=== PATIENT | female | born 1980 | race Caucasian/White ===

== ENCOUNTER 2020-05-14 16:23 | Emergency (ER) | payer OTHER, SELFPAY ==
--- NOTE | ~2020-05-14 | CT_ITS ---
EXAMINATION: CT HEAD WITHOUT CONTRAST CLINICAL INFORMATION: New onset of seizure COMPARISON: MRI brain 05/02/2009. CT head 10/02/2006 TECHNIQUE: Contiguous axial imaging was performed from the skull base to vertex without intravenous administration of contrast. Coronal and sagittal reformatted images are performed at the CT scanner. [This CT examination was performed using dose optimization techniques as appropriate, variously including the following: *Automated exposure control *Adjustment of mA and/or kV according to patient size (this includes techniques or standardized protocols for targeted exams where dose is matched to indication/reason for exam; i.e. extremities or head) *Use of iterative reconstruction technique] DLP: 768 mGy-cm. FINDINGS: There is no evidence of acute intracranial hemorrhage or territorial infarction. No abnormal mass-effect or midline shift is seen. Noel to white matter differentiation is well preserved. No extra-axial fluid collections are identified. The ventricles are normal in size. There is no abnormal attenuation within the brain parenchyma. There is no osseous abnormality. Large retention cyst in the right maxillary sinus. The mastoid air cells and the middle ear cavities are normally aerated. CT/CT head/brain wo con IMPRESSION: No acute intracranial pathology.
--- NOTE | 2020-05-14 15:53 | ECG_ITS ---
Test Reason : SIZURE Blood Pressure : / mmHG Vent. Rate : 140 BPM Atrial Rate : 140 BPM P-R Int : 118 ms QRS Dur : 070 ms QT Int : 300 ms P-R-T Axes : 052 055 033 degrees QTc Int : 458 ms Sinus tachycardia Nonspecific ST abnormality Abnormal ECG When compared with ECG of 01-NOV-2018 10:41, Vent. rate has increased BY [address] and T wave abnormality now present Referred By: Hesham Goyal Electronically Signed By:SONAM MASON
--- NOTE | 2020-05-14 16:29 | ED.GENADULT ---
HPI - General Adult General Chief complaint: Seizure <Kaykay Kay NP - Last Filed: 05/14/20 16:41> Stated complaint: DYSTONIC REACTION <Kaykay Kay NP - Last Filed: 05/14/20 16:41> Time Seen by Provider: 05/14/20 16:29 <Kaykay Kay NP - Last Filed: 05/14/20 16:41> Source: family <Hesham Goyal MD - Last Filed: 05/14/20 17:19> Mode of arrival: wheelchair <Hesham Goyal MD - Last Filed: 05/14/20 17:19> Limitations: altered mental status <Hesham Goyal MD - Last Filed: 05/14/20 17:19> Related Data Allergies/adverse reactions: Allergies Allergy/AdvReac Type Severity Reaction Status Date / Time acetaminophen [From PERCOCET] Allergy Mild NAUSEA & Unverified 12/26/19 15:03 VOMITING oxycodone [From PERCOCET] Allergy Mild NAUSEA & Unverified 12/26/19 15:03 VOMITING <Kaykay Kay NP - Last Filed: 05/14/20 16:41> [facility] Past Medical History Medical History: Medical History (Updated 05/14/20 @ 16:56 by Meryl Solo) Back pain <Kaykay Kay NP - Last Filed: 05/14/20 16:41> Social History Social History: Social History Advance Directives: No Advance Directives Information Provided: No <Kaykay Kay NP - Last Filed: 05/14/20 16:41> Physical Exam Vital Signs: Vital Signs: Last Vital Signs Pulse 140 H 05/14/20 16:51 Resp 18 05/14/20 16:51 BP 183/65 H 05/14/20 16:51 Pulse Ox 96 05/14/20 16:51 Body Mass Index 37.5 <Kaykay Kay NP - Last Filed: 05/14/20 16:41> Vital Signs: Last Vital Signs Pulse 140 H 05/14/20 16:51 Resp 18 05/14/20 16:51 BP 183/65 H 05/14/20 16:51 Pulse Ox 96 05/14/20 16:51 Body Mass Index 37.5 <Hesham Goyal MD - Last Filed: 05/14/20 17:19> Course Course Course Narrative: 1630-This is a rapid medical exam. 40 yo female here with multiple complaints. ~1 hrs MANAGER OUTREACH started having right arm, right leg shaking, right sided abdominal spasming which is involuntary lasts 10 minutes then self-resolves. Noted to have generalized tonic clonic activity in triage. Brought back to room immediately. <Kaykay Kay NP - Last Filed: 05/14/20 16:41> Medical Decision Making Lab Data Result diagrams: : 05/14/20 17:13 05/14/20 17:13 <Kaykay Kay NP - Last Filed: 05/14/20 16:41> Labs: Lab Results 05/14/20 Range/Units 16:43 POC Glucose 138 H (60-115) mg/dL <Kaykay Kay NP - Last Filed: 05/14/20 16:41> Lab Results 05/14/20 Range/Units 16:43 POC Glucose 138 H (60-115) mg/dL <Hesham Goyal MD - Last Filed: 05/14/20 17:19>
[2020-05-14] MEDS: LORazepam 2 MG/ML VIAL IVPUSH (16:47)
[2020-05-14 16:50] LABS: Glucose, Whole Blood 138 mg/dL (60-115)
--- NOTE | 2020-05-14 16:50 | ED_ITS ---
HPI - Seizure General Chief Complaint: Seizure Stated Complaint: DYSTONIC REACTION Time Seen by Provider: 05/14/20 16:29 Source: RN notes reviewed Mode of arrival: ambulatory Limitations: altered mental status History of Present Illness HPI Narrative: Patient with history of fibromyalgia came here for jerking movem ent of right and for last 1 hour and while coming to the ER she had small tonic- clonic seizure in the car, while waiting in the triage she said she was not feeling good and then she had another 30 seconds tonic-clonic seizure. When she arrived in the ER she was involuntary moving her right hand opening her eyes able to drink water received 2 mg of Ativan and sleeping now Related Data Previous Rx's Medication Instructions Recorded lorazepam [Ativan] 0.5 mg PO BEDTIME PRN #10 tab 05/14/20 Allergies Allergy/AdvReac Type Severity Reaction Status Date / Time acetaminophen [From PERCOCET] Allergy Mild NAUSEA & Unverified 12/26/19 15:03 VOMITING oxycodone [From PERCOCET] Allergy Mild NAUSEA & Unverified 12/26/19 15:03 VOMITING PMFSH Past Medical History Medical History (Updated 05/14/20 @ 18:58 by Hesham Goyal MD) Back pain Social History Social History Smoking Status: Never smoker Use of substances other than those prescribed or required for medical reasons: No Advance Directives: No Advance Directives Information Provided: No Physical Exam Vital Signs: Vital Signs: Last Vital Signs Temp 99.6 F 05/14/20 19:29 Pulse 77 05/14/20 19:29 Resp 18 05/14/20 19:29 BP 137/70 05/14/20 19:29 Pulse Ox 95 05/14/20 19:29 Body Mass Index 37.5 Course Course Course Narrative: Patient feeling much better now awake complaining of headache no seizures at this time. Patient remembering having seizure not fully but partially likely patient has partial complex seizure no diagnosis in the past will discharge her home on Ativan advised to follow with neurologist. Patient CT scan of head is negative. No family history of seizures no anxiety no incontinence patient's leukocytosis and metabolic acidosis is from the seizures patient denied any fever or any source of infection at this time patient back to normal ambulated in the ER MDM - Seizure Lab Data Result diagrams: 05/14/20 17:13 05/14/20 17:13 Labs: Lab Results 05/14/20 05/14/20 05/14/20 Range/Units 16:43 17:13 17:13 WBC 17.8 H (4.8-10.8) X10*3/uL RBC 4.62 (4.20-5.50) X10*6/uL Hgb 11.7 L (12.0-16.0) g/dl Hct 38.8 (37-47) % MCV 84.0 (80-98) fL MCH 25.3 L (27.0-33.0) pg MCHC 30.2 L (31.0-35.0) g/dl RDW 16.8 H (11.0-16.0) % Plt Count 432 H (160-400) X10*3/uL MPV 10.4 (9.4-12.3) fL Immature Gran % (Auto) 0.6 H (0.0-0.4) % Neut % (Auto) 35.2 L (45-73) % Lymph % (Auto) 55.0 H (20-40) % Calloway % (Auto) 7.7 (2-11) % Eos % (Auto) 1.2 (0-4) % Baso % (Auto) 0.3 (0-2) % Lymph # (Auto) 9.8 H (1.2-4.9) X10*3/uL Calloway # (Auto) 1.4 H (0.1-1.2) X10*3/uL Eos # (Auto) 0.2 (0.0-0.4) X10*3/uL Baso # (Auto) 0.1 (0.0-0.2) X10*3/uL Abs Immat Gran (auto) 0.10 H (0.00-0.03) X10*3/uL Absolute Neuts (auto) 6.3 (2.0-8.3) X10*3/uL Absolute Nucleated RBC 0.000 (0.0-0.012) X10*3/uL Nucleated RBC % (auto) 0.0 (0.0-0.2) /100WBC Smear Tech's Comments VERIFIED Hold Blue Top SEE NOTE Sodium (135-145) mmol/L Potassium (3.3-5.1) mmol/L Chloride (96-108) mmol/L Carbon Dioxide (22-29) mmol/L Anion Gap (12-20) BUN (9-16) mg/dL Creatinine (0.5-1.4) mg/dL Estim Creat Clear Calc Estimated GFR POC Glucose 138 H (60-115) mg/dL Random Glucose (60-115) mg/dL Calcium (8.4-10.2) mg/dL Total Bilirubin (0.0-1.0) mg/dL Direct Bilirubin (0.0-0.5) mg/dL AST (5-31) U/L ALT (0-31) U/L Alkaline Phosphatase (39-117) U/L Total Protein (6.5-8.0) g/dL Albumin (3.5-5.0) g/dL Procalcitonin ng/mL 05/14/20 05/14/20 Range/Units 17:13 17:13 WBC (4.8-10.8) X10*3/uL RBC (4.20-5.50) X10*6/uL Hgb (12.0-16.0) g/dl Hct (37-47) % MCV (80-98) fL MCH (27.0-33.0) pg MCHC (31.0-35.0) g/dl RDW (11.0-16.0) % Plt Count (160-400) X10*3/uL MPV (9.4-12.3) fL Immature Gran % (Auto) (0.0-0.4) % Neut % (Auto) (45-73) % Lymph % (Auto) (20-40) % Calloway % (Auto) (2-11) % Eos % (Auto) (0-4) % Baso % (Auto) (0-2) % Lymph # (Auto) (1.2-4.9) X10*3/uL Calloway # (Auto) (0.1-1.2) X10*3/uL Eos # (Auto) (0.0-0.4) X10*3/uL Baso # (Auto) (0.0-0.2) X10*3/uL Abs Immat Gran (auto) (0.00-0.03) X10*3/uL Absolute Neuts (auto) (2.0-8.3) X10*3/uL Absolute Nucleated RBC (0.0-0.012) X10*3/uL Nucleated RBC % (auto) (0.0-0.2) /100WBC Smear Tech's Comments Hold Blue Top Sodium 138 (135-145) mmol/L Potassium 4.0 (3.3-5.1) mmol/L Chloride 100 (96-108) mmol/L Carbon Dioxide 9 L* (22-29) mmol/L Anion Gap 33 H (12-20) BUN 11 (9-16) mg/dL Creatinine 1.14 (0.5-1.4) mg/dL Estim Creat Clear Calc 69.6 Estimated GFR 53 POC Glucose (60-115) mg/dL Random Glucose 185 H (60-115) mg/dL Calcium 8.8 (8.4-10.2) mg/dL Total Bilirubin < 0.2 (0.0-1.0) mg/dL Direct Bilirubin < 0.2 (0.0-0.5) mg/dL AST 32 H (5-31) U/L ALT 37 H (0-31) U/L Alkaline Phosphatase 82 (39-117) U/L Total Protein 7.8 (6.5-8.0) g/dL Albumin 4.6 (3.5-5.0) g/dL Procalcitonin < 0.02 ng/mL Discharge Plan Discharge Clinical Impression: New onset seizure Patient Disposition: Home, Self-Care Instructions: Epilepsy (ED) Additional Instructions: You likely have partial complex seizure. Do not drive cautions as advised and follow up with your primary care doctor/neurologist for EEG and further workup. Take Ativan 1 mg as needed for sleep/for mild seizure Report to the ER if recurrence of major seizures Prescriptions: New lorazepam [Ativan] 0.5 mg tablet 0.5 mg PO BEDTIME PRN (Reason: sleep/seizure) Qty: 10 RF: 0 Referrals: Janina Greenberg MD [Physician] - 3 days Interventions: ED Discharge Assessment Last Done: 05/14/20 19:31 Discharge Date/Time: 05/14/20 19:32
[2020-05-14 16:51] VITALS: BP 183/65; PULSE 140; RESP 18; O2SAT 96; BMI 37.5
[2020-05-14 17:20] LABS: Basophils Absolute Auto 0.1 X10*3/uL (0.0-0.2); Basophils Percent Auto 0.3 % (0-2); Eosinophils Absolute Auto 0.2 X10*3/uL (0.0-0.4); Eosinophils Percent Auto 1.2 % (0-4); Hematocrit 38.8 % (37-47); Hemoglobin 11.7 g/dl (12.0-16.0); Imm Gran Pct Auto 0.6 % (0.0-0.4); MANUAL DIFF FLAG SCAN; Mean Corpuscular HGB Conc 30.2 g/dl (31.0-35.0); Mean Corpuscular Hemoglobin 25.3 pg (27.0-33.0); Mean Platelet Volume 10.4 fL (9.4-12.3); Monocytes Absolute Auto 1.4 X10*3/uL (0.1-1.2); Monocytes Percent Auto 7.7 % (2-11); Neutrophils Absolute Auto 6.3 X10*3/uL (2.0-8.3); Neutrophils Percent Auto 35.2 % (45-73); Platelet Count 432 X10*3/uL (160-400); Red Blood Count 4.62 X10*6/uL (4.20-5.50); Red Cell Distribution Width 16.8 % (11.0-16.0); SCAN SMEAR FLAG 1; White Blood Count 17.8 X10*3/uL (4.8-10.8)
[2020-05-14 17:23] LABS: Lymphocytes Absolute Auto 9.8 X10*3/uL (1.2-4.9)
[2020-05-14 17:41] VITALS: BP 121/69; PULSE 110; RESP 18; O2SAT 99
[2020-05-14 17:41] LABS: SLIDE REVIEW VERIFIED
--- NOTE | 2020-05-14 17:45 | PC.NURSE ---
Addendum entered by Meryl Solo 05/14/20 17:46: seizure pads in place Original Note: pt appears to be more awake, pt answers questions appropriately, pt know where she is/time/date. no incontinent of urine, pt keeps asking for her , sinus tach on the monitor 115-110
[2020-05-14 18:00] LABS: Alanine Aminotransferase 37 U/L (0-31); Albumin Level 4.6 g/dL (3.5-5.0); Alkaline Phosphatase 82 U/L (39-117); Aspartate Amino Transferase 32 U/L (5-31); Bilirubin Direct < 0.2 mg/dL (0.0-0.5); Bilirubin Total < 0.2 mg/dL (0.0-1.0); Blood Urea Nitrogen 11 mg/dL (9-16); Calcium 8.8 mg/dL (8.4-10.2); Creatinine Clr Calc Pharmacy 69.6; Estimated Glomerular Filt Rate 53; Glucose Random 185 mg/dL (60-115); Total Protein 7.8 g/dL (6.5-8.0)
[2020-05-14 18:20] LABS: Anion Gap 33 (12-20); Carbon Dioxide 9 mmol/L (22-29); Chloride 100 mmol/L (96-108); Sodium 138 mmol/L (135-145)
[2020-05-14] MEDS: Butalb/Acetamin/Caff 50/325/40 TABLET 1 TAB PO (18:43)
[2020-05-14 18:45] VITALS: BP 113/58; PULSE 108; RESP 18
[2020-05-14 19:16] LABS: Procalcitonin < 0.02 ng/mL
[2020-05-14 19:29] VITALS: BP 137/70; PULSE 77; RESP 18; TEMP 37.6; O2SAT 95
== END 2020-05-14 19:32 | disposition home or self-care (01) ==
PROVIDERS: Nurse Practitioner Family; Emergency Provider Internal Medicine; PCP Internal Medicine
DX: R56.9 Unspecified convulsions (principal); Z79.899 Other long term (current) drug therapy
CPT/HCPCS: 36415; 70450; 80048; 80076; 82947; 84145; 85025; 93005; 96374; 99284; J2060

== ENCOUNTER 2020-05-29 15:43 | Emergency (ER) | payer OTHER, SELFPAY ==
[2020-05-29 15:57] VITALS: BP 152/80; PULSE 91; RESP 18; TEMP 37; O2SAT 99; BMI 36.7
--- NOTE | 2020-05-29 17:17 | ED_ITS ---
HPI - Chest Pain General Chief Complaint: Chest Pain Stated Complaint: Seizure Symptoms Time Seen by Provider: 05/29/20 17:12 Source: patient Mode of arrival: ambulatory Limitations: no limitations History of Present Illness HPI narrative: 40-year-old female with past medical history of seizure presents with headache, right arm weakness, photophobia, occipital headache, and dizziness. The symptoms are seen consistent with her prior seizure experience on May 14, she was worked up by , had an MRI and an EEG last week and is waiting for the results. She does not complain of loss of balance, chest pain or pressure, palpitations, abdominal pain, abdominal distention, dysuria, hematuria, fevers or chills. Timing of current episode: episodic Prior episodes: Yes Pain radiation: none Severity: moderate Risk Factors Coronary artery disease risk factors: none Thoracic aortic dissection risk factors: none Related Data On Oral Contraceptives: No Previous Rx's Medication Instructions Recorded lorazepam [Ativan] 0.5 mg PO BEDTIME PRN #10 tab 05/14/20 Allergies Allergy/AdvReac Type Severity Reaction Status Date / Time acetaminophen [From PERCOCET] Allergy Mild NAUSEA & Unverified 12/26/19 15:03 VOMITING oxycodone [From PERCOCET] Allergy Mild NAUSEA & Unverified 12/26/19 15:03 VOMITING Review of Systems Review of Systems: Constitutional: Positive occipital headache, No Fever, No Chills ENT/Mouth: No Ear Pain, No Hoarseness, No sore throat Eyes: Positive photophobia, No Eye Pain, No Swelling, No Redness, No Foreign Body Cardiovascular: No Chest Pain, No SOB Respiratory: No Cough, No Dyspnea Gastrointestinal: No Nausea, No Vomiting, No Diarrhea, No abdominal Pain Genitourinary: No Dysuria, No Hematuria Musculoskeletal: positive right arm weakness, No Myalgias, No Joint Swelling Skin: No Skin lacerations, No rash Neuro: No Weakness, No Numbness, No Paresthesias, No Loss of Consciousness, No Dizziness, No Headache Psych: No Anxiety/Panic, No Depression Heme/Lymph: no easy bruising, no Lymphadenopathy Endocrine: No Polyuria, No Polydipsia Yes all other systems are reviewed and are negative [facility] Past Medical History Attestation statement: The following information was validated with the patient. Source: old records reviewed Medical History Back pain Social History Social History Smoking Status: Never smoker Advance Directives: No Advance Directives Information Provided: No Physical Exam Vital Signs: Vital Signs: Last Vital Signs Temp 98.6 F 05/29/20 15:57 Pulse 91 05/29/20 15:57 Resp 18 05/29/20 15:57 BP 152/80 H 05/29/20 15:57 Pulse Ox 99 05/29/20 15:57 Body Mass Index 36.7 Appearance: Alert. Oriented X3. No acute distress. Eyes: Pupils equal, round and reactive to light. ENT: Pharynx normal. Neck: Normal inspection. Neck supple. CVS: Normal heart rate and rhythm. Pulses normal. Respiratory: No respiratory distress. Breath sounds normal. Abdomen: Soft and nontender. Skin: Skin warm and dry. Normal skin color. Normal skin turgor. Extremities: No lower extremity edema. Neuro: No motor deficit. No sensory deficit. Course Course Course Narrative: 40-year-old female presents with symptoms consistent with prior seizure. Symptoms started at 9:00 a.m. with dizziness, occipital headache, sense of disconnect to the right arm. She did take an Ativan which was prescribed to her by Neurology, stated the symptoms returned between 12:00 and 1:00 p.m.. She states that these feelings that she has had are consistent with her prior experience on May 14, 2020. She does have a distant history of migraines, MRI and EEG results are pending. She does have follow-up with Dr. Greenberg on the . At this time patient was ambulatory, well-balanced well coordinated gait, able to move all extremities without difficulty. Plan is to treat for migraine symptoms. This plan was discussed with patient and she is in agreement. RN updated this ERP SPECIALIST that patient did not want an IV started, did not want the medications that were suggested. Stated that she did not have a headache to the RN. Patient no longer wants to be treated and would like to leave AMA. Rhodhiss text discussion with Dr. Greenberg. MDM - Chest Pain Differential Diagnosis Differential diagnosis: Migraine, aura, seizure Discharge Plan Discharge Clinical Impression: Aura Patient Disposition: Left Against Medical Advice Additional Instructions: You were evaluated for symptoms consistent with an aura. You described photophobia, right arm disconnect , dizziness and headache. Please follow-up with Neurology for your pending MRI and EEG results. You are leaving against medical advice. You are more than welcome to return for further care at any time. Prescriptions: No Action lorazepam [Ativan] 0.5 mg tablet 0.5 mg PO BEDTIME PRN (Reason: sleep/seizure) Qty: 10 RF: 0 Referrals: Janina Greenberg MD [Physician] - 2 days Stand Alone Forms: Against Medical Advice Interventions: ED Discharge Assessment Last Done: 05/29/20 18:36 Discharge Date/Time: 05/29/20 18:37
--- NOTE | 2020-05-29 18:06 | PC.NURSE ---
PT REFUSING MEDS AND IV AFTER EVAL BY PROVIDER. WANTS TO LEAVE AMA
== END 2020-05-29 18:37 | disposition left against medical advice (07) ==
PROVIDERS: Emergency Provider Internal Medicine; PCP Internal Medicine
DX: G43.109 Migraine with aura, not intractable, without status migrainosus (principal); R07.9 Chest pain, unspecified; R56.9 Unspecified convulsions; Z79.899 Other long term (current) drug therapy
CPT/HCPCS: 99282; 99283

== ENCOUNTER 2021-02-18 12:57 | Outpatient (REF) | payer OTHER, SELFPAY ==
[2021-02-19 08:38] LABS: Syphilis Screen Nonreactive (Nonreactive)
[2021-02-20 21:13] LABS: Lyme Abs Screen <0.90 index
[2021-02-22 15:52] LABS: Anti Nuclear Antibody Screen POSITIVE (NEGATIVE)
[2021-02-22 15:56] LABS: Anti Nuclear Antibody Pattern Nuclear, Homogeneous
[2021-02-23 16:22] LABS: Anti DNA DS Antibody 20 IU/mL
== END 2021-02-18 12:58 | disposition home or self-care (01) ==
LOC: HO.LAB 12:57
PROVIDERS: PCP Internal Medicine; Visit Provider Psychiatry & Neurology Neurology
DX: G93.9 Disorder of brain, unspecified (principal)
CPT/HCPCS: 36415; 86038; 86039; 86225; 86617; 86618; 86780

== ENCOUNTER 2021-05-07 14:38 | Emergency (ER) | payer OTHER, SELFPAY ==
--- NOTE | ~2021-05-07 | XR_ITS ---
EXAMINATION: CHEST WITH LEFT RIBS, PELVIS AND LEFT HIP CLINICAL INFORMATION: Fall with hip and left rib pain COMPARISON: CT lumbar spine same day TECHNIQUE: Single view pelvis with 2 additional views left hip, single view chest with 3 additional views left RIBS FINDINGS: No hip or pelvic fracture is seen. No significant abnormalities seen involving the heart, lungs, mediastinum or bony thorax. No rib fractures are seen. XR/XR hip LT w PEL1V IMPRESSION: Negative exams
--- NOTE | ~2021-05-07 | CT_ITS ---
EXAMINATION: CT THORACIC SPINE AND CT LUMBAR SPINE WITHOUT CONTRAST. CLINICAL INFORMATION: Status post fall. COMPARISON: None TECHNIQUE: 2 mm thin axial and reformatted 2 mm thin sagittal and coronal images of thoracic and lumbar spine were obtained without contrast. DLP 1317. FINDINGS: Thoracic spine: On sagittal reconstructed images there is normal thoracic kyphosis. The vertebral heights, alignment and disc heights are normal. There is more mild posterior spondylosis T6-T7 disc level. There is no evidence of disc bulge, herniation or spinal stenosis at any of the disc levels. The neural foramina are patent bilaterally at all disc levels. The facet joints are symmetrical and normal. No lytic or sclerotic process seen. The paravertebral soft tissues and visualized posterior lungs are unremarkable. Lumbar spine: There is normal lumbar lordosis. The vertebral heights,, alignment and disc heights are normal. There is no visible acute fracture, dislocation or lytic process seen. There is moderate right L5-S1 facet joint arthropathy and hypertrophy. Rest of the facet joints are unremarkable. No visible acute fracture, dislocation or lytic process seen. The paravertebral soft tissues are normal. CT/CT thoracic spine wo con IMPRESSION: No acute fracture, dislocation or subluxation seen in dorsal or lumbar spine. There is moderate right L5-S1 facet joint arthropathy and hypertrophy. Mild posterior spondylosis or calcified posterior longitudinal ligament T6-T7 disc level.
--- NOTE | ~2021-05-07 | XR_ITS ---
EXAMINATION: CHEST WITH LEFT RIBS, PELVIS AND LEFT HIP CLINICAL INFORMATION: Fall with hip and left rib pain COMPARISON: CT lumbar spine same day TECHNIQUE: Single view pelvis with 2 additional views left hip, single view chest with 3 additional views left RIBS FINDINGS: No hip or pelvic fracture is seen. No significant abnormalities seen involving the heart, lungs, mediastinum or bony thorax. No rib fractures are seen. XR/XR ribs LT min 3V w CXR1V IMPRESSION: Negative exams
--- NOTE | ~2021-05-07 | CT_ITS ---
EXAMINATION: CT THORACIC SPINE AND CT LUMBAR SPINE WITHOUT CONTRAST. CLINICAL INFORMATION: Status post fall. COMPARISON: None TECHNIQUE: 2 mm thin axial and reformatted 2 mm thin sagittal and coronal images of thoracic and lumbar spine were obtained without contrast. DLP 1317. FINDINGS: Thoracic spine: On sagittal reconstructed images there is normal thoracic kyphosis. The vertebral heights, alignment and disc heights are normal. There is more mild posterior spondylosis T6-T7 disc level. There is no evidence of disc bulge, herniation or spinal stenosis at any of the disc levels. The neural foramina are patent bilaterally at all disc levels. The facet joints are symmetrical and normal. No lytic or sclerotic process seen. The paravertebral soft tissues and visualized posterior lungs are unremarkable. Lumbar spine: There is normal lumbar lordosis. The vertebral heights,, alignment and disc heights are normal. There is no visible acute fracture, dislocation or lytic process seen. There is moderate right L5-S1 facet joint arthropathy and hypertrophy. Rest of the facet joints are unremarkable. No visible acute fracture, dislocation or lytic process seen. The paravertebral soft tissues are normal. CT/CT lumbar spine wo con IMPRESSION: No acute fracture, dislocation or subluxation seen in dorsal or lumbar spine. There is moderate right L5-S1 facet joint arthropathy and hypertrophy. Mild posterior spondylosis or calcified posterior longitudinal ligament T6-T7 disc level.
[2021-05-07 15:14] VITALS: BP 127/49; PULSE 90; RESP 17; TEMP 37; O2SAT 100; BMI 35.8
--- NOTE | 2021-05-07 16:17 | ED_ITS ---
HPI - Back Pain/Injury General Chief Complaint: Back Pain/Injury Stated Complaint: fall back inj Time Seen by Provider: 05/07/21 16:17 Source: patient Mode of arrival: ambulatory Limitations: no limitations History of Present Illness HPI Narrative: 41-year-old female with a history of seizures and panic attacks had a seizure yesterday and fell. She now has left rib pain, left hip pain. It hurts to walk. It hurts to take a deep breath. Her left hip Pain is burning and sharp. No radiation down her leg. No bladder or bowel incontinence, no fevers, no saddle paresthesias, no leg weakness. Patient is on 50 mg Topamax b.i.d., and started Zoloft 2 months ago. Her last seizure was in October. She is planning to be evaluated by her neurologist for concerns of Zoloft interfering with Topamax. Related Data Previous Rx's Medication Instructions Recorded lorazepam 0.5 mg tablet (Ativan) 0.5 mg PO BEDTIME PRN #10 tab 05/14/20 ketorolac 10 mg tablet 10 mg PO Q6H 5 Days #20 tab 05/07/21 oxycodone 5 mg capsule 5 mg PO Q8H PRN #12 cap 05/07/21 Allergies Allergy/AdvReac Type Severity Reaction Status Date / Time acetaminophen [From Allergy Mild NAUSEA & Unverified 12/26/19 15:03 PERCOCET] VOMITING oxycodone [From Allergy Mild NAUSEA & Unverified 12/26/19 15:03 PERCOCET] VOMITING lamotrigine [From Allergy Rash Verified 05/07/21 15:18 Lamictal] Review of Systems Verdana 4l Constitutional: Verdana 4d Constitutional: Verdana 4d Verdana 4d Denies body ache(s), Denies chills, Denies fatigue, Denies fever(s), Denies headache(s), Denies malaise and Denies weakness Verdana 4l Eyes: Verdana 4d Verdana 4d Eyes: Verdana 4d Denies diplopia Verdana 4l ENT: Verdana 4d Denies vertigo, Denies dizziness, Denies otalgia, Denies headache(s), Denies mouth pain, Denies neck pain, Denies post nasal drip, Denies sinus pain, Denies sinus pressure, Denies sore throat and Denies throat swelling Verdana 4l Cardiovascular: Verdana 4d Cardiovascular: Verdana 4d Verdana 4d Denies chest pain, Denies syncope, Denies leg edema, Denies lightheadedness, Denies Loss of Consciousness, Denies palpitations and Denies dyspnea Verdana 4l Respiratory: Verdana 4d Verdana 4d Respiratory: Verdana 4d Denies chest congestion, Denies cough and Denies dyspnea Verdana 4l Gastrointestinal: Verdana 4d Gastrointestinal: Verdana 4d Verdana 4d Denies abdominal pain, Denies hematochezia, Denies constipation, Denies fecal incontinence, Denies diarrhea and Denies vomiting Verdana 4l Genitourinary: Verdana 4d Verdana 4d Genitourinary: Verdana 4d Reports no additional female genitourinary complaints and Denies urinary incontinence Verdana 4l Musculoskeletal: Verdana 4d Musculoskeletal: Verdana 4d Verdana 4d Reports back pain, Denies neck pain, Denies radiating pain into limb, Denies tingling and Reports other (left rib pain) Verdana 4l Integumentary/Breasts: Verdana 4d Skin/Breast: Verdana 4d Verdana 4d Denies rash, Denies skin pain and Denies skin swelling Verdana 4l Neurologic: Verdana 4d Denies confusion, Denies vertigo, Denies dizziness, Denies syncope, Denies headache(s), Denies tingling, Denies paresthesias and Denies weakness Verdana 4l Psychiatric: Verdana 4d Verdana 4d Psychiatric: Verdana 4d Denies anxiety, Denies confusion and Denies depression Verdana 4l Endocrine: Verdana 4d Verdana 4d Endocrine: Verdana 4d Denies fatigue and Denies palpitations Verdana 4l Allergic/Immunologic: Verdana 4d Allergic/Immunologic: Verdana 4d Verdana 4d Denies throat swelling PMFSH Past Medical History Medical History Back pain Social History Social History Advance Directives: No Advance Directives Information Provided: No Patient : No Physical Exam Verdana 4l Vital Signs: Verdana 4d Verdana 4d Vital Signs: Verdana 4d Verdana 4Bd Last Vital Signs Verdana 4d Senior Technical Architect New 4d Senior Technical Architect New 4d Temp 98.6 F 05/07/21 15:14 Senior Technical Architect New 4d Pulse 90 05/07/21 15:14 Senior Technical Architect New 4d Resp 17 05/07/21 15:14 BP 127/49 L 05/07/21 15:14 Pulse Ox 100 05/07/21 15:14 BMI result Body Mass Index 35.8 Const: General: No confusion Nutritional Appearance: well nourished Orientation/consciousness: No confusion Limitations: no limitations HENMT: Head: Yes normal to inspection, Yes No palpable skull fracture present, Yes normocephalic and Yes atraumatic Eyes: Conjunctivae: conjunctivae normal Pupils: Equal, round and reactive pupils present EOM: EOMs intact bilaterally Neck: Neck: Yes full ROM, Yes no lymphadenopathy and Yes supple Chest: Chest palpation & inspection: normal inspection of the chest, no crepitus and tenderness rib (left posterior ribs) Resp: Effort & Inspection: normal respiratory effort and able to speak in complete sentences Auscultation: clear to auscultation bilaterally, no crackles, no rales, no rhonchi and no wheezes Cardio: Rate: regular rate Rhythm: regular rhythm Heart sounds: S1 normal heart sound present and S2 normal heart sound present GI: Inspection: Yes normal to inspection Palpation (GI): Soft to palpation, nontender, no guarding and not rigid Percussion: Yes normal to percussion Auscultation: normal bowel sounds Back/Spine/Pelvis: Cervical Spine: normal cervical lordosis, cervical ROM normal, No Cervical spine tenderness and No step off deformity Thoracic/Lumbar Spine: thoracic spinal tenderness at T4, at T5 and at T6 Pelvis: no pain with anterior-posterior compression, no pain with lateral compression and buttock tenderness on the left Sacroiliac joints: on the left tender to palpation Skin: General skin exam: no rashes or lesions noted Neuro: General: No confusion Cranial nerves: Yes Equal, round and reactive pupils present Extrem: General: Yes normal to inspection and Yes full ROM Psych: Appearance: grossly normal Affect: normal affect Attitude: cooperative Thought process: Normal thought process present Course Course Course Narrative: 41-year-old female with seizure history had a seizure last night and now presents with left hip Pain and left rib Pain. On exam patient has stable vitals, is tender in her lower thoracic vertebrae, tender in her posterior left ribs that is not localizable, and tender in her left buttock patient is concerned about any medication interfering with her Topamax. Gave Valium for pain, ordered CT thoracic and lumbar spine, x-ray pelvis left hip, x-ray left rib series Reevaluation(s) Reevaluation #1: Pt not feeling much better with valium. All imaging is negative. Will have patient f/u with PCP and nuerologist, will prescribe oxycodone and ketorolac for pain. Gave return precautions FINDINGS: No hip or pelvic fracture is seen. No significant abnormalities seen involving the heart, lungs, mediastinum or bony thorax. No rib fractures are seen. CT/CT lumbar spine wo con IMPRESSION: No acute fracture, dislocation or subluxation seen in dorsal or lumbar spine. ? There is moderate right L5-S1 facet joint arthropathy and hypertrophy. ? Mild posterior spondylosis or calcified posterior longitudinal ligament T6-T7 disc level. Discharge Plan Discharge Clinical Impression: Contusion of hip, left, Contusion of rib on left side Patient Disposition: Home, Self-Care Instructions: Contusion in Adults (ED) Additional Instructions: please call your PCP on Monday for follow-up appointment. Please return to emergency room if you have sudden leg weakness, numbness or tingling in your groin, if you are incontinent of bowel or bladder, or for any other new or concerning symptoms Prescriptions: New oxycodone 5 mg capsule 5 mg PO Q8H PRN (Reason: pain) Qty: 12 0RF ketorolac 10 mg tablet 10 mg PO Q6H 5 Days Qty: 20 0RF No Action lorazepam [Ativan] 0.5 mg tablet 0.5 mg PO BEDTIME PRN (Reason: sleep/seizure) Qty: 10 0RF
[2021-05-07] MEDS: diazePAM 5 MG TABLET PO (16:34)
[2021-05-07 19:30] VITALS: BP 118/56; PULSE 84; RESP 16; O2SAT 98
[2021-05-07] MEDS: oxyCODONE HCl Immed Release 5 MG TABLET 10 MG PO (19:37)
[2021-05-07] MEDS: Ketorolac Tromethamine 30 MG/ML VIAL IM (19:38)
== END 2021-05-07 19:46 | disposition home or self-care (01) ==
PROVIDERS: Emergency Provider Emergency Medicine; PCP Internal Medicine
DX: R56.9 Unspecified convulsions (principal); M25.552 Pain in left hip; R07.81 Pleurodynia; M54.6 Pain in thoracic spine; Z79.899 Other long term (current) drug therapy
CPT/HCPCS: 71101; 72128; 72131; 73502; 96372; 99284; J1885

== ENCOUNTER → 2021-06-14 14:54 | Outpatient (BNVA) | payer OTHER, SELFPAY | PROVIDERS: PCP Internal Medicine; Visit Provider Internal Medicine ==

== ENCOUNTER 2021-06-16 13:47 | Outpatient (RCR) | payer OTHER, SELFPAY | END 2021-06-17 23:59 | disposition left against medical advice (07) | LOC: HO.PHPA 13:47 | PROVIDERS: Visit Provider Psychiatry & Neurology Psychiatry | DX: F33.1 Major depressive disorder, recurrent, moderate (principal); F41.1 Generalized anxiety disorder; F41.0 Panic disorder [episodic paroxysmal anxiety] | CPT/HCPCS: 90791 ==

== ENCOUNTER 2021-07-06 19:29 | Outpatient (REF) | payer OTHER, SELFPAY ==
--- NOTE | ~2021-07-06 | MR_ITS ---
MR LUMBAR SPINE WITHOUT AND WITH IV CONTRAST CLINICAL INFORMATION: Lumbosacral region radiculopathy. COMPARISON: Lumbar spine CT 05/07/2021. TECHNIQUE: MRI of the lumbar spine was obtained using routine sequences with and without contrast. Intravenous contrast: Gadavist 9 mL FINDINGS: There are 5 nonrib-bearing lumbar-type vertebral bodies. There is a rudimentary disc at S1-S2. Mild disc volume loss and disc desiccation at L5-S1. The remaining discs remain well-hydrated and the remaining disc volumes are preserved. There is no bone marrow edema. There are no acute fractures. No suspicious enhancing intraosseous lesions. No pathologic intrathecal enhancement. No pathologic enhancement along the cauda equina nerve roots. The L1-L2, L2-L3, and L3-L4 disc contours are normal. There is mild bilateral facet arthropathy at L3-L4. There is no central canal stenosis and there is no foraminal stenosis at these levels. L4-L5: There is a small annular disc bulge and there is severe left and mild right hypertrophic facet arthropathy. No central canal stenosis. There is mild foraminal encroachment bilaterally. L5-S1: Laminectomy changes span the L5 through the S2 levels. There are additional postoperative changes following fatty filar transection. There is enhancing granulation/scar tissue within the dorsal epidural space. There is advanced bilateral hypertrophic facet arthropathy and there is a diffuse disc osteophyte complex. Findings in concert result in moderate left and mild right foraminal stenosis with mild mass effect on the exiting left L5 nerve root. No central canal stenosis. MR/MR lumbar spine wo/w con IMPRESSION: - At L5-S2, there are laminectomy changes and there is enhancing granulation/scar tissue within the dorsal epidural space. There are additional postoperative changes following fatty filar transection. - Diffuse disc osteophyte and advanced bilateral hypertrophic facet arthropathy at L5-S1 result in moderate left foraminal stenosis with mild mass effect on the exiting left L5 nerve root. - At L4-L5, there is a small annular disc bulge that along with severe left and mild right hypertrophic facet arthropathy results in mild bilateral foraminal encroachment, unchanged.
== END 2021-07-06 19:30 | disposition home or self-care (01) ==
LOC: HO.MRI 19:29
PROVIDERS: Visit Provider Internal Medicine
DX: M47.816 Spondylosis without myelopathy or radiculopathy, lumbar region (principal); M54.17 Radiculopathy, lumbosacral region; M96.1 Postlaminectomy syndrome, not elsewhere classified; Q06.8 Other specified congenital malformations of spinal cord
CPT/HCPCS: 72158; A9585

== ENCOUNTER → 2021-07-16 09:46 | Outpatient (BNVA) | payer OTHER, SELFPAY | PROVIDERS: PCP Internal Medicine; Visit Provider Internal Medicine | DX: Z13.89 Encounter for screening for other disorder (principal) ==

== ENCOUNTER 2021-07-16 16:12 | Inpatient (IN) | payer OTHER, SELFPAY ==
--- NOTE | 2021-07-16 | ECG_ITS ---
Test Reason : SEIZURE Blood Pressure : / mmHG Vent. Rate : 134 BPM Atrial Rate : 134 BPM P-R Int : 132 ms QRS Dur : 068 ms QT Int : 296 ms P-R-T Axes : 047 037 -02 degrees QTc Int : 442 ms Sinus tachycardia Possible Left atrial enlargement Nonspecific ST abnormality Abnormal ECG When compared with ECG of 14-MAY-2020 16:53, No significant change was found Referred By: Generic ED Physician Electronically Signed By:BRETT MCNULTY MD
--- NOTE | ~2021-07-16 | MR_ITS ---
MR BRAIN WITHOUT AND WITH CONTRAST CLINICAL INFORMATION: Parietal lesion with recurrent seizures. COMPARISON: Head CT 07/16/2021. Brain MRI 05/02/2009. Brain MRI report dated 02/08/2021. No images are available from this report. TECHNIQUE: Multiplanar, multisequence MRI of the brain was obtained before and after the intravenous administration of 9 mL of Gadavist. FINDINGS: T2 signal changes and probable volume loss within the left parietal lobe, favoring gliosis and encephalomalacia. These findings are described on the report from the 02/08/2021 brain MRI and are not present on a brain MRI from 05/02/2009. Therefore a cortical dysplasia is felt to be unlikely. There is no pathologic enhancement intracranially. There is no mesial temporal sclerosis. There is no hydrocephalus, extra-axial surface collection, or herniation. A few punctate foci of T2 signal change within the bifrontal white matter are nonspecific. The major flow voids at the skull base are preserved. There is no acute infarct on diffusion-weighted imaging. There is no intracranial hemorrhage on the gradient recalled echo acquisition. The midline structures are normal. The cerebellar tonsils are normally positioned. The cerebellum and brainstem are normal. The craniocervical junction is normal. Osseous marrow signal intensity is homogenous. The visualized soft tissues are unremarkable. Retention cyst right maxillary sinus and moderate mucosal thickening within the ethmoid air cells bilaterally. MR/MR head/brain wo/w con IMPRESSION: - T2 signal changes and probable volume loss within the left parietal lobe, favoring gliosis and encephalomalacia. These findings are described on the report from the 02/08/2021 brain MRI and are not present on a brain MRI from 05/02/2009. Therefore a cortical dysplasia is felt to be unlikely. There is no pathologic enhancement intracranially. There is no mesial temporal sclerosis. - A few punctate foci of T2 signal change within the bifrontal white matter are nonspecific.
--- NOTE | ~2021-07-16 | CT_ITS ---
EXAMINATION: CT HEAD WITHOUT CONTRAST CLINICAL INFORMATION: Seizures. COMPARISON: CT head 05/14/2020 TECHNIQUE: Contiguous axial imaging was performed from the skull base to vertex without intravenous administration of contrast. Coronal and sagittal reformatted images are performed at the CT scanner. [This CT examination was performed using dose optimization techniques as appropriate, variously including the following: *Automated exposure control *Adjustment of mA and/or kV according to patient size (this includes techniques or standardized protocols for targeted exams where dose is matched to indication/reason for exam; i.e. extremities or head) *Use of iterative reconstruction technique] DLP: 684 mGy-cm. FINDINGS: There is no evidence of acute intracranial hemorrhage or territorial infarction. No abnormal mass-effect or midline shift is seen. Noel to white matter differentiation is well preserved. No extra-axial fluid collections are identified. The ventricles are normal in size. There is no abnormal attenuation within the brain parenchyma. There is no osseous abnormality. The mastoid air cells and visualized portions of the paranasal sinuses are well-aerated. CT/CT head/brain wo con IMPRESSION: No acute intracranial pathology.
--- NOTE | ~2021-07-16 | XR_ITS ---
EXAMINATION: XR chest 1V CLINICAL INFORMATION: Reason for Exam seizure COMPARISON: Chest radiograph 05/07/2021 TECHNIQUE: One view of the chest XR/XR chest 1V FINDINGS/IMPRESSION: Clear lungs. No pneumothorax. No pleural effusion. Normal cardiomediastinal silhouette.
[2021-07-16 16:26] VITALS: BP 128/52; PULSE 138; RESP 30; TEMP 37.2; O2SAT 96; BMI 33.4
[2021-07-16 16:36] LABS: Basophils Absolute Auto 0.1 X10*3/uL (0.0-0.2); Basophils Percent Auto 0.5 % (0-2); Eosinophils Absolute Auto 0.2 X10*3/uL (0.0-0.4); Eosinophils Percent Auto 1.4 % (0-4); Hemoglobin 8.5 g/dl (12.0-16.0); Imm Gran Abs Auto 0.21 X10*3/uL (0.00-0.03); Imm Gran Pct Auto 1.2 % (0.0-0.4); Lymphocytes Percent Auto 53.9 % (20-40); MANUAL DIFF FLAG SCAN; Mean Corpuscular HGB Conc 27.4 g/dl (31.0-35.0); Mean Corpuscular Hemoglobin 20.5 pg (27.0-33.0); Mean Corpuscular Volume 74.9 fL (80.0-98.0); Mean Platelet Volume 10.3 fL (9.4-12.3); Monocytes Absolute Auto 0.7 X10*3/uL (0.1-1.2); Monocytes Percent Auto 4.4 % (2-11); Neutrophils Absolute Auto 6.6 x10*3/uL (2.0-8.3); Neutrophils Percent Auto 38.6 % (45-73); Platelet Count 428 X10*3/uL (160-400); Red Blood Count 4.14 X10*6/uL (4.20-5.50); Red Cell Distribution Width 18.8 % (11.0-16.0); SCAN SMEAR FLAG 1
[2021-07-16 16:40] LABS: Lymphocytes Absolute Auto 9.2 X10*3/uL (1.2-4.9)
--- NOTE | 2021-07-16 16:49 | PC.NURSE ---
PATIENT WAS ASSISTED TO GET UNDRESS AND CHANGE INTO HOSPITAL ATTIRE ,PATIENT WAS ASSISTED ON THE BED YOUNG
[2021-07-16 16:54] LABS: SLIDE REVIEW VERIFIED
[2021-07-16 17:06] LABS: Alanine Aminotransferase 16 U/L (0-31); Albumin Level 4.4 g/dL (3.5-5.0); Alkaline Phosphatase 86 U/L (39-117); Anion Gap 28 (12-20); Aspartate Amino Transferase 22 U/L (5-31); Bilirubin Total 0.2 mg/dL (0.0-1.0); Blood Urea Nitrogen 9 mg/dL (9-16); Calcium 8.1 mg/dL (8.4-10.2); Carbon Dioxide 6 mmol/L (22-29); Chloride 106 mmol/L (96-108); Creatinine Clr Calc Pharmacy 84.2; Estimated Glomerular Filt Rate > 60; Glucose Random 176 mg/dL (60-115); Potassium 4.4 mmol/L (3.3-5.1); Sodium 136 mmol/L (135-145); Total Protein 7.9 g/dL (6.5-8.0)
--- NOTE | 2021-07-16 17:13 | ED.SEIZURE ---
HPI - Seizure General Chief Complaint: Seizure Stated Complaint: seizure Time Seen by Provider: 07/16/21 16:28 Source: patient and family ( ) Mode of arrival: ambulatory Limitations: no limitations History of Present Illness HPI Narrative: 41 years old female BIBA for evaluation of multiple seizures. this is a 41 years old female with known history of seizure follow with Dr. Greenberg the neurologist has been using Topamax 100 mg b.i.d. for seizure, confirms compliance with medication, patient today felt an aura which is usually numbness and feels her right upper extremities is dissociated from her body, then patient after that had a partial seizure with no LOC, described focal seizure to the right upper extremities that the patient was aware of it with no LOC, seizure was witness by her also, each time lasts for few minutes the patient after that feel tired without LOC. had history of using Klonopin p.r.n. for anxiety has been discontinued for the past 2 weeks, patient is suffering from insomnia for the past week. Otherwise no UTI symptoms, no fever, no chills. Seizure History: Yes Place: Home Related Data Home Medications Medication Instructions Recorded Confirmed clonazepam 1 mg tablet 1 mg PO BEDTIME 06/14/21 07/16/21 cyclobenzaprine 10 mg tablet 10 mg PO BEDTIME 06/14/21 07/16/21 sertraline 50 mg tablet (Zoloft) 50 mg PO DAILY 06/14/21 07/16/21 topiramate 50 mg tablet 1 tab PO BID 07/16/21 07/16/21 Allergies Allergy/AdvReac Type Severity Reaction Status Date / Time lamotrigine [From Lamictal] Allergy Rash Verified 07/16/21 09:47 Review of Systems Review of Systems: All other systems are reviewed and are negative Constitutional: Reports as per HPI and Reports no additional constitutional complaints Eyes: Reports as per HPI and Reports no additional eye complaints Reports system reviewed and no additional complaints, except as documented Cardiovascular: Reports as per HPI and Reports no additional cardiovascular complaints Respiratory: Reports as per HPI and Reports no additional respiratory complaints Gastrointestinal: Reports as per HPI and Reports no additional gastrointestinal complaints Genitourinary: Reports no additional female genitourinary complaints Musculoskeletal: Reports no additional musculoskeletal complaints Skin/Breast: Reports system reviewed and no additional complaints, except as docu Psychiatric: Reports no additional psychiatric complaints Endocrine: Reports no additional endocrine complaints Hematologic/Lymphatic: Reports no additional hematologic/lymphatic complaints Allergic/Immunologic: Reports no additional allergic/immunologic complaints Reports system reviewed and no additional complaints, except as documented and Reports Abnormal speech present COUNT INCLUDES THE [facility] Past Medical History Medical History Back pain Lumbar spondylosis Lumbosacral radiculopathy at S1 Post laminectomy syndrome Seizures, generalized convulsive Tethered cord syndrome Social History Social History Household Members: Spouse and Other Household Members Other:: Daughter Advance Directives: No Advance Directives Information Provided: No Physical Exam Vital Signs: Vital Signs: Last Vital Signs Temp 97.8 F 07/16/21 17:50 Pulse 113 H 07/16/21 17:50 Resp 18 07/16/21 17:50 BP 95/42 L 07/16/21 17:50 Pulse Ox 98 07/16/21 17:50 BMI result Body Mass Index 33.4 vital signs have been reviewed as appeared to be correct. Blood pressure normal. Heart rate normal. Respiration rate normal. Temperature normal. Oxygen saturation normal. Appearance: Alert. Oriented X3. No acute distress. Head: Normal external exam. Normocephalic. Atraumatic. No Johnson signs noted. No raccoon eyes noted Eyes: PERRLA. EOMI. Conjunctiva and sclera normal. Eyelids normal. ENT: TM's Normal. Pharynx normal. Uvula midline. Moist mucous membranes. No trismus noted. No drooling noted. No muffled voice noted. Neck: Normal inspection. Neck supple. FROM. No adenopathy. Thyroid Normal. No meningeal signs. No neck mass noted. CVS: Normal heart rate and rhythm. Heart sound normal. No murmurs noted. Pulses normal throughout. Respiratory: No respiratory distress. Painless inspiration. Breath sounds normal. No wheezes/rales/rhonchi noted. Chest nontender. No accessory muscle usage noted or decreased air movement noted. Abdomen: Soft and nontender. Bowel sounds normal in all 4 quadrants. No distention noted. No organomegaly noted. No visible injury noted. Back: No CVA tenderness. Full range of motion noted. Skin: Skin warm and dry. Normal skin color. Normal skin turgor. No rashes/lesions/lacerations noted. Extremities: No lower extremity edema. Extremities exhibit normal range of motion. Extremities nontender. Neuro: Oriented X 3. Cranial nerve exam: II-XII are grossly intact No motor deficit. No sensory deficit. Reflexes normal. Course Course Course Narrative: Assessment and plan. 41-year-old female with history of seizure, patient is taking Topamax 100 mg b.i.d. for seizure, patient witnessed to have 5 separate episodes of partial focal seizure without LOC. blood labs are consistent with post ictal state, CT head is unremarkable. there is a concern of benzo withdrawal, case discussed with Dr. Greenberg will admit the patient for further neurological evaluation. will start the patient on Keppra 500 mg p.o. given in the emergency department. MDM - Seizure Lab Data Attestation: I reviewed the patient's lab results. Result diagrams: 07/16/21 16:31 07/16/21 16:31 Labs: Lab Results 07/16/21 07/16/21 07/16/21 Range/Units 16:31 16:31 17:51 WBC 17.0 H (4.8-10.8) X10*3/uL RBC 4.14 L (4.20-5.50) X10*6/uL Hgb 8.5 L (12.0-16.0) g/dl Hct 31.0 L (37.0-47.0) % MCV 74.9 L (80.0-98.0) fL MCH 20.5 L (27.0-33.0) pg MCHC 27.4 L (31.0-35.0) g/dl RDW 18.8 H (11.0-16.0) % Plt Count 428 H (160-400) X10*3/uL MPV 10.3 (9.4-12.3) fL Immature Gran % (Auto) 1.2 H (0.0-0.4) % Neut % (Auto) 38.6 L (45-73) % Lymph % (Auto) 53.9 H (20-40) % Kerr % (Auto) 4.4 (2-11) % Eos % (Auto) 1.4 (0-4) % Baso % (Auto) 0.5 (0-2) % Lymph # (Auto) 9.2 H (1.2-4.9) X10*3/uL Kerr # (Auto) 0.7 (0.1-1.2) X10*3/uL Eos # (Auto) 0.2 (0.0-0.4) X10*3/uL Baso # (Auto) 0.1 (0.0-0.2) X10*3/uL Abs Immat Gran (auto) 0.21 H (0.00-0.03) X10*3/uL Absolute Neuts (auto) 6.6 (2.0-8.3) x10*3/uL Absolute Nucleated RBC 0.000 (0.0-0.012) X10*3/uL Nucleated RBC % (auto) 0.0 (0.0-0.2) /100WBC Smear Tech's Comments VERIFIED Sodium 136 (135-145) mmol/L Potassium 4.4 (3.3-5.1) mmol/L Chloride 106 (96-108) mmol/L Carbon Dioxide 6 L* D (22-29) mmol/L Anion Gap 28 H (12-20) BUN 9 (9-16) mg/dL Creatinine 0.98 (0.5-1.4) mg/dL Estim Creat Clear Calc 84.2 Estimated GFR > 60 Random Glucose 176 H (60-115) mg/dL Calcium 8.1 L D (8.4-10.2) mg/dL Total Bilirubin 0.2 (0.0-1.0) mg/dL AST 22 (5-31) U/L ALT 16 (0-31) U/L Alkaline Phosphatase 86 (39-117) U/L Total Protein 7.9 (6.5-8.0) g/dL Albumin 4.4 (3.5-5.0) g/dL COVID-19 (YURIDIA) Negative (Negative) COVID-19 Clin Com See Note Imaging Data Chest x-ray: Attestation: I personally reviewed and interpreted this imaging study as follows: Radiologist's impression: No acute pathology. CT scan - head: Attestation: I personally reviewed and interpreted this imaging study as follows: Radiologist's impression: no acute pathology. ECG Data Attestation: I personally reviewed and interpreted this ECG as follows: Interpretation: sinus tachycardia at 134 beats per minutes, normal axis deviation, normal intervals. Discharge Plan Discharge Clinical Impression: Focal seizure Patient Disposition: Admitted As Inpatient
[2021-07-16] MEDS: LORazepam 2 MG/ML VIAL 1 MG IVPUSH (17:25)
[2021-07-16 17:50] VITALS: BP 95/42; PULSE 113; RESP 18; TEMP 36.6; O2SAT 98
[2021-07-16 18:15] LABS: COVID-19 Test Negative (Negative)
--- NOTE | 2021-07-16 19:13 | PHA.MEDREC ---
Pharmacy Consult ? Medication Reconciliation Pharmacy has completed the medication reconciliation. Spoke with pt.
[2021-07-16] MEDS: levETIRAcetam 500 MG TABLET PO (19:30)
[2021-07-16 20:00] VITALS: BP 124/74; PULSE 95; RESP 15; TEMP 36.6; O2SAT 98
--- NOTE | 2021-07-16 20:49 | PC.NURSE ---
Pt calling this RN into the room, requesting pain medication due to having bitten her tongue during her SZ. Pt states it feels like my tongue is swelling. This RN at bedside with Tylenol, pt refusing Tylenol, requesting something IV. RAJESH notified of pts request.
--- NOTE | 2021-07-16 20:57 | PM.IMHP ---
History of Present Illness Date of Service: 07/16/21 Chief Complaint: Breakthrough seizure 41-year-old female with past medical history of seizure disorder, tethered cord syndrome, who presents to the hospital with complaints of multiple seizure episodes at home. Patient reports that she has history of seizure and is on Topamax, being followed closely by her neurologist, reports that she has been compliant with her medications but to about 5-10 episodes of partial seizures. Patient remembers some of these episodes but the last thing she remember is being EMS and then waking up in the hospital. She reports that she had episodes lasting 2-4 minutes. Witnessed by her partner who lives with her at home. She reports tongue biting with no loss of bowel or bladder control. Patient denies having any recent illness. But reports that she has run out of her Klonopin for 1 week now. She reports that she only takes it p.r.n. as needed is not a daily medication. she denies any chest pain, headache, change in vision, no abdominal pain nausea vomiting, no diarrhea constipation, no urinary symptoms and no lower extremity edema. No numbness tingling. On arrival to the ED patient was noted to be postictal, vitals were significant for heart rate of 113 otherwise unremarkable Labs are significant for WBC count of 17, hemoglobin of 8.5 which significantly drop over the past 1 year, hematocrit 31, has CT shows no evidence of acute intracranial hemorrhage or territorial infarction. No abnormal mass effect or midline shift. Chest x-ray negative. patient given 1 dose of Keppra and will be admitted for further evaluation by Neurology Review of Systems Review of Systems: Yes all other systems are reviewed and are negative [facility] Medical History (Updated 07/17/21 @ 06:00 by Sunni Hull MD) Back pain Lumbar spondylosis Lumbosacral radiculopathy at S1 Post laminectomy syndrome Seizures, generalized convulsive Tethered cord syndrome Family History (Updated 07/17/21 @ 05:59 by Sunni Hull MD) Other No family history of coronary artery disease Surgical History (Updated 07/17/21 @ 05:59 by Sunni Hull MD) Tubal ligation status Social History (Updated 07/17/21 @ 06:00 by Sunni Hull MD) Household Members: Spouse and Other Household Members Other:: Daughter Alcohol intake: current Alcohol intake frequency: does not drink Patient Tobacco Use Status: Never used Tobacco Use of substances other than those prescribed or required for medical reasons: No Advance Directives: No Advance Directives Information Provided: No Meds Allergies Allergy/AdvReac Type Severity Reaction Status Date / Time lamotrigine [From Lamictal] Allergy Rash Verified 07/16/21 09:47 Active Medications: Current Medications Pharmacy Consult (Consult Rx Perform Med Rec) 1 each MISCELLANE ONCE PRN PRN Reason: Consult order Home Medications Medication Instructions Recorded Confirmed Last Taken Type cyclobenzaprine 10 mg tablet 10 mg PO BEDTIME PRN 06/14/21 07/16/21 07/16/21 History sertraline 50 mg tablet (Zoloft) 50 mg PO DAILY 06/14/21 07/16/21 07/16/21 History topiramate 100 mg tablet 1 tab PO BID 07/16/21 07/16/21 07/16/21 History Physical Exam Vital Signs and Narrative: Vital Signs: Last Vital Signs Temp 97.8 F 07/16/21 20:00 Pulse 95 07/16/21 20:00 Resp 15 07/16/21 20:00 BP 124/74 07/16/21 20:00 Pulse Ox 98 07/16/21 20:00 BMI result Body Mass Index 33.4 Results Labs CBC and Chem 7: 07/16/21 16:31 07/16/21 16:31 Labs: Laboratory Results - last 24 hr 07/16/21 07/16/21 07/16/21 16:31 16:31 17:51 MCV 74.9 L MCH 20.5 L MCHC 27.4 L RDW 18.8 H Plt Count 428 H MPV 10.3 Immature Gran % (Auto) 1.2 H Neut % (Auto) 38.6 L Lymph % (Auto) 53.9 H [place] % (Auto) 4.4 Eos % (Auto) 1.4 Baso % (Auto) 0.5 Lymph # (Auto) 9.2 H [place] # (Auto) 0.7 Eos # (Auto) 0.2 Baso # (Auto) 0.1 Abs Immat Gran (auto) 0.21 H Absolute Neuts (auto) 6.6 Absolute Nucleated RBC 0.000 Nucleated RBC % (auto) 0.0 Smear Tech's Comments VERIFIED Anion Gap 28 H Estim Creat Clear Calc 84.2 Estimated GFR > 60 Random Glucose 176 H Calcium 8.1 L D Total Bilirubin 0.2 AST 22 ALT 16 Alkaline Phosphatase 86 Total Protein 7.9 Albumin 4.4 COVID-19 (YURIDIA) Negative COVID-19 Clin Com See Note Imaging Radiologist's Impressions: Impressions Chest X-Ray 07/16/21 17:16 FINDINGS/IMPRESSION: Clear lungs. No pneumothorax. No pleural effusion. Normal cardiomediastinal silhouette. Head CT 07/16/21 17:44 IMPRESSION: No acute intracranial pathology. Assessment and Plan (1) Breakthrough seizure: Status: Acute (2) Leukocytosis: Status: Acute Plan this is a 41-year-old female with history of seizure disorder presents the hospital with breakthrough seizures # breakthrough seizures - possibly secondary to benzo withdrawal as patient was on Klonopin and has not had her medication for the past 1 week - will continue Topamax at this time, reports that she was on Keppra in the past but it did not make her feel well and therefore was taken off it by her neurology - neurology consulted, plan for EEG in the morning # leukocytosis - likely reactive in the setting of seizure - no evidence of infection, chest x-ray negative, has no urinary symptoms - follow CBC # mood disorder - continue sertraline DVT prophylaxis: Lovenox Quality Stroke Does the patient have a stroke diagnosis?: No VTE Prior VTE?: No VTE Risk Level:: Medical - moderate - high VTE Device Contraindication: Treatment Not Indicated VTE Drug Contraindication: N/A - Med Ordered
[2021-07-16] MEDS: Morphine Sulfate 4 MG/ML CARTRIDGE IVPUSH (21:11)
[2021-07-16] MEDS: Enoxaparin Sodium 40 MG/0.4 ML SYRINGE SUBCUT (21:11)
--- NOTE | 2021-07-16 22:29 | PC.NURSE ---
Too report from Camilla to assume care of Pt, Pt transported in stretcher from ED, Pt call light in reach
[2021-07-16] MEDS: Acetaminophen 325 MG TABLET 650 MG PO (23:43)
[2021-07-16] MEDS: 0.9 % Sodium Chloride Flush 3 ML SYRINGE IVFLUSH (23:44)
[2021-07-17] VITALS: BP 146/81; PULSE 86; RESP 18; TEMP 36.6; O2SAT 100
[2021-07-17 04:00] VITALS: BP 136/69; PULSE 84; RESP 18; TEMP 36.5; O2SAT 97
[2021-07-17 06:30] LABS: Basophils Percent Auto 0.3 % (0-2); Eosinophils Percent Auto 0.3 % (0-4); Hematocrit 27.4 % (37.0-47.0); Hemoglobin 8.1 g/dl (12.0-16.0); Imm Gran Abs Auto 0.06 X10*3/uL (0.00-0.03); Imm Gran Pct Auto 0.6 % (0.0-0.4); Lymphocytes Absolute Auto 2.2 X10*3/uL (1.2-4.9); Lymphocytes Percent Auto 20.9 % (20-40); MANUAL DIFF FLAG SCAN; Mean Corpuscular HGB Conc 29.6 g/dl (31.0-35.0); Mean Corpuscular Hemoglobin 20.8 pg (27.0-33.0); Mean Corpuscular Volume 70.4 fL (80.0-98.0); Mean Platelet Volume 10.8 fL (9.4-12.3); Monocytes Absolute Auto 0.7 X10*3/uL (0.1-1.2); Neutrophils Absolute Auto 7.5 x10*3/uL (2.0-8.3); Neutrophils Percent Auto 70.9 % (45-73); PLT CLUMP 1; Red Blood Count 3.89 X10*6/uL (4.20-5.50); SCAN SMEAR FLAG 1
[2021-07-17 06:35] LABS: White Blood Count 10.9 X10*3/uL (4.8-10.8)
[2021-07-17 06:48] LABS: Anion Gap 12 (12-20); Blood Urea Nitrogen 14 mg/dL (9-16); Calcium 8.2 mg/dL (8.4-10.2); Carbon Dioxide 19 mmol/L (22-29); Chloride 107 mmol/L (96-108); Creatinine Clr Calc Pharmacy 110.1; Estimated Glomerular Filt Rate > 60; Glucose Random 109 mg/dL (60-115); Potassium 3.4 mmol/L (3.3-5.1); Sodium 135 mmol/L (135-145)
[2021-07-17 07:18] LABS: Platelet Count 231 X10*3/uL (160-400); SLIDE REVIEW VERIFIED
[2021-07-17 08:15] VITALS: BP 138/84; PULSE 87; RESP 15; TEMP 36.7; O2SAT 99
[2021-07-17 08:17] LABS: Immature Retic Fraction 14.5 % (3.0-15.9); Retic HGB Equivalent 22.5 pg (30.0-35.0); Reticulocyte Percent 0.9 % (0.5-1.8); Reticulocytes Absolute 0.036 X10*6/uL (0.026-0.095)
[2021-07-17 08:32] LABS: Iron 15 mcg/dL (30-160); Percent Iron Saturation 3 % (15-50); Total Iron Binding Capacity 433 mcg/dL (228-428); Unsaturated Iron Binding 418 ug/dL
[2021-07-17 08:49] LABS: Ferritin 4 ng/mL (10-250)
[2021-07-17] MEDS: 0.9 % Sodium Chloride Flush 3 ML SYRINGE IVFLUSH ×4 (09:30→23:06)
--- NOTE | 2021-07-17 10:07 | P.CNNE_ITS ---
History of Present Illness Data of Consult Service Date: 07/17/21 Primary Care Provider: Alice Cole MD HPI Reason for consult: Seizure disorder 41 years old woman with underlying diagnosis of lupus and anxiety disorder who has reported multiple episodes of right-sided neurological symptoms including right upper extremity and abdominal shaking. She had been investigated extensively with CT scan of brain and multiple MRIs of brain. In 2009 at [facility] her MRI of brain was normal but her recent MRI has shown a left parietal lesion without enhancement who is exact nature is unclear. She also had multiple EEGs that did not reveal any epileptic tendency but because of this lesion and her symptoms a tentative diagnosis of epilepsy was made and she was treated with Keppra, which she did not respond well to and then it was switched to topiramate partly because she also was having headaches. This time she was admitted hospital stating that she had multiple similar episodes. She said that her right arm was shaking like it was not part of her body. Each episode lasted for few seconds to few minutes and she was partly awake during that and remember having them. He was having headache today. Review of Systems Review of Systems: No recent cold or flu-like illness. ON LICENSE OF [facility] Past Medical History Medical History (Updated 07/17/21 @ 10:11 by Erma Greenberg MD) Back pain Lumbar spondylosis Lumbosacral radiculopathy at S1 Post laminectomy syndrome Seizures, generalized convulsive Tethered cord syndrome Family History Family History (Updated 07/17/21 @ 05:59 by Sunni Hull MD) Other No family history of coronary artery disease Surgical History Surgical History (Updated 07/17/21 @ 05:59 by Sunni Hull MD) Tubal ligation status Social History Social History (Updated 07/17/21 @ 06:00 by Sunni Hull MD) Household Members: Spouse and Other Household Members Other:: Daughter Alcohol intake: current Alcohol intake frequency: does not drink Patient Tobacco Use Status: Never used Tobacco Use of substances other than those prescribed or required for medical reasons: No Advance Directives: No Advance Directives Information Provided: No Meds Allergies Allergy/AdvReac Type Severity Reaction Status Date / Time lamotrigine [From Lamictal] Allergy Rash Verified 07/16/21 09:47 Active Medications: Current Medications Acetaminophen (Acetaminophen 325 Mg Tablet) 650 mg PO Q6H PRN PRN Reason: Pain, Mild (Pain Scale 1-3) Last Admin: 07/16/21 23:43 Dose: 650 mg Documented by: Docusate Sodium (Docusate Sodium 100 Mg Capsule) 100 mg PO DAILY PRN PRN Reason: Constipation Enoxaparin Sodium (Enoxaparin Sodium 40 Mg/0.4 Ml Syringe) 40 mg SUBCUT Q24H [facility] Last Admin: 07/16/21 21:11 Dose: 40 mg Documented by: Ondansetron HCl (Ondansetron Hcl 4 Mg/2 Ml Vial) 4 mg IVPUSH Q8H PRN PRN Reason: Nausea and Vomiting Pharmacy Consult (Consult Rx Perform Med Rec) 1 each MISCELLANE ONCE PRN PRN Reason: Consult order Sodium Chloride (0.9 % Sodium Chloride Flush 3 Ml Syringe) 3 ml IVFLUSH QSHIFT [facility] Last Admin: 07/16/21 23:44 Dose: 3 ml Documented by: Home Medications Medication Instructions Recorded Confirmed Last Taken Type cyclobenzaprine 10 mg tablet 10 mg PO BEDTIME PRN 06/14/21 07/16/21 07/16/21 History sertraline 50 mg tablet (Zoloft) 50 mg PO DAILY 06/14/21 07/16/21 07/16/21 History topiramate 100 mg tablet 1 tab PO BID 07/16/21 07/16/21 07/16/21 History Physical Exam Vital Signs: Vital Signs: Last Vital Signs Temp 98.0 F 07/17/21 08:15 Pulse 87 07/17/21 08:15 Resp 15 07/17/21 08:15 BP 138/84 07/17/21 08:15 Pulse Ox 99 07/17/21 08:15 BMI result Body Mass Index 33.4 Neuro: Other: She was moderately obese woman in no acute distress. He was alert awake oriented with normal speech language and anxious affect. Face was symmetrical. There was no obvious focal weakness. Deep tendon reflexes were trace to absent with flexor plantars there was no pronator drift. No abnormal movement was noted. Results Labs CBC & Chem 7: 07/17/21 06:05 07/17/21 06:04 Labs: Short CBC 07/16/21 07/17/21 Range/Units 16:31 06:05 WBC 17.0 H 10.9 H (4.8-10.8) X10*3/uL Hgb 8.5 L 8.1 L (12.0-16.0) g/dl Hct 31.0 L 27.4 L (37.0-47.0) % Plt Count 428 H 231 D (160-400) X10*3/uL BMP 07/16/21 07/17/21 16:31 06:04 Sodium 136 135 Potassium 4.4 3.4 D Chloride 106 107 Carbon Dioxide 6 L* D 19 L BUN 9 14 D Creatinine 0.98 0.75 Calcium 8.1 L D 8.2 L Liver Function 07/16/21 Range/Units 16:31 Total Bilirubin 0.2 (0.0-1.0) mg/dL AST 22 (5-31) U/L ALT 16 (0-31) U/L Alkaline Phosphatase 86 (39-117) U/L Albumin 4.4 (3.5-5.0) g/dL Noncontrast CT did not reveal any significant pathology Assessment and Plan (1) Breakthrough seizure: Status: Acute 41 years old woman with tentative diagnosis of epilepsy resulting in partial and complex partial seizure involving right side and usually resulting in motor symptoms of right arm or abdominal shaking. This was associated with her brain MRI revealing a left parietal lesion of unknown etiology. He was back in hospital with reports of multiple similar episodes. Previously her EEGs have not been conclusive. Because of clinical symptomatology suggestive of seizures and headaches she was treated with topiramate. Her last brain MRI was done at [facility] in January of last year. I recommend decreasing topiramate 25 mg at night for headache prevention, and adding oxcarbazepine 300 mg twice a day. I also recommend a brain MRI with and without contrast to look at the lesion and see if that has changed. (2) Brain lesion: Status: Acute Procedures Date of Service Date of Service: 07/17/21
[2021-07-17 12:47] VITALS: BP 126/81; PULSE 93; RESP 14; TEMP 36.6; O2SAT 99
[2021-07-17] MEDS: OXcarbazepine 300 MG TABLET PO ×2 (13:45→20:18)
[2021-07-17] MEDS: Topiramate 100 MG TABLET PO (13:45)
[2021-07-17] MEDS: Ketorolac Tromethamine 15 MG/ML VIAL IVPUSH (14:45)
--- NOTE | 2021-07-17 15:15 | P.PNIM_ITS ---
Subjective Subjective Date of Service: 07/17/21 Interval History: Breakthrough seizure, tongue bite area pain Review of Systems Patient denies any chest pain or shortness of breath or fever chills or cough or phlegm has tongue bite area pain Physical Exam Vital Signs: Vital Signs: Last Vital Signs Temp 97.8 F 07/17/21 12:47 Pulse 93 07/17/21 12:47 Resp 14 07/17/21 12:47 BP 126/81 07/17/21 12:47 Pulse Ox 99 07/17/21 12:47 BMI result Body Mass Index 33.4 Appearance: Alert.? Oriented X3.? not in distress.? Eyes: Pupils equal, round and reactive to light.? Sclera nonicteric.? had toungue bite area ENT: Pharynx normal.? Moist mucous membranes. cvs: rrr, [id number] , no murmur res: clear to auscultation ,no rhonchii or wheezing abd: no rebound or guarding ,nt, bs present. ext pulses present , no cyanosis . neuro: axo3 , mobes allext Objective Data Active Medications Acetaminophen (Acetaminophen 325 Mg Tablet) 650 mg PO Q6H PRN PRN Reason: Pain, Mild (Pain Scale 1-3) Last Admin: 07/16/21 23:43 Dose: 650 mg Documented by: SCOTT Docusate Sodium (Docusate Sodium 100 Mg Capsule) 100 mg PO DAILY PRN PRN Reason: Constipation Enoxaparin Sodium (Enoxaparin Sodium 40 Mg/0.4 Ml Syringe) 40 mg SUBCUT Q24H [facility] Last Admin: 07/16/21 21:11 Dose: 40 mg Documented by: YOANA Lidocaine/Diphenhydr/Alum/Mg/Simeth (Mag&Al/Sim/Diphenhyd/Lidocaine 10 Ml Oral.Susp) 10 ml PO Q4H PRN; Protocol PRN Reason: Pain, Mild (Pain Scale 1-3) Ondansetron HCl (Ondansetron Hcl 4 Mg/2 Ml Vial) 4 mg IVPUSH Q8H PRN PRN Reason: Nausea and Vomiting Oxcarbazepine (Oxcarbazepine 300 Mg Tablet) 300 mg PO BID [facility] Last Admin: 07/17/21 13:45 Dose: 300 mg Documented by: AMINATA Pharmacy Consult (Consult Rx Perform Med Rec) 1 each MISCELLANE ONCE PRN PRN Reason: Consult order Sodium Chloride (0.9 % Sodium Chloride Flush 3 Ml Syringe) 3 ml IVFLUSH QSHIFT [facility] Last Admin: 07/17/21 09:30 Dose: 3 ml Documented by: AMINATA Topiramate (Topiramate 100 Mg Tablet) 100 mg PO DAILY [facility] Last Admin: 07/17/21 13:45 Dose: 100 mg Documented by: AMINATA Topiramate (Topiramate 25 Mg Tablet) 25 mg PO BEDTIME [facility] Labs CBC & Chem 7: 07/17/21 06:05 07/17/21 06:04 Labs: Laboratory Results - last 24 hr 07/16/21 07/16/21 07/16/21 16:31 16:31 17:51 MCV 74.9 L MCH 20.5 L MCHC 27.4 L RDW 18.8 H Plt Count 428 H MPV 10.3 Immature Gran % (Auto) 1.2 H Neut % (Auto) 38.6 L Lymph % (Auto) 53.9 H [place] % (Auto) 4.4 Eos % (Auto) 1.4 Baso % (Auto) 0.5 Lymph # (Auto) 9.2 H [place] # (Auto) 0.7 Eos # (Auto) 0.2 Baso # (Auto) 0.1 Abs Immat Gran (auto) 0.21 H Absolute Neuts (auto) 6.6 Absolute Nucleated RBC 0.000 Nucleated RBC % (auto) 0.0 Smear Tech's Comments VERIFIED Absolute Retic Percent Retic Immature Retic Fraction Retic Hgb Equivalent Anion Gap 28 H Estim Creat Clear Calc 84.2 Estimated GFR > 60 Random Glucose 176 H Calcium 8.1 L D Iron TIBC % Saturation Unsat Iron Binding Transferrin Ferritin Total Bilirubin 0.2 AST 22 ALT 16 Alkaline Phosphatase 86 Total Protein 7.9 Albumin 4.4 COVID-19 (YURIDIA) Negative COVID-19 Clin Com See Note 07/17/21 07/17/21 07/17/21 06:04 06:04 06:05 MCV 70.4 L MCH 20.8 L MCHC 29.6 L RDW 19.0 H Plt Count 231 D MPV 10.8 Immature Gran % (Auto) 0.6 H Neut % (Auto) 70.9 Lymph % (Auto) 20.9 [place] % (Auto) 7.0 Eos % (Auto) 0.3 Baso % (Auto) 0.3 Lymph # (Auto) 2.2 [place] # (Auto) 0.7 Eos # (Auto) 0.0 Baso # (Auto) 0.0 Abs Immat Gran (auto) 0.06 H Absolute Neuts (auto) 7.5 Absolute Nucleated RBC 0.000 Nucleated RBC % (auto) 0.0 Smear Tech's Comments VERIFIED Absolute Retic 0.036 Percent Retic 0.9 Immature Retic Fraction 14.5 Retic Hgb Equivalent 22.5 L Anion Gap 12 Estim Creat Clear Calc 110.1 Estimated GFR > 60 Random Glucose 109 Calcium 8.2 L Iron 15 L TIBC 433 H % Saturation 3 L Unsat Iron Binding 418 Transferrin Cancelled Ferritin 4 L Total Bilirubin AST ALT Alkaline Phosphatase Total Protein Albumin COVID-19 (YURIDIA) COVID-19 Clin Com Assessment and Plan (1) Brain lesion: Status: Acute (2) Leukocytosis: Status: Acute (3) Breakthrough seizure: Status: Acute (4) Anemia: Status: Acute Plan 41-year-old female with history of seizure disorder presents the hospital with breakthrough seizures 1. breakthrough seizures -? possibly secondary to benzo withdrawal as patient was on Klonopin and has not had her medication for the past 1 week Continue Keppra, adjusted topiramate as per Neurology, as well as added oxcarbazepine MRI with and without contrast to evaluate parietal lesion. Tongue bite escamilla: Added measure mouthwash and pain medication 2.? leukocytosis -? likely reactive in the setting of seizure -? no evidence of infection, chest x-ray negative, has no urinary symptoms -? follow CBC 3.? mood disorder -? continue? sertraline 4. Anemia microcytic: H&H is around 8 range Iron studies added, B12, folate Fecal occult blood Of note patient says that she is aware above that she has anemia, currently also having heavy mensuration. ?DVT prophylaxis: Lovenox Inpatient need : breakthrough seizures ,med adjustemnt ,Mri brain Quality Stroke Does the patient have a stroke diagnosis?: No VTE Prior VTE?: No VTE Risk Level:: Medical - moderate - high VTE Device Contraindication: Treatment Not Indicated VTE Drug Contraindication: N/A - Med Ordered
[2021-07-17] MEDS: Mag&Al/Sim/Diphenhyd/Lidocaine 10 ML ORAL.SUSP PO ×2 (15:40→20:18)
[2021-07-17] MEDS: polyethylene glycoL 3350 17 GM POWD.PACK PO (16:45)
[2021-07-17] MEDS: Docusate Sodium 100 MG CAPSULE PO (16:45)
[2021-07-17 17:37] VITALS: BP 137/63; PULSE 91; RESP 18; TEMP 37.2; O2SAT 100
[2021-07-17] MEDS: Acetaminophen 325 MG TABLET 650 MG PO (20:17)
[2021-07-17] MEDS: Topiramate 25 MG TABLET PO (20:18)
[2021-07-17] MEDS: Enoxaparin Sodium 40 MG/0.4 ML SYRINGE SUBCUT (20:18)
[2021-07-17] MEDS: LORazepam 2 MG/ML VIAL 0.5 MG IVPUSH (23:05)
[2021-07-17 23:54] VITALS: BP 125/67; PULSE 98; RESP 20; TEMP 36.9; O2SAT 99
[2021-07-18 03:23] VITALS: BP 119/63; PULSE 90; RESP 14; TEMP 36.5; O2SAT 99
[2021-07-18 06:28] VITALS: BP 123/67; PULSE 89; RESP 14; TEMP 37; O2SAT 98
[2021-07-18] MEDS: 0.9 % Sodium Chloride Flush 3 ML SYRINGE IVFLUSH (07:35)
[2021-07-18] MEDS: Ferrous Sulfate 324 MG TABLET.DR PO (07:35)
[2021-07-18 08:11] LABS: Hematocrit 26.7 % (37.0-47.0); Hemoglobin 7.8 g/dl (12.0-16.0)
[2021-07-18] MEDS: OXcarbazepine 300 MG TABLET PO (08:23)
[2021-07-18] MEDS: polyethylene glycoL 3350 17 GM POWD.PACK PO (08:23)
[2021-07-18] MEDS: Topiramate 100 MG TABLET PO (08:23)
[2021-07-18] MEDS: Ascorbic Acid 500 MG TABLET PO (08:23)
[2021-07-18] MEDS: Acetaminophen 325 MG TABLET 650 MG PO (11:00)
[2021-07-18 11:50] VITALS: BP 136/81; PULSE 80; RESP 18; TEMP 36.5; O2SAT 99
--- NOTE | 2021-07-18 13:05 | HO.PM.IMPN ---
Subjective Subjective Date of Service: 07/18/21 Interval History: iron deficiency -microcytic anemia , seizures Review of Systems Patient denies any nausea fever chills she is currently having heavy menstruations Physical Exam Vital Signs: Vital Signs: Last Vital Signs Temp 97.7 F 07/18/21 11:50 Pulse 80 07/18/21 11:50 Resp 18 07/18/21 11:50 BP 136/81 07/18/21 11:50 Pulse Ox 99 07/18/21 11:50 BMI result Body Mass Index 33.4 Objective Data Active Medications Acetaminophen (Acetaminophen 325 Mg Tablet) 650 mg PO Q6H PRN PRN Reason: Pain, Mild (Pain Scale 1-3) Last Admin: 07/18/21 11:00 Dose: 650 mg Documented by: CHARLOTTE Ascorbic Acid (Ascorbic Acid 500 Mg Tablet) 500 mg PO DAILY [facility] Last Admin: 07/18/21 08:23 Dose: 500 mg Documented by: CHARLOTTE Docusate Sodium (Docusate Sodium 100 Mg Capsule) 100 mg PO DAILY PRN PRN Reason: Constipation Enoxaparin Sodium (Enoxaparin Sodium 40 Mg/0.4 Ml Syringe) 40 mg SUBCUT Q24H [facility] Last Admin: 07/17/21 20:18 Dose: 40 mg Documented by: RUBIO Ferrous Sulfate (Ferrous Sulfate 324 Mg Tablet.) 324 mg PO BIDWM [facility] Last Admin: 07/18/21 07:35 Dose: 324 mg Documented by: CHARLOTTE Lidocaine/Diphenhydr/Alum/Mg/Simeth (Mag&Al/Sim/Diphenhyd/Lidocaine 10 Ml Oral.Susp) 10 ml PO Q4H PRN; Protocol PRN Reason: Pain, Mild (Pain Scale 1-3) Last Admin: 07/17/21 20:18 Dose: 10 ml Documented by: RUBIO Omeprazole (Omeprazole 20 Mg Capsule.) 20 mg PO DAILY@0630 [facility] Last Admin: 07/18/21 07:36 Dose: Not Given Documented by: CHARLOTTE Non-Admin Reason: Patient Refused Ondansetron HCl (Ondansetron Hcl 4 Mg/2 Ml Vial) 4 mg IVPUSH Q8H PRN PRN Reason: Nausea and Vomiting Oxcarbazepine (Oxcarbazepine 300 Mg Tablet) 300 mg PO BID [facility] Last Admin: 07/18/21 08:23 Dose: 300 mg Documented by: CHARLOTTE Pharmacy Consult (Consult Rx Perform Med Rec) 1 each MISCELLANE ONCE PRN PRN Reason: Consult order Polyethylene Glycol (Polyethylene Glycol 3350 17 Gm Powd.Pack) 17 gm PO DAILY [facility] Last Admin: 07/18/21 08:23 Dose: 17 gm Documented by: CHARLOTTE Sodium Chloride (0.9 % Sodium Chloride Flush 3 Ml Syringe) 3 ml IVFLUSH QSHIFT [facility] Last Admin: 07/18/21 07:35 Dose: 3 ml Documented by: CHARLOTTE Topiramate (Topiramate 25 Mg Tablet) 25 mg PO BEDTIME [facility] Last Admin: 07/17/21 20:18 Dose: 25 mg Documented by: RUBIO Labs CBC & Chem 7: 07/18/21 07:30 07/17/21 06:04 Assessment and Plan (1) Anemia: Status: Acute Quality Stroke Does the patient have a stroke diagnosis?: No VTE Prior VTE?: No VTE Risk Level:: Medical - moderate - high VTE Device Contraindication: Treatment Not Indicated VTE Drug Contraindication: N/A - Med Ordered
--- NOTE | 2021-07-18 14:09 | P.DS_ITS ---
DS: Providers Provider Date of Service: 07/18/21 Date of admission: 07/17/21 09:28 Primary care physician: Alice Cole MD Consults: 07/16/21 20:54 Consult to Neurology Routine Consulting Provider: [facility] Reason for consultation: seizure Has provider been notified: No 07/18/21 11:44 Consult to Gastroenterology Routine Consulting Provider: [facility] Reason for consultation: worsening anemia /micocytic Has provider been notified: No DS: Diagnosis Discharge Diagnosis (1) Anemia: Status: Acute DS: Summary Hospital Course Hospital Course: 41-year-old female with past medical history of seizure disorder, tethered cord syndrome, who presents to the hospital with complaints of multiple seizure episodes at home.? Patient reports that she has history of seizure and is on Topamax,? being followed closely by her neurologist, reports that she has been compliant with her medications but to about 5-10 episodes of partial seizures.? Patient remembers some of these episodes but the last thing she remember is being EMS and then waking up in the hospital.? She reports that she had episodes lasting 2-4 minutes.? Witnessed by her partner who lives with her at home.? She reports tongue biting with no loss of bowel or bladder control.? Patient denies having any recent illness.? But reports that she has run out of her Klonopin for? 1 week now.? She reports that she only takes it p.r.n. as needed is not a daily medication. ?she denies any chest pain, headache, change in vision, no abdominal pain nausea vomiting, no diarrhea constipation, no urinary symptoms and no lower extremity edema.? No numbness tingling.? On arrival to the ED patient was noted to be postictal, vitals were significant for heart rate of 113 otherwise unremarkable Labs are significant for? WBC count of 17, hemoglobin of 8.5 which significantly drop over the past 1 year, hematocrit 31, ?has CT shows no evidence of acute intracranial hemorrhage or territorial infarction.? No abnormal mass effect or midline shift.? Chest x-ray negative.? ?patient given 1 dose of Keppra and will be admitted for further evaluation by Neurology. Hospital course: patient admitted for breakthrough seizure: Seen by Neurology and MRI was completed- MRI reviewed with Neurology: possible breakthrough seizure, neuro recommended- adjustment topiramate to 25 mg at night and add oxcarbamazepine 300 mg p.o. b.i.d.: further management outpatient with Neurology and PCP. possible iron deficiency microcytic anemia: added iron supplement as well as omeprazole, currently patient denies any GI symptoms, having heavy menstruation started 2 days back. patient was advised to follow-up with PCP and industrial coffee grinder out patiently and monitor CBC. discussed with GI- anemia is possibly related to her menstruations, monitor CBC outpatient and if needed PCP may consider outpatient GI workup. Above management discussed with the patient in detail length she understand and in agreement with the above plan, time spent 50 minutes and 50% time spent on counseling. Significant findings: As above. Procedures performed: None. Treatment and response: As above. Complications: None. Time Spent with Patient Time attestation: Total time spent providing and/or coordinating discharge services: Discharge coordination time: Greater than 30 minutes Quality: Safe Use of Opioids Does Pt have an Active Cancer Diagnosis on the Problem List?: No Quality: Stroke Does the patient have a stroke diagnosis?: No Physical Exam Vital Signs: Vital Signs: Last Vital Signs Temp 97.7 F 07/18/21 11:50 Pulse 80 07/18/21 11:50 Resp 18 07/18/21 11:50 BP 136/81 07/18/21 11:50 Pulse Ox 99 07/18/21 11:50 BMI result Body Mass Index 33.4 Appearance: Alert.? Oriented X3.? not in distress.? Eyes: Pupils equal, round and reactive to light.? Sclera nonicteric.? had toungue bite area-imrpoving ENT: Pharynx normal.? Moist mucous membranes. cvs: rrr, [id number] , no murmur res: clear to auscultation ,no rhonchii or wheezing abd: no rebound or guarding ,nt, bs present. ext pulses present , no cyanosis . neuro: axo3 , mobes allext DS: Data Data Completed and Pending Labs on day of discharge: Laboratory Results - last 24 hr 07/18/21 07:30 Hgb 7.8 L Hct 26.7 L Additional Comments Additional comments: MR/MR head/brain wo/w con IMPRESSION: - T2 signal changes and probable volume loss within the left parietal lobe, favoring gliosis and encephalomalacia. These findings are described on the report from the 02/08/2021 brain MRI and are not present on a brain MRI from 05/02/2009. Therefore a cortical dysplasia is felt to be unlikely. There is no pathologic enhancement intracranially. There is no mesial temporal sclerosis. ? - A few punctate foci of T2 signal change within the bifrontal white matter are nonspecific. Discharge Plan Discharge Patient Disposition: Home, Self-Care Discharge Diagnosis: breakthrough seizure , possible iron deficiency anemia ( due to heavy mensurations) Referrals: Alice Cole MD [Primary Care Provider] - 1 Week Discharge Medications: New topiramate 25 mg Tablet 25 mg PO BEDTIME 30 Days Qty: 30 0RF oxcarbazepine 300 mg Tablet 300 mg PO BID Qty: 60 0RF docusate sodium 100 mg Capsule 100 mg PO DAILY PRN (Reason: Constipation) Qty: 30 0RF polyethylene glycol 3350 17 gram Powder In Packet 17 g PO DAILY Qty: 30 0RF omeprazole 20 mg Capsule,Delayed Release(Dr/Ec) 20 mg PO DAILY@0630 Qty: 30 0RF Continued sertraline [Zoloft] 50 mg tablet 50 mg PO DAILY 0RF cyclobenzaprine 10 mg tablet 10 mg PO BEDTIME PRN (Reason: Muscle Spasm) 0RF Discontinued topiramate 100 mg tablet 1 tab PO BID 0RF Discharge Orders: Discharge Order (Routine); Ordered 07/18/21 Ordered By: Agata Monzon Diet: advance to usual diet Activity on Discharge: As tolerated Stand Alone Forms: Patient Portal Discharge page Other Ambulatory Orders: Complete Blood Count no Diff (Routine) Timeframe: 1 Week Facility: [facility] - Location: Laboratory Ordered By: Agata Monzon Care Plan Goals: patient admitted for breakthrough seizure: Seen by Neurology and MRI was completed- MRI reviewed with Neurology: possible breakthrough seizure, neuro recommended- adjustment topiramate to 25 mg at night and add oxcarbamazepine 300 mg p.o. b.i.d.: further management outpatient with Neurology and PCP. possible iron deficiency microcytic anemia: added iron supplement as well as omeprazole, currently patient denies any GI symptoms, having heavy menstruation started 2 days back. patient was advised to follow-up with PCP and industrial coffee grinder out patiently and monitor CBC. discussed with GI- anemia is possibly related to her menstruations, monitor CBC outpatient and if needed PCP may consider outpatient GI workup. Health Concerns: as above. Plan of Treatment: as above. Assessment: as above.
[2021-07-18 14:36] LABS: Vitamin B12 305 pg/mL (200-900)
--- NOTE | 2021-07-18 15:01 | PM.GICN ---
History of Present Illness Data of Consult Service Date: 07/18/21 Requesting physician: Agata Monzon Primary Care Provider: Alice Cole MD HPI Reason for consult: Iron deficiency anemia 41-year-old female with seizure disorder, tethered cord syndrome, [place] [facility] [place] with complaints of multiple seizure episodes at home.? Pt denied any chest pain, headache, change in vision, no abdominal pain nausea vomiting, no diarrhea constipation, no urinary symptoms and no lower extremity edema.? No numbness tingling.? On arrival to the ED patient was noted to be postictal, vitals were significant for heart rate of 113 otherwise unremarkable Labs were are significant for? WBC count of 17, hemoglobin of 8.5 which significantly drop over the past 1 year, hematocrit 31, CT scan showed no evidence of acute intracranial hemorrhage or territorial infarction.? No abnormal mass effect or midline shift.? Chest x-ray negative.? Patient was given 1 dose of Keppra and admitted. Her H & H has decreased during hospitalization Pt admits to having heavy periods for the past several years. She started having a period on admission. Her periods last 4-5 days and she is unable to leave the house and has to change a tampon every hour. She notes dizziness and weakness during her periods. She is unable to take iron daily due to constipation and takes only while she is menstruating. Patient denies symptoms of heartburn, dysphagia, nausea, vomiting, change in appetite or weight. Pt complains of chronic constipation which she attributes to chronic low back pain and takes senna intermittently. She denies, diarrhea, black stools or rectal bleeding. Patient admits to loud snoring and denies major cardiac or pulmonary problems, sleep apnea Denies problems with anesthesia in the past. Denies being on chronic anticoagulation or taking aspirin or NSAIDS. Patient denies smoking or EtOH abuse Patient is and has 4 adult children. She is a homemaker Patient's Dad had colon cancer ?in his 40's and is alive in his 50's. Review of Systems Review of Systems: No recent cold or flu-like illness. Constitutional: Constitutional: Reports fatigue ENT: Denies dysphagia Cardiovascular: Cardiovascular: Denies chest pain, Denies irregular heart rhythm and Denies dyspnea Respiratory: Respiratory: Denies cough and Denies dyspnea Gastrointestinal: Gastrointestinal: Denies abdominal pain, Reports constipation, Denies dysphagia and Denies heartburn Genitourinary: Genitourinary: Reports abnormal menses Musculoskeletal: Musculoskeletal: Reports back pain Endocrine: Endocrine: Reports fatigue PMF Past Medical History Medical History (Updated 07/18/21 @ 15:16 by Leah nEciso MD) Back pain Lumbar spondylosis Lumbosacral radiculopathy at S1 Post laminectomy syndrome Seizures, generalized convulsive Tethered cord syndrome Family History Family History (Updated 07/17/21 @ 05:59 by Sunni Hull MD) Other No family history of coronary artery disease Surgical History Surgical History (Updated 07/17/21 @ 05:59 by Sunni Hull MD) Tubal ligation status Social History Social History (Updated 07/17/21 @ 06:00 by Sunni Hull MD) Household Members: Spouse Household Members Other:: Daughter Housing: Apartment Do you presently have visiting nurse or other home services: No Alcohol intake: current Alcohol intake frequency: does not drink Patient Tobacco Use Status: Never used Tobacco Use of substances other than those prescribed or required for medical reasons: No Currently Displaying Signs/Symptoms of Drug Intoxication Withdrawal: No Have you been hit, kicked, punched, or otherwise hurt by someone within the past year? If so, by whom?: No Do you feel safe in your current relationship?: Yes Is there a partner from a previous relationship who is making you feel unsafe now?: No Are you made to feel afraid or neglected: No Advance Directives: No Advance Directives Information Provided: No Do you have thoughts of harming others: None Do you have a plan to hurt others: No Plan Recently lost weight without trying: No Eating poorly because of decreased appetite: No Nutrition Risks: No Nutritional Risk Patient : No : No Poor oral hygiene: No Meds Allergies Allergy/AdvReac Type Severity Reaction Status Date / Time lamotrigine [From Lamictal] Allergy Rash Verified 07/16/21 09:47 Active Medications: Current Medications Acetaminophen (Acetaminophen 325 Mg Tablet) 650 mg PO Q6H PRN PRN Reason: Pain, Mild (Pain Scale 1-3) Last Admin: 07/18/21 11:00 Dose: 650 mg Documented by: Ascorbic Acid (Ascorbic Acid 500 Mg Tablet) 500 mg PO DAILY MEAGHAN Last Admin: 07/18/21 08:23 Dose: 500 mg Documented by: Docusate Sodium (Docusate Sodium 100 Mg Capsule) 100 mg PO DAILY PRN PRN Reason: Constipation Enoxaparin Sodium (Enoxaparin Sodium 40 Mg/0.4 Ml Syringe) 40 mg SUBCUT Q24H [facility] Last Admin: 07/17/21 20:18 Dose: 40 mg Documented by: Ferrous Sulfate (Ferrous Sulfate 324 Mg Tablet.) 324 mg PO BIDWM [facility] Last Admin: 07/18/21 07:35 Dose: 324 mg Documented by: Lidocaine/Diphenhydr/Alum/Mg/Simeth (Mag&Al/Sim/Diphenhyd/Lidocaine 10 Ml Oral.Susp) 10 ml PO Q4H PRN; Protocol PRN Reason: Pain, Mild (Pain Scale 1-3) Last Admin: 07/17/21 20:18 Dose: 10 ml Documented by: Omeprazole (Omeprazole 20 Mg Capsule.) 20 mg PO DAILY@0630 [facility] Last Admin: 07/18/21 07:36 Dose: Not Given Documented by: Ondansetron HCl (Ondansetron Hcl 4 Mg/2 Ml Vial) 4 mg IVPUSH Q8H PRN PRN Reason: Nausea and Vomiting Oxcarbazepine (Oxcarbazepine 300 Mg Tablet) 300 mg PO BID [facility] Last Admin: 07/18/21 08:23 Dose: 300 mg Documented by: Pharmacy Consult (Consult Rx Perform Med Rec) 1 each MISCELLANE ONCE PRN PRN Reason: Consult order Polyethylene Glycol (Polyethylene Glycol 3350 17 Gm Powd.Pack) 17 gm PO DAILY [facility] Last Admin: 07/18/21 08:23 Dose: 17 gm Documented by: Sodium Chloride (0.9 % Sodium Chloride Flush 3 Ml Syringe) 3 ml IVFLUSH QSHIFT [facility] Last Admin: 07/18/21 07:35 Dose: 3 ml Documented by: Topiramate (Topiramate 25 Mg Tablet) 25 mg PO BEDTIME [facility] Last Admin: 07/17/21 20:18 Dose: 25 mg Documented by: Physical Exam Vital Signs: Vital Signs: Last Vital Signs Temp 97.7 F 07/18/21 11:50 Pulse 80 07/18/21 11:50 Resp 18 07/18/21 11:50 BP 136/81 07/18/21 11:50 Pulse Ox 99 04/10/22 11:50 BMI result Body Mass Index 33.4 Const: General: healthy appearing Nutritional Appearance: obese Orientation/consciousness: patient oriented x3 Limitations: no limitations HEENT: Head: Yes normal to inspection Ears: hearing grossly normal bilaterally Mouth: Normal oral and palatal mucosa present Eyes: Sclerae: sclerae normal Pupils: Equal, round and reactive pupils present Neck: Neck: Yes normal visual inspection Chest: Chest palpation & inspection: normal inspection of the chest Resp: Effort & Inspection: normal respiratory effort Auscultation: clear to auscultation bilaterally Cardio: Palpation: normal PMI Rate: regular rate Rhythm: regular rhythm Heart sounds: S1 normal heart sound present, S2 normal heart sound present and no murmurs GI: Palpation (GI): Soft to palpation, nontender and No hepatosplenomegaly present Auscultation: normal bowel sounds Rectal Exam - Female: deferred Skin: General skin exam: no rashes or lesions noted Neuro: General: patient oriented x3, gait normal and moves all extremities Cranial nerves: Yes Equal, round and reactive pupils present Psych: Appearance: grossly normal Mental Status: mental status grossly normal Results Labs CBC & Chem 7: 07/18/21 07:30 07/17/21 06:04 Labs: Short CBC 07/18/21 Range/Units 07:30 Hgb 7.8 L (12.0-16.0) g/dl Hct 26.7 L (37.0-47.0) % Assessment and Plan (1) Iron deficiency anemia due to chronic blood loss: Status: Acute (2) Chronic constipation: Status: Acute (3) Family history of colon cancer in father: Status: Acute Plan 41-year-old female with seizure disorder, tethered cord syndrome admitted with complaints of multiple seizure episodes at home.? Labs were are significant for? WBC count of 17, hemoglobin of 8.5, Hct 31 (decreased from 11.7 and 38.8 in May 2020), Her H & H has decreased during hospitalization to 7.8 & 26.7 Pt admits to having heavy periods for the past several years. Pt complains of chronic constipation which she attributes to chronic low back pain and takes senna intermittently. She denies, diarrhea, black stools or rectal bleeding. Patient's Dad had colon cancer ?in his 40's and is alive in his 50's. Iron deficiency anemia is likely related to menstrual blood loss and less likely due to a GI source. RECOMMENDATIONS: 1. Pt was advised to resume taking senna daily for constipation. 2. Start on oral iron daily and FU CBC next week as an outpatient. (she may need IV iron if she does not respond to PO iron). 3. Needs to FU with [employer] for menorrhagia. 4. I will schedule an EGD and colonoscopy as an outpatient for evaluation of anemia and positive family history of colon cancer. Procedures Date of Service Date of Service: 07/18/21
== END 2021-07-18 15:13 | disposition home or self-care (01) | DRG 101 ==
LOC: HO.ED 19:08 → HO.EDOVER 21:07 → HO.S3 07-17 16:36
PROVIDERS: Admitting Provider Internal Medicine; Emergency Provider Emergency Medicine; PCP Internal Medicine; Visit Provider Internal Medicine
DX: G40.919 Epilepsy, unspecified, intractable, without status epilepticus (principal); Q06.8 Other specified congenital malformations of spinal cord; D50.0 Iron deficiency anemia secondary to blood loss (chronic); K59.09 Other constipation; D72.829 Elevated white blood cell count, unspecified; F39 Unspecified mood [affective] disorder; Z20.822 Contact with and (suspected) exposure to COVID-19; Z98.51 Tubal ligation status; Z79.899 Other long term (current) drug therapy
CPT/HCPCS: 36415; 70450; 70553; 71045; 80048; 80053; 82607; 82728; 82746; 83540; 85014; 85018; 85025; 85045; 86850; 86900; 86901; 86920; 86922; 87635; 93005; 96374; 99218; 99285; A9585; J1650; J1885; J2060; J2270

== ENCOUNTER 2021-07-27 18:37 | Emergency (ER) | payer OTHER, SELFPAY ==
--- NOTE | ~2021-07-27 | CT_ITS ---
EXAMINATION: CT HEAD WITHOUT CONTRAST CLINICAL INFORMATION: Seizure. COMPARISON: Brain MRI 07/17/2021. TECHNIQUE: Contiguous axial imaging was performed from the skull base to vertex without intravenous administration of contrast. This CT examination was performed using dose optimization techniques as appropriate, variously including the following: *Automated exposure control *Adjustment of mA and/or kV according to patient size (this includes techniques or standardized protocols for targeted exams where dose is matched to indication/reason for exam; i.e. extremities or head) *Use of iterative reconstruction technique DLP: 764 mGy-cm. FINDINGS: There is no intracranial hemorrhage, extra-axial collection, mass effect, or territorial infarction. A small focus of presumed encephalomalacia/gliosis and left parietal lobe is better defined on the recent brain MRI. The ventricles are normal in size and configuration without evidence of hydrocephalus. The midline structures appear normal. The cerebellar tonsils terminate normally above the foramen magnum. There is moderate paranasal sinus mucosal thickening and prominent lobular mucosal retention cyst in the right maxillary sinus. The mastoid air cells and middle ear cavities are clear. CT/CT head/brain wo con IMPRESSION: No acute intracranial abnormality identified.
[2021-07-27 18:46] VITALS: BP 138/64; BP 140/87; PULSE 75; PULSE 86; RESP 16; TEMP 36.6; O2SAT 100; O2SAT 98; BMI 36.6
[2021-07-27 18:54] VITALS: BP 138/64; PULSE 75; RESP 18; TEMP 36.8; O2SAT 100; BMI 36.0
[2021-07-27 19:23] VITALS: BP 125/71; PULSE 79; RESP 17; TEMP 37; O2SAT 100
--- NOTE | 2021-07-27 19:47 | ED_ITS ---
HPI - Seizure General Chief Complaint: Seizure Stated Complaint: RIGHT SIDED SEIZURE PER EMS Time Seen by Provider: 07/27/21 20:23 Source: patient Mode of arrival: ambulatory Limitations: no limitations History of Present Illness HPI Narrative: 41-year-old female with past medical history of seizures presents to ED for seizure episode that occurred today while eating. Patient states she was at dinner was informed by family that she was not conscious and started having shaking of her right side of her body. Patient states when she has a seizure she usually has only the right side of her body shaking. Patient presently denies any symptoms. Patient denies any chest pain, shortness of breath, slurred speech, facial droop, paralysis of extremities, headache, dizziness, nausea, vomiting. Patient states she just started a new seizure medications. Seizure History: Yes Related Data Home Medications Medication Instructions Recorded Confirmed cyclobenzaprine 10 mg tablet 10 mg PO BEDTIME PRN 06/14/21 07/16/21 sertraline 50 mg tablet (Zoloft) 50 mg PO DAILY 06/14/21 07/16/21 Previous Rx's Medication Instructions Recorded docusate sodium 100 mg capsule 100 mg PO DAILY PRN #30 cap 07/18/21 ferrous sulfate 324 mg (65 mg 324 mg PO BIDWM #60 tab 07/18/21 iron) tablet,delayed release omeprazole 20 mg capsule,delayed 20 mg PO DAILY@0630 #30 cap 07/18/21 release oxcarbazepine 300 mg tablet 300 mg PO BID #60 tab 07/18/21 polyethylene glycol 3350 17 gram 17 g PO DAILY #30 ea 07/18/21 oral powder packet topiramate 25 mg tablet 25 mg PO BEDTIME 30 Days #30 tab 07/18/21 tramadol 50 mg tablet 50 mg PO BID PRN #10 tab 07/18/21 cephalexin 500 mg capsule 500 mg PO QID 7 Days #28 cap 07/27/21 Allergies Allergy/AdvReac Type Severity Reaction Status Date / Time lamotrigine [From Lamictal] Allergy Rash Verified 07/16/21 09:47 Review of Systems Review of Systems: Seizure Yes all other systems are reviewed and are negative PMFSH Past Medical History Medical History (Updated 07/28/21 @ 00:01 by Background Daemon) Back pain Lumbar spondylosis Lumbosacral radiculopathy at S1 Post laminectomy syndrome Seizures, generalized convulsive Tethered cord syndrome Surgical History (Updated 07/17/21 @ 05:59 by Sunni Hull MD) Tubal ligation status Family History Family History (Updated 07/17/21 @ 05:59 by Sunni Hull MD) Other No family history of coronary artery disease Social History Social History (Updated 07/17/21 @ 06:00 by Sunni Hull MD) Household Members: Spouse Household Members Other:: Daughter Housing: Apartment Do you presently have visiting nurse or other home services: No Alcohol intake: current Alcohol intake frequency: does not drink Patient Tobacco Use Status: Never used Tobacco Use of substances other than those prescribed or required for medical reasons: No Advance Directives: No Advance Directives Information Provided: No Patient : No Physical Exam Vital Signs: Vital Signs: Last Vital Signs Temp 98.2 F 07/27/21 23:00 Pulse 82 07/27/21 23:00 Resp 18 07/27/21 23:00 BP 123/58 L 07/27/21 23:00 Pulse Ox 100 07/27/21 23:00 BMI result Body Mass Index 36.0 Const: Orientation/consciousness: patient oriented x3 HEENT: Head: Yes normal to inspection, Yes No palpable skull fracture present, Yes normocephalic, Yes atraumatic and No abrasion Eyes: General: appearance normal, both eyes and all related structures Neck: Neck: Yes normal visual inspection, Yes full ROM, Yes no lymphadenopathy, Yes no meningeal signs, Yes trachea midline, Yes supple, No anterior neck swelling and No tender Chest: Chest palpation & inspection: normal inspection of the chest and normal palpation of entire chest wall Resp: Effort & Inspection: normal respiratory effort and able to speak in complete sentences Auscultation: clear to auscultation bilaterally Cardio: Jugular venous distension: no JVD Heart sounds: S1 normal heart sound present and S2 normal heart sound present GI: Inspection: Yes normal to inspection and No abdominal wall ecchymosis Palpation (GI): Soft to palpation, not firm, nontender and no guarding : General: No CVA tenderness and Yes no CVA tenderness Back/Spine/Pelvis: Back: no CVA tenderness, No CVA tenderness, No ecchymosis and No back tenderness Skin: General skin exam: no rashes or lesions noted, elasticity normal, turgor normal and no atrophy Neuro: Other: Negative facial droop. Negative slurred speech. All extremities equal strength 5+. Enusmy-vy-uohl rapid hand movement intact. Negative Romberg. negative pronator drift. normal gait General: patient oriented x3, gait normal, no meningeal signs and CN's II-XI intact bilaterally Cranial nerves: Yes CN's II-XII intact bilaterally Extrem: General: Yes normal to inspection and Yes full ROM Psych: Appearance: grossly normal, well kempt and not disheveled Course Course Course Narrative: Patient will have labs, head CT scan, and fluids ordered. Reevaluation(s) Reevaluation #1: Patient informed nursing staff that she was having an aura and felt like her seizure was about to come again so patient was giving Ativan IV 2 mg. Time: 20:45 Reevaluation #2: Patient's urine shows UTI. Patient will be discharged with antibiotics and told to follow up with primary care and neurologist. Neuro exam is intact. Time: 22:47 MDM - Seizure MDM Narrative Medical decision making narrative: Seizure. UTI Lab Data Result diagrams: 07/27/21 19:55 07/27/21 19:55 Labs: Lab Results 07/27/21 07/27/21 07/27/21 Range/Units 19:55 19:55 19:55 WBC 7.0 (4.8-10.8) X10*3/uL RBC 3.89 L (4.20-5.50) X10*6/uL Hgb 8.0 L (12.0-16.0) g/dl Hct 27.6 L (37.0-47.0) % MCV 71.0 L (80.0-98.0) fL MCH 20.6 L (27.0-33.0) pg MCHC 29.0 L (31.0-35.0) g/dl RDW 19.5 H (11.0-16.0) % Plt Count 409 H D (160-400) X10*3/uL MPV 10.3 (9.4-12.3) fL Immature Gran % (Auto) 0.3 (0.0-0.4) % Neut % (Auto) 69.3 (45-73) % Lymph % (Auto) 22.5 (20-40) % [place] % (Auto) 5.8 (2-11) % Eos % (Auto) 1.7 (0-4) % Baso % (Auto) 0.4 (0-2) % Lymph # (Auto) 1.6 (1.2-4.9) X10*3/uL [place] # (Auto) 0.4 (0.1-1.2) X10*3/uL Eos # (Auto) 0.1 (0.0-0.4) X10*3/uL Baso # (Auto) 0.0 (0.0-0.2) X10*3/uL Abs Immat Gran (auto) 0.02 (0.00-0.03) X10*3/uL Absolute Neuts (auto) 4.9 (2.0-8.3) x10*3/uL Absolute Nucleated RBC 0.000 (0.0-0.012) X10*3/uL Nucleated RBC % (auto) 0.0 (0.0-0.2) /100WBC PT 11.2 (9.9-13.0) SEC INR 1.0 (0.9-1.1) APTT 29.8 (24.1-38.0) SEC Sodium 135 (135-145) mmol/L Potassium 4.3 D (3.3-5.1) mmol/L Chloride 103 (96-108) mmol/L Carbon Dioxide 24 (22-29) mmol/L Anion Gap 12 (12-20) BUN 9 (9-16) mg/dL Creatinine 0.67 (0.5-1.4) mg/dL Estim Creat Clear Calc 114.8 Estimated GFR > 60 Random Glucose 111 (60-115) mg/dL Calcium 8.9 D (8.4-10.2) mg/dL Magnesium 2.0 (1.6-2.6) mg/dL Total Bilirubin 0.4 (0.0-1.0) mg/dL AST 17 (5-31) U/L ALT 20 (0-31) U/L Alkaline Phosphatase 80 (39-117) U/L Total Protein 6.9 (6.5-8.0) g/dL Albumin 4.1 (3.5-5.0) g/dL Beta HCG, Quant < 2 mIU/mL Urine Color Urine Appearance Urine pH (5.0-8.0) Ur Specific Kenton (1.005-1.025) Urine Protein (NEG-TRACE) MG/DL Urine Glucose (UA) (NEG) MG/DL Urine Ketones (NEG) MG/DL Urine Blood (NEG) Urine Nitrite (NEG) Ur Leukocyte Esterase (NEG) Urine RBC (0) /HPF Urine WBC (0-4) /HPF Ur Squamous Epith Cells /LPF Urine Bacteria /LPF Urine Test (NEGATIVE) 07/27/21 07/27/21 Range/Units 20:21 20:21 WBC (4.8-10.8) X10*3/uL RBC (4.20-5.50) X10*6/uL Hgb (12.0-16.0) g/dl Hct (37.0-47.0) % MCV (80.0-98.0) fL MCH (27.0-33.0) pg MCHC (31.0-35.0) g/dl RDW (11.0-16.0) % Plt Count (160-400) X10*3/uL MPV (9.4-12.3) fL Immature Gran % (Auto) (0.0-0.4) % Neut % (Auto) (45-73) % Lymph % (Auto) (20-40) % [place] % (Auto) (2-11) % Eos % (Auto) (0-4) % Baso % (Auto) (0-2) % Lymph # (Auto) (1.2-4.9) X10*3/uL [place] # (Auto) (0.1-1.2) X10*3/uL Eos # (Auto) (0.0-0.4) X10*3/uL Baso # (Auto) (0.0-0.2) X10*3/uL Abs Immat Gran (auto) (0.00-0.03) X10*3/uL Absolute Neuts (auto) (2.0-8.3) x10*3/uL Absolute Nucleated RBC (0.0-0.012) X10*3/uL Nucleated RBC % (auto) (0.0-0.2) /100WBC PT (9.9-13.0) SEC INR (0.9-1.1) APTT (24.1-38.0) SEC Sodium (135-145) mmol/L Potassium (3.3-5.1) mmol/L Chloride (96-108) mmol/L Carbon Dioxide (22-29) mmol/L Anion Gap (12-20) BUN (9-16) mg/dL Creatinine (0.5-1.4) mg/dL Estim Creat Clear Calc Estimated GFR Random Glucose (60-115) mg/dL Calcium (8.4-10.2) mg/dL Magnesium (1.6-2.6) mg/dL Total Bilirubin (0.0-1.0) mg/dL AST (5-31) U/L ALT (0-31) U/L Alkaline Phosphatase (39-117) U/L Total Protein (6.5-8.0) g/dL Albumin (3.5-5.0) g/dL Beta HCG, Quant mIU/mL Urine Color YELLOW Urine Appearance CLEAR Urine pH 6.0 (5.0-8.0) Ur Specific Kenton <= 1.005 (1.005-1.025) Urine Protein NEG (NEG-TRACE) MG/DL Urine Glucose (UA) NEG (NEG) MG/DL Urine Ketones NEG (NEG) MG/DL Urine Blood 1+ H (NEG) Urine Nitrite NEG (NEG) Ur Leukocyte Esterase 1+ H (NEG) Urine RBC 1-4 (0) /HPF Urine WBC 5-9 H (0-4) /HPF Ur Squamous Epith Cells 1+ /LPF Urine Bacteria 3+ /LPF Urine Test NEGATIVE (NEGATIVE) Discharge Plan Discharge Clinical Impression: UTI (urinary tract infection), Seizure Patient Disposition: Home, Self-Care Instructions: Urinary Tract Infection in Women (DC), Recurrent Seizures in Adults (ED) Additional Instructions: Your labs came back at baseline. Urine showed an infection. The head CT scan came back normal. You will be discharged with antibiotics. Return to the ED for abdominal pain, flank pain, fever, chills, nausea, vomiting, weakness, dizziness, intractable seizures, altered mental status, fev er, chills, hematuria, dysuria, or any other concerning symptoms. Prescriptions: New cephalexin 500 mg capsule 500 mg PO QID 7 Days Qty: 28 0RF No Action topiramate 25 mg Tablet 25 mg PO BEDTIME 30 Days Qty: 30 0RF oxcarbazepine 300 mg Tablet 300 mg PO BID Qty: 60 0RF docusate sodium 100 mg Capsule 100 mg PO DAILY PRN (Reason: Constipation) Qty: 30 0RF polyethylene glycol 3350 17 gram Powder In Packet 17 g PO DAILY Qty: 30 0RF omeprazole 20 mg Capsule,Delayed Release(Dr/Ec) 20 mg PO DAILY@0630 Qty: 30 0RF ferrous sulfate 324 mg (65 mg iron) Tablet,Delayed Release (Dr/Ec) 324 mg PO BIDWM Qty: 60 0RF tramadol 50 mg tablet 50 mg PO BID PRN (Reason: pain) Qty: 10 0RF sertraline [Zoloft] 50 mg tablet 50 mg PO DAILY 0RF cyclobenzaprine 10 mg tablet 10 mg PO BEDTIME PRN (Reason: Muscle Spasm) 0RF Stand Alone Forms: Work/School Release Interventions: ED Discharge Assessment Last Done: 07/27/21 23:17 Discharge Date/Time: 07/27/21 23:23 Print Language: Luxembourgish
[2021-07-27] MEDS: 0.9 % Sodium Chloride 1,000 ML 999 ML IV (19:57)
[2021-07-27 20:03] LABS: MANUAL DIFF FLAG NO
[2021-07-27 20:06] LABS: Basophils Percent Auto 0.4 % (0-2); Eosinophils Absolute Auto 0.1 X10*3/uL (0.0-0.4); Eosinophils Percent Auto 1.7 % (0-4); Hematocrit 27.6 % (37.0-47.0); Imm Gran Abs Auto 0.02 X10*3/uL (0.00-0.03); Imm Gran Pct Auto 0.3 % (0.0-0.4); Lymphocytes Absolute Auto 1.6 X10*3/uL (1.2-4.9); Lymphocytes Percent Auto 22.5 % (20-40); Mean Corpuscular Hemoglobin 20.6 pg (27.0-33.0); Mean Platelet Volume 10.3 fL (9.4-12.3); Monocytes Absolute Auto 0.4 X10*3/uL (0.1-1.2); Monocytes Percent Auto 5.8 % (2-11); Neutrophils Absolute Auto 4.9 x10*3/uL (2.0-8.3); Neutrophils Percent Auto 69.3 % (45-73); Platelet Count 409 X10*3/uL (160-400); Red Blood Count 3.89 X10*6/uL (4.20-5.50); Red Cell Distribution Width 19.5 % (11.0-16.0)
[2021-07-27 20:11] LABS: Prothrombin Time 11.2 SEC (9.9-13.0)
[2021-07-27 20:13] LABS: Partial Thromboplastin Time 29.8 SEC (24.1-38.0)
[2021-07-27 20:19] LABS: Alanine Aminotransferase 20 U/L (0-31); Albumin Level 4.1 g/dL (3.5-5.0); Alkaline Phosphatase 80 U/L (39-117); Anion Gap 12 (12-20); Aspartate Amino Transferase 17 U/L (5-31); Bilirubin Total 0.4 mg/dL (0.0-1.0); Blood Urea Nitrogen 9 mg/dL (9-16); Calcium 8.9 mg/dL (8.4-10.2); Carbon Dioxide 24 mmol/L (22-29); Chloride 103 mmol/L (96-108); Creatinine Clr Calc Pharmacy 114.8; Estimated Glomerular Filt Rate > 60; Glucose Random 111 mg/dL (60-115); Potassium 4.3 mmol/L (3.3-5.1); Sodium 135 mmol/L (135-145); Total Protein 6.9 g/dL (6.5-8.0)
[2021-07-27 20:25] LABS: HCG Quantitative < 2 mIU/mL
[2021-07-27] MEDS: LORazepam 2 MG/ML VIAL IVPUSH (20:30)
[2021-07-27 20:31] VITALS: BP 131/68; PULSE 82; RESP 12; O2SAT 100
--- NOTE | 2021-07-27 20:31 | PC.NURSE ---
Pt stated she was having a seizure/aura that was characterized by small tremors in her right hand, numbness in her right arm, and spasms in her right head. Prashant ROSE was informed and pt was given 2mg Ativan IV. Pt seems to be resting well at this time, but is nervous and concerned that her seizures are going to get worse. Will continue to monitor.
[2021-07-27 21:06] LABS: Appearance Urine CLEAR; Color Urine YELLOW; Glucose Urine UA NEG (NEG); Leukocyte Esterase Urine 1+ (NEG); Nitrite Urine NEG (NEG); Specific Gravity - Urine <= 1.005 (1.005-1.025); UACC Culture Trigger YES; Urine Blood 1+ (NEG); Urine Ketones NEG (NEG); Urine Protein NEG (NEG-TRACE)
[2021-07-27 21:11] LABS: UPreg QC Valid YES; Urine Pregnancy NEGATIVE (NEGATIVE)
[2021-07-27 21:33] LABS: Bacteria Urine 3+ /LPF; Squamous Epithelial Cell Urine 1+ /LPF
[2021-07-27 23:00] VITALS: BP 123/58; PULSE 82; RESP 18; TEMP 36.8; O2SAT 100
--- NOTE | 2021-07-27 23:18 | PC.NURSE ---
Pt a&o, no sob or chest pain. reviewed discharge instructions. pt verbalized understanding.
== END 2021-07-27 23:23 | disposition home or self-care (01) ==
PROVIDERS: Physician Assistant; Emergency Provider Emergency Medicine Emergency Medical Services
DX: N39.0 Urinary tract infection, site not specified (principal); R56.9 Unspecified convulsions; Z79.899 Other long term (current) drug therapy
CPT/HCPCS: 36415; 70450; 80053; 81001; 81003; 81025; 83735; 84702; 85025; 85610; 85730; 87086; 96361; 96374; 99284; J2060

== ENCOUNTER → 2021-08-20 10:00 | Outpatient (BNVA) | payer OTHER, SELFPAY | PROVIDERS: Visit Provider Internal Medicine | DX: M47.816 Spondylosis without myelopathy or radiculopathy, lumbar region (principal) ==

== ENCOUNTER 2021-09-02 12:11 | Emergency (ER) | payer OTHER, SELFPAY ==
--- NOTE | ~2021-09-02 | CT_ITS ---
EXAMINATION: CT HEAD WITHOUT CONTRAST CLINICAL INFORMATION: Seizure. COMPARISON: CT head from 07/27/2021. Brain MRI from 07/17/2021. TECHNIQUE: Contiguous axial imaging was performed from the skull base to vertex without intravenous administration of contrast. This CT examination was performed using dose optimization techniques as appropriate, variously including the following: *Automated exposure control. *Adjustment of mA and/or kV according to patient size (this includes techniques or standardized protocols for targeted exams where dose is matched to indication/reason for exam; i.e. extremities or head). *Use of iterative reconstruction technique. DLP: 719 mGy-cm FINDINGS: There is no evidence of acute intracranial hemorrhage or edematous territorial infarction. Small region of encephalomalacia centered in the high left parietal lobe. No additional parenchymal signal abnormalities. No additional loss of sloan-white matter differentiation. Proportional prominence of the ventricles and sulcal spaces. No evidence for obstructive hydrocephalus. No abnormal mass effect or midline shift. No extra-axial fluid collections. No acute soft tissue or osseous abnormalities. Moderate polypoid mucosal thickening of the paranasal sinuses. Mucous retention cyst within the right maxillary sinus. The mastoid air cells and middle ear cavities are clear. CT/CT head/brain wo con IMPRESSION: 1. No evidence of acute intracranial hemorrhage or edematous territorial infarction. 2. Chronic small region of encephalomalacia centered in the high left parietal lobe.
[2021-09-02 12:17] VITALS: BP 132/68; PULSE 85; RESP 18; TEMP 36.6; O2SAT 100; BMI 36.1
[2021-09-02 13:49] LABS: Glucose, Whole Blood 93 mg/dL (60-115)
--- NOTE | 2021-09-02 13:50 | PC.NURSE ---
witnessed 1 minute event in [place]. Pt was slightly pale, stated she was going to sz, head leaned back, was able to follow commands and take deep breath throughout event. REU tremor. no LOC. no nastigmus. poc in the 90's. passed w/o intervention.
--- NOTE | 2021-09-02 14:26 | ED_ITS ---
HPI - Seizure General Chief Complaint: Seizure Stated Complaint: 2 seizures today 1 hr apart Time Seen by Provider: 09/02/21 14:18 Source: patient, family and old records reviewed Mode of arrival: ambulatory Limitations: no limitations History of Present Illness HPI Narrative: 41-year-old female came in for evaluation of seizure. Patient was history of lupus, anxiety disorder patient reported right-sided body seizure affecting right upper extremities and right side of the abdomen during the episodes patient was fully awake and remember having the episodes, patient had multiple CTs and multiple MRIs in the back and been evaluated by Dr. Greenberg patient also had a multiple EEGs in the past did not reveal epileptic wave Recent MRI showed left parietal nonspecific lesion patient stated that she has been compliant with her medication. patient reported that she has been having insomnia during the night and feels tired and fatigued during the day, otherwise patient declined any other symptoms. Seizure History: Yes Related Data Home Medications Medication Instructions Recorded Confirmed sertraline 50 mg tablet (Zoloft) 50 mg PO DAILY 06/14/21 07/16/21 fluoxetine 20 mg capsule 20 mg PO DAILY 08/20/21 hydroxychloroquine 200 mg tablet 200 mg PO BID 08/20/21 propranolol 20 mg tablet 20 mg PO BID 08/20/21 Previous Rx's Medication Instructions Recorded docusate sodium 100 mg capsule 100 mg PO DAILY PRN #30 cap 07/18/21 ferrous sulfate 324 mg (65 mg 324 mg PO BIDWM #60 tab 07/18/21 iron) tablet,delayed release omeprazole 20 mg capsule,delayed 20 mg PO DAILY@0630 #30 cap 07/18/21 release oxcarbazepine 300 mg tablet 300 mg PO BID #60 tab 07/18/21 polyethylene glycol 3350 17 gram 17 g PO DAILY #30 ea 07/18/21 oral powder packet topiramate 25 mg tablet 25 mg PO BEDTIME 30 Days #30 tab 07/18/21 tramadol 50 mg tablet 50 mg PO BID PRN #10 tab 07/18/21 cephalexin 500 mg capsule 500 mg PO QID 7 Days #28 cap 07/27/21 Allergies Allergy/AdvReac Type Severity Reaction Status Date / Time lamotrigine [From Lamictal] Allergy Rash Verified 08/20/21 10:06 Review of Systems Review of Systems: All other systems are reviewed and are negative Constitutional: Reports as per HPI and Reports no additional constitutional complaints Eyes: Reports as per HPI and Reports no additional eye complaints Reports system reviewed and no additional complaints, except as documented Cardiovascular: Reports as per HPI and Reports no additional cardiovascular complaints Respiratory: Reports as per HPI and Reports no additional respiratory complaints Gastrointestinal: Reports as per HPI and Reports no additional gastrointestinal complaints Genitourinary: Reports no additional female genitourinary complaints Musculoskeletal: Reports no additional musculoskeletal complaints Skin/Breast: Reports system reviewed and no additional complaints, except as docu Psychiatric: Reports no additional psychiatric complaints Endocrine: Reports no additional endocrine complaints Hematologic/Lymphatic: Reports no additional hematologic/lymphatic complaints Allergic/Immunologic: Reports no additional allergic/immunologic complaints Reports system reviewed and no additional complaints, except as documented and Reports Abnormal speech present [facility] Past Medical History Medical History Back pain Lumbar spondylosis Lumbosacral radiculopathy at S1 Post laminectomy syndrome Seizures, generalized convulsive Tethered cord syndrome Surgical History Tubal ligation status Family History Family History (Updated 07/17/21 @ 05:59 by Sunni Hull MD) Other No family history of coronary artery disease Social History Social History (Updated 07/17/21 @ 06:00 by Sunni Hull MD) Household Members: Spouse Household Members Other:: Daughter Housing: Apartment Do you presently have visiting nurse or other home services: No Alcohol intake: current Alcohol intake frequency: does not drink Patient Tobacco Use Status: Never used Tobacco Advance Directives: No Advance Directives Information Provided: No Physical Exam Vital Signs: Vital Signs: Last Vital Signs Temp 97.9 F 09/02/21 12:17 Pulse 85 09/02/21 12:17 Resp 18 09/02/21 12:17 BP 132/68 09/02/21 12:17 Pulse Ox 100 09/02/21 12:17 BMI result Body Mass Index 36.1 vital signs have been reviewed as appeared to be correct. Blood pressure normal. Heart rate normal. Respiration rate normal. Temperature normal. Oxygen saturation normal. Appearance: Alert. Oriented X3. No acute distress. Head: Normal external exam. Normocephalic. Atraumatic. No Johnson signs noted. No raccoon eyes noted Eyes: PERRLA. EOMI. Conjunctiva and sclera normal. Eyelids normal. ENT: TM's Normal. Pharynx normal. Uvula midline. Moist mucous membranes. No trismus noted. No drooling noted. No muffled voice noted. Neck: Normal inspection. Neck supple. FROM. No adenopathy. Thyroid Normal. No meningeal signs. No neck mass noted. CVS: Normal heart rate and rhythm. Heart sound normal. No murmurs noted. Pulses normal throughout. Respiratory: No respiratory distress. Painless inspiration. Breath sounds normal. No wheezes/rales/rhonchi noted. Chest nontender. No accessory muscle usage noted or decreased air movement noted. Abdomen: Soft and nontender. Bowel sounds normal in all 4 quadrants. No distention noted. No organomegaly noted. No visible injury noted. Back: No CVA tenderness. Full range of motion noted. Skin: Skin warm and dry. Normal skin color. Normal skin turgor. No rashes/lesions/lacerations noted. Extremities: No lower extremity edema. Extremities exhibit normal range of motion. Extremities nontender. Neuro: Oriented X 3. Cranial nerve exam: II-XII are grossly intact No motor deficit. No sensory deficit. Reflexes normal. Course Course Course Narrative: assessment and plan. 41-year-old female history of focal seizure follow-up with Dr. Greenberg, patient is compliant with her medication, patient been having insomnia and feeling tired during the day, patient had 2 focal seizure without LOC today which is typical for patient's presentation, patient had a negative CT with normal neuro exam and unremarkable labs. MDM - Seizure Lab Data Attestation: I reviewed the patient's lab results. Result diagrams: 09/02/21 14:36 09/02/21 14:36 Labs: Lab Results 09/02/21 09/02/21 09/02/21 Range/Units 13:44 14:36 14:36 WBC 9.7 (4.8-10.8) X10*3/uL RBC 4.22 (4.20-5.50) X10*6/uL Hgb 8.6 L (12.0-16.0) g/dl Hct 29.6 L (37.0-47.0) % MCV 70.1 L (80.0-98.0) fL MCH 20.4 L (27.0-33.0) pg MCHC 29.1 L (31.0-35.0) g/dl RDW 20.5 H (11.0-16.0) % Plt Count 377 (160-400) X10*3/uL MPV 10.3 (9.4-12.3) fL Immature Gran % (Auto) 0.3 (0.0-0.4) % Neut % (Auto) 69.0 (45-73) % Lymph % (Auto) 22.8 (20-40) % [place] % (Auto) 6.9 (2-11) % Eos % (Auto) 0.7 (0-4) % Baso % (Auto) 0.3 (0-2) % Lymph # (Auto) 2.2 (1.2-4.9) X10*3/uL [place] # (Auto) 0.7 (0.1-1.2) X10*3/uL Eos # (Auto) 0.1 (0.0-0.4) X10*3/uL Baso # (Auto) 0.0 (0.0-0.2) X10*3/uL Abs Immat Gran (auto) 0.03 (0.00-0.03) X10*3/uL Absolute Neuts (auto) 6.7 (2.0-8.3) x10*3/uL Absolute Nucleated RBC 0.000 (0.0-0.012) X10*3/uL Nucleated RBC % (auto) 0.0 (0.0-0.2) /100WBC Sodium 135 (135-145) mmol/L Potassium 4.5 (3.3-5.1) mmol/L Chloride 105 (96-108) mmol/L Carbon Dioxide 19 L (22-29) mmol/L Anion Gap 16 (12-20) BUN 16 D (9-16) mg/dL Creatinine 0.71 (0.5-1.4) mg/dL Estim Creat Clear Calc 108.5 Estimated GFR > 60 POC Glucose 93 (60-115) mg/dL Random Glucose 87 (60-115) mg/dL Calcium 8.9 (8.4-10.2) mg/dL Total Bilirubin 0.3 (0.0-1.0) mg/dL Direct Bilirubin < 0.2 (0.0-0.5) mg/dL AST 15 (5-31) U/L ALT 18 (0-31) U/L Alkaline Phosphatase 74 (39-117) U/L Total Protein 7.4 (6.5-8.0) g/dL Albumin 4.3 (3.5-5.0) g/dL Lipase 27 (8-78) U/L Imaging Data CT scan - head: Attestation: I personally reviewed and interpreted this imaging study as follows: Radiologist's impression: Unremarkable head CT. Discharge Plan Discharge Clinical Impression: Focal seizure Patient Disposition: Home, Self-Care Instructions: Nonepileptic Seizures (ED) Prescriptions: No Action topiramate 25 mg Tablet 25 mg PO BEDTIME 30 Days Qty: 30 0RF oxcarbazepine 300 mg Tablet 300 mg PO BID Qty: 60 0RF docusate sodium 100 mg Capsule 100 mg PO DAILY PRN (Reason: Constipation) Qty: 30 0RF polyethylene glycol 3350 17 gram Powder In Packet 17 g PO DAILY Qty: 30 0RF omeprazole 20 mg Capsule,Delayed Release(Dr/Ec) 20 mg PO DAILY@0630 Qty: 30 0RF ferrous sulfate 324 mg (65 mg iron) Tablet,Delayed Release (Dr/Ec) 324 mg PO BIDWM Qty: 60 0RF tramadol 50 mg tablet 50 mg PO BID PRN (Reason: pain) Qty: 10 0RF cephalexin 500 mg capsule 500 mg PO QID 7 Days Qty: 28 0RF sertraline [Zoloft] 50 mg tablet 50 mg PO DAILY 0RF propranolol 20 mg tablet 20 mg PO BID 0RF fluoxetine 20 mg capsule 20 mg PO DAILY 0RF hydroxychloroquine 200 mg tablet 200 mg PO BID 0RF Referrals: Erma Greenberg MD [Physician] -
[2021-09-02] MEDS: LORazepam 1 MG TABLET 2 MG PO (14:35)
[2021-09-02 14:42] LABS: MANUAL DIFF FLAG NO
[2021-09-02 14:47] LABS: Basophils Percent Auto 0.3 % (0-2); Eosinophils Absolute Auto 0.1 X10*3/uL (0.0-0.4); Eosinophils Percent Auto 0.7 % (0-4); Hematocrit 29.6 % (37.0-47.0); Hemoglobin 8.6 g/dl (12.0-16.0); Imm Gran Abs Auto 0.03 X10*3/uL (0.00-0.03); Imm Gran Pct Auto 0.3 % (0.0-0.4); Lymphocytes Absolute Auto 2.2 X10*3/uL (1.2-4.9); Lymphocytes Percent Auto 22.8 % (20-40); Mean Corpuscular HGB Conc 29.1 g/dl (31.0-35.0); Mean Corpuscular Hemoglobin 20.4 pg (27.0-33.0); Mean Corpuscular Volume 70.1 fL (80.0-98.0); Mean Platelet Volume 10.3 fL (9.4-12.3); Monocytes Absolute Auto 0.7 X10*3/uL (0.1-1.2); Monocytes Percent Auto 6.9 % (2-11); Neutrophils Absolute Auto 6.7 x10*3/uL (2.0-8.3); Platelet Count 377 X10*3/uL (160-400); Red Blood Count 4.22 X10*6/uL (4.20-5.50); Red Cell Distribution Width 20.5 % (11.0-16.0); White Blood Count 9.7 X10*3/uL (4.8-10.8)
[2021-09-02 15:01] LABS: Alanine Aminotransferase 18 U/L (0-31); Albumin Level 4.3 g/dL (3.5-5.0); Alkaline Phosphatase 74 U/L (39-117); Anion Gap 16 (12-20); Aspartate Amino Transferase 15 U/L (5-31); Bilirubin Direct < 0.2 mg/dL (0.0-0.5); Bilirubin Total 0.3 mg/dL (0.0-1.0); Blood Urea Nitrogen 16 mg/dL (9-16); Calcium 8.9 mg/dL (8.4-10.2); Carbon Dioxide 19 mmol/L (22-29); Chloride 105 mmol/L (96-108); Creatinine Clr Calc Pharmacy 108.5; Estimated Glomerular Filt Rate > 60; Glucose Random 87 mg/dL (60-115); Lipase 27 U/L (8-78); Potassium 4.5 mmol/L (3.3-5.1); Sodium 135 mmol/L (135-145); Total Protein 7.4 g/dL (6.5-8.0)
--- NOTE | 2021-09-02 16:30 | PC.NURSE ---
pt is currently sleeping, respirations even and unlabored, no seizure activity noticed at this time
[2021-09-02 16:47] VITALS: BP 131/63; PULSE 72; RESP 18; O2SAT 98
[2021-09-07 08:02] LABS: Oxcarbazepine 13.3 mcg/mL (8.0-35.0)
== END 2021-09-02 16:51 | disposition home or self-care (01) ==
PROVIDERS: Emergency Provider Emergency Medicine
DX: G40.109 Localization-related (focal) (partial) symptomatic epilepsy and epileptic syndromes with simple partial seizures, not intractable, without status epilepticus (principal); Z79.899 Other long term (current) drug therapy
CPT/HCPCS: 36415; 70450; 80048; 80076; 80339; 82947; 83690; 85025; 99283; 99284

== ENCOUNTER 2021-10-11 10:42 | Emergency (ER) | payer OTHER, SELFPAY ==
[2021-10-11 11:45] VITALS: BP 120/60; PULSE 72; RESP 16; TEMP 37.1; O2SAT 99; BMI 36.0
--- NOTE | 2021-10-11 11:57 | ECG_ITS ---
Test Reason : SEIZURE Blood Pressure : / mmHG Vent. Rate : 073 BPM Atrial Rate : 073 BPM P-R Int : 156 ms QRS Dur : 080 ms QT Int : 384 ms P-R-T Axes : 022 012 -14 degrees QTc Int : 423 ms Normal sinus rhythm Normal ECG When compared with ECG of 16-JUL-2021 16:32, Vent. rate has decreased BY 61 BPM Referred By: Generic ED Physician Electronically Signed By:Casper Bowens
[2021-10-11 12:25] LABS: Hematocrit 32.7 % (37.0-47.0); Hemoglobin 9.7 g/dl (12.0-16.0); Mean Corpuscular HGB Conc 29.7 g/dl (31.0-35.0); Mean Corpuscular Hemoglobin 21.8 pg (27.0-33.0); Mean Corpuscular Volume 73.5 fL (80.0-98.0); Mean Platelet Volume 10.5 fL (9.4-12.3); Platelet Count 353 X10*3/uL (160-400); Red Blood Count 4.45 X10*6/uL (4.20-5.50); Red Cell Distribution Width 21.6 % (11.0-16.0); White Blood Count 5.8 X10*3/uL (4.8-10.8)
[2021-10-11 12:39] LABS: Alanine Aminotransferase 17 U/L (0-31); Albumin Level 4.2 g/dL (3.5-5.0); Alkaline Phosphatase 70 U/L (39-117); Anion Gap 14 (12-20); Aspartate Amino Transferase 15 U/L (5-31); Bilirubin Direct < 0.2 mg/dL (0.0-0.5); Bilirubin Total 0.2 mg/dL (0.0-1.0); Blood Urea Nitrogen 13 mg/dL (9-16); Carbon Dioxide 23 mmol/L (22-29); Chloride 106 mmol/L (96-108); Creatinine Clr Calc Pharmacy 113.1; Estimated Glomerular Filt Rate > 60; Glucose Random 114 mg/dL (60-115); Lipase 18 U/L (8-78); Potassium 4.4 mmol/L (3.3-5.1); Sodium 139 mmol/L (135-145)
[2021-10-11 14:26] VITALS: BP 141/75; PULSE 73; RESP 16; O2SAT 100
--- NOTE | 2021-10-11 15:01 | ED.SEIZURE ---
HPI - Seizure General Chief Complaint: Seizure Stated Complaint: seizure Time Seen by Provider: 10/11/21 14:18 Source: patient Mode of arrival: ambulatory Limitations: no limitations History of Present Illness HPI Narrative: 41-year-old female who presents emergency department for evaluation of seizure and headache. The patient states that she had a seizure at around 10:00 this morning. She states that the seizure starts that as a tingling/numb feeling in her right arm. She states she then developed a spasm of the right arm and right neck she states that the symptoms lasted minutes and then resolved. She did not have any loss of consciousness. She states that after having a seizure she then developed a headache. She states the headache has been constant since the seizure resolved. She describes the headache as a right-sided throbbing/sharp sensation which is 10/10. The patient states that while she was in the emergency department she had a 2nd seizure. Patient states that she has had multiple seizures in a row in the past and she has discuss this with her neurologist. She told me that the neurologist believes that her seizures may be behavioral the patient states that she is getting a 2nd opinion. She states she has had similar headaches after she has had a seizure in the past. She denied fever, chills, rhinorrhea, sore throat, cough. She states she does get occasional chest pain and shortness of breath. She does have associated nausea with her headache but no vomiting. She denied abdominal pain, frequency, urgency or dysuria. MD complaint: seizure Onset (ago): hour(s) (5) Description of Episode: other (Numbness of the right arm with spasm of the right arm and right neck) Duration of episode: 3 -: minutes(s) Trauma: No Seizure History: Yes Place: Home Treatments prior to arrival: none Related Data Home Medications Medication Instructions Recorded Confirmed fluoxetine 20 mg capsule 20 mg PO DAILY 08/20/21 10/04/21 hydroxychloroquine 200 mg tablet 200 mg PO BID 08/20/21 10/04/21 propranolol 20 mg tablet 20 mg PO BID 08/20/21 10/04/21 Previous Rx's Medication Instructions Recorded docusate sodium 100 mg capsule 100 mg PO DAILY PRN Constipation 07/18/21 #30 caps ferrous sulfate 324 mg (65 mg 324 mg PO BIDWM #60 tabs 07/18/21 iron) tablet,delayed release oxcarbazepine 300 mg tablet 300 mg PO BID #60 tabs 07/18/21 Allergies Allergy/AdvReac Type Severity Reaction Status Date / Time lamotrigine [From Lamictal] Allergy Rash Verified 10/04/21 15:28 Review of Systems Review of Systems: Yes all other systems are reviewed and are negative [facility] Past Medical History [facility] Narrative: Social history: She denies tobacco, alcohol and drug use. Medical History Back pain Lumbar spondylosis Lumbosacral radiculopathy at S1 Post laminectomy syndrome Seizures, generalized convulsive Tethered cord syndrome Surgical History Tubal ligation status Family History Family History (Updated 07/17/21 @ 05:59 by Sunni Hull MD) Other No family history of coronary artery disease Social History Social History (Updated 07/17/21 @ 06:00 by Sunni Hull MD) Household Members: Spouse Household Members Other:: Daughter Housing: Apartment Do you presently have visiting nurse or other home services: No Alcohol intake: current Alcohol intake frequency: does not drink Patient Tobacco Use Status: Never used Tobacco Use of substances other than those prescribed or required for medical reasons: No Advance Directives: No Advance Directives Information Provided: Yes Physical Exam Vital Signs: Vital Signs: Last Vital Signs Temp 98.5 F 10/11/21 15:24 Pulse 77 10/11/21 15:24 Resp 19 10/11/21 15:24 BP 128/58 L 10/11/21 15:24 Pulse Ox 100 10/11/21 15:24 O2 Del Method 10/11/21 15:24 BMI result Body Mass Index 36.0 Const: General: cooperative and no acute distress Orientation/consciousness: oriented to person and oriented to place Limitations: no limitations HEENT: Head: Yes normal to inspection, Yes normocephalic and Yes atraumatic Ears: external ears normal General nose exam: Normal external nose present Face and sinus: Yes normal facial exam Mouth: Normal oral and palatal mucosa present Throat: Yes posterior oropharynx normal Eyes: General: appearance normal, both eyes and all related structures Pupils: Equal, round and reactive pupils present Neck: Neck: Yes normal visual inspection, Yes no lymphadenopathy, Yes trachea midline and Yes supple Chest: Chest palpation & inspection: normal inspection of the chest and normal palpation of entire chest wall Resp: Effort & Inspection: normal respiratory effort and able to speak in complete sentences Auscultation: clear to auscultation bilaterally Cardio: Rate: regular rate Rhythm: regular rhythm Heart sounds: S1 normal heart sound present, S2 normal heart sound present and no murmurs GI: Inspection: Yes normal to inspection Palpation (GI): Soft to palpation, nontender and no guarding Auscultation: normal bowel sounds : General: Yes no CVA tenderness Back/Spine/Pelvis: Back: no CVA tenderness Skin: General skin exam: no rashes or lesions noted Neuro: General: oriented to person and oriented to place Cranial nerves: Yes CN's II-XII intact bilaterally and Yes Equal, round and reactive pupils present Cognition (Neuro): normal cognition Motor exam (neuro): 5/5 motor strength present throughout Extrem: General: Yes normal to inspection Psych: Appearance: grossly normal Speech and movement: Normal speech and movement present Affect: normal affect Attitude: cooperative Thought process: Normal thought process present Thought content: Normal thought content present Course Course Course Narrative: 41-year-old female who presents emergency department for evaluation of a right-sided headache after having a seizure this morning at 10:00. Patient states she also had a seizure while she was waiting in the emergency department. Patient states she has had similar headaches in the past after she has had seizures. The patient had associated nausea but no other concerning symptoms. The patient's vital signs were normal. Patient's neurologic exam was nonfocal. Patient's headache is consistent with a migraine-like headache most likely triggered by her seizure. The patient was given normal saline IV x1 L, Reglan 10 mg IV, Benadryl 50 mg IV and Toradol 30 mg IV. 16 11: Patient is feeling significantly better and her headache is completely resolved after the above treatment. The patient was advised to continue her medications as prescribed by her doctor and to follow-up with neurology. She was advised to take Tylenol as needed for headache. MDM - Seizure Lab Data Result diagrams: 10/11/21 12:08 10/11/21 12:08 Labs: Lab Results 10/11/21 10/11/21 Range/Units 12:08 12:08 WBC 5.8 (4.8-10.8) X10*3/uL RBC 4.45 (4.20-5.50) X10*6/uL Hgb 9.7 L (12.0-16.0) g/dl Hct 32.7 L (37.0-47.0) % MCV 73.5 L (80.0-98.0) fL MCH 21.8 L (27.0-33.0) pg MCHC 29.7 L (31.0-35.0) g/dl RDW 21.6 H (11.0-16.0) % Plt Count 353 (160-400) X10*3/uL MPV 10.5 (9.4-12.3) fL Absolute Nucleated RBC 0.000 (0.0-0.012) X10*3/uL Nucleated RBC % (auto) 0.0 (0.0-0.2) /100WBC Sodium 139 (135-145) mmol/L Potassium 4.4 (3.3-5.1) mmol/L Chloride 106 (96-108) mmol/L Carbon Dioxide 23 (22-29) mmol/L Anion Gap 14 (12-20) BUN 13 (9-16) mg/dL Creatinine 0.68 (0.5-1.4) mg/dL Estim Creat Clear Calc 113.1 Estimated GFR > 60 Random Glucose 114 (60-115) mg/dL Calcium 9.0 (8.4-10.2) mg/dL Total Bilirubin 0.2 (0.0-1.0) mg/dL Direct Bilirubin < 0.2 (0.0-0.5) mg/dL AST 15 (5-31) U/L ALT 17 (0-31) U/L Alkaline Phosphatase 70 (39-117) U/L Total Protein 7.0 (6.5-8.0) g/dL Albumin 4.2 (3.5-5.0) g/dL Lipase 18 (8-78) U/L Discharge Plan Discharge Clinical Impression: Seizure Headache Qualifiers: Headache chronicity pattern: acute headache Intractability: not intractable Patient Disposition: Home, Self-Care Instructions: Acute Headache (ED) Additional Instructions: The medications that we gave you here in the emergency department will make you sleepy, you should go home and go to sleep and try not to do anything for the rest of the evening. Continue taking your medications as prescribed by your doctors Take Tylenol (acetaminophen) 500 mg pills, 2 pills every 4 to 6 hours as needed for pain. Follow-up with your doctor in 2 days. Please return to the emergency department if your symptoms get worse or if you develop any symptoms that are concerning to you. Prescriptions: No Action oxcarbazepine 300 mg Tablet 300 mg PO BID Qty: 60 0RF docusate sodium 100 mg Capsule 100 mg PO DAILY PRN (Reason: Constipation) Qty: 30 0RF ferrous sulfate 324 mg (65 mg iron) Tablet,Delayed Release (Dr/Ec) 324 mg PO BIDWM Qty: 60 0RF propranolol 20 mg tablet 20 mg PO BID fluoxetine 20 mg capsule 20 mg PO DAILY hydroxychloroquine 200 mg tablet 200 mg PO BID
[2021-10-11] MEDS: Ketorolac Tromethamine 15 MG/ML VIAL 30 MG IVPUSH (15:12)
[2021-10-11] MEDS: 0.9 % Sodium Chloride 1,000 ML 999 ML IV (15:12)
[2021-10-11] MEDS: diphenhydrAMINE HCL 50 MG/ML VIAL IVPUSH (15:12)
[2021-10-11] MEDS: Metoclopramide HCl 10 MG/2 ML VIAL IVPUSH (15:13)
[2021-10-11 15:24] VITALS: BP 128/58; PULSE 77; RESP 19; TEMP 36.9; O2SAT 100
[2021-10-14 01:27] LABS: Oxcarbazepine 7.3 mcg/mL (8.0-35.0)
== END 2021-10-11 16:36 | disposition home or self-care (01) ==
PROVIDERS: Emergency Provider Emergency Medicine Emergency Medical Services
DX: R51.9 Headache, unspecified (principal); R56.9 Unspecified convulsions
CPT/HCPCS: 36415; 80048; 80076; 80339; 83690; 85027; 93005; 96361; 96374; 96375; 99284; J1200; J1885; J2765

== ENCOUNTER 2022-01-04 11:23 | Emergency (ER) | payer OTHER, SELFPAY ==
--- NOTE | 2022-01-04 11:30 | ED.SEIZURE ---
HPI - Seizure General Chief Complaint: Seizure <Sudhir Cruz MD - Last Filed: 01/04/22 11:36> Stated Complaint: SEIZURES <Sudhir Cruz MD - Last Filed: 01/04/22 11:36> Time Seen by Provider: 01/04/22 11:29 <Sudhir Cruz MD - Last Filed: 01/04/22 11:36> Source: EMS <Sudhir Cruz MD - Last Filed: 01/04/22 11:36> Mode of arrival: EMS <Sudhir Cruz MD - Last Filed: 01/04/22 11:36> Limitations: altered mental status <Sudhir Cruz MD - Last Filed: 01/04/22 11:36> History of Present Illness HPI Narrative: According to EMS patient had a couple of partial seizures, in the ED she had a grandmal seizure, EMS gave her 2mg IM versed. <Sudhir Cruz MD - Last Filed: 01/04/22 11:36> MD complaint: seizure <Sudhir Cruz MD - Last Filed: 01/04/22 11:36> Onset (ago): hour(s) <Sudhir Cruz MD - Last Filed: 01/04/22 11:36> Description of Episode: loss of consciousness and tonic-clonic movement <Sudhir Cruz MD - Last Filed: 01/04/22 11:36> Seizure History: Yes <Sudhir Cruz MD - Last Filed: 01/04/22 11:36> Related Data Home Medications: Home Medications Medication Instructions Recorded Confirmed fluoxetine 20 mg capsule 20 mg PO DAILY 08/20/21 10/04/21 hydroxychloroquine 200 mg tablet 200 mg PO BID 08/20/21 10/04/21 propranolol 20 mg tablet 20 mg PO BID 08/20/21 10/04/21 Previous Rx's Medication Instructions Recorded ferrous sulfate 324 mg (65 mg 324 mg PO BIDWM #60 tabs 07/18/21 iron) tablet,delayed release oxcarbazepine 300 mg tablet 300 mg PO BID #60 tabs 07/18/21 docusate sodium 100 mg capsule 100 mg PO DAILY PRN Constipation 10/19/21 #30 caps sennosides 8.6 mg tablet (Natural 17.2 mg PO BEDTIME constipation 10/19/21 Senna Laxative) #60 tabs lorazepam 0.5 mg tablet (Ativan) 0.5 mg PO TID PRN anxiety #14 tabs 01/04/22 <Sudhir Cruz MD - Last Filed: 01/04/22 11:36> Allergies/Adverse Reactions: Allergies Allergy/AdvReac Type Severity Reaction Status Date / Time lamotrigine [From Lamictal] Allergy Rash Verified 11/15/21 11:57 <Sudhir Cruz MD - Last Filed: 01/04/22 11:36> Review of Systems Review of Systems: Yes Unobtainable due to mental status <Sudhir Cruz MD - Last Filed: 01/04/22 11:36> [facility] Past Medical History Medical History: Medical History Back pain Lumbar spondylosis Lumbosacral radiculopathy at S1 Post laminectomy syndrome Seizures, generalized convulsive Tethered cord syndrome <Sudhir Cruz MD - Last Filed: 01/04/22 11:36> Surgical History: Surgical History Tubal ligation status <Sudhir Cruz MD - Last Filed: 01/04/22 11:36> Family History Family History: Family History Other No family history of coronary artery disease <Sudhir Cruz MD - Last Filed: 01/04/22 11:36> Social History Social History: Social History Household Members: Spouse Household Members Other:: Daughter Housing: Apartment Do you presently have visiting nurse or other home services: No Alcohol intake: current Alcohol intake frequency: does not drink Patient Tobacco Use Status: Never used Tobacco Smoked in Last 30 Days: No Use of substances other than those prescribed or required for medical reasons: No Advance Directives: No Advance Directives Information Provided: No <Sudhir Cruz MD - Last Filed: 01/04/22 11:36> Physical Exam Vital Signs: Vital Signs: Last Vital Signs Temp 98.6 F 09/27/22 14:40 Pulse 88 01/04/22 14:40 Resp 18 01/04/22 14:40 BP 112/69 01/04/22 14:40 Pulse Ox 100 01/04/22 14:40 O2 Del Method 01/04/22 14:40 BMI result Body Mass Index 35.5 <Sudhir Cruz MD - Last Filed: 01/04/22 11:36> Vital Signs: Last Vital Signs Temp 98.6 F 01/04/22 14:40 Pulse 88 01/04/22 14:40 Resp 18 01/04/22 14:40 BP 112/69 01/04/22 14:40 Pulse Ox 100 01/04/22 14:40 O2 Del Method 01/04/22 14:40 BMI result Body Mass Index 35.5 <Isrrael Toussaint MD - Last Filed: 01/04/22 19:02> Const: Other: post ictal, snoring <Sudhir Cruz MD - Last Filed: 01/04/22 11:36> Nutritional Appearance: average body habitus <Sudhir Cruz MD - Last Filed: 01/04/22 11:36> Limitations: altered mental status <Sudhir Cruz MD - Last Filed: 01/04/22 11:36> HEENT: Head: Yes normal to inspection <Sudhir Cruz MD - Last Filed: 01/04/22 11:36> Ears: external ears normal <Sudhir Cruz MD - Last Filed: 01/04/22 11:36> General nose exam: Normal external nose present <Sudhir Cruz MD - Last Filed: 01/04/22 11:36> Mouth: Normal oral and palatal mucosa present and oropharynx normal <Sudhir Cruz MD - Last Filed: 01/04/22 11:36> Throat: Yes posterior oropharynx normal <Sudhir Cruz MD - Last Filed: 01/04/22 11:36> Eyes: General: appearance normal, both eyes and all related structures <Sudhir Cruz MD - Last Filed: 01/04/22 11:36> Neck: Other: supple <Sudhir Cruz MD - Last Filed: 01/04/22 11:36> Neck: Yes normal visual inspection <Sudhir Cruz MD - Last Filed: 01/04/22 11:36> Chest: Chest palpation & inspection: normal inspection of the chest <Sudhir Cruz MD - Last Filed: 01/04/22 11:36> Resp: Auscultation: clear to auscultation bilaterally <Sudhir Cruz MD - Last Filed: 01/04/22 11:36> Cardio: Jugular venous distension: no JVD <Sudhir Cruz MD - Last Filed: 01/04/22 11:36> Rate: regular rate <Sudhir Cruz MD - Last Filed: 01/04/22 11:36> Rhythm: regular rhythm <Sudhir Cruz MD - Last Filed: 01/04/22 11:36> Heart sounds: S1 normal heart sound present and S2 normal heart sound present <Sudhir Cruz MD - Last Filed: 01/04/22 11:36> GI: Inspection: Yes normal to inspection <Sudhir Cruz MD - Last Filed: 01/04/22 11:36> Palpation (GI): Soft to palpation, nontender and No hepatosplenomegaly present <Sudhir Cruz MD - Last Filed: 01/04/22 11:36> Auscultation: normal bowel sounds <Sudhir Cruz MD - Last Filed: 01/04/22 11:36> : General: Yes no CVA tenderness <Sudhir Cruz MD - Last Filed: 01/04/22 11:36> Back/Spine/Pelvis: Back: no CVA tenderness <Sudhir Cruz MD - Last Filed: 01/04/22 11:36> Skin: General skin exam: no rashes or lesions noted <Sudhir Cruz MD - Last Filed: 01/04/22 11:36> Extrem: General: Yes normal to inspection <Sudhir Cruz MD - Last Filed: 01/04/22 11:36> Psych: Other: post ictal <Sudhir Cruz MD - Last Filed: 01/04/22 11:36> Course Reevaluation(s) Reevaluation #1: 41-year-old female history of seizure came in after had multiple seizures at home, patient think seizure is because she has been tired and lack of sleeping, patient is compliant with her medication, declined any trauma, patient now is awake, alert, oriented, patient have an appointment with her neurologist 01/07, patient has been compliant with her seizure medication, patient do not use drugs or drink alcohol. Patient stated that Ativan has helped her in the past to prevent seizure when she feels the prodrome of seizure. I would prescribe a few pills of Ativan as discussed with the patient to discuss this issue with her neurologist in 2 days. Patient now is AAO x4, bit the right side of her tongue with no tongue laceration, or active bleeding, complaining of neck pain physical exam is consistent with muscular spasm pain to the right side of the neck. UA is showing small leuko esterase with few wbc's with question of contamination, patient declined dysuria or frequency patient was instructed to drink plenty of fluids. <Isrrael Toussaint MD - Last Filed: 01/04/22 19:02> Time: 18:54 <Isrrael Toussaint MD - Last Filed: 01/04/22 19:02> MDM - Seizure Lab Data Result diagrams: : 01/04/22 12:17 01/04/22 12:17 <Sudhir Cruz MD - Last Filed: 01/04/22 11:36> Labs: Lab Results 01/04/22 01/04/22 01/04/22 Range/Units 12:17 12:17 16:27 WBC 11.5 H (4.8-10.8) X10*3/uL RBC 4.74 (4.20-5.50) X10*6/uL Hgb 11.5 L (12.0-16.0) g/dl Hct 37.8 (37.0-47.0) % MCV 79.7 L (80.0-98.0) fL MCH 24.3 L (27.0-33.0) pg MCHC 30.4 L (31.0-35.0) g/dl RDW 21.1 H (11.0-16.0) % Plt Count 387 (160-400) X10*3/uL MPV 10.4 (9.4-12.3) fL Immature Gran % (Auto) 0.6 H (0.0-0.4) % Neut % (Auto) 66.2 (45-73) % Lymph % (Auto) 28.0 (20-40) % [place] % (Auto) 4.2 (2-11) % Eos % (Auto) 0.7 (0-4) % Baso % (Auto) 0.3 (0-2) % Lymph # (Auto) 3.2 (1.2-4.9) X10*3/uL [place] # (Auto) 0.5 (0.1-1.2) X10*3/uL Eos # (Auto) 0.1 (0.0-0.4) X10*3/uL Baso # (Auto) 0.0 (0.0-0.2) X10*3/uL Abs Immat Gran (auto) 0.07 H (0.00-0.03) X10*3/uL Absolute Neuts (auto) 7.6 (2.0-8.3) x10*3/uL Absolute Nucleated RBC 0.000 (0.0-0.012) X10*3/uL Nucleated RBC % (auto) 0.0 (0.0-0.2) /100WBC Sodium 138 (135-145) mmol/L Potassium 3.9 (3.3-5.1) mmol/L Chloride 105 (96-108) mmol/L Carbon Dioxide 12 L (22-29) mmol/L Anion Gap 25 H (12-20) BUN 13 (9-16) mg/dL Creatinine 0.77 (0.5-1.4) mg/dL Estim Creat Clear Calc 114.6 Estimated GFR > 60 Random Glucose 168 H (60-115) mg/dL Calcium 8.9 (8.4-10.2) mg/dL Magnesium 2.2 (1.6-2.6) mg/dL Urine Color Yellow Urine Appearance Turbid Urine pH 5.0 (5.0-9.0) Ur Specific [place] 1.015 (1.005-1.025) Urine Protein 30 (1+) H (Neg-Trace) mg/dL Urine Glucose (UA) Negative (Negative) mg/dL Urine Ketones Negative (Negative) mg/dL Urine Blood Negative (Negative) Urine Nitrite Negative (Negative) Ur Leukocyte Esterase Small (1+) H (Negative) Urine RBC 3-5 H (0-2) /HPF Urine WBC 6-10 H (0-5) /HPF Ur Squamous Epith Cells 6-10 (0-2) /HPF Calcium Oxalate Crystal Present Urine Bacteria 1+ (None Seen) Hyaline Casts 6-10 (0-2) /LPF Granular Casts Present Urine Test (NEGATIVE) 01/04/22 Range/Units 16:27 WBC (4.8-10.8) X10*3/uL RBC (4.20-5.50) X10*6/uL Hgb (12.0-16.0) g/dl Hct (37.0-47.0) % MCV (80.0-98.0) fL MCH (27.0-33.0) pg MCHC (31.0-35.0) g/dl RDW (11.0-16.0) % Plt Count (160-400) X10*3/uL MPV (9.4-12.3) fL Immature Gran % (Auto) (0.0-0.4) % Neut % (Auto) (45-73) % Lymph % (Auto) (20-40) % [place] % (Auto) (2-11) % Eos % (Auto) (0-4) % Baso % (Auto) (0-2) % Lymph # (Auto) (1.2-4.9) X10*3/uL [place] # (Auto) (0.1-1.2) X10*3/uL Eos # (Auto) (0.0-0.4) X10*3/uL Baso # (Auto) (0.0-0.2) X10*3/uL Abs Immat Gran (auto) (0.00-0.03) X10*3/uL Absolute Neuts (auto) (2.0-8.3) x10*3/uL Absolute Nucleated RBC (0.0-0.012) X10*3/uL Nucleated RBC % (auto) (0.0-0.2) /100WBC Sodium (135-145) mmol/L Potassium (3.3-5.1) mmol/L Chloride (96-108) mmol/L Carbon Dioxide (22-29) mmol/L Anion Gap (12-20) BUN (9-16) mg/dL Creatinine (0.5-1.4) mg/dL Estim Creat Clear Calc Estimated GFR Random Glucose (60-115) mg/dL Calcium (8.4-10.2) mg/dL Magnesium (1.6-2.6) mg/dL Urine Color Urine Appearance Urine pH (5.0-9.0) Ur Specific [place] (1.005-1.025) Urine Protein (Neg-Trace) mg/dL Urine Glucose (UA) (Negative) mg/dL Urine Ketones (Negative) mg/dL Urine Blood (Negative) Urine Nitrite (Negative) Ur Leukocyte Esterase (Negative) Urine RBC (0-2) /HPF Urine WBC (0-5) /HPF Ur Squamous Epith Cells (0-2) /HPF Calcium Oxalate Crystal Urine Bacteria (None Seen) Hyaline Casts (0-2) /LPF Granular Casts Urine Test NEGATIVE (NEGATIVE) <Sudhir Cruz MD - Last Filed: 01/04/22 11:36> Lab Results 01/04/22 01/04/22 01/04/22 Range/Units 12:17 12:17 16:27 WBC 11.5 H (4.8-10.8) X10*3/uL RBC 4.74 (4.20-5.50) X10*6/uL Hgb 11.5 L (12.0-16.0) g/dl Hct 37.8 (37.0-47.0) % MCV 79.7 L (80.0-98.0) fL MCH 24.3 L (27.0-33.0) pg MCHC 30.4 L (31.0-35.0) g/dl RDW 21.1 H (11.0-16.0) % Plt Count 387 (160-400) X10*3/uL MPV 10.4 (9.4-12.3) fL Immature Gran % (Auto) 0.6 H (0.0-0.4) % Neut % (Auto) 66.2 (45-73) % Lymph % (Auto) 28.0 (20-40) % [place] % (Auto) 4.2 (2-11) % Eos % (Auto) 0.7 (0-4) % Baso % (Auto) 0.3 (0-2) % Lymph # (Auto) 3.2 (1.2-4.9) X10*3/uL [place] # (Auto) 0.5 (0.1-1.2) X10*3/uL Eos # (Auto) 0.1 (0.0-0.4) X10*3/uL Baso # (Auto) 0.0 (0.0-0.2) X10*3/uL Abs Immat Gran (auto) 0.07 H (0.00-0.03) X10*3/uL Absolute Neuts (auto) 7.6 (2.0-8.3) x10*3/uL Absolute Nucleated RBC 0.000 (0.0-0.012) X10*3/uL Nucleated RBC % (auto) 0.0 (0.0-0.2) /100WBC Sodium 138 (135-145) mmol/L Potassium 3.9 (3.3-5.1) mmol/L Chloride 105 (96-108) mmol/L Carbon Dioxide 12 L (22-29) mmol/L Anion Gap 25 H (12-20) BUN 13 (9-16) mg/dL Creatinine 0.77 (0.5-1.4) mg/dL Estim Creat Clear Calc 114.6 Estimated GFR > 60 Random Glucose 168 H (60-115) mg/dL Calcium 8.9 (8.4-10.2) mg/dL Magnesium 2.2 (1.6-2.6) mg/dL Urine Color Yellow Urine Appearance Turbid Urine pH 5.0 (5.0-9.0) Ur Specific [place] 1.015 (1.005-1.025) Urine Protein 30 (1+) H (Neg-Trace) mg/dL Urine Glucose (UA) Negative (Negative) mg/dL Urine Ketones Negative (Negative) mg/dL Urine Blood Negative (Negative) Urine Nitrite Negative (Negative) Ur Leukocyte Esterase Small (1+) H (Negative) Urine RBC 3-5 H (0-2) /HPF Urine WBC 6-10 H (0-5) /HPF Ur Squamous Epith Cells 6-10 (0-2) /HPF Calcium Oxalate Crystal Present Urine Bacteria 1+ (None Seen) Hyaline Casts 6-10 (0-2) /LPF Granular Casts Present Urine Test (NEGATIVE) 01/04/22 Range/Units 16:27 WBC (4.8-10.8) X10*3/uL RBC (4.20-5.50) X10*6/uL Hgb (12.0-16.0) g/dl Hct (37.0-47.0) % MCV (80.0-98.0) fL MCH (27.0-33.0) pg MCHC (31.0-35.0) g/dl RDW (11.0-16.0) % Plt Count (160-400) X10*3/uL MPV (9.4-12.3) fL Immature Gran % (Auto) (0.0-0.4) % Neut % (Auto) (45-73) % Lymph % (Auto) (20-40) % [place] % (Auto) (2-11) % Eos % (Auto) (0-4) % Baso % (Auto) (0-2) % Lymph # (Auto) (1.2-4.9) X10*3/uL [place] # (Auto) (0.1-1.2) X10*3/uL Eos # (Auto) (0.0-0.4) X10*3/uL Baso # (Auto) (0.0-0.2) X10*3/uL Abs Immat Gran (auto) (0.00-0.03) X10*3/uL Absolute Neuts (auto) (2.0-8.3) x10*3/uL Absolute Nucleated RBC (0.0-0.012) X10*3/uL Nucleated RBC % (auto) (0.0-0.2) /100WBC Sodium (135-145) mmol/L Potassium (3.3-5.1) mmol/L Chloride (96-108) mmol/L Carbon Dioxide (22-29) mmol/L Anion Gap (12-20) BUN (9-16) mg/dL Creatinine (0.5-1.4) mg/dL Estim Creat Clear Calc Estimated GFR Random Glucose (60-115) mg/dL Calcium (8.4-10.2) mg/dL Magnesium (1.6-2.6) mg/dL Urine Color Urine Appearance Urine pH (5.0-9.0) Ur Specific [place] (1.005-1.025) Urine Protein (Neg-Trace) mg/dL Urine Glucose (UA) (Negative) mg/dL Urine Ketones (Negative) mg/dL Urine Blood (Negative) Urine Nitrite (Negative) Ur Leukocyte Esterase (Negative) Urine RBC (0-2) /HPF Urine WBC (0-5) /HPF Ur Squamous Epith Cells (0-2) /HPF Calcium Oxalate Crystal Urine Bacteria (None Seen) Hyaline Casts (0-2) /LPF Granular Casts Urine Test NEGATIVE (NEGATIVE) <Isrrael Toussaint MD - Last Filed: 01/04/22 19:02> Discharge Plan Discharge Clinical Impression: Generalized seizure <Sudhir Cruz MD - Last Filed: 01/04/22 11:36> Patient Disposition: Home, Self-Care <Sudhir Cruz MD - Last Filed: 01/04/22 11:36> Instructions: Recurrent Seizures in Adults (ED) <Sudhir Cruz MD - Last Filed: 01/04/22 11:36> Additional Instructions: Drink plenty of fluids <Sudhir Cruz MD - Last Filed: 01/04/22 11:36> Prescriptions: New lorazepam [Ativan] 0.5 mg tablet 0.5 mg PO TID PRN (Reason: anxiety) Qty: 14 0RF No Action oxcarbazepine 300 mg Tablet 300 mg PO BID Qty: 60 0RF ferrous sulfate 324 mg (65 mg iron) Tablet,Delayed Release (Dr/Ec) 324 mg PO BIDWM Qty: 60 0RF propranolol 20 mg tablet 20 mg PO BID fluoxetine 20 mg capsule 20 mg PO DAILY hydroxychloroquine 200 mg tablet 200 mg PO BID docusate sodium 100 mg capsule 100 mg PO DAILY PRN (Reason: Constipation) Qty: 30 3RF sennosides [Natural Senna Laxative] 8.6 mg tablet 17.2 mg PO BEDTIME Qty: 60 3RF <Sudhir Cruz MD - Last Filed: 01/04/22 11:36> Referrals: Alice Cole MD [Primary Care Provider] - <Sudhir Cruz MD - Last Filed: 01/04/22 11:36>
[2022-01-04 11:40] VITALS: BP 127/54; BP 149/79; PULSE 118; PULSE 137; RESP 29; O2SAT 95; BMI 35.5
[2022-01-04 12:24] LABS: MANUAL DIFF FLAG NO
[2022-01-04 12:27] LABS: Basophils Percent Auto 0.3 % (0-2); Eosinophils Absolute Auto 0.1 X10*3/uL (0.0-0.4); Eosinophils Percent Auto 0.7 % (0-4); Hematocrit 37.8 % (37.0-47.0); Hemoglobin 11.5 g/dl (12.0-16.0); Imm Gran Abs Auto 0.07 X10*3/uL (0.00-0.03); Imm Gran Pct Auto 0.6 % (0.0-0.4); Lymphocytes Absolute Auto 3.2 X10*3/uL (1.2-4.9); Mean Corpuscular HGB Conc 30.4 g/dl (31.0-35.0); Mean Corpuscular Hemoglobin 24.3 pg (27.0-33.0); Mean Corpuscular Volume 79.7 fL (80.0-98.0); Mean Platelet Volume 10.4 fL (9.4-12.3); Monocytes Absolute Auto 0.5 X10*3/uL (0.1-1.2); Monocytes Percent Auto 4.2 % (2-11); Neutrophils Absolute Auto 7.6 x10*3/uL (2.0-8.3); Neutrophils Percent Auto 66.2 % (45-73); Platelet Count 387 X10*3/uL (160-400); Red Blood Count 4.74 X10*6/uL (4.20-5.50); Red Cell Distribution Width 21.1 % (11.0-16.0); White Blood Count 11.5 X10*3/uL (4.8-10.8)
[2022-01-04 12:43] LABS: Anion Gap 25 (12-20); Blood Urea Nitrogen 13 mg/dL (9-16); Calcium 8.9 mg/dL (8.4-10.2); Carbon Dioxide 12 mmol/L (22-29); Chloride 105 mmol/L (96-108); Creatinine Clr Calc Pharmacy 114.6; Estimated Glomerular Filt Rate > 60; Glucose Random 168 mg/dL (60-115); Magnesium 2.2 mg/dL (1.6-2.6); Potassium 3.9 mmol/L (3.3-5.1); Sodium 138 mmol/L (135-145)
[2022-01-04 14:40] VITALS: BP 112/69; PULSE 88; RESP 18; TEMP 37; O2SAT 100
[2022-01-04 16:43] LABS: Appearance Urine Turbid; Color Urine Yellow; Glucose Urine UA Negative (Negative); Leukocyte Esterase Urine Small (1+) (Negative); Nitrite Urine Negative (Negative); Specific Gravity - Urine 1.015 (1.005-1.025); UMIC TRIGGER UACC YES; Urine Blood Negative (Negative); Urine Ketones Negative (Negative); Urine Protein 30 (1+) mg/dL (Neg-Trace)
[2022-01-04 16:53] LABS: Bacteria Urine 1+ (None Seen); Calcium Oxalate Crystals Urine Present; Granular Casts Urine Present; UACC Culture Trigger YES
[2022-01-04 17:00] LABS: UPreg QC Valid YES; Urine Pregnancy NEGATIVE (NEGATIVE)
[2022-01-04] MEDS: oxyCODONE HCl Immed Release 5 MG TABLET PO (19:55)
[2022-01-04] MEDS: diazePAM 2 MG TABLET PO (19:55)
[2022-01-04 19:56] VITALS: BP 137/83; PULSE 99; RESP 16; TEMP 36.8; O2SAT 99
[2022-01-09 01:06] LABS: Oxcarbazepine 11.1 mcg/mL (8.0-35.0)
== END 2022-01-04 20:08 | disposition home or self-care (01) ==
PROVIDERS: Emergency Provider Emergency Medicine; PCP Internal Medicine
DX: R56.9 Unspecified convulsions (principal); Z79.899 Other long term (current) drug therapy
CPT/HCPCS: 36415; 80048; 80339; 81001; 81025; 83735; 85025; 87086; 99283; 99284

== ENCOUNTER 2022-02-17 12:25 | Outpatient (REF) | payer OTHER, SELFPAY ==
--- NOTE | ~2022-02-17 | US_ITS ---
EXAMINATION: US EXTRACRANIAL CAROTID DUPLEX, BILATERAL CLINICAL INFORMATION: Abnormal brain scan COMPARISON: None TECHNIQUE: Real-time ultrasound and Doppler techniques (integrating B-mode 2-D vascular images, Doppler spectral analysis and color-flow Doppler imaging) were utilized to interrogate the extracranial carotid arteries, the vertebral arteries and proximal subclavian arteries bilaterally. The degree of stenosis is determined by criteria similar to NASCET. FINDINGS: Right Side: 1. There is no significant atherosclerotic plaque seen in the bifurcation/proximal ICA region. 2. The common carotid artery PSV proximally is 100 cm/s and distally 81 cm/s. 3. The proximal internal carotid artery velocities are 50 cm/s systolic and 17 cm/s diastolic. 4. The proximal external carotid artery PSV is 54 cm/s. 5. The vertebral artery shows antegrade flow. 6. The subclavian artery waveforms are normal. Left Side: 1. There is no significant atherosclerotic plaque seen in the bifurcation/proximal ICA region. 2. The common carotid artery PSV proximally is 114 cm/s and distally 88 cm/s. 3. The proximal internal carotid artery velocities are 68 cm/s systolic and 13 cm/s diastolic. 4. The proximal external carotid artery PSV is 79 cm/s. 5. The vertebral artery shows antegrade flow. 6. The subclavian artery waveforms are normal. US/US carotid duplex BI IMPRESSION: 1. RIGHT: Normal right internal carotid artery without atherosclerotic plaque or hemodynamically significant stenosis. 2. LEFT: Normal left internal carotid artery without atherosclerotic plaque or hemodynamically significant stenosis.
== END 2022-02-17 12:26 | disposition home or self-care (01) ==
LOC: HO.US 12:25
PROVIDERS: Visit Provider Internal Medicine
DX: R94.02 Abnormal brain scan (principal)
CPT/HCPCS: 93880

== ENCOUNTER 2022-04-17 10:07 | Emergency (ER) | payer OTHER, SELFPAY ==
[2022-04-17 10:30] VITALS: BP 129/71; PULSE 93; RESP 14; TEMP 36.7; O2SAT 99; BMI 35.4
[2022-04-17 12:00] LABS: MANUAL DIFF FLAG NO
[2022-04-17 12:02] LABS: Basophils Percent Auto 0.4 % (0-2); Eosinophils Percent Auto 0.6 % (0-4); Hematocrit 38.1 % (37.0-47.0); Hemoglobin 12.5 g/dl (12.0-16.0); Imm Gran Abs Auto 0.01 X10*3/uL (0.00-0.03); Imm Gran Pct Auto 0.1 % (0.0-0.4); Lymphocytes Absolute Auto 2.1 X10*3/uL (1.2-4.9); Lymphocytes Percent Auto 31.4 % (20-40); Mean Corpuscular HGB Conc 32.8 g/dl (31.0-35.0); Mean Corpuscular Hemoglobin 28.2 pg (27.0-33.0); Mean Platelet Volume 9.8 fL (9.4-12.3); Monocytes Absolute Auto 0.4 X10*3/uL (0.1-1.2); Monocytes Percent Auto 5.4 % (2-11); Neutrophils Absolute Auto 4.2 x10*3/uL (2.0-8.3); Neutrophils Percent Auto 62.1 % (45-73); Platelet Count 322 X10*3/uL (160-400); Red Blood Count 4.43 X10*6/uL (4.20-5.50); Red Cell Distribution Width 14.3 % (11.0-16.0); White Blood Count 6.7 X10*3/uL (4.8-10.8)
[2022-04-17 12:07] LABS: Prothrombin Time 11.2 SEC (10.0-13.1)
[2022-04-17 12:22] LABS: Alanine Aminotransferase 20 U/L (0-31); Albumin Level 3.9 g/dL (3.5-5.0); Alkaline Phosphatase 77 U/L (39-117); Anion Gap 13 (12-20); Aspartate Amino Transferase 14 U/L (5-31); Bilirubin Total 0.2 mg/dL (0.0-1.0); Blood Urea Nitrogen 11 mg/dL (9-16); C Reactive Protein < 0.10 mg/dL (< or = 0.50); Calcium 8.7 mg/dL (8.4-10.2); Carbon Dioxide 20 mmol/L (22-29); Chloride 111 mmol/L (96-108); Creatinine Clr Calc Pharmacy 117.9; Estimated Glomerular Filt Rate > 60; Glucose Random 110 mg/dL (60-115); Magnesium 2.1 mg/dL (1.6-2.6); Sodium 140 mmol/L (135-145); Total Protein 6.5 g/dL (6.5-8.0)
[2022-04-17 12:27] LABS: HCG Quantitative < 2 mIU/mL
[2022-04-17 12:45] LABS: Influenza A PCR NEGATIVE (Negative); Influenza B PCR NEGATIVE (Negative); Resp Syncy Virus RNA Qual PCR NEGATIVE (Negative); SARS COV2 PCR INHOUSE NEGATIVE (Negative)
[2022-04-17 13:30] LABS: Erythrocyte Sedimentation Rate 6 MM/HR (0-20)
== END 2022-04-17 16:44 | disposition left against medical advice (07) ==
PROVIDERS: Physician Assistant Medical; Emergency Provider Emergency Medicine; PCP Internal Medicine
DX: G43.909 Migraine, unspecified, not intractable, without status migrainosus (principal); Z20.822 Contact with and (suspected) exposure to COVID-19; Z20.828 Contact with and (suspected) exposure to other viral communicable diseases; Z79.899 Other long term (current) drug therapy
CPT/HCPCS: 0241U; 36415; 80053; 83735; 84702; 85025; 85610; 85652; 86140; 99281; 99283

== ENCOUNTER → 2022-05-27 10:19 | Outpatient (BNVA) | payer OTHER, SELFPAY | PROVIDERS: PCP Internal Medicine; Visit Provider Internal Medicine | DX: Z13.89 Encounter for screening for other disorder (principal) ==

== ENCOUNTER 2022-11-25 12:17 | Day surgery (SDC) | payer OTHER, SELFPAY ==
[2022-11-23 13:25] VITALS: BMI 34.6
--- NOTE | 2022-11-24 09:56 | HO.ANESPROP2 ---
Documented by User: Charley Acosta NP 11/24/22 09:56 HPI - Anesthesia Eval Consult details Narrative: 42yo F for Upper Endoscopy and Colonoscopy [facility] Active Problems Active Problems: All Active Problems (Updated 11/23/22 @ 13:18 by Alaina Paiz RN) Elevated antinuclear antibody (PRINCESS) level (Acute) Focal seizure (Acute) Breakthrough seizure (Acute) Leukocytosis (Acute) Brain lesion (Acute) Menorrhagia (Acute) Chronic constipation (Acute) Iron deficiency anemia due to chronic blood loss (Acute) Family history of colon cancer in father (Acute) Fecal retention (Acute) Urinary incontinence (Acute) Lumbosacral radiculitis (Acute) Cervical spondylosis (Acute) Lumbosacral radiculopathy at S1 (Acute) Lumbar spondylosis (Acute) Post laminectomy syndrome (Acute) Past Medical History Medical History Asthma Back pain Lumbar spondylosis Lumbosacral radiculopathy at S1 Multiple sclerosis Post laminectomy syndrome Seizures, generalized convulsive Tethered cord syndrome Family History Family History Other No family history of coronary artery disease Surgical History Surgical History Tubal ligation status Social History Social History Household Members: Spouse Household Members Other:: Daughter Housing: Apartment Are you a primary intensive care nurse to a significant other at home: No Do you presently have visiting nurse or other home services: No Alcohol intake: current Alcohol intake frequency: does not drink Patient Tobacco Use Status: Never used Tobacco Use of substances other than those prescribed or required for medical reasons: No Have you been hit, kicked, punched, or otherwise hurt by someone within the past year? If so, by whom?: No Are you DNR?: No Advance Directives: No Advance Directives Information Provided: Yes Advance Directives on File: No Recently lost weight without trying: No Nutrition Risks: No Nutritional Risk Patient : No : No Poor oral hygiene: No Meds Allergies Allergy/AdvReac Type Severity Reaction Status Date / Time hydroxyzine Allergy Rash Verified 11/25/22 13:09 lamotrigine [From Lamictal] Allergy Rash Verified 11/25/22 13:09 Home Medications Medication Instructions Recorded Confirmed Last Taken Type fluoxetine 20 mg capsule 20 mg PO DAILY 08/20/21 11/23/22 Unknown History topiramate 100 mg tablet 100 mg PO BID 05/27/22 11/23/22 11/25/22 History baclofen 10 mg tablet 10 mg PO TID PRN Muscle Spasm 11/23/22 11/23/22 Unknown History ferrous sulfate 324 mg (65 mg 324 mg PO DAILY 11/23/22 11/23/22 Unknown History iron) tablet,delayed release ocrelizumab 30 mg/mL intravenous 600 mg IV [id number] 11/23/22 11/23/22 Unknown History solution (Ocrevus) Exam Exam Date and Time: November 24, 2022 0956 Height,Weight and Vital Signs: Height 5 ft 2 in Weight 85.729 kg Assessment and Plan Assessment Anesthesia Assessment: Chart Reviewed Documented by User: Shruti Grant MD 11/25/22 14:54 PMFSH Past Medical History Medical History Asthma Back pain Lumbar spondylosis Lumbosacral radiculopathy at S1 Multiple sclerosis Post laminectomy syndrome Seizures, generalized convulsive Tethered cord syndrome Family History Family History Other No family history of coronary artery disease Family history of problems with anesthesia: No Surgical History Surgical History Tubal ligation status History of Problems with Anesthesia: No Social History Social History Household Members: Spouse Household Members Other:: Daughter Housing: Apartment Are you a primary intensive care nurse to a significant other at home: No Do you presently have visiting nurse or other home services: No Alcohol intake: current Alcohol intake frequency: does not drink Patient Tobacco Use Status: Never used Tobacco Use of substances other than those prescribed or required for medical reasons: No Have you been hit, kicked, punched, or otherwise hurt by someone within the past year? If so, by whom?: No Are you DNR?: No Advance Directives: No Advance Directives Information Provided: Yes Advance Directives on File: No Recently lost weight without trying: No Nutrition Risks: No Nutritional Risk Patient : No : No Poor oral hygiene: No Meds Allergies Allergy/AdvReac Type Severity Reaction Status Date / Time hydroxyzine Allergy Rash Verified 11/25/22 13:09 lamotrigine [From Lamictal] Allergy Rash Verified 11/25/22 13:09 Home Medications Medication Instructions Recorded Confirmed Last Taken Type fluoxetine 20 mg capsule 20 mg PO DAILY 08/20/21 11/23/22 Unknown History topiramate 100 mg tablet 100 mg PO BID 05/27/22 11/23/22 11/25/22 History baclofen 10 mg tablet 10 mg PO TID PRN Muscle Spasm 11/23/22 11/23/22 Unknown History ferrous sulfate 324 mg (65 mg 324 mg PO DAILY 11/23/22 11/23/22 Unknown History iron) tablet,delayed release ocrelizumab 30 mg/mL intravenous 600 mg IV [id number] 11/23/22 11/23/22 Unknown History solution (Ocrevus) Exam Airway Mallampati Class: II TM Dist: >3cm Neck ROM: Full Heart: rrr Lungs: cta Assessment and Plan Assessment Anesthesia Assessment: Anesthesia Plan Discussed Final Anesthetic Review Family History of Problems with Anesthesia: No History of Problems with Anesthesia: No NPO: Yes ASA Class: III Final Preanesthetic Review: No Changes in Pt Med Stat, Meds/Allgs Chart Reviewed, Consent Obtained/Reviewed and Anes Risks/Benef Reviewed Patient Risk: Low Procedure Risk: Low Anesthetic Plan Anesthetic Plan: MAC: Disposition: Standard PACU (pt states she has MS)
[2022-11-25] MEDS: Lactated Ringers 1,000 ML 100 ML IVCONT (12:54)
[2022-11-25 13:11] VITALS: BP 124/85; PULSE 88; RESP 18; TEMP 36.7; O2SAT 96
--- NOTE | 2022-11-25 14:21 | PC.NURSE ---
report given to teresa shea rn at this time.
--- NOTE | 2022-11-25 14:34 | MHC.SHP ---
Pre-Procedural Eval Section A Date of Service: 11/25/22 The patient is an INPATIENT: No The History & Physical has been completed within 30 days and I have reviewed it.: No Section B Chief Complaint: Screening for malignant neoplasm, Anemia Relevant Family History (Specify if Yes): Yes Relevant Social History: None Present Medications: see Short Stay Collaborative assessment Medical History: Significant History (Back pain Lumbar spondylosis Lumbosacral radiculopathy at S1 Post laminectomy syndrome Seizures, generalized convulsive Tethered cord syndrome) History of Previous Operations: Relevant previous surgery/procedure and date(s) (status post tubal ligation) Allergies: Allergies Allergy/AdvReac Type Severity Reaction Status Date / Time hydroxyzine Allergy Rash Verified 11/25/22 13:09 lamotrigine [From Lamictal] Allergy Rash Verified 11/25/22 13:09 Review of Systems Sugical H&P ROS: Negative: Constitution, Cardiovascular and Respiratory and Yes, Specify: Gastrointestinal (chronic constipation) Exam Surgical H&P Exam: Normal: Heart, Normal: Lungs, Normal: Extremities and Normal: Abdomen Plan Diagnosis/Plan: Unchanged I have reviewed the history and physical and performed a pertinent physical examination on my patient. No changes have occurred unless specified. Time Spent With Patient Time: Total time managing care of this patient today ____ minutes.
--- NOTE | 2022-11-25 14:44 | W.PM.OPN ---
Operative Note Operative Note Date of Service: 11/25/22 Narrative: FLEXIBLE TRANSORAL UPPER GASTROINTESTINAL ENDOSCOPY WITH BIOPSIES AND COLONOSCOPY TILL CECUM WITH BIOPSIES AND SNARE POLYPECTOMY Pre-op diagnosis: iron deficiency anemia, family history of colon cancer (Dad in his 40's or 50's) Post-op diagnosis: gastritis, colon polyps, hemorrhoids? Endoscopist:? Leah Enciso MD Anesthesia:?MAC UPPER ENDOSCOPY Consent: Indications for the procedure and potential complications of bleeding, perforation, reaction to medications and missed diagnosis were discussed with the patient and informed consent was obtained. Instrument: Olympus GIF H 190 mid size upper endoscope Monitoring: Vital signs and clinical assessment, continuous EKG monitoring, Pulse oximetry, Carbon Dioxide monitoring and blood pressure monitoring were done throughout the procedure. Procedure: The patient was placed in the left lateral decubitis position and pre-procedure medications were administered and a bite block was placed. The endoscope was inserted into the mouth and advanced under direct vision to the third part of duodenum. A careful inspection was made as the upper endoscope was withdrawn including a retroflexed examination of the proximal stomach; Findings and interventions are described below. Findings: Larynx: Normal Esophagus: GE junction at 35 cms. No esophagitis or Cardenas's. Stomach: Prominent gastric folds with patchy erythema - biopsied obtained. Mild gastric erythema. Biopsies were obtained. Grade 2 flap valve on retroflexed examination of the cardia. Duodenum: Normal bulb and descending duodenum Intervention: Biopsies as noted above COLONOSCOPY PROCEDURE NOTE Consent: Indications for the procedure and potential complications of bleeding, perforation, reaction to medications and missed diagnosis were discussed with the patient and informed consent was obtained. Instrument: Olympus PCF H 190 L variable stiffness pediatric colonoscope Monitoring: Vital signs and clinical assessment, intermittent blood pressure monitoring, continuous EKG monitoring, Pulse oximetry and Carbon Dioxide monitoring were done throughout the procedure. Colon withdrawl time was 12 minutes. Procedure: The patient was placed in the left lateral decubitis position and pre-procedure medications were administered. After a digital rectal examination of the ano-rectum, the video colonoscope was inserted into the rectum and advanced through the colon to the cecum. The colonoscope was slowly withdrawn in a retrograde panoramic fashion and the colon mucosa was carefully examined including a retroflexed view of the rectum. Findings and interventions are described below. Procedure Difficulty: : Without difficulty Findings: Terminal Ileum: Not evaluated Cecum: Normal Ascending Colon: Normal Transverse Colon: A 3-4 mm sessile polyp - removed with cold biopsy. Descending Colon: Normal Sigmoid Colon: A 7-8 mm sessile polyp - removed with a cold snare Rectum: Normal Ano-rectum: Moderate internal hemorrhoids Colon preparation: Excellent Impression and Post Procedure Diagnosis: Endoscopy Findings: STOMACH: Prominent gastric folds with patchy erythema - biopsied obtained. Mild gastric erythema. Biopsies were obtained. Colonoscopy Findings: Two small polyps removed Small hemorrhoids on retroflexed exam. Plan: Await pathology results Patient has an appointment on 01/05/23 in the GI Clinic with Leah Enciso M.D. Repeat Colonoscopy interval based on path results - in 5 years if polyps are adenomatous and 10 years if polyps are hyperplastic. Above findings were reviewed with the patient and Gastritis and colon polyps handouts were given in the discharge area
[2022-11-25 16:41] VITALS: BP 106/68; PULSE 104; RESP 16; TEMP 36.3; O2SAT 97
[2022-11-25 16:44] VITALS: BP 132/82; PULSE 97; RESP 16; O2SAT 98
[2022-11-25 16:56] VITALS: BP 142/79; PULSE 104; RESP 18; TEMP 36.6; O2SAT 98
--- NOTE | 2022-11-25 17:06 | PC.NURSE ---
1704 MONITORS OFF OOB DRESSING AT BEDSIDE.
== END 2022-11-25 17:15 | disposition home or self-care (01) ==
PROVIDERS: PCP Internal Medicine; Visit Provider Internal Medicine Gastroenterology
PROC: (CPT 45385; principal; 2022-11-25 14:10)
DX: Z12.11 Encounter for screening for malignant neoplasm of colon (principal); D12.5 Benign neoplasm of sigmoid colon; D12.3 Benign neoplasm of transverse colon; K29.50 Unspecified chronic gastritis without bleeding; B96.81 Helicobacter pylori [H. pylori] as the cause of diseases classified elsewhere; K64.8 Other hemorrhoids; Z80.0 Family history of malignant neoplasm of digestive organs; D50.0 Iron deficiency anemia secondary to blood loss (chronic); K59.09 Other constipation; R14.0 Abdominal distension (gaseous); G89.29 Other chronic pain; M54.50 Low back pain, unspecified; G35 Multiple sclerosis; Q06.8 Other specified congenital malformations of spinal cord; Z79.899 Other long term (current) drug therapy
CPT/HCPCS: 45385; 45380; 43239; 88305; 88342

== ENCOUNTER → 2022-11-25 12:17 | Outpatient (BNV) | payer OTHER, SELFPAY | PROVIDERS: PCP Internal Medicine; Visit Provider Internal Medicine Gastroenterology | DX: Z80.0 Family history of malignant neoplasm of digestive organs (principal); K29.70 Gastritis, unspecified, without bleeding; D50.9 Iron deficiency anemia, unspecified; D12.3 Benign neoplasm of transverse colon; D12.5 Benign neoplasm of sigmoid colon; K64.8 Other hemorrhoids | CPT/HCPCS: 43239; 45380; 45385 ==

== ENCOUNTER 2022-12-05 15:45 | Outpatient (AMB) | payer OTHER, SELFPAY ==
[2022-12-05 15:48] VITALS: BP 147/64; PULSE 88; BMI 34.8
--- NOTE | 2022-12-05 15:48 | A.OFFVIS_ITS ---
Intake Vital Signs 12/05/22 15:48 Height 5 ft 2 in Weight 190 lb 0.615 oz BMI 34.8 BP 147/64 H Blood Pressure Location Lt brachial Position Sitting Pulse 88 Intake Visit Reasons: follow up colonoscopy Intake Note: Luda presents in office as a est.patient for a post-op for a colonoscopy pt got colo done 11.25.22 PT CC: pt reports having abdominal pain , bloating , constipation pt denies any other GI Issues Building Performance Consultant Required: No Accompanied by: Significant Other Allergies hydroxyzine Allergy (Verified 12/05/22 15:49) Rash lamotrigine [From Lamictal] Allergy (Verified 12/05/22 15:49) Rash HPI follow up colonoscopy HPI Details LAST VISIT 10/19/2021 1) Family history of colon cancer in father: ?Code(s): Z80.0 - Family history of malignant neoplasm of digestive organs ?Plan: Family history of colon cancer in her father.? Patient's father had colorectal cancer in early 40s.? Patient will go for colonoscopy.? We will have her return, will try to make sure that she is able to move her bowels.? Currently patient is severely constipated.? Denies any melena, hematochezia, unintentional weight loss or ribbon like stools.? We will schedule the colonoscopy today as we are booking all the way to February.? I will see patient in 2 months to re-evaluate and make sure that she is able to move her bowels better. (2) Iron deficiency anemia due to chronic blood loss: ?Code(s): D50.0 - Iron deficiency anemia secondary to blood loss (chronic) ?Plan: Iron deficiency anemia due to chronic blood loss.? Every month patient has heavy menses.? 10/11/2021 her H&H was 9.7 and 32.7.? Patient denies feeling weak, dizzy, denies chest pain, shortness of breath, palpitations. (3) Chronic constipation: ?Code(s): K59.09 - Other constipation ?Plan: Chronic constipation now the patient was put on anti seizure medications along with iron she is more constipated.? I will start her on daily regimen and see if she will improve with this treatment.? Patient will need to go for colonoscopy and we will need to make sure that she is able to move her bowels better.? Patient can continue docusate sodium and I will start her on Senokot 2 tablets every evening. (4) Abdominal bloating: ?Code(s): R14.0 - Abdominal distension (gaseous) ?Plan: Patient reports postprandial abdominal bloating.? Most likely this is related due to her constipation and gas trapping.? However patient does report that occasionally she will have left upper abdominal pain.? We will check pancreatic elastase, vitamin B12 and folate.? Will check CRP, lipase, transglutaminase and thyroid study UPPER ENDOSCOPY AND COLONOSCOPY 11/25/2022 Findings: Larynx:? Normal Esophagus:?GE junction at 35 cms. No esophagitis or Cardenas's. Stomach:?Prominent gastric folds with patchy erythema - biopsied obtained. Mild gastric erythema. Biopsies were obtained. Grade 2 flap valve on retroflexed examination of the cardia. Duodenum:?Normal bulb and descending duodenum Intervention:?Biopsies as noted above Findings: Terminal Ileum: Not evaluated Cecum:? Normal Ascending Colon:??Normal Transverse Colon:??A 3-4 mm sessile polyp -? removed with cold biopsy. Descending Colon:? Normal Sigmoid Colon:??A 7-8 mm sessile polyp?-??removed with a cold snare Rectum:??Normal Ano-rectum:??Moderate internal hemorrhoids Colon preparation: Excellent ? Impression and Post Procedure Diagnosis: Endoscopy Findings: STOMACH: Prominent gastric folds with patchy erythema - biopsied obtained. Mild gastric erythema. Biopsies were obtained. Colonoscopy Findings: Two small polyps removed Small hemorrhoids on retroflexed exam. Plan: Await pathology results Patient has an appointment on 01/05/23 in the GI Clinic with? Leah Enciso M.D. Repeat Colonoscopy interval based on path results - in 5 years if polyps are adenomatous and 10 years if polyps are hyperplastic. PATHOLOGY RESULTS Diagnosis A.? Gastric antrum, biopsy:? Chronic Helicobacter gastritis with mild activity; negative for intestinal metaplasia and dysplasia.? B.? Gastric folds, biopsy:? Chronic Helicobacter gastritis with mild activity; negative for intestinal metaplasia and dysplasia. C.? Colon, sigmoid, polyp:? Tubular adenoma, likely excised; negative for high- grade dysplasia and carcinoma.? D.? Colon, transverse, polyp:? Tubular adenoma; negative for high-grade dysplasia and carcinoma. TODAY'S VISIT Patient is here today for follow-up and to discuss colonoscopy results. Patient continues to have constipation. Patient tried Senokot and Dulcolax over-the- counter without any effect. Patient states that sometimes she will not have a bowel movement for 3-5 days. Patient had a small bowel movement yesterday otherwise she states that she is constipated. Patient denies dyspepsia, dysphagia odynophagia. Colonoscopy results discussed with patient. Tubular adenoma found in the sigmoid and transverse colon without high-grade dysplasia or carcinoma. Upper endoscopy showed chronic H pylori gastritis with mild activity. Patient does not have any epigastric discomfort. Reports left upper quadrant discomfort and bloating. Patient feels like bulging on that side when she has the discomfort. Patient denies melena, hematochezia, unintentional weight loss or ribbon like stools. Patient is on iron daily. Reports that her anemia got significantly better. Patient also reports to be feeling better. Patient reports that she has had constipation most of her life. [facility] Medical History (Updated 12/05/22 @ 17:05 by Chiquita Barrera [facility]) Asthma Back pain Helicobacter pylori (H. pylori) Lumbar spondylosis Lumbosacral radiculopathy at S1 Multiple sclerosis Post laminectomy syndrome Seizures, generalized convulsive Tethered cord syndrome Surgical History Hx of colonoscopy Tubal ligation status Family History Other No family history of coronary artery disease Social History Household Members: Spouse Household Members Other:: Daughter Housing: Apartment Are you a primary clinical care coordinator to a significant other at home: No Do you presently have visiting nurse or other home services: No Alcohol intake: current Alcohol intake frequency: does not drink Patient Tobacco Use Status: Never used Tobacco Review of Systems Const Denies weight gain and Denies weight loss ENT Reports no additional complaints, Denies dysphagia and Denies odynophagia Card Reports no additional complaints Resp Reports no additional complaints GI Reports abdominal pain (LUQ), Denies belching, Denies melena, Reports bloating, Reports constipation, Denies dysphagia, Denies excessive flatus, Denies dyspe psia, Denies heartburn, Denies diarrhea, Denies loose stools, Denies nausea, Denies odynophagia and Denies vomiting Reports no additional complaints Musc Reports no additional complaints Neuro Reports no additional complaints Psych Reports no additional complaints Endo Reports no additional complaints Physical Exam Vital Signs: Last Vital Signs Pulse 88 12/05/22 15:48 BP 147/64 H 12/05/22 15:48 BMI result Body Mass Index 34.8 Const General: healthy appearing, no acute distress and well developed Nutritional Appearance: obese Orientation/consciousness: patient oriented x3 HEENT Head: Yes normal to inspection, Yes normocephalic and Yes atraumatic Face and sinus: Yes normal facial exam Mouth: Normal oral and palatal mucosa present Throat: Yes posterior oropharynx normal, Yes tonsils normal and Yes uvula midline Eyes General: appearance normal, both eyes and all related structures Neck Neck: Yes normal visual inspection, Yes full ROM and Yes trachea midline Thyroid: Thyroid normal Resp Effort & Inspection: normal respiratory effort, able to speak in complete sentences, no tracheal deviation and symmetric chest movement Auscultation: clear to auscultation bilaterally Cardio Jugular venous distension: no JVD Rate: regular rate Heart sounds: S1 normal heart sound present, S2 normal heart sound present, no gallops and no murmurs GI Inspection: Yes normal to inspection, No distended and Yes obesity Palpation (GI): Soft to palpation and No hepatosplenomegaly present Auscultation: normal bowel sounds General: Yes no CVA tenderness Back/Spine/Pelvis Back: no CVA tenderness Skin General skin exam: elasticity normal, turgor normal and dry skin Neuro General: patient oriented x3 Psych Appearance: grossly normal Mental Status: mental status grossly normal Speech and movement: Normal speech and movement present Affect: normal affect Assessment & Plan Assessment & Plan (1) Chronic constipation: Code(s): K59.09 - Other constipation Plan: Patient continues to be constipated despite trying inix-shc-ardtigl medication. I will start her on Linzess 145 mcg daily. Patient will call me in 2 weeks if she will continue to be constipated. (2) Abdominal bloating: Code(s): R14.0 - Abdominal distension (gaseous) Plan: Abdominal bloating and left lower quadrant pain. Most likely related to constipation and not being able to empty her bowels completely. It might also be related to the type of food that she eats. Low FODMAP diet discussed with patient and list of food recommended as well as list of food to avoid given to patient. (3) Helicobacter pylori (H. pylori): Code(s): A04.8 - Other specified bacterial intestinal infections Plan: Chronic helicobacter gastritis with mild activity without intestinal dysplasia. Will start patient on quadruple treatment and we will have her return for testing. Patient does not have any symptoms currently. She is here with her who will try to get test that with his PCP. I will see patient in 6 weeks, sooner on as needed basis. Patient is agreeable to this plan and verbalizes understanding of instructions. She was given the opportunity to ask questions and all questions answered. Thank you for allowing me to participate in her care Medications: New linaclotide (Linzess) 145 mcg PO DAILY 30 caps 2RF bismuth subsalicylate 2 tabs PO QID 14 days 112 tabs 0RF A04.8 - Other specified bacterial intestinal infections metronidazole 500 mg PO TID 14 days 42 tabs 0RF tetracycline 1,000 mg (2 x 500 mg) PO Q12H 56 caps 0RF A04.8 - Other specified bacterial intestinal infections omeprazole 20 mg PO BID 14 days 28 caps 0RF A04.8 - Other specified bacterial intestinal infections, K21.9 - Gastro-esophageal reflux disease without esophagitis ondansetron 4 mg PO Q8H PRN 20 tabs 0RF nausea and vomiting R11.0 - Nausea Discontinued ferrous sulfate 324 mg PO BIDWM 60 tabs 0RF sennosides (Natural Senna Laxative) Discontinued Reason: Doctor's Order 17.2 mg (2 x 8.6 mg) PO BEDTIME 60 tabs 3RF constipation K59.00 - Constipation, unspecified Coding Level of Care Code Est Pt Level 4 (21759) Diagnoses Chronic constipation K59.09 Abdominal bloating R14.0 Helicobacter pylori (H. pylori) A04.8 Time Spent (min) 40 Comment 25 minutes spent with patient and additional 15 minutes spent reviewing her records
== END 2022-12-05 16:32 | disposition home or self-care (01) ==
PROVIDERS: PCP Internal Medicine; Visit Provider Nurse Practitioner Family
DX: K59.09 Other constipation (principal); R14.0 Abdominal distension (gaseous); A04.8 Other specified bacterial intestinal infections
CPT/HCPCS: 99214

== ENCOUNTER → 2022-12-05 15:45 | Outpatient (BNVA) | payer OTHER, SELFPAY | PROVIDERS: PCP Internal Medicine; Visit Provider Nurse Practitioner Family ==

== ENCOUNTER 2023-01-17 14:37 | Outpatient (REF) | payer OTHER, SELFPAY ==
[2023-01-22 15:18] LABS: H Pylori Breath Test Positive (Negative)
== END 2023-01-17 14:38 | disposition home or self-care (01) ==
LOC: HO.LNP 14:37
PROVIDERS: Visit Provider Nurse Practitioner Family
DX: Z11.0 Encounter for screening for intestinal infectious diseases (principal)
CPT/HCPCS: 83013

== ENCOUNTER 2023-01-17 15:49 | Outpatient (AMB) | payer OTHER, SELFPAY ==
--- NOTE | 2023-01-17 15:52 | A.OFFVIS_ITS ---
Intake Vital Signs 01/17/23 15:53 Height 5 ft 2 in Weight 189 lb 9.561 oz BMI 34.7 BP 110/58 L Blood Pressure Location Rt brachial Position Sitting Pulse 82 Intake Visit Reasons: 6 week follow up Intake Note: Luda presents in to in office 6 weeks follow up of constipation. CC: Patient reports the constipation is always there because she hasn't try the Linzess yet. She also reports occasional nausea. Patient states the Flagyl was giving her really bad mood swing and dizziness and she was not able to complete the course of Flagyl. Denies other GI symptoms today. Finisher Machine Required: No Accompanied by: Significant Other Allergies hydroxyzine Allergy (Verified 01/17/23 15:59) Rash lamotrigine [From Lamictal] Allergy (Verified 01/17/23 15:59) Rash HPI 6 week follow up HPI Details LAST VISIT Chronic constipation Patient continues to be constipated despite trying [id number] medication. I will start her on Linzess 145 mcg daily. Patient will call me in 2 weeks if she will continue to be constipated. Abdominal bloating Abdominal bloating and left lower quadrant pain. Most likely related to constipation and not being able to empty her bowels completely. It might also be related to the type of food that she eats. Low FODMAP diet discussed with patient and list of food recommended as well as list of food to avoid given to patient. Helicobacter pylori (H. pylori) Chronic helicobacter gastritis with mild activity without intestinal dysplasia. Will start patient on quadruple treatment and we will have her return for testing. Patient does not have any symptoms currently. She is here with her who will try to get test that with his PCP. I will see patient in 6 weeks, sooner on as needed basis. Patient is agreeable to this plan and verbalizes understanding of instructions. She was given the opportunity to ask questions and all questions answered. TODAY'S VISIT Patient is here today for follow-up. Patient reports that she finished her treatment except for Flagyl, patient was unable to finish it. She only took few days of the treatment. Patient continues to have epigastric discomfort postprandial abdominal bloating. She continues to be constipated, however she states that she has not started taking Linzess yet. Patient denies melena, hematochezia, unintentional weight loss or ribbon like stools. Reports occasional dyspepsia without dysphagia or odynophagia. Patient denies any nausea or vomiting [facility] Medical History Helicobacter pylori (H. pylori) Asthma Multiple sclerosis Seizures, generalized convulsive Lumbosacral radiculopathy at S1 Lumbar spondylosis Post laminectomy syndrome Tethered cord syndrome Back pain Surgical History Hx of colonoscopy Tubal ligation status Family History Other No family history of coronary artery disease Social History Household Members: Spouse Household Members Other:: Daughter Housing: Apartment Are you a primary manager care management to a significant other at home: No Do you presently have visiting nurse or other home services: No Alcohol intake: current Alcohol intake frequency: does not drink Patient Tobacco Use Status: Never used Tobacco Review of Systems Const Denies weight gain and Denies weight loss ENT Reports no additional complaints, Denies dysphagia and Denies odynophagia Card Reports no additional complaints Resp Reports no additional complaints GI Denies abdominal pain, Denies belching, Denies melena, Denies bloating, Reports constipation, Denies dysphagia, Denies excessive flatus, Denies dyspepsia, Reports heartburn, Denies diarrhea, Denies loose stools, Denies nausea, Denies odynophagia and Denies vomiting Reports no additional complaints Musc Reports no additional complaints Neuro Reports no additional complaints Psych Reports no additional complaints Endo Reports no additional complaints Physical Exam Vital Signs: Last Vital Signs Pulse 82 01/17/23 15:53 BP 110/58 L 01/17/23 15:53 BMI result Body Mass Index 34.7 Const General: healthy appearing, no acute distress and well developed Nutritional Appearance: obese Orientation/consciousness: patient oriented x3 HEENT Head: Yes normal to inspection, Yes normocephalic and Yes atraumatic Face and sinus: Yes normal facial exam Mouth: Normal oral and palatal mucosa present Throat: Yes posterior oropharynx normal, Yes tonsils normal and Yes uvula midline Eyes General: appearance normal, both eyes and all related structures Neck Neck: Yes normal visual inspection, Yes full ROM and Yes trachea midline Thyroid: Thyroid normal Resp Effort & Inspection: normal respiratory effort, able to speak in complete sent ences, no tracheal deviation and symmetric chest movement Auscultation: clear to auscultation bilaterally Cardio Rate: regular rate Heart sounds: S1 normal heart sound present and S2 normal heart sound present GI Inspection: Yes normal to inspection, No distended and Yes obesity Palpation (GI): Soft to palpation, not firm, nontender and No hepatosplenomegaly present Auscultation: normal bowel sounds General: Yes no CVA tenderness Back/Spine/Pelvis Back: no CVA tenderness Skin General skin exam: elasticity normal, turgor normal and dry skin Neuro General: patient oriented x3 Psych Appearance: grossly normal Mental Status: mental status grossly normal Speech and movement: Normal speech and movement present Assessment & Plan Assessment & Plan (1) Helicobacter pylori (H. pylori): Code(s): A04.8 - Other specified bacterial intestinal infections (2) Chronic constipation: Code(s): K59.09 - Other constipation (3) Abdominal bloating: Code(s): R14.0 - Abdominal distension (gaseous) Plan Will retest her for H pylori. Will treat empirically if positive. Will treat her with amoxicillin and Levaquin. Patient had trouble taking Flagyl. Patient can take omeprazole daily. Will increase the dose to twice a day if positive. Patient was encouraged to start taking Linzess to help her move her bowels better. Discussed with patient avoiding dietary triggers in late night snacking. Staying upright for minimal 3 hours after meals discussed with patient. Patient was also encouraged to increase fluid intake and activity to promote better bowel motility. I will see her in 6 months, sooner on as needed basis. Patient is agreeable to this plan and verbalizes understanding of instructions. She was given the opportunity to ask questions and all questions answered. Thank you for allowing me to participate in her care Orders: Orders H Pylori Breath Test 01/20/23 Medications: Changed From omeprazole 20 mg PO BID 28 caps 0RF 14 days A04.8 - Other specified bacterial intestinal infections, K21.9 - Gastro-esophageal reflux disease without esophagitis To omeprazole 20 mg PO DAILY 30 caps 3RF A04.8 - Other specified bacterial intestinal infections, K21.9 - Gastro-esophageal reflux disease without esophagitis Coding Level of Care Code Est Pt Level 4 (09922) Diagnoses Helicobacter pylori (H. pylori) A04.8 Chronic constipation K59.09 Abdominal bloating R14.0 Time Spent (min) 35 Comment 20 minutes spent with patient and additional 15 minutes spent reviewing her records.
[2023-01-17 15:53] VITALS: BP 110/58; PULSE 82; BMI 34.7
== END 2023-01-17 16:39 | disposition home or self-care (01) ==
PROVIDERS: PCP Internal Medicine; Visit Provider Nurse Practitioner Family
DX: A04.8 Other specified bacterial intestinal infections (principal); K59.09 Other constipation; R14.0 Abdominal distension (gaseous)
CPT/HCPCS: 99214

== ENCOUNTER → 2023-01-17 15:49 | Outpatient (BNVA) | payer OTHER, SELFPAY | PROVIDERS: PCP Internal Medicine; Visit Provider Nurse Practitioner Family ==

== ENCOUNTER 2023-07-20 15:45 | Outpatient (AMB) | payer OTHER, SELFPAY ==
[2023-07-20 15:56] VITALS: BMI 34.3
--- NOTE | 2023-07-20 15:56 | MHC.OFFVIS ---
Vital Signs 07/20/23 15:56 Height 5 ft 2 in Weight 187 lb 6.287 oz BMI 34.3 Intake Visit Reasons: r/s from 07/17/23 6 month follow up Intake Note: Patient in office today in 6 months follow up of constipation. CC: Patient c/o constipation all the time, epigastric burning, and nausea. She also c/o heartburn. Patient states that the Linzess just works for like 3 hours and only liquid comes out she, she is unsure if this is how the medications is supposed to work. [employer] Required: No Allergies hydroxyzine Allergy (Verified 07/20/23 16:07) Rash lamotrigine [From Lamictal] Allergy (Verified 07/20/23 16:07) Rash ocrelizumab [From Ocrevus] Adverse Reaction (Severe, Verified 07/20/23 16:07) Abdominal Pain HPI HPI r/s from 07/17/23 6 month follow up: Details: LAST VISIT Helicobacter pylori (H. pylori) Chronic constipation Abdominal bloating Plan Will retest her for H pylori. Will treat empirically if positive. Will treat her with amoxicillin and Levaquin. Patient had trouble taking Flagyl. Patient can take omeprazole daily. Will increase the dose to twice a day if positive. Patient was encouraged to start taking Linzess to help her move her bowels better. Discussed with patient avoiding dietary triggers in late night snacking. Staying upright for minimal 3 hours after meals discussed with patient. Patient was also encouraged to increase fluid intake and activity to promote better bowel motility. I will see her in 6 months, sooner on as needed basis. Patient is agreeable to this plan and verbalizes understanding of instructions. She was given the opportunity to ask questions and all questions answered. ? Thank you for allowing me to participate in her care Orders Orders H Pylori Breath Test 01/20/23 Medications Changed Changed From omeprazole 20 mg PO BID 28 caps 0RF 14 days A04.8, K21.9 Changed To omeprazole 20 mg PO DAILY 30 caps 3RF A04.8, K21.9 TODAY'S VISIT Patient is here today for follow-up. Patient reports that she continues to have epigastric discomfort with dyspepsia without dysphagia or odynophagia. Postprandial abdominal bloating. Patient states that she ran out of her omeprazole. Patient states that sometimes she does not want to eat as she feels like almost immediately after she eats she has epigastric discomfort. Patient denies any nausea or vomiting. Reports that Linzess makes her go to the bathroom, she states that she only has diarrhea. Patient is not eating fiber or not drinking enough fluids. Denies any abdominal pain or cramping only when she has to go to the bathroom with a bowel movement. Patient denies melena, hematochezia, unintentional weight loss or ribbon like stools. Patient has not returned to the office for H pylori breath testing. Patient had H pylori back in January of 2023 [facility] Medical History Helicobacter pylori (H. pylori) Asthma Multiple sclerosis Seizures, generalized convulsive Lumbosacral radiculopathy at S1 Lumbar spondylosis Post laminectomy syndrome Tethered cord syndrome Back pain Surgical History Hx of colonoscopy Tubal ligation status Family History Other No family history of coronary artery disease Social History Household Members: Spouse Household Members Other:: Daughter Housing: Apartment Are you a primary healthcare project manager to a significant other at home: No Do you presently have visiting nurse or other home services: No Alcohol intake: current Alcohol intake frequency: does not drink Patient Tobacco Use Status: Never used Tobacco Review of Systems Const Denies weight gain and Denies weight loss ENT Reports no additional complaints, Denies dysphagia and Denies odynophagia Card Reports no additional complaints Resp Reports no additional complaints GI Reports abdominal pain (Epigastric), Denies belching, Denies melena, Denies bloating, Denies change in bowel habits, Reports constipation, Denies dysphagia, Denies excessive flatus, Denies dyspepsia, Reports heartburn, Denies diarrhea, Denies loose stools, Denies nausea, Denies odynophagia and Denies vomiting Reports no additional complaints Musc Reports no additional complaints Neuro Reports no additional complaints Psych Reports no additional complaints Endo Reports no additional complaints Physical Exam Vital Signs: BMI result Body Mass Index 34.3 Const General: healthy appearing, no acute distress and well developed Nutritional Appearance: obese Orientation/consciousness: patient oriented x3 Resp Effort & Inspection: normal respiratory effort, able to speak in complete sentences, no tracheal deviation and symmetric chest movement Auscultation: clear to auscultation bilaterally Cardio Rate: regular rate GI Inspection: Yes normal to inspection, No distended and Yes obesity Palpation (GI): Soft to palpation, not firm, nontender and No hepatosplenomegaly present Auscultation: normal bowel sounds General: Yes no CVA tenderness Back/Spine/Pelvis Back: no CVA tenderness Skin General skin exam: elasticity normal, turgor normal and dry skin Neuro General: patient oriented x3 Psych Appearance: grossly normal Mental Status: mental status grossly normal Assessment & Plan Assessment & Plan (1) Helicobacter pylori (H. pylori): Code(s): A04.8 - Other specified bacterial intestinal infections Category: Medical (2) Chronic constipation: Code(s): K59.09 - Other constipation Category: Medical (3) Abdominal bloating: Code(s): R14.0 - Abdominal distension (gaseous) (4) GERD (gastroesophageal reflux disease): Code(s): K21.9 - Gastro-esophageal reflux disease without esophagitis Qualifiers: Esophagitis presence: esophagitis presence not specified Qualified Code(s): K21.9 - Gastro-esophageal reflux disease without esophagitis (5) Postprandial epigastric pain: Code(s): R10.13 - Epigastric pain Plan Continue Linzess. Increase fluid intake and activity to promote better bowel motility. Increase fiber intake. Will check for H pylori in the office today. Will treat empirically if positive. Patient will start taking Nexium 40 mg in the morning half an hour before breakfast. Patient will take sucralfate at bedtime. She was encouraged to avoid dietary triggers and late night snacking. Staying upright for minimum 3 hours after meals discussed with patient. Patient will return in the office in 5 weeks, sooner on as needed basis. Patient is agreeable to this plan and verbalizes understanding of instructions. She was given the opportunity to ask questions and all questions answered. Thank you for allowing me to participate in her care Orders: Orders H Pylori Breath Test 07/21/23 K21.9 - Gastro-esophageal reflux disease without esophagitis Medications: New esomeprazole magnesium (Nexium) 40 mg PO DAILY 30 caps 5RF K21.9 - Gastro-esophageal reflux disease without esophagitis sucralfate 1 g PO BEDTIME 30 tabs 4RF R19.7 - Diarrhea, unspecified Discontinued omeprazole Discontinued Reason: Doctor's Order 20 mg PO DAILY 90 caps 1RF A04.8 - Other specified bacterial intestinal infections, K21.9 - Gastro-esophageal reflux disease without esophagitis Coding Level of Care Code Est Pt Level 4 (70835) Diagnoses Helicobacter pylori (H. pylori) A04.8 Chronic constipation K59.09 Abdominal bloating R14.0 Gastroesophageal reflux disease, unspecified whether esophagitis present K21.9 Esophagitis presence: esophagitis presence not specified Postprandial epigastric pain R10.13 Time Spent (min) 35 Comment 20 minutes spent with patient and additional 15 minutes spent reviewing her records
== END 2023-07-20 16:51 | disposition home or self-care (01) ==
PROVIDERS: PCP Internal Medicine; Visit Provider Nurse Practitioner Family
DX: A04.8 Other specified bacterial intestinal infections (principal); K59.09 Other constipation; R14.0 Abdominal distension (gaseous); K21.9 Gastro-esophageal reflux disease without esophagitis; R10.13 Epigastric pain
CPT/HCPCS: 99214

== ENCOUNTER 2023-07-20 15:45 | Outpatient (REF) | payer OTHER, SELFPAY ==
[2023-07-22 13:43] LABS: H Pylori Breath Test Negative (Negative)
== END 2023-07-20 15:46 | disposition home or self-care (01) ==
LOC: CF 15:45
PROVIDERS: PCP Internal Medicine; Visit Provider Nurse Practitioner Family
DX: K21.9 Gastro-esophageal reflux disease without esophagitis (principal); A04.8 Other specified bacterial intestinal infections
CPT/HCPCS: 83013

== ENCOUNTER 2024-01-24 12:55 | Emergency (ER) | payer OTHER, SELFPAY ==
[2024-01-24] VITALS (13 sets, daily range): BP systolic 104–156; BP diastolic 49–79; PULSE 80–105; RESP 14–20; TEMP 36.6–36.9; O2SAT 98–99; BMI 35.5
--- NOTE | ~2024-01-24 | US_ITS ---
EXAMINATION: ULTRASOUND PELVIC, COMPLETE CLINICAL INFORMATION: Heavy vaginal bleeding. COMPARISON: None. TECHNIQUE: Transvaginal: Used to better visualize pelvic structures Transabdominal: Not adequate for visualization Spectral Doppler and color Doppler exam was utilized. LMP: Uncertain FINDINGS: UTERUS: Uterus is anteverted and anteflexed. Uterus measures 9.8 x 5.6 x 6.2 cm. Endometrial thickness is about 1.5 cm. The margins of the endometrium are somewhat indistinct however. There is no mass. Small volume of fluid in the endometrial cavity. Nabothian cysts at the cervix. ADNEXA: Ovarian vascularity:Doppler demonstrates both arterial and venous vascular flow in the right and left ovary. No evidence of ovarian torsion. Right Ovary: 3.3 x 1.9 x 2.9 cm. Volume 9.5 mL. Dominant follicle measures 2.3 cm. Left Ovary: Unremarkable. 2.9 x 1.1 x 1.9 cm. Volume 3.2 mL. Cul-de-sac: No Fluid US/US pelvic and transvaginal IMPRESSION: 1. Endometrial thickness is about 1.5 cm. The margins of the endometrium are somewhat indistinct. There is no mass. Small volume of fluid in the endometrial cavity. Electronically signed by: Skip Vargas MD 01/24/2024 03:12 PM EDT
--- NOTE | 2024-01-24 13:04 | ED.GENADULT ---
HPI - General Adult General Chief complaint: Vaginal Bleeding Stated complaint: kzrygakaw-[id number]-prozefj bleeding Time Seen by Provider: 01/24/24 16:02 Source: patient and RN notes reviewed Mode of arrival: ambulatory Limitations: no limitations History of Present Illness ED Provider: Karina Vásquez PA-C HPI narrative: This is a 43-year-old female, with a history of MS, seizure disorder on Topamax, who presents emergency department complaints of vaginal bleeding x1 month. Patient reports that over this last month she has been spotting. She states that approximately 2 weeks ago she developed vaginal spotting and was started on Provera on January 10. She states that she spoke to her OBGYN who prescribed her Provera. She took this for 3 days and discontinued it. Her menses then stopped up for 1 day. She states that she then started to spotting again and patient decided to discontinue the Provera as she did not believe it was working. She states that the vaginal bleeding worsened on Monday (3 days ago) She states that she is passing large clots and saturating a pad every 1-2 hours. She states that since yesterday she has had dizziness, palpitations, and lightheadedness. She denies history of similar symptoms in the past. She has a history of anemia and takes iron supplementation. She has never had a blood transfusion before. No other complaints or concerns at this time. MD complaint: Vaginal bleeding Onset (ago): week(s) Relieving factors: none Exacerbating factors: none Associated symptoms: denies other symptoms Treatments prior to arrival: none Related Data Home Medications ?Medication ?Instructions ?Recorded ?Confirmed fluoxetine 20 mg capsule 20 mg PO DAILY 08/20/21 11/23/22 topiramate 100 mg tablet 100 mg PO BID 05/27/22 11/23/22 baclofen 10 mg tablet 10 mg PO TID PRN Muscle Spasm 11/23/22 11/23/22 ferrous sulfate 324 mg (65 mg 324 mg PO DAILY 11/23/22 11/23/22 iron) tablet,delayed release lorazepam 1 mg tablet 1 mg PO DAILY PRN 01/17/23 oxycodone 5 mg tablet mg PO 01/17/23 ergocalciferol (vitamin D2) 1,250 1,250 mcg PO QWEEK 07/20/23 mcg (50,000 unit) capsule Previous Rx's ?Medication ?Instructions ?Recorded linaclotide 145 mcg capsule 145 mcg PO DAILY #30 caps 12/05/22 (Linzess) esomeprazole magnesium 40 mg 40 mg PO DAILY #30 caps 07/20/23 capsule,delayed release (Nexium) sucralfate 1 gram tablet 1 g PO BEDTIME #30 tabs 07/20/23 medroxyprogesterone 10 mg tablet 10 mg PO DAILY #30 tabs 01/24/24 (Provera) Allergies Allergy/AdvReac Type Severity Reaction Status Date / Time hydroxyzine Allergy Rash Verified 01/24/24 13:05 lamotrigine [From Lamictal] Allergy Rash Verified 01/24/24 13:05 ocrelizumab [From Ocrevus] AdvReac Severe Abdominal Verified 01/24/24 13:05 Pain Review of Systems Review of Systems: Yes all other systems are reviewed and are negative Constitutional: Constitutional: Reports as per [facility] Past Medical History Medical History Helicobacter pylori (H. pylori) Asthma Multiple sclerosis Seizures, generalized convulsive Lumbosacral radiculopathy at S1 Lumbar spondylosis Post laminectomy syndrome Tethered cord syndrome Back pain Surgical History Hx of colonoscopy Tubal ligation status Family History Family History Other No family history of coronary artery disease Social History Social History Household Members: Spouse Household Members Other:: Daughter Housing: Apartment Are you a primary child care center assistant director to a significant other at home: No Do you presently have visiting nurse or other home services: No Alcohol intake: current Alcohol intake frequency: does not drink Patient Tobacco Use Status: Never used Tobacco Physical Exam ED Vital Signs: Vital Signs - 24 hr 01/24/24 13:03 01/24/24 15:18 01/24/24 16:05 Temperature 98 F 98.2 F 98.1 F Pulse Rate 105 H 91 89 Respiratory Rate 19 20 18 Blood Pressure 156/68 H 117/61 119/67 Pulse Oximetry 99 99 99 Oxygen Delivery Method Room Air Room Air 01/24/24 16:53 01/24/24 16:55 01/24/24 16:55 Temperature Pulse Rate 84 94 104 H Respiratory Rate Blood Pressure 114/63 104/68 112/67 Pulse Oximetry Oxygen Delivery Method 01/24/24 18:17 01/24/24 18:17 01/24/24 18:44 Temperature 98.1 F 98.1 F 98.0 F Pulse Rate 87 87 86 Respiratory Rate 16 16 14 Blood Pressure 120/62 120/62 115/59 L Pulse Oximetry 99 Oxygen Delivery Method Room Air 01/24/24 20:25 01/24/24 21:05 01/24/24 22:06 Temperature 98.4 F 98.3 F Pulse Rate 86 81 80 Respiratory Rate 14 14 Blood Pressure 126/69 126/70 128/65 Pulse Oximetry 98 Oxygen Delivery Method Room Air 01/24/24 22:06 01/24/24 22:07 01/24/24 22:43 Temperature 98.3 F Pulse Rate 82 88 84 Respiratory Rate 14 Blood Pressure 125/71 133/79 109/49 L Pulse Oximetry 99 Oxygen Delivery Method Room Air 01/24/24 22:51 Temperature 98.3 F Pulse Rate 84 Respiratory Rate 14 Blood Pressure 109/49 L Pulse Oximetry 99 Oxygen Delivery Method Room Air BMI result Body Mass Index 35.5 Const General: cooperative, comfortable and no acute distress Orientation/consciousness: patient oriented x3 Limitations: no limitations HENMT Head: Yes normal to inspection, Yes normocephalic and Yes atraumatic Ears: hearing grossly normal bilaterally General nose exam: Normal external nose present Face and sinus: Yes normal facial exam Mouth: Normal oral and palatal mucosa present, oropharynx normal and moist mucous membranes Throat: Yes posterior oropharynx normal Eyes General: appearance normal, both eyes and all related structures Eyelids: Yes eyelids normal Conjunctivae: conjunctivae normal Sclerae: sclerae normal Pupils: Equal, round and reactive pupils present EOM: EOMs intact bilaterally Neck Neck: Yes normal visual inspection, Yes full ROM and Yes no lymphadenopathy Lymphatic: no lymphadenopathy noted Chest Chest palpation & inspection: normal inspection of the chest Resp Effort & Inspection: normal respiratory effort and able to speak in complete sentences Auscultation: clear to auscultation bilaterally, no crackles, no rales, no rhonchi and no wheezes Cardio Rate: regular rate Rhythm: regular rhythm Heart sounds: S1 normal heart sound present and S2 normal heart sound present GI Other: Tenderness palpation along the suprapubic region. No rebound or guarding. Abdomen is soft Inspection: Yes normal to inspection Other: Vaginal vault with no blood clots, OS is closed, however with moderate thin blood noted in the vaginal vault. Examination was performed with INDIO Barragan present at all times. General: No CVA tenderness External Female Exam: normal external appearance, normal appearance of the urethra, No Abnormal introitus, No erythema, No externally tender, No external swelling and No lesion Speculum Exam - Vagina: introitus not gaping Back/Spine/Pelvis Back: No CVA tenderness Skin General skin exam: no rashes or lesions noted Trauma: no lacerations or abrasions Wounds: no wounds Neuro General: patient oriented x3 and moves all extremities Cranial nerves: Yes Equal, round and reactive pupils present Extrem General: Yes normal to inspection Right upper extremity: normal to inspection Left upper extremity: normal to inspection Right lower extremity: normal to inspection Left lower extremity: normal to inspection Course Course Course Narrative: This is a Rapid Medical Examination (RME) performed by Tari Dyer PA-C in triage. Full HPI, ROS, assessment and treatment plan per primary provider in the Main ED. 43 yo female hx of seizures, iron deficiency anemia, MS here for eval of vaginal spotting x1 month, now bleeding heavily x3 days with clots. admits to going through a pad every hour for the last 3 days. saw OBGYN for this on 01/17/24 with unremarkable blood work/ ultrasound. no thinners. + pale appearing Plan: labs, UA, pelvic ultrasound Reevaluation(s) Reevaluation #1: Discussed case with OBGYN, Dr. Zavaleta. Ordered repeat CBC, awaiting results of these. Dr. Zavaleta these recommendations are to transfuse with 1 unit of blood and repeat CBC prior to discharge. If the CBC is stable, he is recommending Provera 10 mg once a day #30. She will need outpatient workup including endometrial biopsy to rule out hyperplasia versus malignancy. She is also to follow-up with her OBGYN tomorrow. And given strict return precautions. H&H dropped to 8.6/27.2 Patient consents to receiving blood, 1 unit of PRBC ordered. Time: 17:01 Reevaluation #2: Patient remained stable, did have an episode of vaginal bleeding. She is receiving blood transfusion at this time, will continue to closely monitor blood pressure stable. Time: 20:45 Reevaluation #3: Patient still having headache and dizziness after receiving 1 unit of blood. Patient will be medicated with Provera [address] Zavaleta's recommendations. I discussed with my attending physician, Dr. Miller, considered TXA however given hx of seizures this is contraindicated. Repeat CBC pending Time: 21:05 Additional Reevaluation(s): 2129 - CBC returns, now revealing a H&H of 10.5/32.6. Her symptoms have slightly improved. She still reports some dizziness. Given that she remains to be symptomatic, I urged patient to stay in the emergency room for monitoring, and consider admission to trend CBC, to ensure vaginal bleeding has improved however patient would like to return home. She is not orthostatic. She is no longer as painless she was previously. Given improvement of her symptoms, and upward trending of CBC, I think this is reasonable for her to be discharged with close follow-up with her OBGYN. I discussed this with my attending who is in agreement. Discussed at length strict return precautions with patient. She will follow-up with her OBGYN tomorrow morning. Sent prescription of Provera to her pharmacy. Stable for discharge. Medications Administered Discontinued Medications Generic Name Dose Route Start Last Admin Trade Name Freq PRN Reason Stop Dose Admin Medroxyprogesterone Acetate 10 mg 01/24/24 21:04 01/24/24 21:42 Medroxyprogesterone Acetate 5 Mg Tablet PO 01/24/24 21:05 10 mg ONCE ONE Administration Medical Decision Making Medical Decision Making MDM Narrative: This is a 43-year-old female, with a history of seizure disorder, and MS, who presents emergency department with complaints of vaginal bleeding. Patient has had vaginal spotting for 2 weeks. She contacted her OBGYN 2 weeks ago and was started on Provera which she took for 3-4 days and her menses stopped. She states that for the last 3 days she has had heavy vaginal bleeding, passing clots. She is saturating a pad every 1-2 hours. She states that since yesterday she has developed headaches, dizziness, and palpitations. Denies history of similar symptoms in the past. She does have a history of anemia, denies any transfusions in the past. On arrival, patient hypertensive at 156/68, pulse 105. Repeat vitals revealing normotension, and pulse 89. Physical exam revealing suprapubic tenderness noted. Labs revealing a microcytic anemia with an H&H of 9.2/28.2. Differential Diagnosis Differential Diagnoses: The differential diagnosis associated with the presentation includes Abnormal uterine bleeding, , uterine fibroids, symptomatic anemia Admission/Observation Consideration of admission/observation: Escalation of care including admission/observation considered Consult Healthcare Provider Management of the patient was discussed with: Entry Level Web Developer Dr. Zavaleta, DEVYN Lab Data MDM Lab Attestation statement: I reviewed the patient's lab results. Microcytic anemia noted with an H&H 9.2/28.2, chemistry within normal limits. No electrolyte derangement noted. 01/24/24 21:46 01/24/24 14:20 Labs: Lab Results 01/24/24 01/24/24 01/24/24 Range/Units 14:20 15:38 16:52 WBC 8.3 10.2 (4.8-10.8) X10*3/uL RBC 3.53 L D 3.40 L (4.20-5.50) X10*6/uL Hgb 9.2 L D 8.6 L (12.0-16.0) g/dl Hct 28.2 L D 27.2 L (37.0-47.0) % MCV 79.9 L 80.0 (80.0-98.0) fL MCH 26.1 L 25.3 L (27.0-33.0) pg MCHC 32.6 31.6 (31.0-35.0) g/dl RDW 18.3 H 18.2 H (11.0-16.0) % Plt Count 274 289 (160-400) X10*3/uL MPV 10.3 10.3 (9.4-12.3) fL Immature Gran % (Auto) 0.2 0.4 (0.0-0.4) % Neut % (Auto) 78.3 H 76.6 H (45-73) % Lymph % (Auto) 13.1 L 14.4 L (20-40) % Johnston % (Auto) 6.8 7.1 (2-11) % Eos % (Auto) 1.2 1.0 (0-4) % Baso % (Auto) 0.4 0.5 (0-2) % Lymph # (Auto) 1.1 L 1.5 (1.2-4.9) X10*3/uL Johnston # (Auto) 0.6 0.7 (0.1-1.2) X10*3/uL Eos # (Auto) 0.1 0.1 (0.0-0.4) X10*3/uL Baso # (Auto) 0.0 0.1 (0.0-0.2) X10*3/uL Abs Immat Gran (auto) 0.02 0.04 H (0.00-0.03) X10*3/uL Absolute Neuts (auto) 6.5 7.8 (2.0-8.3) x10*3/uL Absolute Nucleated RBC 0.000 0.000 (0.0-0.012) X10*3/uL Nucleated RBC % (auto) 0.0 0.0 (0.0-0.2) /100WBC Sodium 140 (135-145) mmol/L Potassium 3.6 (3.3-5.1) mmol/L Chloride 111 H (96-108) mmol/L Carbon Dioxide 22 (22-29) mmol/L Anion Gap 11 L (12-20) BUN 10 (9-16) mg/dL Creatinine 0.75 (0.5-1.4) mg/dL Estim Creat Clear Calc 99.6 Estimated GFR > 60 Random Glucose 119 H (60-115) mg/dL Calcium 8.6 (8.4-10.2) mg/dL Magnesium 2.0 (1.6-2.6) mg/dL Total Bilirubin 0.2 (0.0-1.0) mg/dL AST 14 (5-31) U/L ALT 15 (0-31) U/L Alkaline Phosphatase 60 (39-117) U/L Total Protein 6.3 L (6.5-8.0) g/dL Albumin 3.8 (3.5-5.0) g/dL Lipase 21 (8-78) U/L Beta HCG, Quant < 2 mIU/mL Blood Type A Negative Antibody Screen NEGATIVE Crossmatch See Detail Crossmatch (AHG) See Detail 01/24/24 Range/Units 21:46 WBC 12.4 H (4.8-10.8) X10*3/uL RBC 4.01 L (4.20-5.50) X10*6/uL Hgb 10.5 L D (12.0-16.0) g/dl Hct 32.6 L (37.0-47.0) % MCV 81.3 (80.0-98.0) fL MCH 26.2 L (27.0-33.0) pg MCHC 32.2 (31.0-35.0) g/dl RDW 17.5 H (11.0-16.0) % Plt Count 170 D (160-400) X10*3/uL MPV 10.4 (9.4-12.3) fL Immature Gran % (Auto) 0.3 (0.0-0.4) % Neut % (Auto) 73.2 H (45-73) % Lymph % (Auto) 18.0 L (20-40) % Johnston % (Auto) 7.2 (2-11) % Eos % (Auto) 1.0 (0-4) % Baso % (Auto) 0.3 (0-2) % Lymph # (Auto) 2.2 (1.2-4.9) X10*3/uL Johnston # (Auto) 0.9 (0.1-1.2) X10*3/uL Eos # (Auto) 0.1 (0.0-0.4) X10*3/uL Baso # (Auto) 0.0 (0.0-0.2) X10*3/uL Abs Immat Gran (auto) 0.04 H (0.00-0.03) X10*3/uL Absolute Neuts (auto) 9.1 H (2.0-8.3) x10*3/uL Absolute Nucleated RBC 0.000 (0.0-0.012) X10*3/uL Nucleated RBC % (auto) 0.0 (0.0-0.2) /100WBC Sodium (135-145) mmol/L Potassium (3.3-5.1) mmol/L Chloride (96-108) mmol/L Carbon Dioxide (22-29) mmol/L Anion Gap (12-20) BUN (9-16) mg/dL Creatinine (0.5-1.4) mg/dL Estim Creat Clear Calc Estimated GFR Random Glucose (60-115) mg/dL Calcium (8.4-10.2) mg/dL Magnesium (1.6-2.6) mg/dL Total Bilirubin (0.0-1.0) mg/dL AST (5-31) U/L ALT (0-31) U/L Alkaline Phosphatase (39-117) U/L Total Protein (6.5-8.0) g/dL Albumin (3.5-5.0) g/dL Lipase (8-78) U/L Beta HCG, Quant mIU/mL Blood Type Antibody Screen Crossmatch Crossmatch (AHG) Independent Interpretation I performed an independent interpretation of an: EKG Interpretation: NSR at a ventricular rate of 85bpm, no ST elevation or depression Radiology Impression Discussion of test interpretation with radiology: I have reviewed the radiologist's reading. Radiologist Impression: US/US pelvic and transvaginal IMPRESSION: 1. Endometrial thickness is about 1.5 cm. The margins of the endometrium are somewhat indistinct. There is no mass. Small volume of fluid in the endometrial cavity. Electronically signed by: Skip Vargas MD 01/24/2024 03:12 PM EDT RP Dictated By: Skip Vargas MD Discharge Plan Discharge Clinical Impression: Abnormal vaginal bleeding Patient Disposition: Home, Self-Care Instructions: Dysfunctional Uterine Bleeding (ED) Additional Instructions: You were seen in the emergency department due to vaginal bleeding. You had to receive 1 unit of blood. Your white count improved after receiving blood transfusion. Your ultrasound showed a thickened endometrium, it is recommended by our OBYN that you will need to have a outpatient endometrial biopsy. You also received a dose of Provera. Please take this as prescribed. You need to follow-up with your OBGYN. Call 1st thing tomorrow morning. Continue drinking plenty of fluids get plenty of rest. If any new or worsening symptoms occur including but not limited to worsening bleeding, worsening dizziness, severe headache, chest pain, shortness of breath, please seek emergent care. Prescriptions: New medroxyprogesterone [Provera] 10 mg tablet 10 mg PO DAILY Qty: 30 0RF No Action ferrous sulfate 324 mg (65 mg iron) tablet,delayed release (DR/EC) 324 mg PO DAILY baclofen 10 mg tablet 10 mg PO TID PRN (Reason: Muscle Spasm) fluoxetine 20 mg capsule 20 mg PO DAILY topiramate 100 mg tablet 100 mg PO BID Linzess 145 mcg capsule 145 mcg PO DAILY Qty: 30 2RF lorazepam 1 mg tablet 1 mg PO DAILY PRN oxycodone 5 mg tablet PO ergocalciferol (vitamin D2) 1,250 mcg (50,000 unit) capsule 1,250 mcg PO QWEEK esomeprazole magnesium [Nexium] 40 mg capsule,delayed release(DR/EC) 40 mg PO DAILY Qty: 30 5RF sucralfate 1 gram tablet 1 g PO BEDTIME Qty: 30 4RF Referrals: Galen Zavaleta MD [Physician] - Interventions: ED Discharge Assessment Last Done: 01/24/24 22:51 Discharge Date/Time: 01/24/24 23:05 Print Language: [place]
--- NOTE | 2024-01-24 13:07 | ECG_ITS ---
Test Reason : PALPITATIONS Blood Pressure : / mmHG Vent. Rate : 085 BPM Atrial Rate : 085 BPM P-R Int : 146 ms QRS Dur : 072 ms QT Int : 364 ms P-R-T Axes : 024 013 001 degrees QTc Int : 433 ms Normal sinus rhythm Normal ECG When compared with ECG of 11-OCT-2021 11:50, No significant change was found Referred By: Avril Dyer Electronically Signed By:SONAM MASON
[2024-01-24 14:25] LABS: MANUAL DIFF FLAG NO
[2024-01-24 14:27] LABS: Basophils Percent Auto 0.4 % (0-2); Eosinophils Absolute Auto 0.1 X10*3/uL (0.0-0.4); Eosinophils Percent Auto 1.2 % (0-4); Hematocrit 28.2 % (37.0-47.0); Hemoglobin 9.2 g/dl (12.0-16.0); Imm Gran Abs Auto 0.02 X10*3/uL (0.00-0.03); Imm Gran Pct Auto 0.2 % (0.0-0.4); Lymphocytes Absolute Auto 1.1 X10*3/uL (1.2-4.9); Lymphocytes Percent Auto 13.1 % (20-40); Mean Corpuscular HGB Conc 32.6 g/dl (31.0-35.0); Mean Corpuscular Hemoglobin 26.1 pg (27.0-33.0); Mean Corpuscular Volume 79.9 fL (80.0-98.0); Mean Platelet Volume 10.3 fL (9.4-12.3); Monocytes Absolute Auto 0.6 X10*3/uL (0.1-1.2); Monocytes Percent Auto 6.8 % (2-11); Neutrophils Absolute Auto 6.5 x10*3/uL (2.0-8.3); Neutrophils Percent Auto 78.3 % (45-73); Platelet Count 274 X10*3/uL (160-400); Red Blood Count 3.53 X10*6/uL (4.20-5.50); Red Cell Distribution Width 18.3 % (11.0-16.0); White Blood Count 8.3 X10*3/uL (4.8-10.8)
[2024-01-24 14:51] LABS: Alanine Aminotransferase 15 U/L (0-31); Albumin Level 3.8 g/dL (3.5-5.0); Alkaline Phosphatase 60 U/L (39-117); Anion Gap 11 (12-20); Aspartate Amino Transferase 14 U/L (5-31); Bilirubin Total 0.2 mg/dL (0.0-1.0); Blood Urea Nitrogen 10 mg/dL (9-16); Calcium 8.6 mg/dL (8.4-10.2); Carbon Dioxide 22 mmol/L (22-29); Chloride 111 mmol/L (96-108); Creatinine Clr Calc Pharmacy 99.6; Estimated Glomerular Filt Rate > 60; Glucose Random 119 mg/dL (60-115); Lipase 21 U/L (8-78); Potassium 3.6 mmol/L (3.3-5.1); Sodium 140 mmol/L (135-145); Total Protein 6.3 g/dL (6.5-8.0)
[2024-01-24 16:02] LABS: HCG Quantitative < 2 mIU/mL
[2024-01-24 16:55] LABS: MANUAL DIFF FLAG NO
[2024-01-24 17:10] LABS: Basophils Absolute Auto 0.1 X10*3/uL (0.0-0.2); Basophils Percent Auto 0.5 % (0-2); Eosinophils Absolute Auto 0.1 X10*3/uL (0.0-0.4); Hematocrit 27.2 % (37.0-47.0); Hemoglobin 8.6 g/dl (12.0-16.0); Imm Gran Abs Auto 0.04 X10*3/uL (0.00-0.03); Imm Gran Pct Auto 0.4 % (0.0-0.4); Lymphocytes Absolute Auto 1.5 X10*3/uL (1.2-4.9); Lymphocytes Percent Auto 14.4 % (20-40); Mean Corpuscular HGB Conc 31.6 g/dl (31.0-35.0); Mean Corpuscular Hemoglobin 25.3 pg (27.0-33.0); Mean Platelet Volume 10.3 fL (9.4-12.3); Monocytes Absolute Auto 0.7 X10*3/uL (0.1-1.2); Monocytes Percent Auto 7.1 % (2-11); Neutrophils Absolute Auto 7.8 x10*3/uL (2.0-8.3); Neutrophils Percent Auto 76.6 % (45-73); Platelet Count 289 X10*3/uL (160-400); Red Cell Distribution Width 18.2 % (11.0-16.0); White Blood Count 10.2 X10*3/uL (4.8-10.8)
--- NOTE | 2024-01-24 17:51 | P.CONOB_ITS ---
BRAND ANALYST - CN: HPI Data of Consult Consult date: 01/24/24 Primary Care Provider: Alice Cole MD Consult Narrative Narrative: I was consulted on Luda Caal who is a 43 year old female with a history of MS, seizure disorder on Topamax, presented to the emergency department complaints of vaginal bleeding for the last month. Patient reports that over this last month she has been spotting. She states that approximately 2 weeks ago she developed vaginal spotting and was started on Provera by her OBGYN at [place] on January 10 which she took for few days and stopped it on her own. She started having heavy vaginal bleeding associated with passage of blood clots over the last 3 days Initial H&H in the emergency room was 9.2/28.2 hCG was negative cc:: CC: OB [facility] Past Medical History Medical History Helicobacter pylori (H. pylori) Asthma Multiple sclerosis Seizures, generalized convulsive Lumbosacral radiculopathy at S1 Lumbar spondylosis Post laminectomy syndrome Tethered cord syndrome Back pain Family History Family History Other No family history of coronary artery disease Surgical History Surgical History Hx of colonoscopy Tubal ligation status Social History Social History Household Members: Spouse Household Members Other:: Daughter Housing: Apartment Are you a primary health care law specialist to a significant other at home: No Do you presently have visiting nurse or other home services: No Alcohol intake: current Alcohol intake frequency: does not drink Patient Tobacco Use Status: Never used Tobacco Smoked in Last 30 Days: No Use of substances other than those prescribed or required for medical reasons: No Advance Directives: No Advance Directives Information Provided: Yes Do you have a plan to hurt others: No Plan Patient : No (tubal ligation and vasectomy) Meds Allergies Allergy/AdvReac Type Severity Reaction Status Date / Time hydroxyzine Allergy Rash Verified 01/24/24 13:05 lamotrigine [From Lamictal] Allergy Rash Verified 01/24/24 13:05 ocrelizumab [From Ocrevus] AdvReac Severe Abdominal Verified 01/24/24 13:05 Pain Home Medications ?Medication ?Instructions ?Recorded ?Confirmed ?Last Taken ?Type fluoxetine 20 mg capsule 20 mg PO DAILY 08/20/21 11/23/22 Unknown History topiramate 100 mg tablet 100 mg PO BID 05/27/22 11/23/22 11/25/22 History baclofen 10 mg tablet 10 mg PO TID PRN Muscle Spasm 11/23/22 11/23/22 Unknown History ferrous sulfate 324 mg (65 mg 324 mg PO DAILY 11/23/22 11/23/22 Unknown History iron) tablet,delayed release lorazepam 1 mg tablet 1 mg PO DAILY PRN 01/17/23 Unknown History oxycodone 5 mg tablet mg PO 01/17/23 Unknown History ergocalciferol (vitamin D2) 1,250 1,250 mcg PO QWEEK 07/20/23 Unknown History mcg (50,000 unit) capsule BRAND ANALYST Physical Exam Vitals Vital signs: Temp Pulse Resp BP Pulse Ox O2 Del Method 98.1 F 104 H 18 112/67 99 Room Air 01/24/24 16:05 01/24/24 16:55 01/24/24 16:05 01/24/24 16:55 01/24/24 16:05 01/24/24 16:05 BMI result Body Mass Index 35.5 Additional Comments: Reported by ROSE Swan in the emergency room as the following: [id number] amount of blood per vagina, no evidence of vaginal bleeding no cervical motion tenderness uterine or adnexal tenderness BRAND ANALYST - Results Labs 01/24/24 16:52 01/24/24 14:20 Labs: Short CBC 01/24/24 01/24/24 Range/Units 14:20 16:52 WBC 8.3 10.2 (4.8-10.8) X10*3/uL Hgb 9.2 L D 8.6 L (12.0-16.0) g/dl Hct 28.2 L D 27.2 L (37.0-47.0) % Plt Count 274 289 (160-400) X10*3/uL BMP 01/24/24 14:20 Sodium 140 Potassium 3.6 Chloride 111 H Carbon Dioxide 22 BUN 10 Creatinine 0.75 Calcium 8.6 Liver Function 01/24/24 Range/Units 14:20 Total Bilirubin 0.2 (0.0-1.0) mg/dL AST 14 (5-31) U/L ALT 15 (0-31) U/L Alkaline Phosphatase 60 (39-117) U/L Albumin 3.8 (3.5-5.0) g/dL Antibody Screen Antibody Screen NEGATIVE 01/24/24 15:38 Imaging US - abdomen: Radiologist's impression: ITS Impressions Pelvic/Transvag US 01/24/24 13:17 IMPRESSION: 1. Endometrial thickness is about 1.5 cm. The margins of the endometrium are somewhat indistinct. There is no mass. Small volume of fluid in the endometrial cavity. Electronically signed by: Skip Vargas MD 01/24/2024 03:12 PM EDT RP Assessment and Plan (1) Abnormal uterine bleeding (AUB): Status: Acute Recommended the following to ROSE Swan in the emergency: Repeat CBC, transfuse with 1 unit of packed RBCs, re-evaluate post transfusion with CBC, if the patient is stable for emergency room team clinical assessment discharge home on Provera 10 mg p.o. q.d., to be followed up in the office with her OBGYN by tomorrow for further management including endometrial biopsy to rule out endometrial pathology including endometrial hyperplasia and/or malignancy, instructions to be given to patient to come back to the emergency room case of persistence of heavy vaginal bleeding. In case the patient's CBC drops significantly, post transfusion CBC abnormal, unstable clinical assessment of the patient, heavy vaginal bleeding to call me back I spent a total of 20 minutes reviewing the chart, communicating to the emergency room provider and documenting in the medical records
--- NOTE | 2024-01-24 18:30 | PC.NURSE ---
Start of 1st unit blood transfusion. patient reports only ongoing dizziness when ambulating and fatigued. Patient denies any pain at this time. Will continue to monitor closely.
--- NOTE | 2024-01-24 20:23 | PC.NURSE ---
Patient tolerating infusion well and was feelling somewhat improved until moments ago she felt another clot pass and large gushing of fluid from vagina and states immediately she felt dizziness at rest and her headache that had subsided returned. Vitals stable. made aware.
[2024-01-24] MEDS: medroxyPROGESTERone Acetate 5 MG TABLET 10 MG PO (21:42)
[2024-01-24 21:51] LABS: MANUAL DIFF FLAG NO
[2024-01-24 21:52] LABS: Basophils Percent Auto 0.3 % (0-2); Eosinophils Absolute Auto 0.1 X10*3/uL (0.0-0.4); Hematocrit 32.6 % (37.0-47.0); Hemoglobin 10.5 g/dl (12.0-16.0); Imm Gran Abs Auto 0.04 X10*3/uL (0.00-0.03); Imm Gran Pct Auto 0.3 % (0.0-0.4); Lymphocytes Absolute Auto 2.2 X10*3/uL (1.2-4.9); Mean Corpuscular HGB Conc 32.2 g/dl (31.0-35.0); Mean Corpuscular Hemoglobin 26.2 pg (27.0-33.0); Mean Corpuscular Volume 81.3 fL (80.0-98.0); Mean Platelet Volume 10.4 fL (9.4-12.3); Monocytes Absolute Auto 0.9 X10*3/uL (0.1-1.2); Monocytes Percent Auto 7.2 % (2-11); Neutrophils Absolute Auto 9.1 x10*3/uL (2.0-8.3); Neutrophils Percent Auto 73.2 % (45-73); Platelet Count 170 X10*3/uL (160-400); Red Blood Count 4.01 X10*6/uL (4.20-5.50); Red Cell Distribution Width 17.5 % (11.0-16.0); White Blood Count 12.4 X10*3/uL (4.8-10.8)
== END 2024-01-24 23:05 | disposition home or self-care (01) ==
PROVIDERS: Physician Assistant; Physician Assistant Medical; Emergency Provider Emergency Medicine; PCP Internal Medicine
DX: N93.9 Abnormal uterine and vaginal bleeding, unspecified (principal); R51.9 Headache, unspecified; R42 Dizziness and giddiness; R00.2 Palpitations; D64.9 Anemia, unspecified; R10.30 Lower abdominal pain, unspecified; I10 Essential (primary) hypertension; G35 Multiple sclerosis; G40.409 Other generalized epilepsy and epileptic syndromes, not intractable, without status epilepticus; J45.909 Unspecified asthma, uncomplicated; Z91.148 Patient's other noncompliance with medication regimen for other reason; Z79.899 Other long term (current) drug therapy
CPT/HCPCS: 36415; 36430; 76830; 76856; 80053; 83690; 83735; 84702; 85025; 86850; 86900; 86901; 86920; 86922; 93005; 99285; P9016

== ENCOUNTER → 2024-01-24 13:07 | Outpatient (BNV) | payer OTHER, SELFPAY | PROVIDERS: Emergency Provider Emergency Medicine; PCP Internal Medicine; Visit Provider Internal Medicine | DX: R00.2 Palpitations (principal) | CPT/HCPCS: 93010 ==

== ENCOUNTER → 2024-01-24 13:08 | Outpatient (BNV) | payer OTHER, SELFPAY | PROVIDERS: Emergency Provider Emergency Medicine; PCP Internal Medicine; Visit Provider Obstetrics & Gynecology | DX: N93.9 Abnormal uterine and vaginal bleeding, unspecified (principal) | CPT/HCPCS: 99283 ==

== ENCOUNTER 2024-07-26 09:17 | Outpatient (REF) | payer OTHER, SELFPAY ==
--- OUTSIDE RECORDS SUMMARY | 2024-07-26 11:02 | XMS_ITS | Clinical Summary ---
Author Organization [facility] Address [address] [place] [address] Care Team Providers Care Call Specialist Name Role Phone Alice Cole MD Primary [...] 0 01/11/2023 Active ergocalciferol (VITAMIN D2) capsule 69758 units Take 1 capsule (50,000 Units total) [...] age to complete this topic Care Teams Call Specialist Relationship Specialty Start Date End Date Alice Cole MD PCP - General Internal Medicine 02/25/22
--- OUTSIDE RECORDS SUMMARY | 2024-07-26 11:02 | XMS_ITS | Encounter Summary ---
Author Organization [employer] Address [address] [place] [address] Care Team Providers Care Water Valve Mechanic Name Role Phone Alice Cole MD Primary Care Prov ider Reason for Referral * Imaging (Routine) - Pending Review Specialty Diagnoses / Procedures Referred By Yanet mario Referred To Contact Radiology Diagnoses Fecal fistula Procedures CT Abdomen Pelvis w Contrast Lela Almanza DO [address] [place] [address] Phone: tel: fax: [address] [address] Phone: tel: Referral ID Status Reason Start Date Expiration Date V isits Requested Visits Authorized [id number] Pending Review 07/25/2024 07/25/2025 1 1 Reason for Visit * Reason Comments Post-op Encounter Details Date Type Department Care Team (Late st Contact Info) Description 07/25/2024 3:15 PM EDT [facility] [address] [place] [address] Lela Almanza DO [address] [place] [address] Fecal fistula (Primary Dx); Vaginal bleeding; Noncyclic [...] for your loved ones. For example, child custody evaluator or elderly care for an older adult? [...] unintentional weight changes : negative for dysuria CANE FEEDER: See HPI PAST MEDICAL HISTORY: OB History [...] PM EDT Office Visit Adult Medicine - [place] [address] [place] [address] Juan Guzmán PA [address] [place] [address] 08/14/2024 2:20 PM EDT Office Visit Obstetrics and Gynecology - [place] [address] [place] [address] Peggy Noel PA [address] [place] [address] 08/22/2024 8:30 AM EDT Appointment [facility] CT Scan [address] [place] [phone] 10/07/2024 10:15 AM EDT Office Visit [facility] Hematology Oncology [address] [place] [address] Zenaida Rodrigues PA [address] [place] [address] Scheduled Orders Name Type Priority Associated Diagnoses [...] Ketones UA POC Negative Negative, Trace Specific [place] UA POC 1.010 Blood UA POC Trace(A) [...] documented as of this encounter Care Teams Water Valve Mechanic Relationship Specialty Start Date End Date Alice Cole MD [address] [place] [address] PCP - General Internal Medicine 02/15/24 documented as of this encounter
--- OUTSIDE RECORDS SUMMARY | 2024-07-26 11:02 | XMS_ITS | Encounter Summary ---
Author Organization [facility] Address [address] [place] [address] Care Team Providers Care Oil House Attendant Name Role Phone Alice Cole MD Primary Care Prov ider Encounter Details Date Type Department Care Team (Late st Contact Info) Description 01/11/2024 5:00 PM EDT Hospital Encounter TH HISTORIC ENCOUNTERS EASTERN CONVERSION ONLY Michelle Plaza, PA [address] [facility] [address] [place] [address] Social History Tobacco Use Types Packs/Day Years [...] care for your loved ones. For example, children's choir director or elderly care for an older adult? [...] 2:30 PM EDT Office Visit Adult Medicine [facility] [address] [place] [phone] Juan Guzmán PA [address] [place] [address] 08/14/2024 2:20 PM EDT Office Visit Obstetrics and Gynecology - [place] [address] [place] [address] Peggy Noel PA [address] [place] [address] 08/22/2024 8:30 AM EDT Appointment [facility] CT Scan [address] [place] [phone] 10/07/2024 10:15 AM EDT Office Visit [facility] Hematology Oncology [address] [place] [address] Zenaida Rodrigues PA [address] [place] [address] documented as of this encounter Visit Diagnoses Not on filedocumented in this encounter Care Teams Oil House Attendant Relationship Specialty Start Date End Date Alice Cole MD PCP - General Internal Medicine 12/01/20 02/14/24 documented as of this encounter
--- OUTSIDE RECORDS SUMMARY | 2024-07-26 11:02 | XMS_ITS | Encounter Summary ---
Author Organization [employer] Address [address] [place] [address] Care Team Providers Care Yacht Hand Name Role Phone Alice Cole MD Primary Care Prov ider Reason for Visit * Reason Onset Date Comments Post-op 07/24/2024 Encounter Details Date Type Department Care Team ([facility] st Contact Info) Description 07/24/2024 Telephone Obstetrics and Gynecology - [address] [phone] Rosie Hernandez MD [place], [place] Post-op Social History Tobacco Use Types [...] for your loved ones. For example, child care lead teacher or elderly care for an older [...] any pain medicine. No fever no chills. [place] earlier like something was in vagina,but that feeing went away. Went over reasons to go to [facility]-fever, chills, increase in abdominal pain, bright red [...] PM EDT Office Visit Adult Medicine - [place] [address] [place] [address] Juan Guzmán PA [address] [place] [address] 08/14/2024 2:20 PM EDT Office Visit Obstetrics and Gynecology - [address] [place] [address] Peggy Noel PA [address] [place] [address] 08/22/2024 8:30 AM EDT Appointment [facility] CT Scan [address] [place] [phone] 10/07/2024 10:15 AM EDT Office Visit [facility] Hematology Oncology [address] [place] [address] Zenaida Rodrigues PA [address] [place] [address] documented as of this encounter Visit Diagnoses Not on filedocumented in this encounter Additional Health Concerns Assessment Noted Time PHQ-9 Depression Total Score: 1 07/23/19 25 9:36 PM EDT documented as of this encounter Care Teams Yacht Hand Relationship Specialty Start Date End Date Alice Cole MD [address] [place] [address] PCP - General Internal Medicine 02/15/24 documented as of this encounter
--- OUTSIDE RECORDS SUMMARY | 2024-07-26 11:02 | XMS_ITS | Encounter Summary ---
Author Organization [employer] Address [address] [place] [address] Care Team Providers Care Chief Clinical Dietitian Name Role Phone Alice Cole MD Primary Care Prov ider Reason for Visit * Reason Comments Post-op Encounter Details Date Type Department Care Team ([facility] st Contact Info) Description 07/23/2024 1:20 PM EDT Office Visit Obstetrics and Gynecology [address] [address] Peggy Noel, PA [address] [place] [address] Status post hysterectomy (Primary Dx); Postop check [...] care for your loved ones. For example, housekeeper child care or elderly care for an older adult? [...] EDT PATIENT: Luda Caal ENCOUNTER: 07/23/2024 EMRN: [id number] : 1980 Chief Complaint: No chief complaint [...] LIGATION 04/14/2000 PROCEDURE: HISTORICAL TUBAL LIGATION; COMMENT: [facility] UPPER GASTROINTESTINAL ENDOSCOPY Physical Exam: Visit Vitals [...] PM EDT Office Visit Adult Medicine - [place] [address] [place] [address] Juan Guzmán PA [address] [place] [address] 08/14/2024 2:20 PM EDT Office Visit Obstetrics and Gynecology - [address] [address] Peggy Noel PA [address] [place] [address] 08/22/2024 8:30 AM EDT Appointment [facility] CT Scan [address] [place] [phone] 10/07/2024 10:15 AM EDT Office Visit [facility] Hematology Oncology [address] [place] [phone] Zenaida Rodrigues PA [address] [place] [address] documented as of this encounter Visit Diagnoses [...] documented as of this encounter Care Teams Chief Clinical Dietitian Relationship Specialty Start Date End Date Alice Cole MD [address] [place] [address] PCP - General Internal Medicine 02/15/24 documented as of this encounter
--- OUTSIDE RECORDS SUMMARY | 2024-07-26 11:03 | XMS_ITS | Data Portability ---
Author Organization [facility] [address] Address [address] [place] [address] Assessment No assessment recorded. Plan of Treatment Reminders Order Date Submit Date Provider Last Modified By Organization Details Last Modified Time Details Appointments None record ed. Lab None record ed. Referral None record ed. Procedures None record ed. Surgeries None record ed. Imaging None record ed. Medication Orders None record ed. Patient TargetsNo targets recorded. Patient InstructionsNo instructions recorded. Reason for Referral None Reported. Medical Equipment None Reported. Medications Name Sig Start Date Stop Date Status Note LastModified by Organization Details LastModified Time [facility] kit active Not Available Not Available Not Available cyclobenzapr ine 10 mg tablet TAKE 1 TABLET BY MOUTH 2 TIMES A DAY NEEDED. active Not Available Not Available N ot Available valacyclovir 1 gram tablet TAKE 2 TABLETS BY MOUTH 2 TIMES DAILY FOR 1 DAY. AT FIRST SIGN OF OUTBREAK. active Not Available Not Available No t Available senna 8.6 mg tablet TAKE 2 TABLETS BY MOUTH DAILY AT BEDTIME FOR CONSTIPATIO N active Not Available Not Available No t Available clonazepam 1 mg tablet TAKE 1 TABLET BY MOUTH EVERY DAY AT BEDTIME FOR 30 DAYS active Not Available Not Available No t Available clobetasol 0.05 % topical cream APPLY TOPICALLY TWICE DAILY active Not Available Not Available Not Available sumatriptan 50 mg tablet PLEASE SEE ATTACHED FOR DETAILED DIRECTIONS active Not Available Not Available N ot Available topiramate 25 mg tablet TAKE 1 TABLET BY MOUTH TWICE A DAY active Not Available Not Available No t Available oxcarbazepin e 300 mg tablet TAKE 1 TABLET BY MOUTH TWICE A DAY FOR 90 DAYS active Not Available Not Available No t Available tramadol 50 mg tablet TAKE 1 TABLET BY MOUTH TWICE A DAY NEEDED FOR PAIN active Not Available Not Available No t Available ketorolac 10 mg tablet TAKE 1 TABLET BY MOUTH EVERY 6 HOURS NEEDED FOR PAIN - MAX 5 DAYS active Not Available Not Available No t Available lorazepam 0.5 mg tablet TAKE 1 TABLET (0.5 MG TOTAL) BY MOUTH EVERY NIGHT AT BEDTIME NEEDED active Not Available Not Available No t Available triamcinolon e acetonide 0.1 % dental paste PLACE ONTO TEETH 2 TIMES A DAY. active Not Available Not Available No t Available benzonatate 100 mg capsule TAKE 1 CAPSULE BY MOUTH 3 TIMES DAILY NEEDED FOR COUGH FOR UP TO 7 DAYS. active Not Available Not Available No t Available cephalexin 500 mg capsule TAKE 1 CAPSULE BY MOUTH FOUR TIMES A DAY active Not Available Not Available Not Available oxycodone 5 mg capsule TAKE 1 TABLET BY MOUTH EVERY 8 HOURS NEEDED FOR PAIN active Not Available Not Available No t Available docusate sodium 100 mg capsule TAKE 1 CAPSULE BY MOUTH DAILY NEEDED FOR CONSTIPATIO N active Not Available Not Available No t Available omeprazole 20 mg capsule,sheila yed release TAKE 1 CAPSULE BY MOUTH DAILY AT 6:30 AM active Not Available Not Available N ot Available oxcarbazepin e 600 mg tablet TAKE 1 TABLET BY MOUTH TWICE A DAY active Not Available Not Available No t Available hydroxyzine HCl 25 mg tablet TAKE 1 TABLET BY MOUTH TWICE A DAY NEEDED FOR ANXIETY active Not Available Not Available No t Available lorazepam 1 mg tablet TAKE 1 TABLET BY MOUTH TWICE A DAY NEEDED active Not Available Not Available No t Available hydroxychlor oquine 200 mg tablet TAKE 1 TABLET (200 MG TOTAL) BY MOUTH 2 TIMES A DAY. active Not Available Not Available No t Available propranolol 20 mg tablet TAKE 1 TABLET BY MOUTH TWICE A DAY FOR 90 DAYS active Not Available Not Available No t Available topiramate 100 mg tablet TAKE 1 AND 1/2 TABLETS BY MOUTH TWICE A DAY active Not Available Not Available Not Available fluoxetine 20 mg capsule TAKE 1 CAPSULE BY MOUTH EVERY DAY IN THE MORNING active Not Available Not Available No t Available sertraline 50 mg tablet TAKE 1 TABLET BY MOUTH EVERY DAY FOR 90 DAYS active Not Available Not Available No t Available topiramate 50 mg tablet TAKE 1 TABLET BY MOUTH TWICE A DAY FOR 90 DAYS active Not Available Not Available No t Available quetiapine 50 mg tablet TAKE 1 CAP BY MOUTH EVERY MORNING AND 2 TABS AT BEDTIME. active Not Available Not Available No t Available ferrous sulfate 324 mg (65 mg iron) tablet,delay ed release TAKE 1 TABLET BY MOUTH EVERY DAY active Not Available Not Available No t Available quetiapine ER 300 mg tablet,exten ded release 24 hr TAKE 1 TABLET BY MOUTH EVERYDAY AT BEDTIME active Not Available Not Available No t Available quetiapine ER 200 mg tablet,exten ded release 24 hr TAKE 1 TABLET BY MOUTH EVERYDAY AT BEDTIME active Not Available Not Available No t Available oxycodone 10 mg tablet TAKE 1 TABLET BY MOUTH EVERY 6 HOURS NEEDED (SEVER RT SIDED BACK PAIN) FOR UP TO 4 DAYS. active Not Available Not Available No t Available Vitals None Recorded Social History None recorded. Functional Status None recorded. Mental Status None recorded. Family History Nothing Reported. Medical History No medical history recorded. Gynecological HistoryNo gynecological history recorded. Obstetrics History GPAL:G 0 P 0 0 0 0 Past Encounters Encounter ID Performer Location Encounter Start Date Encounter Closed Date Diagnosis/Indication Diagnosis SNOMED-CT Code Diagnosis ICD10 Code Diagnosis Note [id number] [facility] [address] [place] [phone] 06/12/2019 09:29:13 06/12/2019 09:50:33 [id number] [address] [place] [address] 12/25/2020 13:17:11 12/25/2020 15:46:33 [id number] [address] [place] [address] 08/30/2016 12:45:03 08/30/2016 13:36:15 [id number] [facility] [address] [place] [address] 10/31/2018 19:28:33 10/31/2018 20:01:54 [id number] [facility] [address] [place] [address] 03/27/2019 15:48:34 03/27/2019 16:27:23 Health Concerns Section Related Observation LastModified by Organization Detai ls LastModified Time None Recorded Concern Status LastModified by Organization Details LastModified Time None Recorded Advance Directives Directive None Recorded Payers Encounter Date Sequence Insurance Name Policy Number Policy Wright Covered Member ID Wright Member ID Guarantor Name 08/30/2016 1 AETDISHA [id number] Dean Caal [id number] Glendalie Itasca 10/31/2018 1 [employer] [id number] Dean Afua [id number] Glendalie Itasca 03/27/2019 1 [employer] [id number] Dean Itasca [id number] Glendalie Itasca 06/12/2019 1 [employer] [id number] Dean Itasca [id number] Glendalie Itasca 12/25/2020 1 AETNA [id number] [id number] Glendalie Afua OBGyn Episode No OBEpisode recorded.
--- OUTSIDE RECORDS SUMMARY | 2024-07-26 11:03 | XMS_ITS | Clinical Summary ---
Author Organization [address] [facility] Address [address] [place] [address] Phone Care Team Providers Care Windows Infrastructure Engineer Name Role Phone Alice Cole MD Primary [...] Problem Noted Date Diagnosed Date Multiple sclerosis ([facility]/HCC V24, CMS/HCC V28) Adjustment disorder with mixed [...] Ob[facility]s [facility]cology [facility] [place] [address] [place] [address] Lela Almanza DO Fecal fistula (Primary Dx); Vaginal bleeding; Noncyclic pelvic pain in female 07/24/2024 Telephone Obstetrics and Gynecology - [address] [phone] Rosie Hernandez MD Post-op 07/23/2024 1:20 PM EDT Office Visit Obstetrics and Gynecology - [address] [phone] Peggy Noel PA Status post hysterectomy (Primary Dx); Postop check 07/09/2024 Telephone Obstetrics and Gynecology - [address] [phone] Rosie Hernandez MD Post-op 07/03/2024 7:31 AM EDT Anesthesia Event [facility] [place] [address] [place] [phone] Alex Be MD [facility] 07/03/2024 7:30 AM EDT - 07/03/2024 10:30 AM EDT Surgery [facility] OR [address] [place] [phone] Rosie Hernandez MD DAVINCI TOTAL HYSTERECTOMY [37813 (CPT??)] 07/03/2024 5:52 AM EDT - 07/03/2024 12:21 PM EDT Hospital Encounter [facility] [place] [address] [place] [phone] Rosie Hernandez MD Acute postoperative pain (Primary Dx); Menorrhagia with irregular cycle Discharge Disposition: Home or Self Care 07/02/2024 Telephone Urogynecology - [address] [phone] Amanda Richmond MA surgery moved 06/19/2024 Telephone Obstetrics and Gynecology [address] [phone] Peggy Noel PA Forms/questionnaires 06/13/2024 3:30 PM EST Consult Obstetrics and Gynecology - [address] [phone] Peggy Noel PA Pre-op exam (Primary Dx); Iron deficiency anemia due to chronic blood loss; Abnormal uterine bleeding (AUB) 06/10/2024 10:00 AM EST Consult Adult Medicine [address] [phone] Ailce Cole MD Preop examination (Primary Dx); DUB (dysfunctional uterine bleeding) 06/07/2024 Telephone Obstetrics and Gynecology - [address] [phone] Naomie Harvey, [place] 05/08/2024 Telephone Obstetrics and Gynecology [address] [address] Rosie Hernandez MD 04/30/2024 1:00 PM EST Clinical Support Obstetrics and Gynecology - [address] [phone] Surveillance for Depo-Provera contraception (Primary Dx) from [...] LIGATION 04/14/2000 PROCEDURE: HISTORICAL TUBAL LIGATION; COMMENT: [facility] LUMBAR LAMINECTOMY 04/2017 PROCEDURE: HISTORICAL LUMB LAMINECTOMY; [...] mixed anxiety and depressed mood Seizure disorder ([facility] V2 4, [facility] V28) 09/15/2020 DX:Seizure disorder (HCC) Multiple sclerosis ([facility] V24, [facility] V28) 05/02/2022 DX:Multiple sclerosis (HCC) GERD (gastroesophageal reflu x disease) Anxiety Multiple sclerosis exacerbat ion ([facility] V24, [facility] V28) Positive PRINCESS (antinuclear antibody) 04/14/2021 Hx [...] for your loved ones. For example, child & adolescent psychiatrist or elderly care for an older adult? [...] PM EDT Office Visit Adult Medicine - [place] [address] [place] [address] Juan Guzmán PA [address] [place] [address] 08/14/2024 2:20 PM EDT Office Visit Obstetrics and Gynecology - [address] [phone] Peggy Noel PA [address] [place] [address] 08/22/2024 8:30 AM EDT Appointment [facility] CT Scan [address] [place] [phone] 10/07/2024 10:15 AM EDT Office Visit [facility] Hematology Oncology [address] [place] [address] Zenaida Rodrigues PA [address] [place] [address] Health Maintenance Due Date Last Done Comments [...] ENDOTRACHEAL(NO CHARGE) Routine 07/03/2024 8:15 AM EDT [place] LAP SURG W TOTAL HYSTERECTOMY FOR UTERUS [...] Ketones UA POC Negative Negative, Trace Specific [place] UA POC 1.010 Blood UA POC Trace(A) [...] atypia or neoplasm 07/05/2024 12:11 PM EDT [facility] ([facility] [[email or web address] Gross Description A. Endometrium, Uterus, cervix [...] to 0.4 cm and a pinpoint lumen. Wireworker sections are submitted as follows: 1, anterior [...] piece each. MEGHA 07/05/2024 12:11 PM EDT [facility] Disclaimer Unless otherwise specified, all tissue is 10% NB formalin fixed and paraffin embedded. 07/05/2024 12:11 PM EDT [facility] Tissue Endometrial structure / Unknown 07/03/2024 8:30 AM EDT 07/03/2024 10:11 AM EDT us Rosie Hernandez MD LAB PATHOLOGY ORDERABLES Fi nal Result [facility]) [facility] [address] [place] [address], * TH AN ENDOTRACHEAL(NO CHARGE) (07/03/2024 8:15 AM EDT) Betzy Cyr SRNA - 07/03/2024 8:15 AM EDT ALYSSA Galloway ? 07/03/2024 ??8:56 AM General Information and Staff Patient location during procedure: OR Resident/CAR HOPPER: ALYSSA Galloway Performed by: ALYSSA Galloway Authorized [...] Type and screen (07/03/2024 7:05 AM EDT) [facility] ABO Group A 07/03/2024 9:19 AM EDT [facility] Rh Type Negative 07/03/2024 9:19 AM EDT [facility] Antibody Screen Negative 07/03/2024 9:19 AM EDT [facility] Blood Venous blood specimen / Unknown Venipuncture / Unknown 07/03/2024 7:05 AM EDT 07/03/2024 8:25 AM EDT us Rosie Hernandez MD LAB BLOOD BANK TEST ORDERAB LES Final Result [facility] [address] [place] [address], [place] [phone] * (ABNORMAL) CBC auto differential (06/07/2024 1:47 PM EST) Pathologist [facility] WBC 5.7 4.8 - 10.8 K/mcL LAB HEMETOLOGY METHOD 06/07/2024 4:47 PM EST [facility] RBC 4.80 3.80 - 4.80 M/mcL LAB HEMETOLOGY METHOD 06/07/2024 4:47 PM EST [facility] Hemoglobin 14.0 11.5 - 16.0 g/dL LAB HEMETOLOGY METHOD 06/07/2024 4:47 PM EST [facility] Hematocrit 42.3 35.0 - 47.0 % LAB HEMETOLOGY METHOD 06/07/2024 4:47 PM [facility] MCV 89.1 79.0 - 98.0 FL LAB HEMETOLOGY METHOD 06/07/2024 4:47 PM [facility] MCH 29.5 27.0 - 32.0 pcg LAB HEMETOLOGY METHOD 06/07/2024 4:47 PM [facility] MCHC 33.1 32.0 - 37.0 g/dL LAB HEMETOLOGY METHOD 06/07/2024 4:47 PM [facility] RDW 15.7(H) 11.0 - 15.0 % LAB HEMETOLOGY METHOD 06/07/2024 4:47 PM [facility] Platelets 281 130 - 400 K/mcL LAB HEMETOLOGY METHOD 06/07/2024 4:47 PM [facility] MPV 11.3(H) 7.0 - 11.0 FL LAB HEMETOLOGY METHOD 06/07/2024 4:47 PM [facility] NRBC 0.0 <1.0 % LAB HEMETOLOGY METHOD 06/07/2024 4:47 PM [facility] NRBC Absolute 0.00 <0.10 K/mcL LAB HEMETOLOGY METHOD 06/07/2024 4:47 PM [facility] Neutrophils Relative 56.5 % LAB HEMETOLOGY METHOD 06/07/2024 4:47 PM [facility] Lymphocytes Relative 30.4 % LAB HEMETOLOGY METHOD 06/07/2024 4:47 PM [facility] Monocytes Relative 9.4 % LAB HEMETOLOGY METHOD 06/07/2024 4:47 PM [facility] Eosinophils Relative 2.8 % LAB HEMETOLOGY METHOD 06/07/2024 4:47 PM [facility] Basophils Relative 0.7 % LAB HEMETOLOGY METHOD 06/07/2024 4:47 PM [facility] Immature Granulocytes Relative 0.2 % LAB HEMETOLOGY METHOD 06/07/2024 4:47 PM [facility] Neutrophils Absolute 3.20 1.50 - 7.00 K/mcL LAB HEMETOLOGY METHOD 06/07/2024 4:47 PM [facility] Lymphocytes Absolute 1.72 1.00 - 5.00 K/mcL LAB HEMETOLOGY METHOD 06/07/2024 4:47 PM [facility] Monocytes Absolute 0.53 0.20 - 1.00 K/mcL LAB HEMETOLOGY METHOD 06/07/2024 4:47 PM [facility] Eosinophils Absolute 0.16 0.00 - 0.50 K/mcL LAB HEMETOLOGY METHOD 06/07/2024 4:47 PM [facility] Basophils Absolute 0.04 0.00 - 0.20 K/mcL LAB HEMETOLOGY METHOD 06/07/2024 4:47 PM [facility] Immature Granulocytes Absolute 0.01 0.00 - 0.03 K/mcL LAB HEMETOLOGY METHOD 06/07/2024 4:47 PM [facility] Blood Venous blood specimen / Unknown Venipuncture / Unknown 06/07/2024 1:47 PM EST 06/07/2024 1:48 PM EST us Rosie Hernandez MD LAB BLOOD ORDERABLES Final Result [facility] [address] [place] [address], * (ABNORMAL) Basic metabolic panel (06/07/2024 1:47 PM EST) Sodium 138 133 - 145 mmol/L LAB CHEMISTRY METHOD 06/07/2024 9:07 PM EST [facility] Potassium 3.9 3.5 - 5.5 mmol/L LAB CHEMISTRY METHOD 06/07/2024 9:07 PM [facility] Chloride 109 96 - 110 mmol/L LAB CHEMISTRY METHOD 06/07/2024 9:07 PM [facility] CO2 20(L) 21 - 32 mmol/L LAB CHEMISTRY METHOD 06/07/2024 9:07 PM [facility] Anion Gap 9 3 - 11 LAB CHEMISTRY METHOD 06/07/2024 9:07 PM [facility] Glucose 99 70 - 100 mg/dL LAB CHEMISTRY METHOD 06/07/2024 9:07 PM [facility] BUN 7 5 - 25 mg/dL LAB CHEMISTRY METHOD 06/07/2024 9:07 PM [facility] Creatinine 0.72 0.50 - 1.10 mg/dL LAB CHEMISTRY METHOD 06/07/2024 9:07 PM [facility] eGFR 106 >=60 mL/min/1. 73m2 LAB CHEMISTRY METHOD 06/07/2024 9:07 PM [facility] Comment:Calculation based on the??Chronic Kidney Disease Epidemiology Collaboration (CKD-EPI) equation refit??without adjustment for race. BUN/Creatinine Ratio 9.7 LAB CHEMISTRY METHOD 06/07/2024 9:07 PM [facility] Calcium 9.2 8.5 - 10.5 mg/dL LAB CHEMISTRY METHOD 06/07/2024 9:07 PM [facility] Blood Venous blood specimen / Unknown Venipuncture / Unknown 06/07/2024 1:47 PM EST 06/07/2024 1:48 PM EST us Rosie Hernandez MD LAB BLOOD ORDERABLES Final Result [facility] [address] [place] [address], * Pap smear (01/12/2024) 01/12/2024 Narrative HISTORICAL TESTING LAB RESULTING AGENCY - 01/24/2024 6:30 AM EDT [id number] THINPREP PAP, IMAGED: NEGATIVE FOR SQUAMOUS INTRAEPITHELIAL [...] Health Maintenance Insurance MEDICARE AETNA Care Teams Windows Infrastructure Engineer Relationship Specialty Start Date End Date Alice Cole MD [address] [place] [phone] PCP - General Internal Medicine 02/15/24
[2024-07-26 11:20] LABS: Blood Urea Nitrogen 12 mg/dL (9-16); Estimated Glomerular Filt Rate > 60
== END 2024-07-26 09:18 | disposition home or self-care (01) ==
LOC: HO.LAB 09:17
PROVIDERS: PCP Internal Medicine; Visit Provider Nurse Practitioner Family
DX: R10.11 Right upper quadrant pain (principal)
CPT/HCPCS: 36415; 82565; 84520

== ENCOUNTER 2024-07-26 09:17 | Outpatient (AMB) | payer OTHER, SELFPAY ==
[2024-07-26 09:19] VITALS: BP 142/70; PULSE 106; O2SAT 99; BMI 34.9
--- NOTE | 2024-07-26 09:19 | A.OFFVIS_ITS ---
Vital Signs 07/26/24 09:19 Height 5 ft 2 in Weight 191 lb BMI 34.9 BP 142/70 H Blood Pressure Location Rt brachial Position Sitting Pulse 106 H Pulse Source Pulse Oximeter Pulse Oximetry (%) 99 Oxygen Delivery Method Room Air Intake Visit Reasons: abdominal pain Intake Note: ESTABLISHED PATIENT for 1 YR FUV. GERD, CIC, prev hx of H Pylori. Chief Complaint; C/O LLQ pain, rectal pain w/o bleeding, fecal abn; pt has stopped taking linzess per side effects (GI Upset) not being worth the lack of results. Constipation is still a chronic concern for pt as well. [employer] Counter Person Required: No Accompanied by: Self / Same As Patient Allergies hydroxyzine Allergy (Verified 07/26/24 09:20) Rash lamotrigine [From Lamictal] Allergy (Verified 07/26/24 09:20) Rash ocrelizumab [From Ocrevus] Adverse Reaction (Severe, Verified 07/26/24 09:20) Abdominal Pain Medication List - Last Reconciled 07/26/24 by AMBER Boswell- baclofen 10 mg PO TID PRN ergocalciferol (vitamin D2) 1,250 mcg PO QWEEK esomeprazole magnesium 40 mg PO DAILY ferrous sulfate 324 mg PO DAILY fluoxetine 20 mg PO DAILY linaclotide (Linzess) 145 mcg PO DAILY lorazepam 1 mg PO DAILY PRN medroxyprogesterone (Provera) 10 mg PO DAILY topiramate 100 mg PO BID HPI HPI abdominal pain: Details: LAST VISIT: Helicobacter pylori (H. pylori) Chronic constipation Abdominal bloating GERD (gastroesophageal reflux disease) Postprandial epigastric pain Plan Continue Linzess. Increase fluid intake and activity to promote better bowel motility. Increase fiber intake. Will check for H pylori in the office today. Will treat empirically if positive. Patient will start taking Nexium 40 mg in the morning half an hour before breakfast. Patient will take sucralfate at bedtime. She was encouraged to avoid dietary triggers and late night snacking. Staying upright for minimum 3 hours after meals discussed with patient. Patient will return in the office in 5 weeks, sooner on as needed basis. Patient is agreeable to this plan and verbalizes understanding of instructions. She was given the opportunity to ask questions and all questions answered. ? Thank you for allowing me to participate in her care Orders Orders H Pylori Breath Test 07/21/23 K21.9 Medications New esomeprazole magnesium (Nexium) 40 mg PO DAILY 30 caps 5RF K21.9 sucralfate 1 g PO BEDTIME 30 tabs 4RF R19.7 Discontinued omeprazole Discontinued Reason: Doctor's Order 20 mg PO DAILY 90 caps 1RF A04.8, K21.9 TODAY'S VISIT: Patient is here today for requested visit. Last seen a year ago. Patient reports that she continues to have abdominal pain and trauma moving her bowels. Patient reports ongoing constipation despite taking MiraLax and Linzess. Linzess makes her have loose stools and she feels like she does not empty afterwards. Patient reports she stopped taking Linzess. Currently she is taking MiraLax every morning it takes her 2-3 days before she can empty. Patient denies any melena, however patient reports severe left lower quadrant pain. Recent hysterectomy. Patient reports that this pain feels different. Before pain was more localized in the middle and now she has a left lower quadrant pain. Denies fever or chills. Denies any mucus in her stools. Concern for diverticulitis even though colonoscopy report did not mention diverticulosis. Patient reports that her acid reflux has been control with esomeprazole [facility] Medical History Helicobacter pylori (H. pylori) Asthma Multiple sclerosis Seizures, generalized convulsive Lumbosacral radiculopathy at S1 Lumbar spondylosis Post laminectomy syndrome Tethered cord syndrome Back pain Surgical History H/O: hysterectomy Hx of colonoscopy Tubal ligation status Family History Other No family history of coronary artery disease Social History Household Members: Spouse Household Members Other:: Daughter Housing: Apartment Are you a primary animal daycare provider to a significant other at home: No Do you presently have visiting nurse or other home services: No Alcohol intake: current Alcohol intake frequency: does not drink Patient Tobacco Use Status: Never used Tobacco Review of Systems Const Denies weight gain and Denies weight loss ENT Reports no additional complaints, Denies dysphagia and Denies odynophagia Card Reports no additional complaints Resp Reports no additional complaints GI Reports abdominal pain (Epigastric), Denies belching, Denies melena, Denies bloating, Denies change in bowel habits, Reports constipation, Denies dysphagia, Denies excessive flatus, Denies dyspepsia, Reports heartburn, Denies diarrhea, Denies loose stools, Denies nausea, Denies odynophagia and Denies vomiting Reports no additional complaints Musc Reports no additional complaints Neuro Reports no additional complaints Psych Reports no additional complaints Endo Reports no additional complaints Physical Exam Vital Signs: Last Vital Signs Pulse 106 H 07/26/24 09:19 BP 142/70 H 07/26/24 09:19 Pulse Ox 99 07/26/24 09:19 Oxygen Delivery Method Room Air 07/26/24 09:19 BMI result Body Mass Index 34.9 Const General: healthy appearing, no acute distress and well developed Nutritional Appearance: obese Orientation/consciousness: patient oriented x3 Resp Effort & Inspection: normal respiratory effort, able to speak in complete sentences, no tracheal deviation and symmetric chest movement Auscultation: clear to auscultation bilaterally Cardio Rate: regular rate GI Inspection: Yes normal to inspection, No distended and Yes obesity Palpation (GI): Soft to palpation, not firm, Tenderness to palpation present (GI) in the LLQ; with no rebound tenderness and No hepatosplenomegaly present Auscultation: normal bowel sounds General: Yes no CVA tenderness Back/Spine/Pelvis Back: no CVA tenderness Skin General skin exam: elasticity normal, turgor normal and dry skin Neuro General: patient oriented x3 Psych Appearance: grossly normal Mental Status: mental status grossly normal Assessment & Plan Assessment & Plan (1) Helicobacter pylori (H. pylori): Code(s): A04.8 - Other specified bacterial intestinal infections Category: Medical (2) Chronic constipation: Code(s): K59.09 - Other constipation Category: Medical (3) Abdominal bloating: Code(s): R14.0 - Abdominal distension (gaseous) (4) GERD (gastroesophageal reflux disease): Code(s): K21.9 - Gastro-esophageal reflux disease without esophagitis Qualifiers: Esophagitis presence: without esophagitis Qualified Code(s): K21.9 - Gastro-esophageal reflux disease without esophagitis (5) Postprandial epigastric pain: Code(s): R10.13 - Epigastric pain (6) LLQ abdominal pain: Code(s): R10.32 - Left lower quadrant pain Plan Continue current PPI therapy. Avoid dietary triggers and late night snacking. Staying upright for minimal 3 hours after meals discussed with patient. Patient will take MiraLax in the morning and Dulcolax at bedtime. Mild tenderness to left lower quadrant. Patient will be sent for CT scan to rule out diverticulitis or colitis. Patient denies any mucus in her stool. Patient will call the office if she will continue to be constipated. Patient was encouraged to go to ER if her symptoms will get worse. Follow-up in 3 months, sooner on as needed basis. She is agreeable to this plan and verbalizes understanding of instructions. She was given the opportunity to ask questions and all questions answered. Thank you for allowing me to participate in her care Orders: Orders CT abdomen pelvis w IV con Today R10.32 - Left lower quadrant pain, R10.9 - Unspecified abdominal pain Blood Urea Nitrogen Today R10.11 - Right upper quadrant pain Creatinine Today R10.11 - Right upper quadrant pain Medications: New bisacodyl (Dulcolax (bisacodyl)) 10 mg (2 x 5 mg) PO BEDTIME 60 tabs 4RF polyethylene glycol 3350 (Miralax) 17 grams PO DAILY 510 grams 2RF Coding Level of Care Code Est Pt Level 4 (95226) Complex EM visit Add On G2211 Diagnoses Helicobacter pylori (H. pylori) A04.8 Chronic constipation K59.09 Abdominal bloating R14.0 Gastroesophageal reflux disease without esophagitis K21.9 Esophagitis presence: without esophagitis Postprandial epigastric pain R10.13 LLQ abdominal pain R10.32 Time Spent (min) 40 Comment 25 minutes spent with patient and additional 15 minutes spent reviewing her records
--- OUTSIDE RECORDS SUMMARY | 2024-07-26 09:44 | XMS_ITS | Encounter Summary ---
Author Organization [facility] Address [address] [place] [address] Care Team Providers Care Process Owner Name Role Phone Kurtis Cole MD Primary Care Provider [phone] Encounter Details Date Type Department Care Team Description 04/06/2022 Pt. Non Urgent Medic al Question Adult Medicine - [place] [address] [place] [address] Kurtis Cole MD [address] [place] [address] Social History Tobacco Use Types Packs/Day Years Used Date Smoking Tobacco: Never Smokeless Tobacco: Never Alcohol Use Standard Drinks/Week Comments Not Currently 0 (1 standard drink = 0.6 oz pur e alcohol) Sex Assigned at Date Recorded Not on file Job Start Date Occupation Industry Not on file Not on file Not on file COVID-19 Exposure Response Date Recorded In the last 10 days, have yo u been in contact with someone who was confirmed or suspected to have Coronavirus/COVID-19? No / Unsure 04/05/2022 4:21 PM EST documented as of this encounter Miscellaneous Notes * Telephone Encounter - Alice Paris M.A. - 04/06/2022 2:26 PM ESTFrom: Luda Caal To: Diana Cole Sent: 04/06/2022 2:20 PM EST Subject: Ear pain Hello, Late yesterday I started feeling right ear pain, today it's worse and there was a small amount of fluid coming out, I have swimmer's ear and cant hear much tylenol does help a bit, is an antibiotic Ican have? So sorry I haven't been this sick in a while! documented in this encounter Plan of Treatment Not on file documented as of this encounter Visit Diagnoses Not on filedocumented in this encounter Care Teams Process Owner Relationship Specialty Start Date End Date Kurtis Cole MD [address] [place] [id number] PCP - General Internal Medicine 12/01/20 documented as of this encounter
--- OUTSIDE RECORDS SUMMARY | 2024-07-26 09:44 | XMS_ITS | Encounter Summary ---
Author Organization [facility] Address [address] [place] [address] Care Team Providers Care R And D Lab Technician Name Role Phone Alice Cole MD Primary Care Prov ider Reason for Visit * Reason Comments Post-op Encounter Details Date Type Department Care Team ([facility] st Contact Info) Description 07/23/2024 1:20 PM EDT Office Visit Obstetrics and Gynecology [address] [phone] Peggy Noel, PA [address] [place] [id number] Status post hysterectomy (Primary Dx); Postop check Social History Tobacco Use Types Packs/Day Years Used Date Smoking Tobacco: Never Smokeless Tobacco: Never Alcohol Use Standard Drinks/Week Comments Not Currently 0 (1 standard drink = 0.6 oz pur e alcohol) Housing Instability Answer Date Recorde d Are you worried that in the next 2 months you may not have stable housing? No 02/15/2024 Food Access & Nutrition Answer Date Rec orded Do you have access to a vari ety of food including fruits and vegetables? Yes 02/15/2024 Access to Healthcare Answer Date Record ed Within the last 3 months, rikki w many times did you visit the emergency department for your medical care? 2 02/15/2024 Health Literacy Answer Date Recorded How often do you need to hav e someone help you when you read instructions, pamphlets, or other written material from your doctor or pharmacy? Patient declined 02/15/2024 Caregiver: How often do you need to have someone help you when you read instructions, pamphlets, or other written material from your doctor or pharmacy? Not on file Financial Risk Answer Date Recorded How hard is it for you to pa y for the very basics like food, housing, medical care, and air conditioning / heating? Not very hard 02/15/2024 Transportation Answer Date Recorded Has the lack of transportati on kept you from meetings, work, or from getting things needed for daily living? Patient declined 02/15/2024 Has the lack of transportati on kept you from medical appointments or from getting medications? Patient declined 02/15/2024 Social Isolation Answer Date Recorded How often do you feel lonely or isolated from th ose around you? Never 02/15/2024 Food Risk Answer Date Recorded Within the past 12 months we worried whether our food would run out before we got money to buy more. Never true 02/15/2024 Within the past 12 months th e food we bought just didn't last and we didn't have money to get more. Never true 02/15/2024 Dependent Care Answer Date Recorded Do you need help finding or paying for care for your loved ones. For example, child psychology teacher or elderly care for an older adult? No 02/15/2024 Education Answer Date Recorded Do you think completing more education or training, like finishing a GED, going to college, or learning a trade, would be helpful for you? N/A 02/15/2024 Employment and Income Answer Date Recor ded During the last four weeks, have you been actively looking for work? Patient declined 02/15/2024 Living Situation Answer Date Recorded What is your living situation? 1 04/16/2023 Interpersonal Safety Answer Date Record ed Physical Abuse 07/03/2024 Verbal Abuse 07/03/2024 Comments No Sex and Gender Information Value Date Recorded Sex Assigned at Female 07/02/2024 4:29 PM EDT Legal Sex Female 12:24 AM EST Gender Identity Female 07/02/2024 4:29 PM EDT Sexual Orientation Straight 07/02/2024 4: 29 PM EDT documented as of this encounter Last Filed Vital Signs Vital Sign Reading Time Taken Comments Blood Pressure 129/86 07/23/2024 1:24 PM EDT Pulse 83 07/23/2024 1:24 PM EDT Temperature - - Respiratory Rate 12 07/23/2024 1:24 PM EDT Oxygen Saturation - - Inhaled Oxygen Concentration - - Weight 86.2 kg (190 lb) 07/23/2024 1:24 PM EDT Height 157.5 cm (5' 2 ) 07/23/2024 1:24 PM EDT Body Mass Index 34.75 07/23/2024 1:24 PM EDT documented in this encounter Progress Notes * ROSE Le - 07/23/2024 1:20 PM EDT PATIENT: Luda Caal ENCOUNTER: 07/23/2024 EMRN: [id number] : 1980 Chief Complaint: No chief complaint on file. History of Present Illness: Luda Caal is a 44 y.o. old female presenting for post operative appointment following da Urban laparoscopic total hysterectomy with bilateral salpingectomy on 2024. She is just under 3 weeks postop. Following surgery she has been feeling well. Has some L sided pain mostly with bowel movements. Sheis chronically constipated at baseline and has an appt with a gastro on the . Voiding - without issue; some discomfort with a full bladder. Bowel Movements - as above Pain - controlled Bleeding / Discharge - denies Review of Systems: As per HPI Medications: Reviewed Allergies: Lamotrigine and Hydroxyzine Past Medical History: Reviewed Past Surgical History: Past Surgical History: Procedure Laterality Date COLONOSCOPY LUMBAR LAMINECTOMY 04/2017 PROCEDURE:LUMBAR LAMINECTOMY LUMBAR LAMINECTOMY 04/2017 PROCEDURE: HISTORICAL LUMB LAMINECTOMY; COMMENT: spinal cord detethering-- Dr. Parra TUBAL LIGATION PROCEDURE:TUBAL LIGATION TUBAL LIGATION 04/14/2000 PROCEDURE: HISTORICAL TUBAL LIGATION; COMMENT: [facility] UPPER GASTROINTESTINAL ENDOSCOPY Physical Exam: Visit Vitals OB Status Injection Smoking Status Never GENERAL: Well-appearing, well-nourished patient in no acute distress SKIN: Warm, normal for ethnicity and dry. HEENT: Normocephalic. No scleral icterus. Visual warren grossly intact. Hearing intact CARDIO: RRR, No M/R/G appreciated PULM: Non labored breathing. No audible wheezing. ABDOMINAL: Soft, non-distended, non-tender. No mass, guarding, or rebound. Incision sites are well healed with out erythema or discharge. MSK: ROM grossly intact. Normal Tone. No cyanosis, clubbing, or edema. NEURO: Alert & oriented x3. PSYCH: Normal affect, fluid speech, good eye contact, appropriate demeanor. Assessment / Plan: Luda Caal presents for 2 week follow up Pathology is benign Incisions are well healed and pain is controlled. Trial NSAID 800mg TID for 5 day for LLQ pain. Miralax BID and colace BID for constipation. Patient is encouraged to resume previous level of activity within lifting restrictions and avoid inserting anything into the vagina until being seen for a 6 week follow up with their surgeon. documented in this encounter Plan of Treatment Upcoming Encounters Date Type Department Care Team (Late st Contact Info) Description 07/30/2024 2:30 PM EDT Office Visit Adult Medicine - [facility] [address] [place] [phone] Juan Guzmán PA [address] [place] [address] 08/14/2024 2:20 PM EDT Office Visit Obstetrics and Gynecology - [address] [phone] Peggy Noel PA [address] [place] [address] 08/22/2024 8:30 AM EDT Appointment [facility] CT Scan [address] [place] [phone] 10/07/2024 10:15 AM EDT Office Visit [facility] Hematology Oncology [address] [place] [phone] Zenaida Rodrigues PA [address] [place] [address] documented as of this encounter Visit Diagnoses Diagnosis Status post hysterectomy- Primary Acquired absence of both cervix and uterus Postop check Follow-up examination, following unspecified surgery documented in this encounter Discontinued Medications Medication Sig Discontinue Reason Start Date End Da te oxyCODONE (ROXICODONE) 5 mg immediate release tabletIndications:acute post op pain Take 1 tablet (5 mg total) by mouth every 6 (six) hours if needed for severe pain. For acute post operative pain in addition to daily needs. Max Daily Amount: 20 mg 07/03/2024 07/23/2024 documented as of this encounter Additional Health Concerns Assessment Noted Time PHQ-9 Depression Total Score: 1 07/23/19 25 9:36 PM EDT documented as of this encounter Care Teams R And D Lab Technician Relationship Specialty Start Date End Date Alice Cole MD [address] [place] [id number] PCP - General Internal Medicine 02/15/24 documented as of this encounter
--- OUTSIDE RECORDS SUMMARY | 2024-07-26 09:44 | XMS_ITS | Clinical Summary ---
Author Organization [facility] Address [address] [place] [address] Phone Care Team Providers Care Transport Tank Technician Name Role Phone Alice Cole MD Primary Care Prov ider Allergies Active Allergy Reactions Criticality Noted Date Comments Hydroxyzine Rash Low 03/31/2022 Other Reaction(s): Rash/Dermatitis Heat rash on torso-no hives. Resolved on discontinuation Lamotrigine 02/25/2022 Other Reaction(s): Rash/Dermatitis Medications baclofen (LIORESAL) 10 mg tablet Take 1 tablet (10 mg total) by mouth 3 (three) times a day. 023 Active ergocalciferol (VITAMIN D-2) 1,250 mcg (50,000 unit) capsule Take by mouth 1 (one) time per week. 023 Active multivitamin tablet Take by mouth. Activ e topiramate (TOPAMAX) 100 mg tablet Take 1.5 tablets by mouth 2 (two) times a day. 022 Active ublituximab-xiiy (BRIUMVI IV) Ublituximab-xi iy 150 MG/6ML Solution : Inject into the vein. - Intravenous Active ferrous sulfate 325 mg (65 mg iron) EC tablet TAKE 1 TABLET BY MOUTH EVERY DAY 023 Active esomeprazole (NexIUM) [address] capsule TAKE 1 CAPSULE BY MOUTH DAILY 024 Active valACYclovir (VALTREX) 1 gram tablet TAKE 2 TABLETS BY MOUTH 2 TIMES DAILY FOR 1 DAY. AT FIRST SIGN OF OUTBREAK. 4 tablet 2 Active polyethylene glycol (PEG) 17 gram/dose oral powder Take 17 g by mouth 2 (two) times a day. DISSOLVE 17 GRAMS IN 8 OZ OF FLUID LIQUID DRINK DAILY DIRECTED 238 g 1 Active Additional Information Patient not taking.Reported on 07/23/2024 simethicone (MYLICON) 80 mg chewable tablet Chew 1 tablet (80 mg total) every 6 (six) hours if needed (gas pain / bloating). 10 tablet Active oxyCODONE (ROXICODONE) 5 mg immediate release tabletIndications :Multiple sclerosis (CMS/HCC V24, CMS/HCC V28) Take 1 tablet (5 mg total) by mouth every 6 (six) hours if needed (pain). Max Daily Amount: 20 mg 30 tablet Active LORazepam (ATIVAN) 1 mg tabletIndications :Adjustment disorder with mixed anxiety and depressed mood TAKE 0.5-1 TABLET BY MOUTH EVERY 6 HOURS NEEDED FOR ANXIETY. 30 tablet 2 Active ibuprofen (ADVIL,MOTRIN) 600 mg tablet Take 1 Tablet by mouth every 6 hours as needed for Pain. 024 2024 Discontinued(S top Taking at Discharge) medroxyPROGESTERo ne (Depo-Provera) 150 mg/mL injection Inject 1 mL (150 mg total) into the shoulder, thigh, or buttocks every 3 (three) months. 1 mL 025 2024 Discontinued(S top Taking at Discharge) LORazepam (ATIVAN) 1 mg tabletIndications :Adjustment disorder with mixed anxiety and depressed mood TAKE 0.5-1 TABLETS BY MOUTH EVERY 6 HOURS NEEDED FOR ANXIETY. 30 tablet 2 025 2024 Discontinued oxyCODONE (ROXICODONE) 5 mg immediate release tabletIndications :Multiple sclerosis (CMS/HCC V24, CMS/HCC V28) Take 1 tablet (5 mg total) by mouth every 6 (six) hours if needed (pain). Max Daily Amount: 20 mg 30 tablet 025 2024 Discontinued(R eorder) docusate sodium (COLACE) 100 mg capsule Take 1 capsule (100 mg total) by mouth 2 (two) times a day if needed for constipation. 60 each 025 2024 polyethylene glycol (PEG) 17 gram/dose oral powder DISSOLVE 17 GRAMS IN 8 OZ OF FLUID LIQUID DRINK DAILY DIRECTED 238 g 025 2024 Discontinued acetaminophen (TYLENOL) 500 mg tablet Take 2 tablets (1,000 mg total) by mouth every 6 (six) hours for 7 days. 56 tablet 025 2024 ibuprofen (ADVIL,MOTRIN) 600 mg tablet Take 1 tablet (600 mg total) by mouth every 6 (six) hours for 5 days. Take 3 hours after tylenol 20 tablet 2024 ondansetron ODT (ZOFRAN-ODT) 4 mg disintegrating tablet Dissolve 1 tablet (4 mg total) on top of the tongue every 8 (eight) hours if needed for vomiting or nausea for up to 7 days. 10 each 025 2024 oxyCODONE (ROXICODONE) 5 mg immediate release tabletIndications :acute post op pain Take 1 tablet (5 mg total) by mouth every 6 (six) hours if needed for severe pain. For acute post operative pain in addition to daily needs. Max Daily Amount: 20 mg 6 each 025 2024 Discontinued Active Problems Problem Noted Date Diagnosed Date Multiple sclerosis ([facility]/HCC V24, CMS/HCC V28) Adjustment disorder with mixed anxiety and depre ssed mood 01/06/2021 Obesity (BMI 30-39.9) 12/01/2020 Seizure disorder (CMS/HCC V24, CMS/HCC V28) 11/2020 Thyroid nodule 09/26/2019 Overview (01/23/2024): Status post ultrasound September 26, 2019. Repeat ultrasound recommended for follow- up 1 cm nodule 6 to 12 months. H. pylori infection 04/26/2019 Right-sided low back pain with right-sided sciat ica 09/14/2015 Resolved Problems Problem Noted Date Diagnosed Date Resolved Date Iron deficiency anemia due t o chronic blood loss 02/25/2022 07/03/2024 Menorrhagia with irregular cycle 02/25/2022 07/03/2024 Assessment & Plan (02/26/2024 9:14 PM EST): I counseled Luda re; Remaining options for management including other oral agents such as Aygestin, continued Depo Provera, Mirena. She was not interested in any of these options. We agreed she would call if her bleeding recurs after stopping Depo at which point we could schedule her hysterectomy robotically. We could treat her with an additional dose of Depo Provera to get her to her surgery. She is aware that our surgery schedule is about 2 months out. Positive PRINCESS (antinuclear antibody) 04/14/2021 07/03/2024 Overview (07/03/2024): Hx low pos PRINCESS (1:320) And low pos DsDNA (20 ) in the setting of patient with recent seizures. First seizure was in 05/2020 and last reported seizure by patient 10/2020, now controlled on Topamax BID. Pt does hx of oral ulcers (painful) and rashes with photosensitivity but no hx of malar rash . Other less specific symptoms include fatigue, non inflammatory joint pain, and more recently dry mouth (? med side effect) Pt also carries dx of FM with significant mood disorder, severe anxiety with frequent panic attacks. Will need further work up for auto immune dz. Labs to include: PRINCESS ,DsDNA, ESR, CRP, Compliments, UA , U1RNP and Dubose, SSA/SSB, lupus anticoagulant , anti-cardiolipin. The presence of 4 or more criteria of the major clinical features os SLE (mucocutaneous, renal , serosal , neurologic, articular ) must be present for formal diagnosis I would consider the addition of Plaquenil 200 mg BID which can be helpful in treatment of some of the constitutional symptoms including cutaneous and musculoskeletal. Risks and benefits were discussed with pt. Will wait until workup is completed Pain in wrist 09/25/2012 07/03/2024 Encounters Date Type Department Care Team Description 07/25/2024 3:15 PM EDT Office Visit [facility] [address] [address] [place] [phone] Lela Almanza DO Fecal fistula (Primary Dx); Vaginal bleeding; Noncyclic pelvic pain in female 07/24/2024 Telephone Obstetrics and Gynecology - [address] [phone] Rosie Hernandez MD Post-op 07/23/2024 1:20 PM EDT Office Visit Obstetrics and Gynecology - [address] [phone] Peggy Noel PA Status post hysterectomy (Primary Dx); Postop check 07/09/2024 Telephone Obstetrics and Gynecology - [address] [phone] Rosie Hernandez MD Post-op 07/03/2024 7:31 AM EDT Anesthesia Event [facility] OR [address] [place] [phone] Alex Be MD [facility] 07/03/2024 7:30 AM EDT - 07/03/2024 10:30 AM EDT Surgery [facility] OR [address] [place] [phone] Rosie Hernandez MD DAVINCI TOTAL HYSTERECTOMY [97061 (CPT??)] 07/03/2024 5:52 AM EDT - 07/03/2024 12:21 PM EDT Hospital Encounter [facility] OR [address] [place] [phone] Rosie Hernandez MD Acute postoperative pain (Primary Dx); Menorrhagia with irregular cycle Discharge Disposition: Home or Self Care 07/02/2024 Telephone Urogynecology - [address] [phone] Amanda Richmond MA surgery moved 06/19/2024 Telephone Obstetrics and Gynecology [address] [phone] Peggy Noel PA Forms/questionnaires 06/13/2024 3:30 PM EST Consult Obstetrics and Gynecology - [address] [phone] Peggy Noel PA Pre-op exam (Primary Dx); Iron deficiency anemia due to chronic blood loss; Abnormal uterine bleeding (AUB) 06/10/2024 10:00 AM EST Consult Adult Medicine [address] [phone] Alice Cole MD Preop examination (Primary Dx); DUB (dysfunctional uterine bleeding) 06/07/2024 Telephone Obstetrics and Gynecology - [address] [phone] Naomie Harvey, IND[place] 05/08/2024 Telephone Obstetrics and Gynecology [address] [phone] Rosie Hernandez MD 04/30/2024 1:00 PM EST Clinical Support Obstetrics and Gynecology - [address] [phone] Surveillance for Depo-Provera contraception (Primary Dx) from Last 3 Months Immunizations Name Administration Dates Next Due Influenza trivalent, 0.5mL, preservative free (Fluarix; FluLaval; Fluzone) ages 6mo and older (Afluria) 3 years and older 01/29/2019,01/06/2016 Pfizer SARS-CoV-2 COVID-19, mRNA, LNP-S, preservative free 09/22/2020,09/01/2020 Surgical History Surgery Date Site/Laterality Comments TUBAL LIGATION PROCEDURE:TUBAL LIGATION LUMBAR LAMINECTOMY 04/2017 PROCEDURE:LUMBAR LAMINECTOMY TUBAL LIGATION 04/14/2000 PROCEDURE: HISTORICAL TUBAL LIGATION; COMMENT: [facility] LUMBAR LAMINECTOMY 04/2017 PROCEDURE: HISTORICAL LUMB LAMINECTOMY; COMMENT: spinal cord detethering-- Dr. Parra COLONOSCOPY UPPER GASTROINTESTINAL ENDOSCOPY HYSTERECTOMY TOTAL CERVIX REMOVED 06/08/2024 - 07/08/2024 with bilateral tubes, path benign Medical History Medical History Date Comments Seizure disorder (CMS/HCC V2 4, CMS/HCC V28) DX:Seizure disorder (HCC) Thyroid nodule DX:Thyroid nodul e Adjustment disorder with mix ed anxiety and depressed mood DX:Adjustment disorder with mixed anxiety and depressed mood Seizure disorder ([facility] V2 4, [facility] V28) 09/15/2020 DX:Seizure disorder (HCC) Multiple sclerosis ([facility] V24, [facility] V28) 05/02/2022 DX:Multiple sclerosis (HCC) GERD (gastroesophageal reflu x disease) Anxiety Multiple sclerosis exacerbat ion ([facility] V24, [facility] V28) Positive PRINCESS (antinuclear antibody) 04/14/2021 Hx low pos PRINCESS (1:320) And low pos DsDNA (20 ) in the setting of patient with recent seizures. First seizure was in 05/2020 and last reported seizure by patient 10/2020, now controlled on Topamax BID. ?? Pt does hx of oral ulcers (painful) and rashes with photosensitivity but no hx of malar rash . Other less specific symptoms include fatigue, non inflammatory joint pain, and more recently dry Pain in wrist 09/25/2012 Family History Medical History Relation Name Comments Seizures Brother half maternal No Known Problems Daughter x4 healthy daughters Cancer Father Colon cancer Father ? unknown, no c ontact with dad Other: overdose Maternal Grandfather Diabetes Maternal Grandmother HTN, an eurysm Other: glioblastoma Mother No Known Problems Sister half mater nal Relation Name Status Comments Brother Alive Daughter Alive Father Alive Maternal Grandfather Maternal Grandmother Alive Mother Sister Alive Social History Tobacco Use Types Packs/Day Years Used Date Smoking Tobacco: Never Smokeless Tobacco: Never Tobacco Cessation:Counseling Given: Not Answered Alcohol Use Standard Drinks/Week Comments Not Currently [...] ed Within the last 3 months, rikki hastings many times did you visit the emergency [...] your doctor or pharmacy? Not on file 024 Financial Risk Answer Date Recorded How hard [...] care for your loved ones. For example, early childhood teacher or elderly care for an older [...] Orientation Straight 07/02/2024 4: 29 PM EDT Obstetrics History Para Term AB IAB SAB Ectopic Multiple Livin g Live Births 5 4 4 4 4 Date Outcome GA Total Labor Labor/2nd/3rd Weight Sex Type Anes PTL Sima A1 A5 Name Clin 1994 Term F Vag-S pont Living 1996 Term F Vag-S pont Living 1997 Term F Vag-S pont Living 2000 Term F Vag-S pont Living Last Filed Vital Signs Vital Sign Reading Time Taken Comments Blood Pressure 116/86 07/25/2024 2:42 PM EDT Pulse 86 07/25/2024 2:42 PM EDT Temperature 36.3 ??C (97.3 ??F) 07/03/2024 10:30 AM E DT Respiratory Rate 12 07/23/2024 1:24 PM EDT Oxygen Saturation 98% 07/03/2024 10:56 AM EDT Inhaled Oxygen Concentration - - Weight 86.4 kg (190 lb 6.4 oz) 07/25/2024 2:42 P M EDT Height 157.5 cm (5' 2 ) 07/23/2024 1:24 PM EDT Body Mass Index 34.82 07/23/2024 1:24 PM EDT Plan of Treatment Upcoming Encounters Date Type Department Care Team (Late st Contact Info) Description 07/30/2024 2:30 PM EDT Office Visit Adult Medicine - [place] [address] [place] [phone] Juan Guzmán PA [address] [place] [address] 08/14/2024 2:20 PM EDT Office Visit Obstetrics and Gynecology - [address] [phone] Peggy Noel PA [address] [place] [address] 08/22/2024 8:30 AM EDT Appointment [facility] CT Scan [address] [place] [phone] 10/07/2024 10:15 AM EDT Office Visit [facility] Hematology Oncology [address] [place] [phone] Zenaida Rodrigues PA [address] [place] [address] Health Maintenance Due Date Last Done Comments Breast Cancer Screening 1980 DTaP,Tdap,and Td Vaccines (1 - Tdap) 1999 Hepatitis B Vaccines (1 of 3 - 19+ 3-dose series) 1999 HIV Screening 03/19/2022 Hepatitis C Screening 03/19/2022 COVID-19 Vaccine (3 - 2023-2 5 season) 2023 09/22/2020, 09/01/2020 Influenza Vaccine (Season Ended) 2024 01/29/2019, 01/06/2016 Social Influencers of Health Screening 02/14/2025 02/15/2024 Depression Screening 07/22/2025 07/22/2024 Cervical Cancer Screening: P ap Smear 01/11/2027 01/12/2024, 06/07/2019 Cholesterol Screening (Lipid Panel) 11/15/2028 11/16/2023, 11/16/2023 HIB Vaccines Aged Out No longer eligi ble based on patient's age to complete this topic HPV Vaccines Aged Out No longer eligi ble based on patient's age to complete this topic Hepatitis A Vaccines Aged Out No long er eligible based on patient's age to complete this topic IPV Vaccines Aged Out No longer eligi ble based on patient's age to complete this topic MMR Vaccines Aged Out No longer eligi ble based on patient's age to complete this topic Meningococcal ACWY Vaccine Aged Out N o longer eligible based on patient's age to complete this topic Meningococcal B Vaccine Aged Out No l onger eligible based on patient's age to complete this topic Pneumococcal Vaccine: Pediatrics (0 to 5 Years) and At-Risk Patients (6 to 64 Years) Aged Out No longer eligible b ased on patient's age to complete this topic RSV Immunization Patients Under 20 months Aged Out No longer eligible b ased on patient's age to complete this topic Varicella Vaccines Aged Out No longer eligible based on patient's age to complete this topic Procedures Procedure Name Priority Date/Time Associated Diagnosis Comments POC URINE AUTO W/O MICRO Routine 07/25/2024 2:51 PM EDT Vaginal bleeding TISSUE EXAM Routine 07/03/2024 8:30 AM EDT Menorrhagia with irregular cycle TH AN ENDOTRACHEAL(NO CHARGE) Routine 07/03/2024 8:15 AM EDT CO LAP SURG W TOTAL HYSTERECTOMY FOR UTERUS 250G OR LESS W REM TUBE & OVARY 07/03/2024 7:31 AM EDT Menorrhagia with irregular cycle TYPE AND SCREEN Routine 07/03/2024 7:05 AM EDT CBC WITH AUTO DIFFERENTIAL Routine 06/07/2024 1:47 PM EST Pre-op testing CBC AND DIFFERENTIAL Routine 06/07/2024 1:47 PM EST Pre-op testing BASIC METABOLIC PANEL Routine 06/07/2024 1:47 PM EST Pre-op testing PAP SMEAR Routine 01/12/2024 LIPID PANEL Routine 11/16/2023 from Last 3 Months or Most Recently Relevant to Health Maintenance Results * (ABNORMAL) POC Urine Auto W/O Micro (07/25/2024 2:51 PM EDT) Glucose UA POC Negative Negative, Trace mg/dL Bilirubin UA POC Negative Negative, Small Ketones UA POC Negative Negative, Trace Specific [place] UA POC 1.010 Blood UA POC Trace(A) Negative, Large PH UA POC 7.0 Protein UA POC Negative Negative, >=300 mg/dL Urobilinogen UA POC 0.2 E.U./dL mg/dL Nitrite UA POC Negative Negative Leukocytes UA POC Negative Negative Urine Urine specimen obtained by clean catch procedure / Unknown 07/25/2024 2:51 PM EDT Lela Almanza DO POINT OF CARE TEST ENTER/EDIT ORDERABLES Final Result * Tissue exam (07/03/2024 8:30 AM EDT) Final Diagnosis Uterus, cervix, and bilateral fallopian tubes: Leiomyomata - Subserosal nodule with ischemic necrosis - No atypical features identified Adenomyosis, focally cystic Glandular atrophy and stromal pseudo-decidualiz ation, consistent with progestin effect Chronic cervicitis Fallopian tubes without atypia or neoplasm 07/05/2024 12:11 PM EDT [facility] Gross Description A. Endometrium, Uterus, cervix and bilateral fallopian tubes: Labeled uterus . Received in formalin is a 215 g, 9.8 x 7 x 6.5 cm uterus with attached cervix. The serosa is predominantly cox-pink, smooth and glistening with a 2.5 x 1.8 x 1.2 cm subserosal nodule on the anterior fundus. The attached cervix is 3.5 cm in length by 4 cm in diameter. The ectocervical mucosa is cox-white, smooth and glistening with a central 1 x 0.4 cm ovoid os. The endocervical canal is 3 cm in length and has a cox-pink glistening endocervical mucosa. The endometrial cavity is 5 cm in length by 4.5 cm and with. The endometrium is cox-pink and lobular, measuring up to 0.2 cm in thickness. The myometrium is cox-pink and trabecular with some coarse trabeculations one of the posterior wall, and measures up to 3 cm in greatest dimension. Within the posterior wall there is a 0.6 cm cyst containing a dark brown bloody fluid, which is located directly subjacent to the endometrium. Also identified within the anterior wall is an additional 1.3 cm in greatest dimension nodule. Both of the aforementioned nodules (subserosal, and intramural) are cox-white, whorled, rubbery and well-circumscribe d. The subserosal nodule displays foci of hemorrhage. The other nodule is devoid of hemorrhage, necrosis, or cystic degeneration. Also received in the same container are two fimbriated fallopian tube, measuring 3.5 x 1 cm and 4.8 x 0.6 cm. Both fallopian tube have a pink-purple smooth, glistening serosa. Both fallopian tubes have a wall measuring up to 0.4 cm and a pinpoint lumen. Warehouse Guard sections are submitted as follows: 1, anterior cervix, one piece 2, posterior cervix, one piece 3, anterior endomyometrium including a bisected full-thickness section, three pieces 4, posterior endomyometrium including a bisected full-thickness section, three pieces 5, nodules, two pieces 6, cyst within posterior wall, one piece 7, shorter fallopian tube, three pieces 8, longer fallopian tube, three pieces following initial Following review of initial H&E slides, additional sections of the subserosal nodule are submitted in cassettes 9-11, one piece each. MEGHA 07/05/2024 12:[address] [facility] Disclaimer Unless otherwise specified, all tissue is 10% NB formalin fixed and paraffin embedded. 07/05/2024 12:[address] [facility] Tissue Endometrial structure / Unknown 07/03/2024 8:30 AM EDT 07/03/2024 10:11 AM EDT us Rosie Hernandez MD LAB PATHOLOGY ORDERABLES Fi nal Result [facility]) [facility] [address] [place] [address], * TH AN ENDOTRACHEAL(NO CHARGE) (07/03/2024 8:15 AM EDT) Betzy Cyr SRNA - 07/03/2024 8:15 AM EDT ALYSSA Galloway ? 07/03/2024 ??8:56 AM General Information and Staff Patient location during procedure: OR Resident/COMPUTER GAME PROGRAMMER: ALYSSA Galloway Performed by: ALYSSA Galloway Authorized by: Alex Be MD ?? Intubation Airway not difficult Urgency: elective Final Airway Details Successful airway: ETT Cuffed: yes Successful intubation technique: direct laryngoscopy Facilitating devices/methods: intubating stylet Endotracheal tube insertion site: oral Blade: Yue Blade size: #3 ETT size (mm): 7.0 Cormack-Lehane Classification: grade I - full view of glottis Placement verified by: chest auscultation and capnometry Measured from: lips ETT to lips (cm): 21 Number of attempts at approach: 1Final airway type: endotracheal airway Indications and Patient Condition Indications for airway management: anesthesia Spontaneous ventilation: present Sedation level: Yes Preoxygenated: yes Soft Tissue Damage: No Dentition Unchanged: Yes Patient position: sniffing MILS maintained throughout Mask difficulty assessment: 1 - vent by mask us Alex Be MD ANESTHESIA ORDERABLES Edited R esult - Final * Type and screen (07/03/2024 7:05 AM EDT) [facility] ABO Group A 07/03/2024 9:[address] [facility] Rh Type Negative 07/03/2024 9:[address] [facility] Antibody Screen Negative 07/03/2024 9:[address] [facility] Blood Venous blood specimen / Unknown Venipuncture / Unknown 07/03/2024 7:05 AM EDT 07/03/2024 8:25 AM EDT us Rosie Hernandez MD LAB BLOOD BANK TEST ORDERAB LES Final Result [facility] [address] [place] [address], [place] [phone] * (ABNORMAL) CBC auto differential (06/07/2024 1:47 PM EST) Pathologist [facility] WBC 5.7 4.8 - 10.8 K/mcL LAB HEMETOLOGY METHOD 06/07/2024 4:[address] [facility] RBC 4.80 3.80 - 4.80 M/mcL LAB HEMETOLOGY METHOD 06/07/2024 4:[address] [facility] Hemoglobin 14.0 11.5 - 16.0 g/dL LAB HEMETOLOGY METHOD 06/07/2024 4:[address] [facility] Hematocrit 42.3 35.0 - 47.0 % LAB HEMETOLOGY METHOD 06/07/2024 4:47 PM [facility] MCV 89.1 79.0 - 98.0 FL LAB HEMETOLOGY METHOD 06/07/2024 4:47 PM [facility] MCH 29.5 27.0 - 32.0 pcg LAB HEMETOLOGY METHOD 06/07/2024 4:47 PM [facility] MCHC 33.1 32.0 - 37.0 g/dL LAB HEMETOLOGY METHOD 06/07/2024 4:47 PM [facility] RDW 15.7(H) 11.0 - 15.0 % LAB HEMETOLOGY METHOD 06/07/2024 4:47 PM [facility] Platelets 281 130 - 400 K/mcL LAB HEMETOLOGY METHOD 06/07/2024 4:47 PM [facility] MPV 11.3(H) 7.0 - 11.0 FL LAB HEMETOLOGY METHOD 06/07/2024 4:47 PM [facility] NRBC 0.0 <1.0 % LAB HEMETOLOGY METHOD 06/07/2024 4:47 PM [facility] NRBC Absolute 0.00 <0.10 K/mcL LAB HEMETOLOGY METHOD 06/07/2024 4:47 PM [facility] Neutrophils Relative 56.5 % LAB HEMETOLOGY METHOD 06/07/2024 4:47 PM [facility] Lymphocytes Relative 30.4 % LAB HEMETOLOGY METHOD 06/07/2024 4:47 PM [facility] Monocytes Relative 9.4 % LAB HEMETOLOGY METHOD 06/07/2024 4:47 PM [facility] Eosinophils Relative 2.8 % LAB HEMETOLOGY METHOD 06/07/2024 4:47 PM [facility] Basophils Relative 0.7 % LAB HEMETOLOGY METHOD 06/07/2024 4:47 PM [facility] Immature Granulocytes Relative 0.2 % LAB HEMETOLOGY METHOD 06/07/2024 4:47 PM [facility] Neutrophils Absolute 3.20 1.50 - 7.00 K/mcL LAB HEMETOLOGY METHOD 06/07/2024 4:47 PM [facility] Lymphocytes Absolute 1.72 1.00 - 5.00 K/mcL LAB HEMETOLOGY METHOD 06/07/2024 4:47 PM [facility] Monocytes Absolute 0.53 0.20 - 1.00 K/mcL LAB HEMETOLOGY METHOD 06/07/2024 4:47 PM [facility] Eosinophils Absolute 0.16 0.00 - 0.50 K/mcL LAB HEMETOLOGY METHOD 06/07/2024 4:47 PM [facility] Basophils Absolute 0.04 0.00 - 0.20 K/mcL LAB HEMETOLOGY METHOD 06/07/2024 4:47 PM [facility] Immature Granulocytes Absolute 0.01 0.00 - 0.03 K/mcL LAB HEMETOLOGY METHOD 06/07/2024 4:47 PM [facility] Blood Venous blood specimen / Unknown Venipuncture / Unknown 06/07/2024 1:47 PM EST 06/07/2024 1:48 PM EST us Rosie Hernandez MD LAB BLOOD ORDERABLES Final Result [facility] [address] [place] [address], * (ABNORMAL) Basic metabolic panel (06/07/2024 1:47 PM EST) Sodium 138 133 - 145 mmol/L LAB CHEMISTRY METHOD 06/07/2024 9:[address] [facility] Potassium 3.9 3.5 - 5.5 mmol/L LAB CHEMISTRY METHOD 06/07/2024 9:07 PM [facility] Chloride 109 96 - 110 mmol/L LAB CHEMISTRY METHOD 06/07/2024 9:07 PM [facility] CO2 20(L) 21 - 32 mmol/L LAB CHEMISTRY METHOD 06/07/2024 9:07 PM [facility] Anion Gap 9 3 - 11 LAB CHEMISTRY METHOD 06/07/2024 9:07 PM [facility] Glucose 99 70 - 100 mg/dL LAB CHEMISTRY METHOD 06/07/2024 9:07 PM [facility] BUN 7 5 - 25 mg/dL LAB CHEMISTRY METHOD 06/07/2024 9:07 PM [facility] Creatinine 0.72 0.50 - 1.10 mg/dL LAB CHEMISTRY METHOD 06/07/2024 9:07 PM [facility] eGFR 106 >=60 mL/min/1. 73m2 LAB CHEMISTRY METHOD 06/07/2024 9:07 PM [facility] Comment:Calculation based on the??Chronic Kidney Disease Epidemiology Collaboration (CKD-EPI) equation refit??without adjustment for race. BUN/Creatinine Ratio 9.7 LAB CHEMISTRY METHOD 06/07/2024 9:07 PM [facility] Calcium 9.2 8.5 - 10.5 mg/dL LAB CHEMISTRY METHOD 06/07/2024 9:07 PM [facility] Blood Venous blood specimen / Unknown Venipuncture / Unknown 06/07/2024 1:47 PM EST 06/07/2024 1:48 PM EST us Rosie Hernandez MD LAB BLOOD ORDERABLES Final Result [facility] [address] [place] [address], * Pap smear (01/12/2024) 01/12/2024 Narrative HISTORICAL TESTING LAB RESULTING AGENCY - 01/24/2024 6:30 AM EDT [id number] THINPREP PAP, IMAGED: NEGATIVE FOR SQUAMOUS INTRAEPITHELIAL LESION AND MALIGNANCY. ABUNDANT RED BLOOD CELLS ARE PRESENT. NOTE: ??ADEQUACY DEEMED SATISFACTORY AFTER REPROCESSING WITH ACID WASH PROCEDURE TO REMOVE EXCESS BLOOD. KARIN HANCOCK(ASCP) (CASE ELECTRONICALLY SIGNED 01 23 2024) RESULT OF APTIMA HIGH RISK HPV ASSAY: HIGH RISK HPV: ??NEGATIVE (SEROTYPES 16,18,31,33,35,39,45,51,52,56,58,59,66,68) COMPLETED ON 2024-01-17 ADEQUACY: SATISFACTORY ENDOCERVICAL/TRANSFORMATION ZONE COMPONENT PRESENT. SOURCE: THINPREP PAP HPV ANY DX: ??REFLEX 16 AND 18, CERVICAL, IMAGED CLINICAL INFORMATION: HPV ANY DIAGNOSIS. HORMONES, LMP 12/21/23, [Z01.419] Guy Denton CNM LAB CYTOLOGY ORDERABLES Final Result HISTORICAL TESTING LAB RESULTING AGENCY * (ABNORMAL) Lipid panel (11/16/2023) LDL/HDL Ratio 3 0 - 4 Triglycerides 156(A) 0 - 150 mg/dL Cholesterol 208(A) 0 - 200 mg/dL HDL 68 >=40 mg/dL LDL Cholesterol 109(A) 0 - 100 mg/dL Blood Venous blood specimen / Unknown Historical Provider LAB BLOOD ORDERABLES Leia l Result from Last 3 Months or Most Recently Relevant to Health Maintenance Insurance MEDICARE [employer] Care Teams Transport Tank Technician Relationship Specialty Start Date End Date Alice Cole MD [address] [place] [phone] PCP - General Internal Medicine 02/15/24
--- OUTSIDE RECORDS SUMMARY | 2024-07-26 09:44 | XMS_ITS | Encounter Summary ---
Author Organization [facility] Address [address] [place] [address] Care Team Providers Care Veneer Matcher Name Role Phone Kurtis Cole MD Primary Care Provider [phone] Reason for Visit * Reason Onset Date Comments er follow up 01/07/2022 Encounter Details Date Type Department Care Team Description 01/07/2022 Telephone Adult Medicine - [place] [address] [place] [address] Kurtis Cole MD [address] [place] [address] er follow up Social History Tobacco Use Types Packs/Day Years Used Date Smoking Tobacco: Never Smokeless Tobacco: Never Alcohol Use Standard Drinks/Week Comments Not Currently 0 (1 standard drink = 0.6 oz pur e alcohol) Sex Assigned at Date Recorded Not on file Job Start Date Occupation Industry Not on file Not on file Not on file documented as of this encounter Miscellaneous Notes * Telephone Encounter - Clover Rose M.A. - 01/07/2022 9:54 AM EDT Notes receive and given to provider desk * Telephone Encounter - Clover Rose M.A. - 01/07/2022 9:29 AM EDT Request send * Telephone Encounter - Ingrid Gonzalez - 01/07/2022 9:20 AM EDT Pt has an appt on 01/12 with Johana José for an er f/u - pt ent to [facility] on 01/04 for multiple seizures - please obtain notes documented in this encounter Plan of Treatment Not on file documented as of this encounter Visit Diagnoses Not on filedocumented in this encounter Care Teams Veneer Matcher Relationship Specialty Start Date End Date Kurtis Cole, [address] [place] [id number] PCP - General Internal Medicine 12/01/20 documented as of this encounter
--- OUTSIDE RECORDS SUMMARY | 2024-07-26 09:44 | XMS_ITS | Encounter Summary ---
Author Organization [facility] Address [address] [place] [address] Care Team Providers Care Gas Regulator Repairer Helper Name Role Phone Alice Cole MD Primary Care Prov ider Reason for Visit * Reason Onset Date Comments Post-op 07/24/2024 Encounter Details Date Type Department Care Team ([facility] st Contact Info) Description 07/24/2024 Telephone Obstetrics and Gynecology - [address] [phone] Rosie Hernandez MD [place], [place] Post-op Social History Tobacco Use Types Packs/Day Years [...] Record ed Within the last 3 months, ho w many times did you visit the [...] care for your loved ones. For example, exceptional children teacher or elderly care for an older [...] PM EDT documented as of this encounter Progress Notes * Ivon Brown RN - 07/24/2024 3:53 PM EDT Called patient -pain only worsens with bowel movements-but is constantly -pain is 4 out of 10-she is currently not on any pain medicine. No fever no chills. [place] earlier like something was in vagina,but that feeing went away. Went over reasons to go to [facility]-fever, chills, increase in abdominal pain, bright red bleeding,feeling of something in vagina that does not go away. Patient verbalized understanding. Pt has an appointment with GI specialist 07/27/2024. Appointment made for pt to be seen by Dr tomorrow in office to see if she has stool in vagina -per Dr Luna this can be done in office provided she does not have acute abdomen, no fever, chills, no signs/symptoms dehiscence. * Ivon Brown RN - 07/24/2024 3:17 PM EDT Patient saw Peggy yesterday. Patient was able to use the bathroom today and she noticed that there was what appeared to be stool coming out of her vagina. She smelled the tissue and it smelled like stool. Will check with provider and call pt back. * Maria Del Rosario Mayes - 07/24/2024 3:08 PM EDT Patient has hysterectomy 07/03/24 and is experiencing constipation and vaginal discharge. documented in this encounter Plan of Treatment Upcoming Encounters Date Type Department Care Team (Late st Contact Info) Description 07/30/2024 2:30 PM EDT Office Visit Adult Medicine - [place] [address] [place] [address] Juan Guzmán PA [address] [place] [address] 08/14/2024 2:20 PM EDT Office Visit Obstetrics and Gynecology - [address] [place] [address] Peggy Noel PA [address] [place] [address] 08/22/2024 8:30 AM EDT Appointment [facility] CT Scan [address] [place] [id number] 10/07/2024 10:15 AM EDT Office Visit [facility] Hematology Oncology [address] [place] [address] Zenaida Rodrigues PA [address] [place] [address] documented as of this encounter Visit Diagnoses Not on filedocumented in this encounter Additional Health Concerns Assessment Noted Time PHQ-9 Depression Total Score: 1 07/23/19 25 9:36 PM EDT documented as of this encounter Care Teams Gas Regulator Repairer Helper Relationship Specialty Start Date End Date Alice Cole MD [address] [place] [id number] PCP - General Internal Medicine 02/15/24 documented as of this encounter
--- OUTSIDE RECORDS SUMMARY | 2024-07-26 09:44 | XMS_ITS | Encounter Summary ---
Author Organization [employer] Address [address] [place] [address] Care Team Providers Care Sas Statistical Programmer Name Role Phone Alice Cole MD Primary Care Prov ider Reason for Referral * Imaging (Routine) - Pending Review Specialty Diagnoses / Procedures Referred By Yanet mario Referred To Contact Radiology Diagnoses Fecal fistula Procedures CT Abdomen Pelvis w Contrast Lela Almanza DO [address] [place] [address] Phone: tel: fax: [address] [address] Phone: tel: Referral ID Status Reason Start Date Expiration Date V isits Requested Visits Authorized [id number] Pending Review 07/25/2024 07/25/2025 1 1 Reason for Visit * Reason Comments Post-op Encounter Details Date Type Department Care Team (Late st Contact Info) Description 07/25/2024 3:15 PM EDT [facility] [address] [place] [address] Lela Almanza DO [address] [place] [address] Fecal fistula (Primary Dx); Vaginal bleeding; Noncyclic pelvic pain in female Social History Tobacco Use Types Packs/Day Years [...] care for your loved ones. For example, director child abuse therapy or elderly care for an older adult? [...] Pulse 86 07/25/2024 2:42 PM EDT Temperature - - Respiratory Rate - - Oxygen Saturation - - Inhaled Oxygen Concentration - - Weight 86.4 kg (190 lb 6.4 oz) 07/25/2024 2:42 P M EDT Height - - Body Mass Index 34.82 07/23/2024 1:24 PM EDT documented in this encounter Progress Notes * Lela Almanza, DO - 07/25/2024 3:15 PM EDT Images from the original note were not included. CHIEF COMPLAINT: Post-op IDENTIFIER:Luda Caal is a 44 y.o. female HPI: Pt presents today concerned that she is passing stool from her vagina. She is 1 month s/p RAH, BS and cysto with Dr. Hernandez. This happened yesterday when she was wiping. She has chronic constipation for which she sees GI. She took miralax due to constipation, passed hard stool followed by liquid stool. When she wiped the liquid stool she is certain it came from the vagina. It looked and smelled like stool. She is also concerned about left-sided pelvic pain since surgery that is increased with bowel movements. She has a follow up appt with GI tomorrow. ROS: GENERAL: Denies fever, chills and unintentional weight changes : negative for dysuria FIRE HYDRANT OPERATOR: See HPI PAST MEDICAL HISTORY: OB History Para Term AB Living 5 4 4 4 SAB IAB Ectopic Multiple Live Births 4 # Outcome Date GA Lbr Kd/2nd Weight Sex Type Anes PTL Lv 5 Term 01/06/01 F Vag-Spont MILAD 4 Term 12/19/97 F Vag-Spont MILAD 3 Term 08/15/96 F Vag-Spont MILAD 2 Term 10/29/94 F Vag-Spont MILAD 1 Patient Active Problem List Diagnosis Multiple sclerosis (CMS/HCC V24, CMS/HCC V28) H. pylori infection Thyroid nodule Obesity (BMI 30-39.9) Adjustment disorder with mixed anxiety and depressed mood Seizure disorder (CMS/HCC V24, CMS/HCC V28) Right-sided low back pain with right-sided sciatica SOCIAL HISTORY: Social History Tobacco Use Smoking status: Never Smokeless tobacco: Never Substance Use Topics Alcohol use: Not Currently Drug use: Yes Types: Marijuana/Cannabis Comment: 3 weeks ago FAMILY HISTORY: Family History Problem Relation Name Age of Onset Cancer Father Diabetes Maternal Grandmother HTN, aneurysm No Known Problems Sister half maternal Seizures Brother half maternal Other (Other: overdose) Maternal Grandfather Other (Other: glioblastoma) Mother Colon cancer Father ? unknown, no contact with dad No Known Problems Daughter x4 healthy daughters I have reviewed the following sections of the chart: active problem list, notes from last 2 encounters MEDICATIONS: Your medication list Accurate as of July 25, 2024 3:07 PM. If you have any questions, ask your nurse or doctor. CONTINUE taking these medications Instructions Last Dose Given Next Dose Due baclofen 10 mg tablet Commonly known as: LIORESAL Take 1 tablet (10 mg total) by mouth 3 (three) times a day. BRIUMVI IV Ublituximab-xiiy 150 MG/6ML Solution : Inject into the vein. - Intravenous ergocalciferol 1,250 mcg (50,000 unit) capsule Commonly known as: VITAMIN D-2 Take by mouth 1 (one) time per week. esomeprazole [address] capsule Commonly known as: NexIUM TAKE 1 CAPSULE BY MOUTH DAILY ferrous sulfate 325 mg (65 mg iron) EC tablet TAKE 1 TABLET BY MOUTH EVERY DAY LORazepam 1 mg tablet Commonly known as: ATIVAN TAKE 0.5-1 TABLET BY MOUTH EVERY 6 HOURS NEEDED FOR ANXIETY. multivitamin tablet Take by mouth. oxyCODONE 5 mg immediate release tablet Commonly known as: ROXICODONE Take 1 tablet (5 mg total) by mouth every 6 (six) hours if needed (pain). Max Daily Amount: 20 mg polyethylene glycol 17 gram/dose oral powder Commonly known as: PEG Take 17 g by mouth 2 (two) times a day. DISSOLVE 17 GRAMS IN 8 OZ OF FLUID LIQUID DRINK DAILY DIRECTED simethicone 80 mg chewable tablet Commonly known as: MYLICON Chew 1 tablet (80 mg total) every 6 (six) hours if needed (gas pain / bloating). topiramate 100 mg tablet Commonly known as: TOPAMAX Take 1.5 tablets by mouth 2 (two) times a day. valACYclovir 1 gram tablet Commonly known as: VALTREX TAKE 2 TABLETS BY MOUTH 2 TIMES DAILY FOR 1 DAY. AT FIRST SIGN OF OUTBREAK. Contraception: NA ALLERGIES: Allergies Allergen Reactions Lamotrigine Other Reaction(s): Rash/Dermatitis Hydroxyzine Rash Other Reaction(s): Rash/Dermatitis Heat rash on torso-no hives. Resolved on discontinuation PHYSICAL EXAM: Visit Vitals BP 116/86 Pulse 86 Wt 86.4 kg (190 lb 6.4 oz) LMP 12/04/2023 (Approximate) Comment: Tubal BMI 34.82 kg/m?? OB Status Hysterectomy Smoking Status Never BSA 1.87 m?? APPEARANCE:Healthy, alert, active, cooperative, and in no distress A bivalve speculum was used for a portion of the following exam: EXTERNAL GENITALIA: normal external genitalia, no erythema, no discharge URETHRA: midline with no erythema, mass or drainage VAGINA: normal mucosa, scant pinkish brown discharge, no evidence of fistula, vagianl cuff intact without defect, lesions or bleeding CERVIX: absent UTERUS: uterus absent PSYCH: affect appropriate LABS: ASSESSMENT: 1. Fecal fistula 2. Vaginal bleeding 3. Noncyclic pelvic pain in female PLAN: Reassured Luda that her exam today is normal with no evidence of fistula. Also attempted to reassure her that I would be surprised if she formed a fistula this quickly after surgery, though I amnot familiar with the extent of her bowel disease. She insists that I wipe correctly, it was stool so will get a CT Abd/Pelvis with PO contrast to evaluated the pelvic pain and the possibility of a colovaginal fistula. Also attempted to reassure her that it makes sense to me that she has left-sided discomfort since surgery with bowel movements - this is where her colon runs right along the area in her pelvis that is healing from surgery. Orders Placed This Encounter Procedures CT Abdomen Pelvis w Contrast POC Urine Auto W/O Micro Lela Almanza DO documented in this encounter Plan of Treatment Upcoming Encounters Date Type Department Care Team (Late st Contact Info) Description 07/30/2024 2:30 PM EDT Office Visit Adult Medicine - [place] [address] [place] [address] Juan Guzmán PA [address] [place] [address] 08/14/2024 2:20 PM EDT Office Visit Obstetrics and Gynecology - [place] [address] [place] [address] Peggy Noel PA [address] [place] [address] 08/22/2024 8:30 AM EDT Appointment [facility] CT Scan [address] [place] [id number] 10/07/2024 10:15 AM EDT Office Visit [facility] Hematology Oncology [address] [place] [address] Zenaida Rodrigues PA [address] [place] [address] Scheduled Orders Name Type Priority Associated Diagnoses Orde r Schedule CT Abdomen Pelvis w Contrast Imaging Routine Fecal fistula Expected: 07/25/2024, Expires: 07/25/2025 documented as of this encounter Procedures Procedure Name Priority Date/Time Associated Diagnosis Comments POC URINE AUTO W/O MICRO Routine 07/25/2024 2:51 PM EDT Vaginal bleeding documented in this encounter Results * (ABNORMAL) POC Urine Auto W/O Micro (07/25/2024 2:51 PM EDT) Glucose UA POC Negative Negative, Trace mg/dL Bilirubin UA POC Negative Negative, Small Ketones UA POC Negative Negative, Trace Specific [place] UA POC 1.010 Blood UA POC Trace(A) Negative, Large PH UA POC 7.0 Protein UA POC Negative Negative, >=300 mg/dL Urobilinogen UA POC 0.2 E.U./dL mg/dL Nitrite UA POC Negative Negative Leukocytes UA POC Negative Negative Urine Urine specimen obtained by clean catch procedure / Unknown 07/25/2024 2:51 PM EDT Lela Archie DO POINT OF CARE TEST ENTER/EDIT ORDERABLES Final Result documented in this encounter Visit Diagnoses Diagnosis Fecal fistula- Primary Vaginal bleeding Other specified noninflammatory disorder of vagina Noncyclic pelvic pain in female documented in this encounter Additional Health Concerns Assessment Noted Time PHQ-9 Depression Total Score: 1 07/23/19 25 9:36 PM EDT documented as of this encounter Care Teams Sas Statistical Programmer Relationship Specialty Start Date End Date Alice Cole MD [address] [place] [address] PCP - General Internal Medicine 02/15/24 documented as of this encounter
--- OUTSIDE RECORDS SUMMARY | 2024-07-26 09:44 | XMS_ITS | Encounter Summary ---
Author Organization [facility] Address [address] [place] [address] Care Team Providers Care Billing Collections Specialist Name Role Phone Kurtis Cole MD Primary Care Provider [phone] Encounter Details Date Type Department Care Team Description 04/19/2022 Director Of Financial Planning Report Medical Records [address] [place] [address] Bi Coyne Social History Tobacco Use Types Packs/Day Years [...] PM EST documented as of this encounter Plan of Treatment Not on file documented as of this encounter Visit Diagnoses Not on filedocumented in this encounter Care Teams Billing Collections Specialist Relationship Specialty Start Date End Date Kurtis Cole MD [address] [place] [address] PCP - General Internal Medicine 12/01/20 documented as of this encounter
--- OUTSIDE RECORDS SUMMARY | 2024-07-26 09:44 | XMS_ITS | Encounter Summary ---
Author Organization [facility] Address [address] [place] [address] Care Team Providers Care Devops Solutions Architect Name Role Phone Kurtis Cole MD Primary Care Provider [phone] Encounter Details Date Type Department Care Team Description 02/22/2022 Senior Accounting Clerk Report Medical Records [address] [place] [address] Bi Coyne Social History Tobacco Use Types [...] suspected to have Coronavirus/COVID-19? No / Unsure 01/25/2022 2:00 PM EDT documented as of this encounter Plan of Treatment Not on file documented as of this encounter Visit Diagnoses Not on filedocumented in this encounter Care Teams Devops Solutions Architect Relationship Specialty Start Date End Date Kurtis Cole MD [address] [place] [address] PCP - General Internal Medicine 12/01/20 documented as of this encounter
--- OUTSIDE RECORDS SUMMARY | 2024-07-26 09:44 | XMS_ITS | Encounter Summary ---
Author Organization [facility] Address [address] [place] [address] Care Team Providers Care Sales Product Specialist Name Role Phone Kurtis Cole MD Primary Care Provider [phone] Encounter Details Date Type Department Care Team Description 01/12/2024 Pt. Non Urgent Medic al Question OBGYN - [place] [address] [place], [place] [id number] Guy Denton CNM [address] [place] [address] Social History Tobacco Use Types Packs/Day Years [...] encounter Miscellaneous Notes * Telephone Encounter - Stephanie Bell R.N. - 01/12/2024 3:47 PM EDTFrom: Luda Caal To: Guy Denton CNM Sent: 01/12/2024 3:23 PM EDT Subject: Prescription Hello, I checked with [facility] and they do not have a RX for provera. documented in this encounter Plan of Treatment Not on file documented as of this encounter Visit Diagnoses Not on filedocumented in this encounter Care Teams Sales Product Specialist Relationship Specialty Start Date End Date Kurtis Cole MD [address] [place] [address] PCP - General Internal Medicine 12/01/20 documented as of this encounter
--- OUTSIDE RECORDS SUMMARY | 2024-07-26 09:44 | XMS_ITS | Encounter Summary ---
Author Organization [facility] Address [address] [place] [address] Care Team Providers Care Bus Monitor Name Role Phone Kurtis Cole MD Primary Care Provider [phone] Encounter Details Date Type Department Care Team Description 02/07/2024 Telephone OBGYN - [place] [address] [place], [place] [phone] Pamela Tello CNM [address] [place] [address] Social History Tobacco Use Types Packs/Day Years [...] encounter Miscellaneous Notes * Telephone Encounter - Naty Cooper - 02/07/2024 8:49 AM EDT Telephone Information: Work Phone Not on file. Left message for patient to call [facility] ask to speak to obgyn floor nurse. Hematology order placed when they call to schedule please be aware it's the hematology/oncology dept but your appt is related to anemia not cancer documented in this encounter Plan of Treatment Not on file documented as of this encounter Visit Diagnoses Not on filedocumented in this encounter Care Teams Bus Monitor Relationship Specialty Start Date End Date Kurtis Cole MD [address] [place] [address] PCP - General Internal Medicine 12/01/20 documented as of this encounter
--- OUTSIDE RECORDS SUMMARY | 2024-07-26 09:45 | XMS_ITS | Encounter Summary ---
Author Organization [facility] Address [address] [place] [address] Care Team Providers Care Truck Assembler Name Role Phone Zoey Nunez MD Primary Care Provider [phone] Lela Gan MD Primary Care Provider Kim Salguero MD Primary Care Provider Brenda Cole Ch MD Primary Care Provider [phone] Kurtis Cole MD Primary Care Provider [phone] Encounter Details Date Type Department Care Team Description 08/30/2016 Walk In Clinic Visit Medical Records [address] [place] [address] [facility] [address] [place] [address] Social History Tobacco Use Types Packs/Day Years Used Date Smoking Tobacco: Never Alcohol Use Standard Drinks/Week Comments Yes 0 (1 standard drink = 0.6 oz pur e alcohol) occassionally Sex Assigned at Date Recorded Not on file Job Start Date Occupation Industry Not on file Not on file Not on file documented as of this encounter Plan of Treatment Not on file documented as of this encounter Visit Diagnoses Not on filedocumented in this encounter Care Teams Truck Assembler Relationship Specialty Start Date End Date Zoey Nunez MD [address] [place] [id number] PCP - General Internal Medicine 05/19/15 12/19/17 Lela Gan MD [address] [place] [address] PCP - General Internal Medicine 12/20/17 07/02/20 Kim Dalye MD [address] [place] [address] PCP - General Internal Medicine 07/03/20 10/19/20 Kurtis Cole, [address] [place] [address] PCP - General Internal Medicine 12/01/20 Kurtis Cole MD [address] [place] [address] PCP - General Internal Medicine 10/20/20 11/30/20 documented as of this encounter
--- OUTSIDE RECORDS SUMMARY | 2024-07-26 09:45 | XMS_ITS | Encounter Summary ---
Author Organization [facility] Address [address] [place] [address] Care Team Providers Care Rib Cutter Name Role Phone Kurtis Cole MD Primary Care Provider [phone] Encounter Details Date Type Department Care Team Description 08/03/2021 Overhead Crane Inspector Report Medical Records [address] [place] [address] Abstract, Provider Social History Tobacco Use Types Packs/Day Years [...] on filedocumented in this encounter Care Teams Rib Cutter Relationship Specialty Start Date End Date Kurtis Cole MD [address] [place] [address] PCP - General Internal Medicine 12/01/20 documented as of this encounter
--- OUTSIDE RECORDS SUMMARY | 2024-07-26 09:45 | XMS_ITS | Encounter Summary ---
Author Organization [facility] Address [address] [place] [address] Care Team Providers Care Double End Tenoner Operator Name Role Phone Lela Gan MD Primary Care Provider Kim Salguero MD Primary Care Provider Brenda Cole Ch MD Primary Care Provider [phone] [phone] Kurtis Cole MD Primary Care Provider +1 -[phone] Encounter Details Date Type Department Care Team Description 05/26/2020 Flight Operations Specialist Report Medical Records [address] [place] [address] Erma Greenberg MD Social History Tobacco Use Types Packs/Day Years Used Date Smoking Tobacco: Never Smokeless Tobacco: Never Alcohol Use Standard Drinks/Week Comments Yes 0 (1 standard drink = 0.6 oz pur e alcohol) occassionally Sex Assigned at Date Recorded Not on file Job Start Date Occupation Industry Not on file Not on file Not on file COVID-19 Exposure Response Date Recorded In the last month, have you been in contact with someone who was confirmed or suspected to have Coronavirus / COVID-19? No / Unsure 05/25/2020 2:37 PM EST documented as of this encounter Plan of Treatment Not on file documented as of this encounter Visit Diagnoses Not on filedocumented in this encounter Care Teams Double End Tenoner Operator Relationship Specialty Start Date End Date Lela Gan MD PCP - General Internal Medicine 12/20/17 07/02/20 Kim Daley MD PCP - General Internal Medicine 07/03/20 10/19/20 Kurtis Cole MD [address] [place] [address] PCP - General Internal Medicine 12/01/20 Kurtis Cole, [address] [place] [address] JUAN Ellis [address] PCP - General Internal Medicine 10/20/20 11/30/20 documented as of this encounter
--- OUTSIDE RECORDS SUMMARY | 2024-07-26 09:45 | XMS_ITS | Encounter Summary ---
Author Organization [facility] Address [address] [place] [address] Care Team Providers Care Manager Graphic Name Role Phone Kim Daley MD Primary Care Provider [facility] desirae Cole Ch MD Primary Care Provider [phone] Kurtis Cole MD Primary Care Provider +1 -[phone] Reason for Visit * Reason Onset Date Comments Letter 08/14/2020 Encounter Details Date Type Department Care Team Description 08/14/2020 Telephone Adult Medicine - [place] [address] [place] [address] Kim Daley MD Letter Social History Tobacco Use Types Packs/Day Years [...] Telephone Encounter - Clover Rose M.A. - 08/17/2020 3:22 PM EDT Spoke to patient and given message below.Patient states she saw letter on my chart and she will used that letter. I toled patient that letter is not appoved and not signed by Dr. Daley,and patient hung on me. * Telephone Encounter - Kim Daley MD - 08/17/2020 12:47 PM EDT I have never met this patient and would not be able to write a letter. Looks like she is a former pt of Dr Gan. I suggest she choose another PCP because I will be retiring next month and schedule appt with new PCP to establish and can get letter then if appropriate. Thanks * Telephone Encounter - Clover Rose M.A. - 08/17/2020 9:50 AM EDT Please review pending letter for support dod * Telephone Encounter - Monae Albarran - 08/14/2020 9:43 AM EDT Patient is calling. She is asking for a letter stating that her dog is therapy dog. States that sheuses the dog for emotional support. States that her landlord is asking for this documentation. Patient states that she recently had 2 seizures. States that her neurologist will not write letter for her states that this letter comes from primary care. Please advise. documented in this encounter Plan of Treatment Not on file documented as of this encounter Visit Diagnoses Not on filedocumented in this encounter Care Teams Manager Graphic Relationship Specialty Start Date End Date Kim Daley MD PCP - General Internal Medicine 07/03/20 10/19/20 Kurtis Cole MD [address] [place] [address] PCP - General Internal Medicine 12/01/20 Kurtis Cole MD [address] [place] [address] PCP - General Internal Medicine 10/20/20 11/30/20 documented as of this encounter
--- OUTSIDE RECORDS SUMMARY | 2024-07-26 09:45 | XMS_ITS | Encounter Summary ---
Author Organization [facility] Address [address] [place] [address] Care Team Providers Care Rn Home Health Name Role Phone Kurtis Cole MD Primary Care Provider [phone] [phone] Kurtis Cole MD Primary Care Provider +1 [phone] Encounter Details Date Type Department Care Team Description 11/02/2020 General Warehouse Associate Report Medical Records [address] [place] [address] Erma Greenberg MD Social History Tobacco Use [...] on filedocumented in this encounter Care Teams Rn Home Health Relationship Specialty Start Date End Date Kurtis Cole MD [address] [place] [address] PCP - General Internal Medicine 12/01/20 Kurtis Cole MD [address] [place] [address] PCP - General Internal Medicine 10/20/20 11/30/20 documented as of this encounter
--- OUTSIDE RECORDS SUMMARY | 2024-07-26 09:45 | XMS_ITS | Encounter Summary ---
Author Organization [facility] Address [address] [place] [address] Care Team Providers Care Assembler Leather Goods Name Role Phone Kurtis Cole MD Primary Care Provider [phone] Encounter Details Date Type Department Care Team Description 04/21/2022 Telephone Cardio PVCA Diag Testing [address] [facility] [address] [place] [address] Bi Coyne Social History Tobacco Use Types [...] encounter Miscellaneous Notes * Telephone Encounter - Hilda Dileep - 04/21/2022 11:54 AM EST Please see order for 30 day monitor. Notes were sent to chart prep for scanning. Thank you documented in this encounter Plan of Treatment Not on file documented as of this encounter Visit Diagnoses Not on filedocumented in this encounter Care Teams Assembler Leather Goods Relationship Specialty Start Date End Date Kurtis Cole, [address] [place] [address] PCP - General Internal Medicine 12/01/20 documented as of this encounter
--- OUTSIDE RECORDS SUMMARY | 2024-07-26 09:45 | XMS_ITS | Encounter Summary ---
Author Organization [facility] Address [address] [place] [address] Care Team Providers Care Mine Supervisor Name Role Phone Kurtis Cole MD Primary Care Provider [phone] [phone] Reason for Referral * EXTERNAL (Urgent) - Authorized/Booked Specialty Diagnoses / Procedures Referred By Contadria t Referred To Contact Rheumatology Procedures REFERRAL TO RHEUMATOLOGY Kurtis Cole MD [address] [place], [place] [facility] [address] [place] [address] Referral ID Status Reason Start Date Expiration Date V isits Requested Visits Authorized [id number] Authorized/B ooked 03/03/2021 06/05/2021 1 1 Reason for Visit * Reason Onset Date Comments Recreational Assistant Feedback 03/03/2021 Referral Encounter Details Date Type Department Care Team Description 03/03/2021 Telephone Adult Medicine - [place] [address] [place] [address] Kurtis Cole MD [address] [place], [place] Recreational Assistant Feedback (Referral ) Social History Tobacco Use Types Packs/Day Years [...] have Coronavirus / COVID-19? No / Unsure 02/22/2021 2:32 PM EST documented as of this encounter Miscellaneous Notes * Telephone Encounter - Malou Peter - 03/03/2021 11:53 AM EST Please review this patients new referral request. The referral has been pended. Please complete thefollowing: If approved> sign order If denied>please give instructions and route to your practice nursing pool. Practice nurse should inform referrals and the patient if denied. documented in this encounter Plan of Treatment Not on file documented as of this encounter Visit Diagnoses Not on filedocumented in this encounter Care Teams Mine Supervisor Relationship Specialty Start Date End Date Kurtis Cole MD [facility] [place] [address] PCP - General Internal Medicine 12/01/20 documented as of this encounter
--- OUTSIDE RECORDS SUMMARY | 2024-07-26 09:45 | XMS_ITS | Encounter Summary ---
Author Organization [facility] Address [address] [place] [address] Care Team Providers Care Cyber Incident Analyst Name Role Phone Lela Gan MD Primary Care Provider Kim Salguero MD Primary Care Provider Brenda Cole Ch MD Primary Care Provider [phone] Kurtis Cole MD Primary Care Provider [phone] [phone] Encounter Details Date Type Department Care Team Description 04/27/2019 Pt. Non Urgent Medical Question Medicine/Pediatrics - [address] [id number] Lela Gan MD Social History Tobacco Use Types Packs/Day Years Used Date Smoking Tobacco: Never Smokeless Tobacco: Never Alcohol Use Standard Drinks/Week Comments Yes 0 (1 standard drink = 0.6 oz pur e alcohol) occassionally Sex Assigned at Date Recorded Not on file Job Start Date Occupation Industry Not on file Not on file Not on file documented as of this encounter Progress Notes * Naomie Garza R.N. - 04/29/2019 10:14 AM ESTFrom: Luda Caal To: Lela Gan MD Sent: 04/27/2019 10:23 AM EST Subject: Labs jm Hansen for the first message I was having trouble sending. I wanted to ask you about the labswe discussed, we didn't go over H.pylori, Kiley didn't give me any info, and only stated that all other labs were good. When will they be on MyChart? For me to review. documented in this encounter Plan of Treatment Not on file documented as of this encounter Visit Diagnoses Not on filedocumented in this encounter Care Teams Cyber Incident Analyst Relationship Specialty Start Date End Date Lela Gan MD PCP - General Internal Medicine 12/20/17 07/02/20 Kim Daley MD PCP - General Internal Medicine 07/03/20 10/19/20 Kurtis Cole, [address] [place] [address] PCP - General Internal Medicine 12/01/20 Kurtis Cole MD [address] [place] [address] PCP - General Internal Medicine 10/20/20 11/30/20 documented as of this encounter
--- OUTSIDE RECORDS SUMMARY | 2024-07-26 09:45 | XMS_ITS | Encounter Summary ---
Author Organization [facility] [facility] Address [address] [place] [address] Care Team Providers Care Systems Analysis Manager Name Role Phone Kurtis Cole MD Primary Care Provider [phone] Encounter Details Date Type Department Care Team Description 02/10/2023 Orders Only Adult Medicine - [place] [address] [place], [place] [phone] Kurtis Cole MD [address] [place] [address] Social History Tobacco Use Types Packs/Day Years [...] suspected to have Coronavirus/COVID-19? No / Unsure 02/10/2023 10:35 AM EDT documented as of this encounter Plan of Treatment Not on file documented as of this encounter Visit Diagnoses Not on filedocumented in this encounter Care Teams Systems Analysis Manager Relationship Specialty Start Date End Date Kurtis Cole MD [address] [place] [address] PCP - General Internal Medicine 12/01/20 documented as of this encounter
--- OUTSIDE RECORDS SUMMARY | 2024-07-26 09:45 | XMS_ITS | Encounter Summary ---
Author Organization [facility] Address [address] [place] [address] Care Team Providers Care Mechanical Engineering Advisor Name Role Phone Kurtis Cole MD Primary Care Provider [phone] Encounter Details Date Type Department Care Team Description 03/05/2021 [facility] [address] [place] [address] Md Nakia Social History Tobacco Use Types Packs/Day Years [...] on filedocumented in this encounter Care Teams Mechanical Engineering Advisor Relationship Specialty Start Date End Date Kurtis Cole MD [address] [place] [address] PCP - General Internal Medicine 12/01/20 documented as of this encounter
--- OUTSIDE RECORDS SUMMARY | 2024-07-26 09:45 | XMS_ITS | Encounter Summary ---
Author Organization [facility] Address [address] [place] [address] Care Team Providers Care Clockmaker Apprentice Name Role Phone Kim Dlaey MD Primary Care Provider [facility] desirae Cole Ch MD Primary Care Provider [phone] Kurtis Cole MD Primary Care Provider [phone] [phone] Encounter Details Date Type Department Care Team Description 07/16/2020 Electrical Power Station Technician Report Medical Records [address] [place] [address] Abstract, Provider Social History Tobacco Use Types [...] have Coronavirus / COVID-19? No / Unsure 06/23/2020 2:20 PM EDT documented as of this encounter Plan of Treatment Not on file documented as of this encounter Visit Diagnoses Not on filedocumented in this encounter Care Teams Clockmaker Apprentice Relationship Specialty Start Date End Date Kim Daley MD PCP - General Internal Medicine 07/03/20 10/19/20 Kurtis Cole MD [address] [place] [address] PCP - General Internal Medicine 12/01/20 Kurtis Cole MD [address] [place] [address] PCP - General Internal Medicine 10/20/20 11/30/20 documented as of this encounter
--- OUTSIDE RECORDS SUMMARY | 2024-07-26 09:45 | XMS_ITS | Encounter Summary ---
Author Organization [facility] Address [address] [place] [address] Care Team Providers Care Meat Stocker Name Role Phone Zoey Nunez MD Primary Care Provider [phone] Lela Gan MD Primary Care Provider Kim Salguero MD Primary Care Provider Brenda Cole Ch MD Primary Care Provider [phone] Kurtis Cole MD Primary Care Provider [phone] [phone] Encounter Details Date Type Department Care Team Description 02/20/2017 Buttonholer Report Medical Records [address] [place] [address] Stephania Alvarenga MD Social History Tobacco Use Types Packs/Day [...] on filedocumented in this encounter Care Teams Meat Stocker Relationship Specialty Start Date End Date Zoey Nunez MD [address] [place] [id number] PCP - General Internal Medicine 05/19/15 12/19/17 Lela Gan MD [address] [place] [address] PCP - General Internal Medicine 12/20/17 07/02/20 Kim Daley MD [address] [place] [address] PCP - General Internal Medicine 07/03/20 10/19/20 Kurtis Cole, [address] [place] [address] PCP - General Internal Medicine 12/01/20 Kurtis Cole, [address] [place] [address] PCP - General Internal Medicine 10/20/20 11/30/20 documented as of this encounter
--- OUTSIDE RECORDS SUMMARY | 2024-07-26 09:45 | XMS_ITS | Encounter Summary ---
Author Organization [facility] Address [address] [place] [address] Care Team Providers Care Supervisor Wall Mirror Department Name Role Phone Kim Daley MD Primary Care Provider [facility] Kurtis Cole MD Primary Care Provider [phone] Kurtis Cole MD Primary Care Provider [phone] Encounter Details Date Type Department Care Team Description 08/10/2020 Vice President Business Development Report Medical Records [address] [place] [address] Erma Greenberg MD Social History Tobacco Use [...] on filedocumented in this encounter Care Teams Supervisor Wall Mirror Department Relationship Specialty Start Date End Date Kim Daley MD PCP - General Internal Medicine 07/03/20 10/19/20 Kurtis Cole MD [address] [place] [address] PCP - General Internal Medicine 12/01/20 Kurtis Cole MD [address] [place] [address] PCP - General Internal Medicine 10/20/20 11/30/20 documented as of this encounter
--- OUTSIDE RECORDS SUMMARY | 2024-07-26 09:45 | XMS_ITS | Encounter Summary ---
Author Organization [facility] Address [address] [place] [address] Care Team Providers Care Shoe Worker Name Role Phone Kim Daley MD Primary Care Provider [facility] Kurtis Cole MD Primary Care Provider [phone] Kurtis Cole MD Primary Care Provider [phone] [phone] Encounter Details Date Type Department Care Team Description 10/19/2020 Provider Network Analyst Report Medical Records [address] [place] [address] Erma Greenberg MD Social History Tobacco Use [...] on filedocumented in this encounter Care Teams Shoe Worker Relationship Specialty Start Date End Date Kim Daley MD PCP - General Internal Medicine 07/03/20 10/19/20 Kurtis Cole MD [address] [place] [address] PCP - General Internal Medicine 12/01/20 Kurtis Cole MD [address] [place] [address] PCP - General Internal Medicine 10/20/20 11/30/20 documented as of this encounter
--- OUTSIDE RECORDS SUMMARY | 2024-07-26 09:45 | XMS_ITS | Encounter Summary ---
Author Organization [facility] Address [address] [place] [address] Care Team Providers Care Housing Assistant Name Role Phone Kurtis Cole MD Primary Care Provider [phone] Encounter Details Date Type Department Care Team Description 02/16/2021 Hotel Manager Report Medical Records [address] [place] [address] Erma Greenberg MD Social History Tobacco Use [...] on filedocumented in this encounter Care Teams Housing Assistant Relationship Specialty Start Date End Date Kurtis Cole MD [address] [place] [address] PCP - General Internal Medicine 12/01/20 documented as of this encounter
--- OUTSIDE RECORDS SUMMARY | 2024-07-26 09:45 | XMS_ITS | Encounter Summary ---
Author Organization [facility] Address [address] [place] [address] Care Team Providers Care Lunchroom Attendant Name Role Phone Alice Cole MD Primary Care Prov ider Encounter Details Date Type Department Care Team (Late st Contact Info) Description 01/11/2024 5:00 PM EDT Hospital Encounter TH HISTORIC ENCOUNTERS EASTERN CONVERSION ONLY Michelle Plaza, PA [address] [facility] [address] [place] [address] Social History Tobacco Use Types Packs/Day Years [...] for your loved ones. For example, child and family counselor or elderly care for an older adult? [...] as of this encounter Plan of Treatment Upcoming Encounters Date Type Department Care Team (Late st Contact Info) Description 07/30/2024 2:30 PM EDT Office Visit Adult Medicine [facility] [address] [place] [phone] Juan Guzmán PA [address] [place] [address] 08/14/2024 2:20 PM EDT Office Visit Obstetrics and Gynecology - [place] [address] [place] [address] Peggy Noel PA [address] [place] [address] 08/22/2024 8:30 AM EDT Appointment [facility] CT Scan [address] [place] [phone] 10/07/2024 10:15 AM EDT Office Visit [facility] Hematology Oncology [address] [place] [phone] Zenaida Rodrigues PA [address] [place] [address] documented as of this encounter Visit Diagnoses Not on filedocumented in this encounter Care Teams Lunchroom Attendant Relationship Specialty Start Date End Date Alice Cole MD PCP - General Internal Medicine 12/01/20 02/14/24 documented as of this encounter
--- OUTSIDE RECORDS SUMMARY | 2024-07-26 09:45 | XMS_ITS | Encounter Summary ---
Author Organization [facility] Address [address] [place] [address] Care Team Providers Care Field Associate Name Role Phone Kurtis Cole MD Primary Care Provider [phone] Encounter Details Date Type Department Care Team Description 01/09/2023 Refill Adult Medicine - [place] [address] [place], [place] [phone] Kurtis Cole, [address] [place] [address] Social History Tobacco Use Types Packs/Day Years [...] Telephone Encounter - Alice Paris M.A. - 01/09/2023 10:48 AM EDT Noted. Thank you * Telephone Encounter - Juany Beatty - 01/09/2023 10:41 AM EDT Pt is booked for 02/10 with pcp this is the next availble * Telephone Encounter - Alice Paris M.A. - 01/09/2023 10:29 AM EDT Images from the original note were not included. 10/28/22 OV - she is willing to try low-dose oxycodone intermittently she will do this for 6 weeks Return to the office to discuss further. if this helps will do a controlled substance contract with patient Oxycodone last ordered 10/28/22 NO CSC or PSI for Oxycodone Medication request (s) pended for review Last appt- 10/28/22 Next appt- 04/13/23 ( Pt needs a sooner appt scheduled ) Last appt w/ PCP- same as above CURB SUPERVISOR documented in this encounter Plan of Treatment Not on file documented as of this encounter Visit Diagnoses Diagnosis Multiple sclerosis (HCC) Multiple sclerosis Cervical radiculopathy at C5 Brachial neuritis or radiculitis nos documented in this encounter Care Teams Field Associate Relationship Specialty Start Date End Date Kurtis Cole MD [address] [place] [address] PCP - General Internal Medicine 12/01/20 documented as of this encounter
--- OUTSIDE RECORDS SUMMARY | 2024-07-26 09:45 | XMS_ITS | Clinical Summary ---
Author Organization [facility] Address [address] [place] [address] Care Team Providers Care Tibco Developer Name Role Phone Alice Cole MD Primary Care Prov ider Allergies Active Allergy Reactions Criticality Noted Date Comments Hydroxyzine Rash Low 03/31/2022 Lamotrigine 02/25/2022 Oxycodone-Acetaminophen 02/25/2022 Pt request it to be removed Medications Medication Sig Dispensed Refills Start Date End Date Status ferrous gluconate (FERGON) 324 MG tablet Take 1 tablet (324 mg total) by mouth every morning with breakfast. 0 Active topiramate (TOPAMAX) 100 MG tablet Take 1 tablet (100 mg total) by mouth 2 (two) times a day. 0 Active Multiple Vitamin (MULTI VITAMIN DAILY PO) Take by mouth. 0 Active baclofen (LIORESAL) 10 MG tablet Take 1 tablet (10 mg total) by mouth 3 (three) times a day. 90 tablet 5 06/29/2022 Active valACYclovir (VALTREX) 1000 MG tablet 0 08/28/2022 Active LORazepam (ATIVAN) 1 MG tablet Take 1 tablet (1 mg total) by mouth daily as needed. 0 01/11/2023 Active ergocalciferol (VITAMIN D2) capsule 43084 units Take 1 capsule (50,000 Units total) by mouth once a week. 4 capsule 12 02/06/2023 Active oxyCODONE (ROXICODONE) 5 MG immediate release tablet Take 1 tablet (5 mg total) by mouth every 6 (six) hours as needed. for pain 0 08/22/2023 Active Ublituximab-xiiy (BRIUMVI IV) Inject into the vein. 0 Active Multiple Vitamin (MULTIVITAMIN ADULT PO) Take by mouth. 0 Active Active Problems Problem Noted Date Diagnosed Date Multiple sclerosis 04/22/2022 Iron deficiency anemia due to chronic blood loss 02/25/2022 Menorrhagia with regular cycle 02/25/2022 Family History Medical History Relation Name Comments Cancer Father Diabetes Maternal Grandmother Relation Name Status Comments Father Maternal Grandmother Social History Tobacco Use Types Packs/Day Years Used Date Smoking Tobacco: Never Smokeless Tobacco: Never Tobacco Cessation:Counseling Given: Not Answered Alcohol Use Standard Drinks/Week Comments Not Currently 0 (1 standard drink = 0.6 oz pur e alcohol) Sex and Gender Information Value Date Recorded Sex Assigned at Female 01/27/2023 3:13 PM EDT Gender Identity Not on file Sexual Orientation Not on file Job Start Date Occupation Industry Not on file Not on file Not on file Last Filed Vital Signs Vital Sign Reading Time Taken Comments Blood Pressure 141/85 12/06/2023 10:18 AM EDT Pulse 71 12/06/2023 10:18 AM EDT Temperature 36.2 ??C (97.1 ??F) 09/05/2023 8:27 AM ED T Respiratory Rate 18 12/06/2023 10:18 AM EDT Oxygen Saturation 98% 12/06/2023 10:18 AM EDT Inhaled Oxygen Concentration - - Weight 84.9 kg (187 lb 3.2 oz) 10/20/2023 2:11 P M EDT Height 157.5 cm (5' 2 ) 10/20/2023 2:11 PM EDT Body Mass Index 34.24 10/20/2023 2:11 PM EDT Plan of Treatment Health Maintenance Due Date Last Done Comments Hepatitis B Vaccines (1 of 3 - 3-dose series) 1980 Hepatitis C Screening 1980 Depression Screening 1992 BMI Counseling 1998 Preventative Health Evaluation 1998 DTap / Tdap / Td (1 - Tdap) 1999 Cervical Cancer Screening (Pap Smear) 2001 COVID-19 Vaccine (3 - 2023-2 5 season) 2023 09/22/2020, 09/01/2020 Influenza Vaccine (#1) 2023 9, 01/06/2016 Pneumococcal Vaccine Aged Out No long er eligible based on patient's age to complete this topic RSV Ped < 20 months Aged Out No longe r eligible based on patient's age to complete this topic Care Teams Tibco Developer Relationship Specialty Start Date End Date Alice Cole MD PCP - General Internal Medicine 02/25/22
--- OUTSIDE RECORDS SUMMARY | 2024-07-26 09:45 | XMS_ITS | Encounter Summary ---
Author Organization [facility] Address [address] [place] [address] Care Team Providers Care Auto Tire Recapper Name Role Phone Kim Daley MD Primary Care Provider Matthew desirae Cole Ch MD Primary Care Provider [phone] Kurtis Cole MD Primary Care Provider [phone] [phone] Reason for Visit * Reason Comments E-prescribe Rx Request Encounter Details Date Type Department Care Team Description 09/14/2020 Refill Adult Urgent Care - [address] [address] Juan Lange PA-C [address] [place] [address] E-prescribe Rx Request Social History Tobacco Use Types Packs/Day Years [...] encounter Miscellaneous Notes * Telephone Encounter - Kim Daley MD - 09/14/2020 3:42 PM EDT I do not know this patient but reviewed her chart. She should wait until her appointment with Dr. Oliver tomorrow to determine if this medication is appropriate to continue. * Telephone Encounter - Andie Rondinelli L.P.N. - 09/14/2020 2:58 PM EDT Medication request pended for your review. Lab Results Component Value Date NA 137 05/21/2020 K 4.2 05/21/2020 CO2 23 05/21/2020 CL 108 05/21/2020 BUN 10 05/21/2020 CREAT 0.72 05/21/2020 GLU 101 05/21/2020 CA 9.1 05/21/2020 GFR > 60 05/21/2020 * Telephone Encounter - Ginette Garza - 09/14/2020 2:31 PM EDT Patient would like script to be: E-PRESCRIBED/FAXED TO PHARMACY WHEN WAS THE PATIENT'S LAST APPOINTMENT IN ADULT MEDICINE? 05/21/20 WHEN WAS THE LAST TIME THE PATIENT SAW THEIR PCP? Has not seen Does patient have an upcoming appointment? Yes 09/15/20 (THE MEDICATION REQUESTED IS ON THE MED LIST ABOVE) All of the medications requested were on the CURRENT MEDS list Did you check the Pharmacy information above?: YES Patient wants: 90 -day supply Is this a mail order prescription request ? NO If the refill is from a FAXED refill request what is the RX # listed on the fax? N/A Patients current insurance carrier is: Payor: [employer] / Plan: POS $0 [place] [id number] / Product Type: POS Ske-mic-Olnxiap documented in this encounter Plan of Treatment Not on file documented as of this encounter Visit Diagnoses Not on filedocumented in this encounter Care Teams Auto Tire Recapper Relationship Specialty Start Date End Date Kim Daley MD PCP - General Internal Medicine 07/03/20 10/19/20 Kurtis Cole, [address] [place] [address] PCP - General Internal Medicine 12/01/20 Kurtis Cole MD [address] [place] [address] PCP - General Internal Medicine 10/20/20 11/30/20 documented as of this encounter
--- OUTSIDE RECORDS SUMMARY | 2024-07-26 09:45 | XMS_ITS | Encounter Summary ---
Author Organization [facility] Address [address] [place] [address] Care Team Providers Care Manga Artist Name Role Phone Zoey Nunez MD Primary Care Provider [phone] Lela Gan MD Primary Care Provider Kim Salguero MD Primary Care Provider Brenda Cole Ch MD Primary Care Provider [phone] Kurtis Cole MD Primary Care Provider [phone] Encounter Details Date Type Department Care Team Description 03/22/2017 Personal Banking Officer Report Medical Records [address] [place] [address] Neurosurgery, [address] [place] [address] Social History Tobacco Use Types Packs/Day Years [...] on filedocumented in this encounter Care Teams Manga Artist Relationship Specialty Start Date End Date Zoey Nunez MD [address] [place] [address] [id number] PCP - General Internal Medicine 05/19/15 12/19/17 Lela Gan MD [address] [place] [address] PCP - General Internal Medicine 12/20/17 07/02/20 Kim Daley MD [address] [place] [address] PCP - General Internal Medicine 07/03/20 10/19/20 Kurtis Cole, [address] [place] [address] PCP - General Internal Medicine 12/01/20 Kurtis Cole MD [address] [place] [address] PCP - General Internal Medicine 10/20/20 11/30/20 documented as of this encounter
--- OUTSIDE RECORDS SUMMARY | 2024-07-26 09:45 | XMS_ITS | Encounter Summary ---
Author Organization [facility] Address [address] [place] [address] Care Team Providers Care Stockbroker Name Role Phone Kurtis Cole MD Primary Care Provider [phone] Encounter Details Date Type Department Care Team Description 08/15/2022 Pt. Non Urgent Medic al Question Adult Medicine - [place] [address] [place] [address] Kurtis Cole, [address] [place] [address] Social History Tobacco Use Types Packs/Day Years [...] suspected to have Coronavirus/COVID-19? No / Unsure 08/05/2022 1:37 PM EDT documented as of this encounter Miscellaneous Notes * Telephone Encounter - Argelia De La Rosa L.P.N. - 08/15/2022 11:58 AM EDTFrom: Luda Caal To: Diana Cole Sent: 08/15/2022 11:57 AM EDT Subject: MRI procedure Good morning, The Dr Dejon Watkins at the [facility] has ordered mri of the brain cervical and thoracic and camarena has scheduled it for September 07 at 1pm, they stated I will have to be in the mri for a couple hours maybe longer, I'd like something to help me get through the mri if possible. Thank you documented in this encounter Plan of Treatment Not on file documented as of this encounter Visit Diagnoses Not on filedocumented in this encounter Care Teams Stockbroker Relationship Specialty Start Date End Date Kurtis Cole MD [address] [place] [address] PCP - General Internal Medicine 12/01/20 documented as of this encounter
--- OUTSIDE RECORDS SUMMARY | 2024-07-26 09:45 | XMS_ITS | Encounter Summary ---
Author Organization [facility] Address [address] [place] [address] Care Team Providers Care Film And Video Graphics Designer Name Role Phone Kurtis Cole MD Primary Care Provider [phone] Encounter Details Date Type Department Care Team Description [facility]/18[facility]21 [facility] [address] [place] [address] Md Nakia Social History Tobacco Use Types [...] have Coronavirus / COVID-19? No / Unsure 05/11/2021 8:02 AM EST documented as of this encounter Plan of Treatment Not on file documented as of this encounter Visit Diagnoses Not on filedocumented in this encounter Care Teams Film And Video Graphics Designer Relationship Specialty Start Date End Date Kurtis Cole MD [address] [place] [address] PCP - General Internal Medicine 12/01/20 documented as of this encounter
--- OUTSIDE RECORDS SUMMARY | 2024-07-26 09:45 | XMS_ITS | Encounter Summary ---
Author Organization [facility] Address [address] [place] [address] Care Team Providers Care Car Groomer Name Role Phone Lela Gan MD Primary Care Provider Kim Salguero MD Primary Care Provider Brenda Cole Ch MD Primary Care Provider [phone] Kurtis Cole MD Primary Care Provider [phone] Encounter Details Date Type Department Care Team Description 04/24/2020 Telephone Adult Medicine [facility] [address] [place] [address] Lela Gan MD Social History Tobacco Use [...] encounter Miscellaneous Notes * Telephone Encounter - Ingrid Cuadra M.A. - 04/24/2020 8:58 AM EST Called left message regarding overdue results for mri test documented in this encounter Plan of Treatment Not on file documented as of this encounter Visit Diagnoses Not on filedocumented in this encounter Care Teams Car Groomer Relationship Specialty Start Date End Date Lela Gan MD PCP - General Internal Medicine 12/20/17 07/02/20 Kim Daley MD PCP - General Internal Medicine 07/03/20 10/19/20 Kurtis Cole, [address] [place] [address] PCP - General Internal Medicine 12/01/20 Kurtis Cole, [address] [place] [address] PCP - General Internal Medicine 10/20/20 11/30/20 documented as of this encounter
--- OUTSIDE RECORDS SUMMARY | 2024-07-26 09:45 | XMS_ITS | Encounter Summary ---
Author Organization [facility] Address [address] [place] [address] Care Team Providers Care Paper Bag Press Operator Name Role Phone Kurtis Cole MD Primary Care Provider [phone] Encounter Details Date Type Department Care Team Description 03/31/2023 Orders Only Medical Records [address] [place] [address] Magaly Morel MD Social History Tobacco Use Types Packs/Day [...] on file documented as of this encounter Procedures Procedure Name Priority Date/Time Associated Diagnosis Comments OUTSIDE MRI/MRA Routine 03/23/2023 documented in this encounter Results * OUTSIDE MRI/MRA (03/23/2023) Magaly Morel MD RADIOLOGY documented in this encounter Visit Diagnoses Not on filedocumented in this encounter Care Teams Paper Bag Press Operator Relationship Specialty Start Date End Date Kurtis Cole MD [address] [place] [address] PCP - General Internal Medicine 12/01/20 documented as of this encounter
--- OUTSIDE RECORDS SUMMARY | 2024-07-26 09:45 | XMS_ITS | Encounter Summary ---
Author Organization [facility] Address [address] [place] [address] Care Team Providers Care Paediatrician Name Role Phone Kurtis Cole MD Primary Care Provider [phone] Encounter Details Date Type Department Care Team Description 12/05/2022 Furniture Finisher Apprentice Report Medical Records [address] [place] [address] Chiquita Barrera, MDM DEVELOPER Social History Tobacco Use Types Packs/Day Years [...] on filedocumented in this encounter Care Teams Paediatrician Relationship Specialty Start Date End Date Kurtis Cole MD [address] [place] [address] PCP - General Internal Medicine 12/01/20 documented as of this encounter
--- OUTSIDE RECORDS SUMMARY | 2024-07-26 09:45 | XMS_ITS | Encounter Summary ---
Author Organization [facility] Address [address] [place] [address] Care Team Providers Care Entry Writer Name Role Phone Kurtis Cole MD Primary Care Provider [phone] Encounter Details Date Type Department Care Team Description 11/25/2022 Hospital Medical Records [address] [place], [place] [id number] [place] [address] Social History Tobacco Use Types Packs/Day Years [...] suspected to have Coronavirus/COVID-19? No / Unsure 10/28/2022 3:01 PM EDT documented as of this encounter Plan of Treatment Not on file documented as of this encounter Visit Diagnoses Not on filedocumented in this encounter Care Teams Entry Writer Relationship Specialty Start Date End Date Kurtis Cole MD [address] [place] [address] PCP - General Internal Medicine 12/01/20 documented as of this encounter
--- OUTSIDE RECORDS SUMMARY | 2024-07-26 09:45 | XMS_ITS ---
[facility] Name [facility] History of Medication Use Medication Directions Dispensed Refills Start Date End Date Stat ferrous gluconate (FERGON) 324 MG tablet Take 1 tablet (324 mg total) by mouth every morning with breakfast. active LORazepam (Ativan) 0.5 MG tablet 1 po qd PRN 09/09/2022 3 aborted baclofen (LIORESAL) 10 MG tablet Take 1 tablet (10 mg total) by mouth 3 (three) times a day. 06/29/2022 active sodium chloride 0.9% (NS) infusion 500 mL, Intravenous, Once, On Mon12/06/23 at 0830, For 1 doseAdminister at 999 mL/hr. 12/06/2023 4 completed oxyCODONE (ROXICODONE) 5 MG immediate release tablet Take 1 tablet (5 mg total) by mouth every 6 (six) hours as needed. for pain 08/22/2023 active famotidine (PF) (PEPCID) injection 20 mg 20 mg, Intravenous, Once, On Mon12/06/23 at 0830, For 1 doseGive 30 minutes prior to ublituximab. ?? Administer only if patient intolerant to diphenhydramine (BENADRYL). ??IV push over 2-3 minutes. 12/06/2023 4 completed traMADol (ULTRAM) 50 MG tablet TAKE 1 TABLET BY MOUTH EVERY 6 HOURS NEEDED FOR PAIN FOR UP TO 7 DAYS. 08/05/2022 3 aborted Problems Problem Status Onset Date Problem Type Date of Resoluti on Source Iron deficiency anemia due to chronic blood loss active 2022-02-25 ProblemAct [facility] MG Multiple sclerosis active 2022-04-22 ProblemAct [facility] Menorrhagia with regular cycle active 2022-02-25 ProblemAct [facility]
--- OUTSIDE RECORDS SUMMARY | 2024-07-26 09:45 | XMS_ITS | Encounter Summary ---
Author Organization [facility] Address [address] [place] [address] Care Team Providers Care Real Property Evaluator Name Role Phone Zoey Nunez MD Primary Care Provider [phone] Lela Gan MD Primary Care Provider Kim Salguero MD Primary Care Provider Brenda Cole Ch MD Primary Care Provider [phone] Kurtis Cole MD Primary Care Provider [phone] Encounter Details Date Type Department Care Team Description 04/28/2017 [facility] Medical Records [address] [place] [address] Social History Tobacco Use Types Packs/Day Years [...] on filedocumented in this encounter Care Teams Real Property Evaluator Relationship Specialty Start Date End Date Zoey Nunez MD [address] [place] [address] PCP - General Internal Medicine 05/19/15 12/19/17 Lela Gan MD [address] [place] [address] PCP - General Internal Medicine 12/20/17 07/02/20 Kim Daley MD [address] [place] [address] PCP - General Internal Medicine 07/03/20 10/19/20 Kurtis Cole, [address] [place] [address] PCP - General Internal Medicine 12/01/20 Kurtis Cole, [address] [place] [address] PCP - General Internal Medicine 10/20/20 11/30/20 documented as of this encounter
--- OUTSIDE RECORDS SUMMARY | 2024-07-26 09:45 | XMS_ITS | Encounter Summary ---
Author Organization [facility] Address [address] [place] [address] Care Team Providers Care Traffic Inspector Name Role Phone Kurtis Cole MD Primary Care Provider [phone] Encounter Details Date Type Department Care Team Description 01/17/2023 Recruiting Consultant Report Medical Records [address] [place] [address] Chiquita Barrera, HOUSEKEEPER CAREGIVER Social History Tobacco Use Types Packs/Day Years [...] on filedocumented in this encounter Care Teams Traffic Inspector Relationship Specialty Start Date End Date Kurtis Cole MD [address] [place] [address] PCP - General Internal Medicine 12/01/20 documented as of this encounter
--- OUTSIDE RECORDS SUMMARY | 2024-07-26 09:45 | XMS_ITS | Encounter Summary ---
Author Organization [facility] Address [address] [place] [address] Care Team Providers Care Reprint Sorter Name Role Phone Zoey Nunez MD Primary Care Provider [phone] Lela Gan MD Primary Care Provider Kim Salguero MD Primary Care Provider Brenda Cole Ch MD Primary Care Provider [phone] Kurtis Cole MD Primary Care Provider [phone] Encounter Details Date Type Department Care Team Description 05/22/2017 Wader Boot Top Assembler Report Medical Records [address] [place] [address] Fernando Parra MD Social History Tobacco Use Types Packs/Day [...] on filedocumented in this encounter Care Teams Reprint Sorter Relationship Specialty Start Date End Date Zoey Nunez MD [address] [place] [address] [id number] PCP - General Internal Medicine 05/19/15 12/19/17 Lela Gan MD [address] [place] [address] PCP - General Internal Medicine 12/20/17 07/02/20 Kim Daley MD [address] [place], [place] [id number] PCP - General Internal Medicine 07/03/20 10/19/20 Kurtis Cole, [address] [place] [address] PCP - General Internal Medicine 12/01/20 Kurtis Cole, [address] [place] [address] PCP - General Internal Medicine 10/20/20 11/30/20 documented as of this encounter
--- OUTSIDE RECORDS SUMMARY | 2024-07-26 09:45 | XMS_ITS | Encounter Summary ---
Author Organization [facility] Address [address] [place] [address] Care Team Providers Care Primer Powder Blender Wet Name Role Phone Kurtis Cole MD Primary Care Provider [phone] Encounter Details Date Type Department Care Team Description 07/16/2021 Woodworking Shop Laborer Report Medical Records [address] [place], [place] [address] [place] [address] Social History Tobacco Use Types Packs/Day Years [...] on filedocumented in this encounter Care Teams Primer Powder Blender Wet Relationship Specialty Start Date End Date Kurtis Cole MD [address] [place] [address] PCP - General Internal Medicine 12/01/20 documented as of this encounter
--- OUTSIDE RECORDS SUMMARY | 2024-07-26 09:45 | XMS_ITS | Encounter Summary ---
Author Organization [facility] Address [address] [place] [address] Care Team Providers Care Union Carpenter Name Role Phone Kim Daley MD Primary Care Provider [facility] desirae Cole Ch MD Primary Care Provider [phone] Kurtis Cole MD Primary Care Provider [phone] Reason for Referral * EXTERNAL (Routine) - Authorized/Booked Specialty Diagnoses / Procedures Referred By Contac t Referred To Contact Neurology Procedures REFERRAL TO NEUROLOGY Kim Daley MD [address] [place] [address] Esa Lind MD [address] [place] [address] Referral ID Status Reason Start Date Expiration Date V isits Requested Visits Authorized [id number] Authorized/B ooked 08/11/2020 12/01/2020 1 1 Reason for Visit * Reason Onset Date Comments Heavy Machinery Operator Feedback 08/11/2020 [facility] neuro Encounter Details Date Type Department Care Team Description 08/11/2020 Telephone Adult Medicine - [place] [address] [place] [address] Kim Daley MD Heavy Machinery Operator Feedback ([facility] neuro) Social History Tobacco Use Types Packs/Day Years [...] Telephone Encounter - Kim Daley MD - 08/11/2020 9:33 AM EDT I have not met pt but reviewed her chart and signed referral which is reasonable * Telephone Encounter - Eamon Kirill - 08/11/2020 9:30 AM EDT Please review this patients new referral request. The referral has been pended. Please complete thefollowing: If approved> sign order If denied>please give instructions and route to your practice nursing pool. Practice nurse should inform referrals and the patient if denied. * Telephone Encounter - Juany Miller - 08/11/2020 9:26 AM EDT [facility] [phone] * Telephone Encounter - Juany Miller - 08/11/2020 9:23 AM EDT What insurance does the patient have today? A[employer] Effective 01/08/09: BCBS will not retro referral requests over 90 days. If request is for this please instruct patient to call the 800# on their insurance card to appeal. Do not submit a request. Referrals cannot be processed if the insurance is not accurate. If the insurance listed above in red is NO BILLING INFORMATION FOUND FOR THIS ENCOUTNER The patients correct insurance must be obtained and registered in [facility] or their referral can not be processed. Is this a retro request? NO. If yes for what date of service do you need the retro referral? N/A Who is calling to request this referral? the patient If the caller is not the patient, what is their name? N/A Ask the patient WHO referred them to this specialty: Patient self referred FIRST and LAST NAME of SPECIALIST PATIENT is seeing: esa lind What specialty is this? neuro DIAGNOSIS Patient is being seen for (Not a body part or a procedure): janeen second opinon Have you seen this SPECIALIST for this PROBLEM/DX before?NO If YES, when: Have you checked REVIEW or the APPT DESK to see if this referral has already been done or has visits left? NO Is this visit:Initial Visit Address of Specialist:[address] [place] [address] Phone # of Specialist:[phone] Fax #: (if applicable):[phone] Does patient have an appointment scheduled?: NO Date of appointment- (including a retro-request): Is this appointment related to: Not MVA, WC or Surgery related Vists: 6 documented in this encounter Plan of Treatment Not on file documented as of this encounter Visit Diagnoses Not on filedocumented in this encounter Care Teams Union Carpenter Relationship Specialty Start Date End Date Kim Daley MD PCP - General Internal Medicine 07/03/20 10/19/20 Kurtis Cole, [address] [place] [address] PCP - General Internal Medicine 12/01/20 Kurtis Cole MD [address] [place] [address] PCP - General Internal Medicine 10/20/20 11/30/20 documented as of this encounter
--- OUTSIDE RECORDS SUMMARY | 2024-07-26 09:45 | XMS_ITS | Encounter Summary ---
Author Organization [facility] Address [address] [place] [address] Care Team Providers Care Senior Marketing Engineer Name Role Phone Kurtis Cole MD Primary Care Provider [phone] Reason for Visit * Reason Onset Date Comments hospital follow up 07/20/2021 Encounter Details Date Type Department Care Team Description 07/20/2021 Telephone Adult Medicine [facility] [address] [place] [address] Kurtis Cole MD [address] [place] [address] hospital follow up Social History Tobacco Use Types [...] encounter Miscellaneous Notes * Telephone Encounter - [place] Lange M.A. - 07/28/2021 11:46 AM EDT Records faxed over and pu in [place] [place]. * Telephone Encounter - Florida Lange M.A. - 07/28/2021 10:32 AM EDT Sent faxed request to [facility] for records. * Telephone Encounter - Juany Miller - 07/28/2021 10:22 AM EDT Pt calling and states she was back I the hospital on 07/27 for 2 seizures, ct of head was done . Pt was sent home same day, to collect notes for 08/02 appointment with kerri * Telephone Encounter - Clover Rose M.A. - 07/20/2021 4:15 PM EDT Notes obtain and given to provider desk. * Telephone Encounter - Clover Rose M.A. - 07/20/2021 2:23 PM EDT Reguest send * Telephone Encounter - Angela Bess L.P.N. - 07/20/2021 2:17 PM EDT Pt has Appt on 08-02-21 at 900 am for hospital f/u [place] obtain [facility] [place] * Telephone Encounter - Wanda Montes De Oca - 07/20/2021 1:24 PM EDT Hospital follow up appointment needed Hospital patient was treated at: [facility] Was this only an ER visit or was the patient admitted to the hospital? Admitted to hospital Date of visit if ER visit only: N/A If patient was admitted what was the date of discharge? 07/18/21 Reason/diagnosis for visit or stay: multible seasures When was the patient told to follow up? 1 week Was visit or stay related to an injury? NO If yes, what was the date of injury (DOI)? N/A If yes, was the injury due to N/A documented in this encounter Plan of Treatment Not on file documented as of this encounter Visit Diagnoses Not on filedocumented in this encounter Care Teams Senior Marketing Engineer Relationship Specialty Start Date End Date Kurtis Cole MD [address] [place] [address] PCP - General Internal Medicine 12/01/20 documented as of this encounter
--- OUTSIDE RECORDS SUMMARY | 2024-07-26 09:45 | XMS_ITS | Encounter Summary ---
Author Organization [facility] Address [address] [place] [address] Care Team Providers Care Regional Sales Manager Name Role Phone Kurtis Cole MD Primary Care Provider [phone] Encounter Details Date Type Department Care Team Description 09/15/2021 Pt. Non Urgent Medic al Question Adult Medicine - [place] [address] [place] [address] Kurtis Cole MD [address] [place] [address] Social History Tobacco Use Types Packs/Day Years [...] suspected to have Coronavirus/COVID-19? No / Unsure 09/13/2021 1:09 PM EDT documented as of this encounter Plan of Treatment Not on file documented as of this encounter Visit Diagnoses Not on filedocumented in this encounter Care Teams Regional Sales Manager Relationship Specialty Start Date End Date Kurtis Cole MD [address] [place] [address] PCP - General Internal Medicine 12/01/20 documented as of this encounter
--- OUTSIDE RECORDS SUMMARY | 2024-07-26 09:45 | XMS_ITS | Encounter Summary ---
Author Organization [facility] Address [address] [place] [address] Care Team Providers Care Whiting Can Worker Name Role Phone Zoey Nunez MD Primary Care Provider [phone] Lela Gan MD Primary Care Provider Kim Salguero MD Primary Care Provider Brenda Cole Ch MD Primary Care Provider [phone] Kurtis Cole MD Primary Care Provider [phone] Reason for Visit * Reason Onset Date Comments Back Pain 03/29/2017 Encounter Details Date Type Department Care Team Description 03/29/2017 Telephone Adult Medicine [address] [phone] Zoey Nunez MD [address] [place] [address] [phone] Back Pain Social History Tobacco Use Types Packs/Day Years Used Date Smoking Tobacco: Never Alcohol Use Standard Drinks/Week Comments Yes 0 (1 standard drink = 0.6 oz pur e alcohol) occassionally Sex Assigned at Date Recorded Not on file Job Start Date Occupation Industry Not on file Not on file Not on file documented as of this encounter Miscellaneous Notes * Telephone Encounter - Millie Mercedes - 03/29/2017 3:33 PM EST Symptoms patient is presenting: the pt was seen by Dr Rees for back pain in January 2017, she has had mri testing but needs another med ordered for the pain If pain or injury related was it due to an accident at work or from a motor vehicle accident? NO If yes, gather 3rd libertarian insurance information Date of accident/Injury: How long has patient had these symptoms?: PCP: Zoey Nunez Payor: [employer] / Plan: POS $0 EL JHONATANO [id number] / Product Type: POS [id number] documented in this encounter Plan of Treatment Not on file documented as of this encounter Visit Diagnoses Not on filedocumented in this encounter Care Teams Whiting Can Worker Relationship Specialty Start Date End Date Zoey Nunez MD [address] [place] [address] PCP - General Internal Medicine 05/19/15 12/19/17 Lela Gan MD [address] [place] [address] PCP - General Internal Medicine 12/20/17 07/02/20 Kim Daley MD [address] [place] [address] PCP - General Internal Medicine 07/03/20 10/19/20 Kurtis Cole, [address] [place] [address] PCP - General Internal Medicine 12/01/20 Kurtis Cole MD [address] [place] [address] PCP - General Internal Medicine 10/20/20 11/30/20 documented as of this encounter
--- OUTSIDE RECORDS SUMMARY | 2024-07-26 09:45 | XMS_ITS | Encounter Summary ---
Author Organization [facility] Address [address] [place] [address] Care Team Providers Care Supervisor Sewer Maintenance Name Role Phone Kurtis Cole MD Primary Care Provider [phone] Reason for Visit * Reason Comments E-prescribe Rx Request Encounter Details Date Type Department Care Team Description 06/24/2023 Refill Adult Medicine [facility] [address] [place] [address] Juan Guzmán PA-C [address] [place] [address] E-prescribe Rx Request Social History Tobacco Use [...] filedocumented in this encounter Care Teams Supervisor Sewer Maintenance Relationship Specialty Start Date End Date Kurtis Cole MD [address] [place] [address] PCP - General Internal Medicine 12/01/20 documented as of this encounter
--- OUTSIDE RECORDS SUMMARY | 2024-07-26 09:45 | XMS_ITS | Encounter Summary ---
Author Organization [facility] Address [address] [place] [address] Care Team Providers Care Talend Etl Developer Name Role Phone Kurtis Cole MD Primary Care Provider [phone] Reason for Visit * Reason Onset Date Comments Medical Records 08/10/2021 Encounter Details Date Type Department Care Team Description 08/10/2021 Telephone OBGYN - [place] [address] [place] [address] Hernan Ibarra, Medical Records Social History Tobacco Use Types Packs/Day Years [...] encounter Miscellaneous Notes * Telephone Encounter - Jenny Sharma - 08/10/2021 9:57 AM EDT Neftaly mailed to confirmed home address - fax number given to pt incase she tries to have her previousgyn fax over her records documented in this encounter Plan of Treatment Not on file documented as of this encounter Visit Diagnoses Not on filedocumented in this encounter Care Teams Talend Etl Developer Relationship Specialty Start Date End Date Kurtis Cole MD [address] [place] [address] PCP - General Internal Medicine 12/01/20 documented as of this encounter
--- OUTSIDE RECORDS SUMMARY | 2024-07-26 09:45 | XMS_ITS | Encounter Summary ---
Author Organization [facility] Address [address] [place] [address] Care Team Providers Care Risk Assessor Name Role Phone Lela Gan MD Primary Care Provider Kim Salguero MD Primary Care Provider Brenda Cole Ch MD Primary Care Provider [phone] Kurtis Cole MD Primary Care Provider [phone] Encounter Details Date Type Department Care Team Description 01/25/2018 Barber Apprentice Report Medical Records [address] [place] [address] Fernando Jesus Social History Tobacco Use Types Packs/Day Years [...] on filedocumented in this encounter Care Teams Risk Assessor Relationship Specialty Start Date End Date Lela Gan MD PCP - General Internal Medicine 12/20/17 07/02/20 Kim Daley MD PCP - General Internal Medicine 07/03/20 10/19/20 Kurtis Cole MD [address] [place] [address] PCP - General Internal Medicine 12/01/20 Kurtis Cole MD [address] [place] [address] PCP - General Internal Medicine 10/20/20 11/30/20 documented as of this encounter
--- OUTSIDE RECORDS SUMMARY | 2024-07-26 09:45 | XMS_ITS | Encounter Summary ---
Author Organization [facility] Address [address] [place] [address] Care Team Providers Care Wax Machine Operator Name Role Phone Kurtis Cole MD Primary Care Provider [phone] Reason for Referral * EXTERNAL (Routine) - Authorized/Booked Specialty Diagnoses / Procedures Referred By Contadria t Referred To Contact Neurology Procedures REFERRAL TO NEUROLOGY Tia Prince PA-C [address] [place] [address] Juan Oliver MD Referral ID Status Reason Start Date Expiration Date V isits Requested Visits Authorized [id number] Authorized/B ooked 12/11/2020 03/12/2021 1 1 Reason for Visit * Reason Onset Date Comments REFERRAL 12/10/2020 Neurology Encounter Details Date Type Department Care Team Description 12/10/2020 Telephone Adult Medicine [address] [address] Tia Prince PA-C [address] [place] [address] REFERRAL (Neurology) Social History Tobacco Use Types Packs/Day Years [...] have Coronavirus / COVID-19? No / Unsure 12/01/2020 8:46 AM EDT documented as of this encounter Miscellaneous Notes * Telephone Encounter - Kurtis Cole MD - 12/11/2020 9:21 AM EDT Referral signed * Telephone Encounter - Lisa Alfrao - 12/10/2020 2:21 PM EDT Please review this patients new referral request. The referral has been pended. Please complete thefollowing: If approved> sign order If denied>please give instructions and route to your practice nursing pool. Practice nurse should inform referrals and the patient if denied. * Telephone Encounter - Carmen Goddard - 12/10/2020 2:08 PM EDT Pt states that they are nto taking faxes, they are only taking verbal referrals. * Telephone Encounter - Carmen Goddard - 12/10/2020 2:04 PM EDT What insurance does the patient have [...] insurance must be obtained and registered in [facility] or their referral can not be processed. Is this a retro request? NO. If yes for what date of service do you need the retro referral? N/A Who is calling to request this referral? Pt If the caller is not the patient, what is their name? N/A Ask the patient WHO referred them to this specialty: Patient saw tia prince at [facility] for the problem and was told if symptoms did not resolve or worsen they would refer them to this specialty FIRST and LAST NAME of SPECIALIST PATIENT is seeing: Arina What specialty is this? neorology DIAGNOSIS Patient is being seen for (Not a body part or a procedure): n/a Have you seen this SPECIALIST for this PROBLEM/DX before?NO If YES, when: Have you checked REVIEW or the APPT DESK to see if this referral has already been done or has visits left? NO Is this visit:Initial Visit Address of Specialist:[address] [place] [address] Phone # of Specialist:[phone] Fax #: (if applicable):[phone] Does patient have an appointment scheduled?: NO Date of appointment- (including a retro-request): Is this appointment related to: Not MVA, WC or Surgery related documented in this encounter Plan of Treatment Not on file documented as of this encounter Visit Diagnoses Not on filedocumented in this encounter Care Teams Wax Machine Operator Relationship Specialty Start Date End Date Kurtis Cole MD [address] [place] [address] PCP - General Internal Medicine 12/01/20 documented as of this encounter
--- OUTSIDE RECORDS SUMMARY | 2024-07-26 09:45 | XMS_ITS | Encounter Summary ---
Author Organization [facility] Address [address] [place] [address] Care Team Providers Care Calibration Checker Name Role Phone Kurtis Cole MD Primary Care Provider [phone] Reason for Visit * Reason Onset Date Comments Prior Authorization 10/30/2022 Encounter Details Date Type Department Care Team Description 10/30/2022 Pt. Non Urgent Medic al Question Adult Medicine - [place] [address] [place] [address] Kurtis Cole MD [address] [place] [address] Social History Tobacco Use Types Packs/Day Years [...] Telephone Encounter - Alice Paris M.A. - 10/31/2022 11:11 AM EDTFrom: Luda Caal To: Diana Cole Sent: 10/30/2022 10:33 PM EDT Subject: Recent Prescription you prescribed IMNO [facility] have put a hold on the prescription for the oxycodone 5mg because they need your office to contact them for approval being that i take Lorazepam, the pharmacy stated they did reach out to your office already on 10/28/22. Thank you. documented in this encounter Plan of Treatment Not on file documented as of this encounter Visit Diagnoses Not on filedocumented in this encounter Care Teams Calibration Checker Relationship Specialty Start Date End Date Kurtis Cole MD [address] [place] [address] PCP - General Internal Medicine 12/01/20 documented as of this encounter
== END 2024-07-26 09:49 | disposition home or self-care (01) ==
LOC: HO.HGI 09:17
PROVIDERS: PCP Internal Medicine; Visit Provider Nurse Practitioner Family
DX: A04.8 Other specified bacterial intestinal infections (principal); K59.09 Other constipation; R14.0 Abdominal distension (gaseous); K21.9 Gastro-esophageal reflux disease without esophagitis; R10.13 Epigastric pain; R10.32 Left lower quadrant pain
CPT/HCPCS: 99214; G2211

== ENCOUNTER 2024-08-01 07:21 | Outpatient (REF) | payer OTHER, SELFPAY ==
--- NOTE | ~2024-08-01 | CT_ITS ---
CLINICAL HISTORY: R10.9 - Unspecified abdominal pain CT abdomen and pelvis with IV contrast. Oral contrast was given. Comparison: None Findings: Lung bases show no active disease. No dependent layering pleural effusions. The heart is not enlarged. Coronary artery calcifications: None. Liver normal size and contour. Hepatic steatosis. Patent hepatic and portal veins. Physiologic distention of the gallbladder with no radiopaque gallstones. Homogeneous enhancement of the pancreas. No splenomegaly. Normal adrenal glands. Symmetrical renal excretion with no segmental or diffuse renal parenchymal disease or evidence of obstructive uropathy/hydroureteronephrosis. Normal caliber abdominal aorta. Bowel demonstrates a nonobstructive pattern. No free air. Oral contrast reaches the rectum.Normal appendix. Normal terminal ileum.No significant diverticular disease. No intraperitoneal, retroperitoneal, pelvic or inguinal masses lymphadenopathy or abnormal fluid collections. Post hysterectomy. Overdistended urinary bladder. No vertebral body compression fractures or spondylolisthesis. No bony destructive lesions. Impression: 1. Hepatic steatosis. No radiopaque gallstones. 2. Bowel demonstrates a nonobstructive pattern. No significant diverticular disease. Normal appendix. 3. Post hysterectomy. Overdistended urinary bladder. No renal parenchymal disease or evidence of obstructive uropathy This document has been electronically signed by: Marc Jeffries MD on 08/01/2024 11:29:03
--- OUTSIDE RECORDS SUMMARY | 2024-08-01 07:23 | XMS_ITS | Data Portability ---
Author Organization [facility] [address] Address [address] [place] [address] Assessment No assessment recorded. Plan of Treatment [...] SNOMED-CT Code Diagnosis ICD10 Code Diagnosis Note [id number] [facility] [address] [place] [phone] 06/12/2019 09:29:13 06/12/2019 09:50:33 [id number] [address] [place] [address] 12/25/2020 13:17:11 12/25/2020 15:46:33 [id number] [address] [place] [address] 08/30/2016 12:45:03 08/30/2016 13:36:15 [id number] [facility] [address] [place] [address] 10/31/2018 19:28:33 10/31/2018 20:01:54 [id number] [facility] [address] [place] [address] 03/27/2019 15:48:34 03/27/2019 16:27:23 Health Concerns Section Related Observation LastModified by Organization Detai ls LastModified Time None Recorded Concern Status LastModified by Organization Details LastModified Time None Recorded Advance Directives Directive None Recorded Payers Encounter Date Sequence Insurance Name Policy Number Policy Wright Covered Member ID Wright Member ID Guarantor Name 08/30/2016 1 AETDISHA [id number] Dean Caal [id number] Glendalie Sequoyah 10/31/2018 1 [employer] [id number] Dean Afua [id number] Glendalie Sequoyah 03/27/2019 1 AETNA [id number] Dean Sequoyah [id number] Glendalie Sequoyah 06/12/2019 1 AETNA [id number] Dean Sequoyah [id number] Glendalie Sequoyah 12/25/2020 1 AETNA [id number] [id number] Glendalie Afua OBGyn Episode No OBEpisode recorded.
--- OUTSIDE RECORDS SUMMARY | 2024-08-01 07:23 | XMS_ITS | Encounter Summary ---
Author Organization [facility] Address [address] [place] [address] Care Team Providers Care Financial Aid Administrator Name Role Phone Alice Cole MD Primary Care Prov ider Encounter Details Date Type Department Care Team (Late st Contact Info) Description 01/11/2024 5:00 PM EDT Hospital Encounter TH HISTORIC ENCOUNTERS EASTERN CONVERSION ONLY Michelle Plaza, PA [address] [place] [address] [place] [address] Social History Tobacco Use Types Packs/Day Years [...] for your loved ones. For example, child protection specialist or elderly care for an older adult? [...] Care Team (Late st Contact Info) Description 08/14/2024 2:20 PM EDT Office Visit Obstetrics and Gynecology [address] [phone] Peggy Noel, ROSE [address] [place] [address] 10/07/2024 10:15 AM EDT Office Visit [facility] Hematology Oncology [address] [place] [phone] Zenaida Rodrigues PA [address] [place] [address] 12/13/2024 1:15 PM EDT Office Visit Adult Medicine - [place] [address] [place] [phone] Alice Cole MD [address] [place] [address] documented as of this encounter Visit Diagnoses Not on filedocumented in this encounter Care Teams Financial Aid Administrator Relationship Specialty Start Date End Date Alice Cole MD PCP - General Internal Medicine 12/01/20 02/14/24 documented as of this encounter
--- OUTSIDE RECORDS SUMMARY | 2024-08-01 07:23 | XMS_ITS | Clinical Summary ---
Author Organization [facility] Address [address] [place] [address] Care Team Providers Care Hyperbaric Tech Name Role Phone Alice Cole MD Primary [...] 0 01/11/2023 Active ergocalciferol (VITAMIN D2) capsule 46072 units Take 1 capsule (50,000 Units total) [...] age to complete this topic Care Teams Hyperbaric Tech Relationship Specialty Start Date End Date Ailce Cole MD PCP - General Internal Medicine 02/25/22
--- OUTSIDE RECORDS SUMMARY | 2024-08-01 07:24 | XMS_ITS | Encounter Summary ---
Author Organization [employer] Address [address] [place] [address] Care Team Providers Care Spinning And Winding Supervisor Name Role Phone Alice Cole MD Primary Care Prov ider Reason for Visit * Reason Comments Anxiety Encounter Details Date Type Department Care Team ([facility] Contact Info) Description 07/30/2024 2:30 PM EDT Office Visit Adult Medicine [facility] [address] [place] [address] Juan Guzmán PA [address] [place] [address] Chronic right-sided low back pain with right-sided sciatica (Primary Dx); Encounter for long-term (current) use of high-risk medication; Opioid contract exists; Multiple sclerosis (CMS/HCC V24, CMS/HCC V28); Adjustment disorder with mixed anxiety and depressed mood; Chronic constipation Social History Tobacco Use Types Packs/Day Years [...] your loved ones. For example, child care supervisor or elderly care for an older adult? [...] Sign Reading Time Taken Comments Blood Pressure 111/79 07/30/2024 2:24 PM EDT Pulse 97 07/30/2024 2:24 PM EDT Temperature 36.8 ??C (98.2 ??F) 07/30/2024 2:24 PM ED T Respiratory Rate - - Oxygen Saturation - - Inhaled Oxygen Concentration - - Weight 84.8 kg (187 lb) 07/30/2024 2:24 PM EDT Height 157.5 cm (5' 2 ) 07/30/2024 2:24 PM EDT Body Mass Index 34.2 07/30/2024 2:24 PM EDT documented in this encounter Progress Notes * ROSE Del Valle - 07/30/2024 2:30 PM EDT CHIEF COMPLAINT: Anxiety IDENTIFIER: Luda Caal is a 44 y.o. old female. HPI: History of Present Illness The patient presents for a routine follow-up. Patient in for medication review. She is on controlled substance contract for intermittent lorazepam and oxycodone for chronic pain. - Specifically lorazepam and oxycodone - Oxycodone is taken as needed for radiating neck pain every other day, typically 1-2 tablets per episode - Monthly refills reported for both medications - Last urine drug screen in 10/2023, next due in 10/2024 Postoperative pain during urination and abnormal vaginal discharge - After surgery on 07/03/2024 - Examination by Lela Almanza revealed no fecal matter in the vagina - Consultation with service order clerk on 07/26/2024 led to scheduling of CT scan of abdomen and pelvis with and without contrast for - Persistent pain reported, including an episode this morning - No blood in stool, but suspected fecal discharge from vagina identified as dried blood - No fever or chills Severe constipation - Predates oxycodone use - Despite hydration and fiber intake, infrequent flatulence and small bowel movements reported, most recent this morning - Prescribed MiraLAX and Dulcolax by Quinton, and additional medications by service order clerk - Linzess discontinued due to watery stools Multiple sclerosis: - Recent switch to [facility] for MS care due to dissatisfaction with previous provider ROS: GENERAL: Negative for malaise, significant weight loss and fever HEENT: No changes in hearing or vision. No nosebleeds or other nasal problems NECK: Negative for lumps, goiter, pain, and significant neck swelling RESPIRATORY: No cough, wheezing or shortness of breath CARDIOVASCULAR: Negative for chest pain, leg swelling and palpitations GI: Negative for abdominal discomfort, changes in bowel habits, blood in stool or black stools ENDOCRINE: Negative for cold or heat intolerance, polyuria, polydipsia and goiter NEURO: No persistent headache, fainting, seizures, strokes, TIAs, weakness, numbness or tingling PAST MEDICAL HISTORY: Patient Active Problem List Diagnosis Date Noted Multiple sclerosis ([facility] V24, [facility] V28) 04/22/2022 Adjustment disorder with mixed anxiety and depressed mood 01/06/2021 Obesity (BMI 30-39.9) 12/01/2020 Seizure disorder ([facility] V24, [facility] V28) 09/15/2020 Thyroid nodule 09/26/2019 H. pylori infection 04/26/2019 Right-sided low back pain with right-sided sciatica 09/14/2015 SOCIAL HISTORY: Social History Tobacco Use Smoking status: Never Smokeless tobacco: Never Substance Use Topics Alcohol use: Not Currently FAMILY HISTORY: Family Status Relation Name Status Father Andi Alive MGM Neftali Alive Sister Alive Brother Alive MGF Mother Daughter Alive No partnership data on file Family History Problem Relation Name Age of Onset Cancer Father Andi Colon cancer Father Andi ? unknown, no contact with dad Diabetes Maternal Grandmother Neftali HTN, aneurysm No Known Problems Sister half maternal Seizures Brother half maternal Other (Other: overdose) Maternal Grandfather Other (Other: glioblastoma) Mother No Known Problems Daughter x4 healthy daughters ACTIVE MEDICATIONS: Outpatient Medications Marked as Taking for the 07/30/24 encounter (Office Visit) with ROSE Del Valle Medication Sig Dispense Refill baclofen (LIORESAL) 10 mg tablet Take 1 tablet (10 mg total) by mouth if needed. ergocalciferol (VITAMIN D-2) 1,250 mcg (50,000 unit) capsule Take by mouth 1 (one) time per week. esomeprazole (NexIUM) [address] capsule TAKE 1 CAPSULE BY MOUTH DAILY ferrous sulfate 325 mg (65 mg iron) EC tablet TAKE 1 TABLET BY MOUTH EVERY DAY LORazepam (ATIVAN) 1 mg tablet TAKE 0.5-1 TABLET BY MOUTH EVERY 6 HOURS NEEDED FOR ANXIETY. 30 tablet 2 multivitamin tablet Take by mouth. oxyCODONE (ROXICODONE) 5 mg immediate release tablet Take 1 tablet (5 mg total) by mouth every 6 (six) hours if needed (pain). Max Daily Amount: 20 mg 30 tablet 0 polyethylene glycol (PEG) 17 gram/dose oral powder Take 17 g by mouth 2 (two) times a day. [id number] GRAMS IN 8 OZ OF FLUID LIQUID DRINK DAILY DIRECTED 238 g 1 topiramate (TOPAMAX) 100 mg tablet Take 1.5 tablets by mouth 2 (two) times a day. valACYclovir (VALTREX) 1 gram tablet TAKE 2 TABLETS BY MOUTH 2 TIMES DAILY FOR 1 DAY. AT FIRST SIGNOF OUTBREAK. 4 tablet 2 ALLERGIES: Lamotrigine and Hydroxyzine PHYSICAL EXAM: Blood pressure 111/79, pulse 97, temperature 36.8 ??C (98.2 ??F), temperature source Temporal, height 1.575 m (62 ), weight 84.8 kg (187 lb), last menstrual period 12/04/2023. Body mass index is 34.2kg/m??. Plan is deferred until next visit APPEARANCE: Alert and in no acute distress EYES: PERRLA, conjunctiva and sclera normal NECK: Neck supple, no adenopathy, thyroid symmetric and of normal size HEART: RRR with normal S1 and S2, no murmurs, no gallops, no JVD appreciated LUNG: clear to auscultation bilaterally EXTREMITIES: Extremities warm and well perfused without clubbing, cyanosis, or edema NEURO: Awake, alert and oriented x 3 and reflexes symmetrical LABS: Office Visit on 07/25/2024 Component Date Value Ref Range Status Glucose UA POC 07/25/2024 Negative Negative, Trace mg/dL Final Bilirubin UA POC 07/25/2024 Negative Negative, Small Final Ketones UA POC 07/25/2024 Negative Negative, Trace Final Specific [place] UA POC 07/25/2024 1.010 Final Blood UA POC 07/25/2024 Trace (A) Negative, Large Final PH UA POC 07/25/2024 7.0 Final Protein UA POC 07/25/2024 Negative Negative, >=300 mg/dL Final Urobilinogen UA POC 07/25/2024 0.2 E.U./dL mg/dL Final Nitrite UA POC 07/25/2024 Negative Negative Final Leukocytes UA POC 07/25/2024 Negative Negative Final Admission on 07/03/2024, Discharged on 07/03/2024 Component Date Value Ref Range Status ABO Group 07/03/2024 A Final Rh Type 07/03/2024 Negative Final Antibody Screen 07/03/2024 Negative Final HCG, Ur POC 07/03/2024 Negative Negative In process POC hCG Int QC Pass? 07/03/2024 Yes Yes In process Final Diagnosis 07/03/2024 Final Value:Uterus, cervix, and bilateral fallopian tubes: Leiomyomata - Subserosal nodule with ischemic necrosis - No atypical features identified Adenomyosis, focally cystic Glandular atrophy and stromal pseudo-decidualization, consistent with progestin effect Chronic cervicitis Fallopian tubes without atypia or neoplasm Gross Description 07/03/2024 Final Value:A. Endometrium, Uterus, cervix and bilateral fallopian tubes: [...] cm in diameter. The ectocervical mucosa is cox- white, smooth and glistening with a central 1 x 0.4 cm ovoid os. The endocervical canal is 3 cm in length and has a cox-pink glistening endocervical mucosa. The endometrial cavity is5 cm in length by 4.5 cm and [...] and intramural) are cox-white, whorled, rubbery and well-circumscribed. The subserosal nodule displays foci of hemorrhage. The other nodule is devoid of hemorrhage, necrosis, or cystic degeneration. Also received in the same container are two fimbriated fallopian tube, measuring3.5 x 1 cm and 4.8 x 0.6 cm. Both fallopian tube have a pink- purple smooth, glistening serosa. Both fallopian tubes have a wall measuring up to 0.4 cm and a pinpoint lumen. Chisel Grinder sections are submitted as follows: 1, anterior [...] in cassettes 9-11, one piece each. MEGHA Disclaimer 07/03/2024 Final Value:Unless otherwise specified, all tissue is 10% NB formalin fixed and paraffin embedded. Appointment on 06/07/2024 Component Date Value Ref Range Status Sodium 06/07/2024 138 133 - 145 mmol/L Final Potassium 06/07/2024 3.9 3.5 - 5.5 mmol/L Final Chloride 06/07/2024 109 96 - 110 mmol/L Final CO2 06/07/2024 20 (L) 21 - 32 mmol/L Final Anion Gap 06/07/2024 9 3 - 11 Final Glucose 06/07/2024 99 70 - 100 mg/dL Final BUN 06/07/2024 7 5 - 25 mg/dL Final Creatinine 06/07/2024 0.72 0.50 - 1.10 mg/dL Final eGFR 06/07/2024 106 >=60 mL/min/1.73m2 Final Calculation based on the Chronic Kidney Disease Epidemiology Collaboration (CKD- EPI) equation refitwithout adjustment for race. BUN/Creatinine Ratio 06/07/2024 9.7 Final Calcium 06/07/2024 9.2 8.5 - 10.5 mg/dL Final WBC 06/07/2024 5.7 4.8 - 10.8 K/mcL Final RBC 06/07/2024 4.80 3.80 - 4.80 M/mcL Final Hemoglobin 06/07/2024 14.0 11.5 - 16.0 g/dL Final Hematocrit 06/07/2024 42.3 35.0 - 47.0 % Final MCV 06/07/2024 89.1 79.0 - 98.0 FL Final MCH 06/07/2024 29.5 27.0 - 32.0 pcg Final MCHC 06/07/2024 33.1 32.0 - 37.0 g/dL Final RDW 06/07/2024 15.7 (H) 11.0 - 15.0 % Final Platelets 06/07/2024 281 130 - 400 K/mcL Final MPV 06/07/2024 11.3 (H) 7.0 - 11.0 FL Final NRBC 06/07/2024 0.0 <1.0 % Final NRBC Absolute 06/07/2024 0.00 <0.10 K/mcL Final Neutrophils Relative 06/07/2024 56.5 % Final Lymphocytes Relative 06/07/2024 30.4 % Final Monocytes Relative 06/07/2024 9.4 % Final Eosinophils Relative 06/07/2024 2.8 % Final Basophils Relative 06/07/2024 0.7 % Final Immature Granulocytes Relative 06/07/2024 0.2 % Final Neutrophils Absolute 06/07/2024 3.20 1.50 - 7.00 K/mcL Final Lymphocytes Absolute 06/07/2024 1.72 1.00 - 5.00 K/mcL Final Monocytes Absolute 06/07/2024 0.53 0.20 - 1.00 K/mcL Final Eosinophils Absolute 06/07/2024 0.16 0.00 - 0.50 K/mcL Final Basophils Absolute 06/07/2024 0.04 0.00 - 0.20 K/mcL Final Immature Granulocytes Absolute 06/07/2024 0.01 0.00 - 0.03 K/mcL Final Appointment on 2024 Component Date Value Ref Range Status Ferritin 2024 27 8 - 252 ng/mL Final Iron 2024 71 40 - 150 mcg/dL Final TIBC 2024 373 250 - 450 mcg/dL Final Iron Saturation 2024 19 15 - 50 % Final Retic Ct Abs 2024 0.060 0.030 - 0.090 M/mcL Final Retic Ct Pct 2024 1.2 0.7 - 1.7 % Final Immature Retic Fract 2024 4.7 2.3 - 15.9 % Final Reticulocyte Hemoglobin 2024 34.6 >29.0 pcg Final WBC 2024 6.7 4.8 - 10.8 K/mcL Final RBC 2024 5.20 (H) 3.80 - 4.80 M/mcL Final Hemoglobin 2024 14.3 11.5 - 16.0 g/dL Final Hematocrit 2024 44.4 35.0 - 47.0 % Final MCV 2024 86.0 79.0 - 98.0 FL Final MCH 2024 27.7 27.0 - 32.0 pcg Final MCHC 2024 32.2 32.0 - 37.0 g/dL Final RDW 2024 14.7 11.0 - 15.0 % Final Platelets 2024 283 130 - 400 K/mcL Final MPV 2024 10.7 7.0 - 11.0 FL Final NRBC 2024 0.0 <1.0 % Final NRBC Absolute 2024 0.00 <0.10 K/mcL Final Neutrophils Relative 2024 71.5 % Final Lymphocytes Relative 2024 17.5 % Final Monocytes Relative 2024 8.3 % Final Eosinophils Relative 2024 1.8 % Final Basophils Relative 2024 0.6 % Final Immature Granulocytes Relative 2024 0.3 % Final Neutrophils Absolute 2024 4.82 1.50 - 7.00 K/mcL Final Lymphocytes Absolute 2024 1.18 1.00 - 5.00 K/mcL Final Monocytes Absolute 2024 0.56 0.20 - 1.00 K/mcL Final Eosinophils Absolute 2024 0.12 0.00 - 0.50 K/mcL Final Basophils Absolute 2024 0.04 0.00 - 0.20 K/mcL Final Immature Granulocytes Absolute 2024 0.02 0.00 - 0.03 K/mcL Final Appointment on 03/06/2024 Component Date Value Ref Range Status Sodium 03/06/2024 140 133 - 145 mmol/L Final Potassium 03/06/2024 3.8 3.5 - 5.5 mmol/L Final Chloride 03/06/2024 111 (H) 96 - 110 mmol/L Final CO2 03/06/2024 22 21 - 32 mmol/L Final Anion Gap 03/06/2024 7 3 - 11 Final Glucose 03/06/2024 90 70 - 100 mg/dL Final BUN 03/06/2024 11 5 - 25 mg/dL Final Creatinine 03/06/2024 0.74 0.50 - 1.10 mg/dL Final eGFR 03/06/2024 103 >=60 mL/min/1.73m2 Final Calculation based on the Chronic Kidney Disease Epidemiology Collaboration (CKD- EPI) equation refitwithout adjustment for race. BUN/Creatinine Ratio 03/06/2024 14.9 Final Calcium 03/06/2024 9.7 8.5 - 10.5 mg/dL Final AST (SGOT) 03/06/2024 11 10 - 42 unit/L Final ALT (SGPT) 03/06/2024 27 10 - 60 unit/L Final Alkaline Phosphatase 03/06/2024 75 42 - 121 unit/L Final Total Protein 03/06/2024 7.8 6.0 - 8.0 g/dL Final Albumin 03/06/2024 4.5 3.2 - 5.0 g/dL Final Total Bilirubin 03/06/2024 0.3 0.0 - 1.4 mg/dL Final Iron 03/06/2024 40 40 - 150 mcg/dL Final TIBC 03/06/2024 476 (H) 250 - 450 mcg/dL Final Iron Saturation 03/06/2024 8 (L) 15 - 50 % Final WBC 03/06/2024 7.1 4.8 - 10.8 K/mcL Final RBC 03/06/2024 4.60 3.80 - 4.80 M/mcL Final Hemoglobin 03/06/2024 12.6 11.5 - 16.0 g/dL Final Hematocrit 03/06/2024 41.6 35.0 - 47.0 % Final MCV 03/06/2024 89.7 79.0 - 98.0 FL Final MCH 03/06/2024 27.2 27.0 - 32.0 pcg Final MCHC 03/06/2024 30.3 (L) 32.0 - 37.0 g/dL Final RDW 03/06/2024 16.0 (H) 11.0 - 15.0 % Final Platelets 03/06/2024 317 130 - 400 K/mcL Final MPV 03/06/2024 11.2 (H) 7.0 - 11.0 FL Final NRBC 03/06/2024 0.0 <1.0 % Final NRBC Absolute 03/06/2024 0.00 <0.10 K/mcL Final Neutrophils Relative 03/06/2024 69.0 % Final Lymphocytes Relative 03/06/2024 21.2 % Final Monocytes Relative 03/06/2024 7.5 % Final Eosinophils Relative 03/06/2024 1.4 % Final Basophils Relative 03/06/2024 0.6 % Final Immature Granulocytes Relative 03/06/2024 0.3 % Final Neutrophils Absolute 03/06/2024 4.88 1.50 - 7.00 K/mcL Final Lymphocytes Absolute 03/06/2024 1.50 1.00 - 5.00 K/mcL Final Monocytes Absolute 03/06/2024 0.53 0.20 - 1.00 K/mcL Final Eosinophils Absolute 03/06/2024 0.10 0.00 - 0.50 K/mcL Final Basophils Absolute 03/06/2024 0.04 0.00 - 0.20 K/mcL Final Immature Granulocytes Absolute 03/06/2024 0.02 0.00 - 0.03 K/mcL Final Procedure visit on 02/16/2024 Component Date Value Ref Range Status Final Diagnosis 02/16/2024 Final Value:Endometrial biopsy: Glandular atrophy and stromal pseudo-decidualization, consistent with progestin effect Inactive endometrium Endometrial breakdown No endometrial polyp, hyperplasia or neoplasm identified Gross Description 02/16/2024 Final Value:A. Endometrium, : Labeled with the patient's name and information. Received in formalin is an approximately 1.4 x 1.4x 0.3 cm aggregate of soft to mucoid, cox-red to brown, blood clotted tissue fragments, which is wrapped in paper and submitted in toto in one cassette, multiple pieces, x2. Please note: Small tissuefragments may not survive processing. Disclaimer 02/16/2024 Final Value:Unless otherwise specified, all tissue is 10% NB formalin fixed and paraffin embedded. Abstract on 01/23/2024 Component Date Value Ref Range Status HM Pap smear 06/07/2019 Abstracted, No interpretation Final LDL/HDL Ratio 11/16/2023 3 0 - 4 Final Triglycerides 11/16/2023 156 (A) 0 - 150 mg/dL Final Cholesterol 11/16/2023 208 (A) 0 - 200 mg/dL Final HDL 11/16/2023 68 >=40 mg/dL Final LDL Cholesterol 11/16/2023 109 (A) 0 - 100 mg/dL Final IMPRESSION: 1. Multiple sclerosis (CMS/HCC V24, CMS/HCC V28) 2. Chronic right-sided low back pain with right-sided sciatica 3. Adjustment disorder with mixed anxiety and depressed mood 4. Encounter for long-term (current) use of high-risk medication 5. Chronic constipation PLAN: I have obtained verbal consent from Luda Caal prior to the recording. I have advised Carmenjose Afua that she may refuse the recording and require the recording to be turned off at any time during this encounter. Assessment & Plan 1. Pain management - Uses oxycodone for radiating neck pain, typically 1-2 pills every other day - Urine drug screen last performed in 10/2023; next due in 10/2024 - Blood work done for preoperative evaluation - PDMP checked for compliance and safety 2. Anxiety - Taking lorazepam for anxiety - Recent refill confirmed - No changes to medication regimen needed 3. Post-surgical complications - Reports pain during urination and abnormal vaginal discharge - No fever or chills - CT scan of abdomen and pelvis with and without contrast scheduled for 08/01/2024 - GI doctor and nurse practitioner involved in ongoing assessment 4. Constipation - Severe constipation ongoing before oxycodone use - Last bowel movement small, occurred this morning with MiraLAX use - Continue MiraLAX twice a day and Dulcolax 2 tablets at night as prescribed by GI doctor - Linzess discontinued due to adverse effects 5. MS: She will make sure her new provider sends us consult notes. Discussed signs and symptoms warranting reevaluation. Risks, benefits, and side-effects of the medication were discussed and the patient expressed verbalunderstanding and consents to the plan. Followup as necessary. This note was created using dictation software and may contain syntax and grammar errors. Orders Placed This Encounter Procedures Drug abuse screen expanded with reflex confirmation, urine ADDITIONAL ORDERS: None ROSE Del Valle on 07/30/2024 at 5:52 PM EDT documented in this encounter Plan of Treatment Upcoming Encounters Date Type Department Care Team (Late st Contact Info) Description 08/14/2024 2:20 PM EDT Office Visit Obstetrics and Gynecology - [place] [id number] [place] [address] Peggy Noel PA [address] [place] [address] 10/07/2024 10:15 AM EDT Office Visit [facility] Hematology Oncology [address] [place] [address] Zenaida Rodrigues PA [address] [place] [address] 12/13/2024 1:15 PM EDT Office Visit Adult Medicine - [place] [address] [place] [address] Alice Cole MD [address] [place] [address] Scheduled Orders Name Type Priority Associated Diagnoses Orde r Schedule Drug abuse screen expanded with reflex confirmation, urine Lab Routine Encounter for long-term (current) use of high-risk medication 1 Occurrences starting 07/30/2024 until 07/30/2025 documented as of this encounter Visit Diagnoses Diagnosis Chronic right-sided low back pain with right-sided sciatica- Primary Encounter for long-term (current) use of high-risk medication Encounter for long-term (current) use of other medications Opioid contract exists Multiple sclerosis ([facility] V24, [facility] V28) Multiple sclerosis Adjustment disorder with mixed anxiety and depressed mood Chronic constipation Unspecified constipation documented in this encounter Discontinued Medications Medication Sig Discontinue Reason Start Date End Da te simethicone (MYLICON) 80 mg chewable tablet Chew 1 tablet (80 mg total) every 6 (six) hours if needed (gas pain / bloating). 07/03/2024 07/30/2024 documented as of this encounter Additional Health Concerns Assessment Noted Time PHQ-9 Depression Total Score: 1 07/23/19 25 9:36 PM EDT documented as of this encounter Care Teams Spinning And Winding Supervisor Relationship Specialty Start Date End Date Alice Cole MD [address] [place] [id number] PCP - General Internal Medicine 02/15/24 documented as of this encounter
--- OUTSIDE RECORDS SUMMARY | 2024-08-01 07:24 | XMS_ITS | Clinical Summary ---
Author Organization [facility] Address [address] [place] [address] Phone Care Team Providers Care Day Guard Name Role Phone Alice Cole MD Primary Care Prov ider Allergies Active Allergy Reactions Criticality Noted Date Comments Hydroxyzine Hives Low 03/31/2022 Heat rash on torso- Resolved on discontinuation Lamotrigine Rash 02/25/2022 Medications baclofen (LIORESAL) 10 mg tablet Take 1 tablet (10 mg total) by mouth if needed. 023 Active ergocalciferol (VITAMIN D-2) 1,250 mcg [...] FIRST SIGN OF OUTBREAK. 4 tablet 2 01/17/2 025 Active polyethylene glycol (PEG) 17 gram/dose oral powder Take 17 g by mouth 2 (two) times a day. DISSOLVE 17 GRAMS IN 8 OZ OF FLUID LIQUID DRINK DAILY DIRECTED 238 g 1 Active oxyCODONE (ROXICODONE) 5 mg immediate release [...] Take 3 hours after tylenol 20 tablet 025 2024 ondansetron ODT (ZOFRAN-ODT) 4 mg disintegrating [...] 20 mg 6 each 025 2024 Discontinued simethicone (MYLICON) 80 mg chewable tablet Chew 1 tablet (80 mg total) every 6 (six) hours if needed (gas pain / bloating). 10 tablet 2024 Discontinued Active Problems Problem Noted Date Diagnosed Date Opioid contract exists 07/30/2024 Multiple sclerosis ([facility] V24, [facility] V28) Adjustment disorder with mixed anxiety and depre ssed mood 01/06/2021 Obesity (BMI 30-39.9) 12/01/2020 Seizure disorder (CMS/HCC V24, [facility] V28) 06/11/2020 Thyroid nodule 09/26/2019 Overview (01/23/2024): Status post [...] Encounters Date Type Department Care Team Description 07/30/2024 2:30 PM EDT Office Visit Adult Medicine [address] [phone] Juan Guzmán PA Chronic right-sided low back pain with right-sided sciatica (Primary Dx); Encounter for long-term (current) use of high-risk medication; Opioid contract exists; Multiple sclerosis (CMS/HCC V24, CMS/HCC V28); Adjustment disorder with mixed anxiety and depressed mood; Chronic constipation 07/25/2024 3:15 PM EDT Office Visit Obstetrics and Gynecology - [address] [place] [address] Lela Almanza DO Fecal fistula (Primary Dx); Vaginal bleeding; Noncyclic pelvic pain in female 07/24/2024 Telephone Obstetrics and Gynecology - [address] [phone] Rosie Hernandez MD Post-op 07/23/2024 1:20 PM EDT Office Visit Obstetrics and [facility] - [address] [phone] Peggy Noel PA Status post hysterectomy (Primary Dx); Postop check 07/09/2024 Telephone Obstetrics and Gynecology - [address] [phone] Rosie Hernandez MD Post-op 07/03/2024 7:31 AM EDT Anesthesia Event [address] [phone] Alex Be MD Hall, Morriana, SRNA 07/03/2024 7:30 AM EDT - 07/03/2024 10:30 AM EDT Surgery [facility] OR [address] [place] [phone] Rosie Hernandez MD DAVINCI TOTAL HYSTERECTOMY [24565 (CPT??)] 07/03/2024 5:52 AM EDT - 07/03/2024 12:21 PM EDT Hospital Encounter [address] [phone] Rosie Hernandez MD Acute postoperative pain (Primary Dx); Menorrhagia with irregular cycle Discharge Disposition: Home or Self Care 07/02/2024 Telephone Urogynecology - [address] [phone] Amanda Richmond MA surgery moved 06/19/2024 Telephone Obstetrics and Gynecology [address] [phone] Peggy Noel PA Forms/questionnaires 06/13/2024 3:30 PM EST Consult Obstetrics and Gynecology - [address] [phone] Peggy Noel PA Pre-op exam (Primary Dx); Iron deficiency anemia due to chronic blood loss; Abnormal uterine bleeding (AUB) 06/10/2024 10:00 AM EST Consult Adult Medicine - [address] [phone] Alice Cole MD Preop examination (Primary Dx); DUB (dysfunctional uterine bleeding) 06/07/2024 Telephone Obstetrics and Gynecology - [address] [phone] Naomie Harvey, INDIO 05/08/2024 Telephone Obstetrics and Gynecology - [address] [phone] Rosie Hernandez MD from Last 3 Months Immunizations Name Administration Dates Next Due Influenza trivalent, 0.5mL, preservative free (Fluarix; FluLaval; Fluzone) ages 6mo and older (Afluria) 3 years and older 01/29/2019,01/06/2016 Pfizer SARS-CoV-2 COVID-19, mRNA, LNP-S, preservative free 09/22/2020,09/01/2020 Surgical History Surgery Date Site/Laterality Comments TUBAL LIGATION PROCEDURE:TUBAL LIGATION LUMBAR LAMINECTOMY 04/2017 PROCEDURE:LUMBAR LAMINECTOMY TUBAL LIGATION 04/14/2000 PROCEDURE: HISTORICAL TUBAL LIGATION; COMMENT: [facility] LUMBAR LAMINECTOMY 04/2017 PROCEDURE: HISTORICAL LUMB LAMINECTOMY; COMMENT: spinal cord detethering-- Dr. Parra COLONOSCOPY UPPER GASTROINTESTINAL ENDOSCOPY HYSTERECTOMY TOTAL CERVIX REMOVED 06/08/2024 - 07/08/2024 with bilateral tubes, path benign Medical History Medical History Date Comments Seizure disorder ([facility] V2 4, [facility] V28) DX:Seizure disorder (HCC) Thyroid nodule DX:Thyroid nodul e Adjustment disorder with mix ed anxiety and depressed mood DX:Adjustment disorder with mixed anxiety and depressed mood Seizure disorder ([facility]/HCC V2 4, [facility] V28) 09/15/2020 DX:Seizure disorder (HCC) Multiple sclerosis ([facility] V24, [facility] V28) 05/02/2022 DX:Multiple sclerosis (HCC) GERD (gastroesophageal reflu x disease) Anxiety Multiple sclerosis exacerbat ion ([facility] V24, [facility] V28) Positive PRINCESS (antinuclear antibody) 04/14/2021 Hx [...] more recently dry Pain in wrist 09/25/2012 Anemia 2020 Depression 2020 Family History Medical History Relation Name Comments Seizures Brother half maternal No Known Problems Daughter x4 healthy daughters Cancer Father Andi Colon cancer Father Andi ? unknown, no c ontact with dad Other: overdose Maternal Grandfather Diabetes Maternal Grandmother Neftali HTN, an eurysm Other: glioblastoma Mother No Known Problems Sister half mater nal Relation Name Status Comments Brother Alive Daughter Alive Father Andi Alive Maternal Grandfather Maternal Grandmother Neftali Alive Mother Sister Alive Social History Tobacco [...] for your loved ones. For example, child welfare director or elderly care for an older [...] 07/30/2024 2:24 PM ED T Respiratory Rate 12 07/23/2024 1:24 PM EDT Oxygen Saturation 98% 07/03/2024 10:56 AM EDT Inhaled Oxygen Concentration - - Weight 84.8 kg (187 lb) 07/30/2024 2:24 PM EDT Height 157.5 cm (5' 2 ) 07/30/2024 2:24 PM EDT Body Mass Index 34.2 07/30/2024 2:24 PM EDT Plan of Treatment Upcoming Encounters Date Type Department Care Team (Late st Contact Info) Description 08/14/2024 2:20 PM EDT Office Visit Obstetrics and Gynecology [address] [phone] Peggy Noel PA [address] [place] [address] 10/07/2024 10:15 AM EDT Office Visit [facility] Hematology Oncology [address] [place] [phone] Zenaida Rodrigues PA [address] [place] [address] 12/13/2024 1:15 PM EDT Office Visit Adult Medicine [facility] [address] [place] [address] Alice Cole MD [address] [place] [address] Health Maintenance Due Date Last Done Comments [...] Procedure Name Priority Date/Time Associated Diagnosis Comments EXTERNAL CLINICAL LAB 07/26/2024 POC URINE AUTO W/O MICRO Routine 07/25/2024 2:51 PM EDT Vaginal bleeding TISSUE EXAM Routine 07/03/2024 8:30 AM EDT Menorrhagia with irregular cycle TH AN ENDOTRACHEAL(NO CHARGE) Routine 07/03/2024 8:15 AM EDT [place] [facility] SUR[facility] W TOTAL HYSTERECTOMY FOR UTERUS [...] Recently Relevant to Health Maintenance Results * External clinical lab (07/26/2024) [facility] [place] [facility] BLOOD ORDERABLES Fin al Result * (ABNORMAL) POC Urine Auto W/O Micro (07/25/2024 2:51 PM EDT) Glucose UA POC Negative Negative, Trace mg/dL Bilirubin UA POC Negative Negative, Small Ketones UA POC Negative Negative, Trace Specific [place] UA POC 1.010 Blood UA POC Trace(A) [...] atypia or neoplasm 07/05/2024 12:11 PM EDT [facility]) [facility] Gross Description A. Endometrium, Uterus, [...] to 0.4 cm and a pinpoint lumen. Radiator Tester sections are submitted as follows: 1, anterior [...] piece each. MEGHA 07/05/2024 12:11 PM EDT [facility] Disclaimer Unless otherwise specified, all tissue is 10% NB formalin fixed and paraffin embedded. 07/05/2024 12:11 PM EDT [facility] Tissue Endometrial structure / Unknown 07/03/2024 8:30 AM EDT 07/03/2024 10:11 AM EDT Rosie Hernandez MD LAB PATHOLOGY ORDERABLES Fi nal Result [facility] [address] [place] [address], * TH AN ENDOTRACHEAL(NO CHARGE) (07/03/2024 8:15 AM EDT) Narrative Betzy Keen SRNA - 07/03/2024 8:15 AM EDT ALYSSA Galloway ? 07/03/2024 ??8:56 AM General Information and Staff Patient location during procedure: OR Resident/INDUSTRIAL GARAGE SERVICER: ALYSSA Galloway Performed by: ALYSSA aGlloway Authorized by: Alex Be MD ?? Intubation [...] difficulty assessment: 1 - vent by mask Alex Be MD ANESTHESIA ORDERABLES Edited R esult - Final * Type and screen (07/03/2024 7:05 AM EDT) [facility] ABO Group A 07/03/2024 9:19 AM EDT [facility] Rh Type Negative 07/03/2024 9:19 AM EDT [facility] Antibody Screen Negative 07/03/2024 9:19 AM EDT [facility] Blood Venous blood specimen / Unknown Venipuncture / Unknown 07/03/2024 7:05 AM EDT 07/03/2024 8:25 AM EDT Rosie Hernandez MD LAB BLOOD BANK TEST ORDERAB LES Final Result [facility] [address] [place] [address], * (ABNORMAL) CBC auto differential (06/07/2024 1:47 PM EST) Pathologist [facility] WBC 5.7 4.8 - 10.8 K/[facility] LAB HEMETOLOGY METHOD 06/07/2024 4:47 PM EST [facility] RBC 4.80 3.80 - 4.80 M/[facility] LAB HEMETOLOGY METHOD 06/07/2024 4:47 PM EST [facility] Hemoglobin 14.0 11.5 - 16.0 g/dL LAB HEMETOLOGY METHOD 06/07/2024 4:47 PM [facility] Hematocrit 42.3 35.0 - 47.0 % LAB HEMETOLOGY METHOD 06/07/2024 4:47 PM [facility] MCV 89.1 79.0 - 98.0 FL LAB HEMETOLOGY METHOD 06/07/2024 4:47 PM [facility] MCH 29.5 27.0 - 32.0 pcg LAB HEMETOLOGY METHOD 06/07/2024 4:47 PM [facility] MCHC 33.1 32.0 - 37.0 g/dL LAB HEMETOLOGY METHOD 06/07/2024 4:47 PM [facility] RDW 15.7(H) 11.0 - 15.0 % LAB HEMETOLOGY METHOD 06/07/2024 4:47 PM [facility] Platelets 281 130 - 400 K/mcL LAB HEMETOLOGY METHOD 06/07/2024 4:47 PM [facility] MPV 11.3(H) 7.0 - 11.0 FL LAB HEMETOLOGY METHOD 06/07/2024 4:47 PM [facility] NRBC 0.0 <1.0 % LAB HEMETOLOGY METHOD 06/07/2024 4:47 PM [facility] NRBC Absolute 0.00 <0.10 K/mcL LAB HEMETOLOGY METHOD 06/07/2024 4:47 PM [facility] Neutrophils Relative 56.5 % LAB HEMETOLOGY METHOD 06/07/2024 4:47 PM [facility] Lymphocytes Relative 30.4 % LAB HEMETOLOGY METHOD 06/07/2024 4:47 PM [facility] Monocytes Relative 9.4 % LAB HEMETOLOGY METHOD 06/07/2024 4:47 PM [facility] Eosinophils Relative 2.8 % LAB HEMETOLOGY METHOD 06/07/2024 4:47 PM [facility] Basophils Relative 0.7 % LAB HEMETOLOGY METHOD 06/07/2024 4:47 PM [facility] Immature Granulocytes Relative 0.2 % LAB HEMETOLOGY METHOD 06/07/2024 4:47 PM [facility] Neutrophils Absolute 3.20 1.50 - 7.00 K/mcL LAB HEMETOLOGY METHOD 06/07/2024 4:47 PM [facility] Lymphocytes Absolute 1.72 1.00 - 5.00 K/mcL LAB HEMETOLOGY METHOD 06/07/2024 4:47 PM [facility] Monocytes Absolute 0.53 0.20 - 1.00 K/mcL LAB HEMETOLOGY METHOD 06/07/2024 4:47 PM [facility] Eosinophils Absolute 0.16 0.00 - 0.50 K/mcL LAB HEMETOLOGY METHOD 06/07/2024 4:47 PM [facility] Basophils Absolute 0.04 0.00 - 0.20 K/mcL LAB HEMETOLOGY METHOD 06/07/2024 4:47 PM [facility] Immature Granulocytes Absolute 0.01 0.00 - 0.03 K/mcL LAB HEMETOLOGY METHOD 06/07/2024 4:47 PM [facility] Blood Venous blood specimen / Unknown Venipuncture / Unknown 06/07/2024 1:47 PM EST 06/07/2024 1:48 PM EST us Rosie Hernandez MD LAB BLOOD ORDERABLES Final Result [facility] [address] [place] [address], * (ABNORMAL) Basic metabolic panel (06/07/2024 1:47 PM EST) Sodium 138 133 - 145 mmol/L LAB CHEMISTRY METHOD 06/07/2024 9:07 PM [facility] Potassium 3.9 3.5 - 5.5 mmol/L LAB CHEMISTRY METHOD 06/07/2024 9:07 PM [facility] Chloride 109 96 - 110 mmol/L LAB CHEMISTRY METHOD 06/07/2024 9:07 PM [facility] CO2 20(L) 21 - 32 mmol/L LAB CHEMISTRY METHOD 06/07/2024 9:07 PM [facility] Anion Gap 9 3 - 11 LAB CHEMISTRY METHOD 06/07/2024 9:07 PM [facility] Glucose 99 70 - 100 mg/dL LAB CHEMISTRY METHOD 06/07/2024 9:07 PM [facility] BUN 7 5 - 25 mg/dL LAB CHEMISTRY METHOD 06/07/2024 9:07 PM [facility] Creatinine 0.72 0.50 - 1.10 mg/dL LAB CHEMISTRY METHOD 06/07/2024 9:07 PM [facility] eGFR 106 >=60 mL/min/1. 73m2 LAB CHEMISTRY METHOD 06/07/2024 9:07 PM [facility] Comment:Calculation based on the??Chronic Kidney Disease Epidemiology Collaboration (CKD-EPI) equation refit??without adjustment for race. BUN/Creatinine Ratio 9.7 LAB CHEMISTRY METHOD 06/07/2024 9:07 PM [facility] Calcium 9.2 8.5 - 10.5 mg/dL LAB CHEMISTRY METHOD 06/07/2024 9:07 PM [facility] Blood Venous blood specimen / Unknown Venipuncture / Unknown 06/07/2024 1:47 PM EST 06/07/2024 1:48 PM EST Rosie Hernandez MD LAB BLOOD ORDERABLES Final Result [place]YOTI HOANG [place] ([facility]) [facility] [address] [place] [address], * Pap smear (01/12/2024) 01/12/2024 Narrative HISTORICAL TESTING LAB RESULTING AGENCY - 01/24/2024 6:30 AM EDT [id number] THINPREP PAP, IMAGED: NEGATIVE FOR SQUAMOUS INTRAEPITHELIAL [...] mg/dL Blood Venous blood specimen / Unknown us Historical Provider LAB BLOOD ORDERABLES Leia l Result from Last 3 Months or Most Recently Relevant to Health Maintenance Insurance MEDICARE [employer] Care Teams Day Guard Relationship Specialty Start Date End Date Alice Cole MD [address] [place] [id number] PCP - General Internal Medicine 02/15/24
[2024-08-01] MEDS: iohexoL 350 MG/ML 100 ML INFUS..BTL IV (10:38)
== END 2024-08-01 07:22 | disposition home or self-care (01) ==
LOC: HO.CT 07:21
PROVIDERS: PCP Internal Medicine; Visit Provider Nurse Practitioner Family
DX: R10.32 Left lower quadrant pain (principal); R10.9 Unspecified abdominal pain
CPT/HCPCS: 74177; Q9967

== ENCOUNTER → 2024-08-01 07:23 | Outpatient (BNV) | payer OTHER, SELFPAY | PROVIDERS: PCP Internal Medicine; Visit Provider Radiology Diagnostic Radiology | DX: K76.0 Fatty (change of) liver, not elsewhere classified (principal); Z90.710 Acquired absence of both cervix and uterus | CPT/HCPCS: 74177 ==